=== PATIENT | male | born 1970 | race Two or more races ===

== ENCOUNTER 2020-10-22 10:35 | Outpatient (REF) | payer MEDICARE, OTHER, SELFPAY ==
--- NOTE | ~2020-10-22 | XR_ITS ---
EXAMINATION: XR SHOULDER, LEFT CLINICAL INFORMATION: Left shoulder lesion COMPARISON: None TECHNIQUE: AP external rotation, Grashey, scapular Y, and axillary views of the left shoulder. FINDINGS: There is mild reduction in the left AC joint space with periarticular spurring. The glenohumeral joint space is normal. No bony erosive changes. There is no acute fracture or dislocation seen. The soft tissues are normal. XR/XR shoulder LT min 2V IMPRESSION: Mild degenerative changes left AC joint. No visible acute fracture or dislocation seen.
--- NOTE | ~2020-10-22 | XR_ITS ---
EXAMINATION: XR CHEST CLINICAL INFORMATION: Chest pain COMPARISON: Previous chest x-ray August 2017 TECHNIQUE: 2 views of the chest were obtained. FINDINGS: The cardiac and mediastinal contours are normal. The lungs are clear. There is no pleural effusion or pneumothorax. There are degenerative changes of the spine. XR/XR chest 2V IMPRESSION: Unremarkable examination.
== END 2020-10-22 10:36 | disposition home or self-care (01) ==
LOC: HO.XRAY 10:35
PROVIDERS: PCP Internal Medicine; Visit Provider Internal Medicine
DX: R07.9 Chest pain, unspecified (principal); M75.81 Other shoulder lesions, right shoulder
CPT/HCPCS: 71046; 73030

== ENCOUNTER 2022-04-14 18:56 | Outpatient (REF) | payer MEDICARE, OTHER, SELFPAY ==
--- NOTE | ~2022-04-14 | MR_ITS ---
EXAMINATION: MR CERVICAL SPINE WITHOUT CONTRAST CLINICAL INFORMATION: Radiculopathy. COMPARISON: There are no prior studies available for comparison. TECHNIQUE: MRI of the cervical spine was obtained using routine sequences without contrast. FINDINGS: VERTEBRAL BODIES AND PARASPINAL SOFT TISSUES: There is straightening of the normal cervical lordosis which is nonspecific. There is a mild dextroscoliosis in the upper thoracic spine. There is mild multilevel narrowing of intervertebral disc height which is most severe at C5-C6 and C6-C7. Vertebral body heights maintained and no fractures are demonstrated. Overall, marrow signal appears homogenous. There are a few small cervical lymph nodes. The visualized upper lung cannon are unremarkable. CERVICOMEDULLARY JUNCTION AND VISUALIZED POSTERIOR FOSSA: The craniocervical and posterior fossa structures are normal. Accounting for artifact, spinal cord signal appears normal. SPINAL LEVELS: C2-C3: There is a small left paracentral disc protrusion without cord compression or central stenosis. The neural foramina are patent bilaterally. C3-C4: There is a left paracentral disc protrusion which distorts the ventral thecal sac and there is mild effacement of CSF around the cord. There is no cord compression or central stenosis. There are uncovertebral osteophytes and is mild bilateral foraminal narrowing. C4-C5: There is a posterior disc protrusion with a more focal soft disc protrusion in the midline which distorts the ventral thecal sac without cord compression or central stenosis. There are uncovertebral osteophytes and there is moderate left and mild right foraminal narrowing. C5-C6: There is a left-sided soft disc protrusion which distorts the ventral thecal sac and mildly deforms the spinal cord. There is effacement of CSF around the cord and there is mild central stenosis. There are uncovertebral osteophytes and there is severe left and mild right foraminal narrowing. C6-C7: There is a broad-based posterior soft disc protrusion which distorts the ventral thecal sac without cord compression or central stenosis. There is moderate bilateral foraminal narrowing. C7-T1: There is a broad-based posterior disc protrusion which flattens the ventral thecal sac without cord compression or central stenosis. The neural foramina are patent bilaterally. T2-T3: On the sagittal images there is a right-sided disc protrusion with mild right foraminal narrowing. There is no cord compression or central stenosis. MR/MR cervical spine wo con IMPRESSION: 1. At C5-C6 there is a disc protrusion with effacement of CSF around the cord and there is mild central stenosis. There is severe left and mild right foraminal narrowing. 2. At C6-C7 there is a broad-based soft disc protrusion without cord compression or central stenosis. There is moderate bilateral foraminal narrowing. 3. At C4-C5 there is a posterior disc protrusion without cord compression or central stenosis. There is moderate left and mild right foraminal narrowing. 4. Spondylosis and facet arthropathic changes are also demonstrated at other levels as described above.
--- NOTE | ~2022-04-14 | MR_ITS ---
EXAMINATION: MR SHOULDER WITHOUT CONTRAST, RIGHT CLINICAL INFORMATION: Left shoulder pain. COMPARISON: Radiographs 10/22/2020 TECHNIQUE: MRI of the shoulder without contrast was performed on a high-field scanner. FINDINGS: ROTATOR CUFF: Severe supraspinatus tendinosis with marked tendon thickening and ill-defined intermediate signal intensity. There is mild undersurface fraying proximal to the insertion and a more discrete shallow bursal surface partial tear at the tendon insertion measuring 9 x 8 mm. Moderate infraspinatus tendinopathy with a small ill-defined undersurface partial tear. Mild supraspinatus tendinosis. No muscle atrophy or fatty infiltration. BICEPS: Normal. CORACOACROMIAL ARCH: The undersurface of the acromion is flat with no subacromial spur. Mild acromioclavicular osteoarthritis. Subacromial subdeltoid bursitis. LABRUM/CAPSULE: No definite labral tear. GLENOHUMERAL JOINT/MARROW: Small joint effusion. Mild degenerative spurring and a small cyst along the greater tuberosity anteriorly. Incidental small cyst or intraosseous lipoma of the central humeral head. MR/MR shoulder RT wo con IMPRESSION: Severe supraspinatus tendinosis with ill-defined undersurface fraying and a shallow bursal surface insertional partial tear. No full-thickness tear. Moderate infraspinatus tendinosis with mild ill-defined undersurface partial tearing. Mild glenohumeral and acromioclavicular osteoarthritis with a small joint effusion. Subacromial subdeltoid bursitis.
== END 2022-04-14 18:57 | disposition home or self-care (01) ==
LOC: HO.MRI 18:56
PROVIDERS: Visit Provider Internal Medicine
DX: M25.511 Pain in right shoulder (principal); M54.12 Radiculopathy, cervical region; M77.8 Other enthesopathies, not elsewhere classified
CPT/HCPCS: 72141; 73221

== ENCOUNTER 2022-06-01 11:32 | Outpatient (REF) | payer MEDICARE, OTHER, SELFPAY ==
--- NOTE | ~2022-06-01 | XR_ITS ---
EXAMINATION: BILATERAL HAND/WRIST CLINICAL INFORMATION: Pain bilateral hand/wrist region. COMPARISON: None TECHNIQUE: 4 views each hand/wrist. FINDINGS: Right hand/wrist: The PIP, DIP and MCP joint spaces are maintained normal. The carpometacarpal, intercarpal and radioulnar carpal joint spaces are maintained normal. No bony erosive changes seen. Incidental finding of mild periarticular spurring PIP joint first digit. There is minimal soft tissue swelling. No acute fracture or dislocation. Left hand/wrist: The PIP, DIP and MCP joint spaces are maintained normal. The radioulnar carpal, intracarpal and carpometacarpal joint space is normal. There is no visible acute fracture, dislocation or subluxation seen. The soft tissues are normal. XR/XR hand wrist LT IMPRESSION: Periarticular spurring PIP joint first digit right hand. Otherwise unremarkable right hand/wrist. Unremarkable left hand/wrist exam.
--- NOTE | ~2022-06-01 | XR_ITS ---
EXAMINATION: BILATERAL HAND/WRIST CLINICAL INFORMATION: Pain bilateral hand/wrist region. COMPARISON: None TECHNIQUE: 4 views each hand/wrist. FINDINGS: Right hand/wrist: The PIP, DIP and MCP joint spaces are maintained normal. The carpometacarpal, intercarpal and radioulnar carpal joint spaces are maintained normal. No bony erosive changes seen. Incidental finding of mild periarticular spurring PIP joint first digit. There is minimal soft tissue swelling. No acute fracture or dislocation. Left hand/wrist: The PIP, DIP and MCP joint spaces are maintained normal. The radioulnar carpal, intracarpal and carpometacarpal joint space is normal. There is no visible acute fracture, dislocation or subluxation seen. The soft tissues are normal. XR/XR hand wrist RT IMPRESSION: Periarticular spurring PIP joint first digit right hand. Otherwise unremarkable right hand/wrist. Unremarkable left hand/wrist exam.
[2022-06-01 13:11] LABS: MANUAL DIFF FLAG NO
[2022-06-01 14:34] LABS: Basophils Percent Auto 0.5 % (0-2); Eosinophils Absolute Auto 0.2 X10*3/uL (0.0-0.4); Eosinophils Percent Auto 3.2 % (0-4); Hematocrit 42.1 % (42.0-52.0); Hemoglobin 14.7 g/dl (14.0-18.0); Imm Gran Abs Auto 0.03 X10*3/uL (0.00-0.03); Imm Gran Pct Auto 0.4 % (0.0-0.4); Lymphocytes Absolute Auto 2.8 X10*3/uL (1.2-4.9); Lymphocytes Percent Auto 38.6 % (20-40); Mean Corpuscular HGB Conc 34.9 g/dl (31.0-36.0); Mean Corpuscular Hemoglobin 30.8 pg (27.0-33.0); Mean Corpuscular Volume 88.3 fL (80.0-98.0); Mean Platelet Volume 10.2 fL (9.4-12.4); Monocytes Absolute Auto 0.5 X10*3/uL (0.1-1.2); Monocytes Percent Auto 7.3 % (2-11); Neutrophils Absolute Auto 3.6 x10*3/uL (2.0-8.3); Platelet Count 263 X10*3/uL (160-400); Red Blood Count 4.77 X10*6/uL (4.60-5.80); White Blood Count 7.3 X10*3/uL (4.8-10.8)
[2022-06-01 14:36] LABS: Estimated Average Glucose 255 mg/dL; Hemoglobin A1c % 10.5 %
[2022-06-01 14:51] LABS: Alanine Aminotransferase 43 U/L (0-40); Albumin Level 4.5 g/dL (3.5-5.0); Alkaline Phosphatase 107 U/L (39-117); Anion Gap 16 (12-20); Aspartate Amino Transferase 28 U/L (5-37); Bilirubin Total 0.3 mg/dL (0.0-1.0); Blood Urea Nitrogen 10 mg/dL (9-16); C Reactive Protein 0.11 mg/dL (< or = 0.50); Calcium 10.2 mg/dL (8.4-10.2); Carbon Dioxide 28 mmol/L (22-29); Chloride 95 mmol/L (96-108); Estimated Glomerular Filt Rate > 60; Glucose Random 302 mg/dL (60-115); Potassium 4.4 mmol/L (3.3-5.1); Rheumatoid Factor < 15.0 IU/mL (<15.0); Sodium 135 mmol/L (135-145); Uric Acid 4.4 mg/dL (3.4-7.0)
[2022-06-01 15:13] LABS: Thyroid Stimulating Hormone 1.79 uIU/mL (0.32-4.0)
[2022-06-01 15:24] LABS: Erythrocyte Sedimentation Rate 16 MM/HR (0-15)
[2022-06-02 04:51] LABS: HBS Num1 0.79 mIU/mL (0-7.99); HBsAGNum1 0.18 S/CO (0.00-0.99); Hepatitis A Antibody IgM 0.15 Index (0-0.79); Hepatitis B Core Antibody Nonreactive (Nonreactive); Hepatitis B Surface Antigen Negative (Negative); ~HepC Num1 0.22 S/CO (0.00-0.79); ~Hepatitis A Antibody IgM Nonreactive (Nonreactive); ~Hepatitis B Surface Antibody NONREACTIVE (Nonreactive); ~Hepatitis C Antibody Nonreactive (Nonreactive)
[2022-06-02 10:57] LABS: Complement C3 141 mg/dL (82-185)
[2022-06-03 12:37] LABS: Anti Nuclear Antibody Screen NEGATIVE (NEGATIVE)
[2022-06-04 00:07] LABS: TS Negative Control Passed; TS Panel A 0; TS Panel B 0; TS Positive Control Passed; TSpotTB Negative (Negative)
[2022-06-04 00:27] LABS: HLA B27 Negative (Negative)
[2022-06-04 14:11] LABS: Cyclic Citrullinated Peptide <16 UNITS
== END 2022-06-01 11:33 | disposition home or self-care (01) ==
LOC: HO.LAB 11:32
PROVIDERS: PCP Internal Medicine; Visit Provider Student in an Organized Health Care Education/Training Program
DX: Z11.59 Encounter for screening for other viral diseases (principal); Z11.7 Encounter for testing for latent tuberculosis infection; M25.542 Pain in joints of left hand; M25.541 Pain in joints of right hand; E88.81 Metabolic syndrome and other insulin resistance; R53.83 Other fatigue; M46.90 Unspecified inflammatory spondylopathy, site unspecified; E11.9 Type 2 diabetes mellitus without complications
CPT/HCPCS: 36415; 73110; 73130; 80053; 82784; 83036; 84165; 84443; 84550; 85025; 85652; 86038; 86039; 86140; 86160; 86200; 86225; 86235; 86334; 86431; 86481; 86704; 86706; 86709; 86803; 86812; 87340; 99202

== ENCOUNTER → 2022-06-18 08:01 | Outpatient (BNVA) | payer MEDICARE, OTHER, SELFPAY | PROVIDERS: PCP Internal Medicine; Visit Provider Student in an Organized Health Care Education/Training Program | DX: M65.341 Trigger finger, right ring finger (principal); M65.332 Trigger finger, left middle finger; M65.4 Radial styloid tenosynovitis [de Quervain] | CPT/HCPCS: 20550; 99212 ==

== ENCOUNTER → 2022-11-04 08:39 | Outpatient (BNVA) | payer MEDICARE, OTHER, SELFPAY | PROVIDERS: PCP Internal Medicine; Visit Provider Student in an Organized Health Care Education/Training Program | DX: M12.811 Other specific arthropathies, not elsewhere classified, right shoulder (principal); M65.332 Trigger finger, left middle finger | CPT/HCPCS: 99212 ==

== ENCOUNTER 2023-05-10 09:12 | Outpatient (AMB) | payer MEDICARE, MEDICAID, SELFPAY ==
[2023-05-10 09:17] VITALS: BP 116/74; PULSE 90; TEMP 36.6; O2SAT 98; BMI 32.2
--- NOTE | 2023-05-10 09:17 | MHC.OFFVIS ---
Intake Vital Signs 05/10/23 09:17 Height 5 ft 6 in Weight 199 lb 8.293 oz BMI 32.2 BP 116/74 Blood Pressure Location Rt brachial Position Sitting Pulse 90 Pulse Source Pulse Oximeter Temp 97.9 F Temp Source Skin Pulse Oximetry (%) 98 Intake Visit Reasons: OA Intake Note: Pt seen today for OA follow up. C/o bl hand pain and swelling, worse on right.; S/P cortisone injection approx a year ago. Also reports right sided shoulder and elbow pain started approx 2 weeks ago. 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 States that over the last 2-3 weeks he has been having recurrent triggering and pain of his right 3rd and 4th fingers. Also having pain and triggering of his left 3rd finger. He is also having some right elbow and right shoulder pain. Worse with activity. States that his physical therapy appointments for rotator cuff tendinopathy and right tennis elbow were rescheduled he did not want to go as he felt well. Denies any side effects related to steroid injections Initial history: This is a 51-year-old male with a past medical history of type 2 diabetes mellitus, dyslipidemia, fatty liver who presents for evaluation of bilateral hand stiffness. 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 This is generally worse in the morning. Associated with 30 minutes of morning stiffness. He has pain in his MCPs in the [place] side. He states that his brother's got steroid injections in her hands with some improvement. 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 Right shoulder MRI showed rotator cuff tendinitis. Five years ago he had bilateral de Quervain tenosynovitis which was treated with steroid injection with good relief He had a work injury in 1996 then he had back surgery, since then he has been disabled. 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, 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, ..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 Review of Systems [employer] Reports arthralgias, Reports limited range of motion and Reports stiffness Physical Exam Vital Signs: Last Vital Signs Temp 97.9 F 05/10/23 09:17 Pulse 90 05/10/23 09:17 BP 116/74 05/10/23 09:17 Pulse Ox 98 05/10/23 09:17 BMI result Body Mass Index 32.2 Const General: cooperative, healthy appearing, comfortable and no acute distress Nutritional Appearance: average body habitus Limitations: no limitations HEENT Head: Yes normocephalic and Yes atraumatic Resp Effort & Inspection: normal respiratory effort and able to speak in complete sentences Extrem Other: I am unable to appreciate any swollen joints Positive empty can test right shoulder Tender right 3rd and 4th flexor tendons with a firm nodule on palpation Tender left 3rd flexor tendon with a firm nodule on palpate Bilateral normal forms analysis manager strength Tenderness to palpation at the common extensor origin right elbow with mildly positive resisted wrist extension Positive empty can test right shoulder Office Procedures Joint Injection/Drain Joint Injection/Drain Primary Site: right trigger finger (3rd & 4th) Secondary Site: left trigger finger (3rd) Injected: 20 mg of, Kenalog and other (0.1 mL of 1% lidocaine) Procedure: The patient tolerated the procedure well Coding Details: The right palm was prepped with ChloraPrep and alcohol. Under a topical ethyl chloride spray the [3rd] & [4th] flexor tendon sheath was injected with 20 mg of triamcinolone and 0.1 cc of 1% lidocaine. The patient tolerated the procedure without any acute adverse effects. The palm of the left hand was prepped with ChloraPrep and alcohol. Under topical ethyl chloride spray the [3rd] flexor tendon sheath was injected with 20 mg of triamcinolone and 0.2 cc of 1% lidocaine. The patient tolerated the procedure without any acute complications. Additional procedure code (CPT) needed (Trigger finger X 3) Assessment & Plan Assessment & Plan (1) Rotator cuff arthropathy of right shoulder: Code(s): M12.811 - Other specific arthropathies, not elsewhere classified, right shoulder Plan: Ordered OT for bilateral de Quervain tenosynovitis, bilateral tennis elbow & PT for rotator cuff tendinopathy and degenerative spinal stenosis. (2) Trigger finger, left middle finger: Code(s): M65.332 - Trigger finger, left middle finger Plan: Right ring finger and the left middle finger were injected in office on 05/2022 with significant relief. Patient has been having some triggering and pain over the last 3 weeks. With patient's consent the right middle, right ring and left middle fingers were injected today. Advised patient to check his blood sugar as soon as he gets home Plan I spent 22 minutes reviewing patient's chart, evaluating patient, placing orders, counseling patient and documenting in the chart Orders: Orders AMB Joint Injection/Aspiration Today M65.30 - Trigger finger, unspecified finger, M65.332 - Trigger finger, left middle finger Coding Level of Care Code Est Pt Level 3 (35931) Diagnoses Rotator cuff arthropathy of right shoulder M12.811 Trigger finger, left middle finger M65.332
== END 2023-05-10 09:56 | disposition home or self-care (01) ==
PROVIDERS: PCP Internal Medicine; Visit Provider Student in an Organized Health Care Education/Training Program
DX: M12.811 Other specific arthropathies, not elsewhere classified, right shoulder (principal); M65.332 Trigger finger, left middle finger
CPT/HCPCS: 99213

== ENCOUNTER → 2023-05-10 09:12 | Outpatient (BNVA) | payer MEDICARE, MEDICAID, SELFPAY | PROVIDERS: PCP Internal Medicine; Visit Provider Student in an Organized Health Care Education/Training Program | DX: M12.811 Other specific arthropathies, not elsewhere classified, right shoulder (principal); M65.332 Trigger finger, left middle finger; M65.341 Trigger finger, right ring finger; M65.331 Trigger finger, right middle finger | CPT/HCPCS: 20550; 99212 ==

== ENCOUNTER 2023-09-09 14:57 | Outpatient (REF) | payer MEDICARE, MEDICAID, SELFPAY | END 2023-09-09 14:58 | disposition home or self-care (01) | LOC: HO.HHCLNP 14:57 | PROVIDERS: Visit Provider Internal Medicine | DX: L73.9 Follicular disorder, unspecified (principal) | CPT/HCPCS: 87070; 87205 ==

== ENCOUNTER 2023-10-21 08:05 | Outpatient (AMB) | payer MEDICARE, MEDICAID, SELFPAY ==
--- NOTE | 2023-10-21 08:07 | MHC.OFFVIS ---
Intake Vital Signs 10/21/23 08:08 Height 5 ft 6 in Weight 194 lb 14.218 oz BMI 31.5 BP 112/68 Blood Pressure Location Lt brachial Position Sitting Pulse 83 Pulse Source Pulse Oximeter Temp 97.6 F Temp Source Skin Pulse Oximetry (%) 97 Oxygen Delivery Method Room Air Intake Visit Reasons: trigger finger Intake Note: Pt last seen 05/10/23 presents today for follow up. Reports intermittent pain and swelling in hands with morning stiffness. 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 He states that trigger finger injections for his right hand last visit supple. He has not had any significant recurrence of triggering. Recently has been having some triggering and stiffness of his left index and left middle finger. He also has some stiffness and sensitivity of his right shoulder. He states that he has been having some right foot pain. He feels it when he walks on the treadmill. He walks on the treadmill 30 minutes to 45 minutes 3 times a week. He stated that while showering the shampoo bottle fell on his foot a few times. He has noticed some darkening of the skin at the site of steroid injections. He did not to physical therapy as planned Initial history: This is a 51-year-old male with a past medical history of type 2 diabetes mellitus, dyslipidemia, fatty liver who presents for evaluation of bilateral hand stiffness. 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 This is generally worse in the morning. Associated with 30 minutes of morning stiffness. He has pain in his MCPs in the [place] side. He states that his brother's got steroid injections in her hands with some improvement. Also recently he was helping a neighbor fix the residential lawn specialist, he pulled the wire and since then he has been having right shoulder pain and stiffness. Right shoulder MRI showed rotator cuff tendinitis. Five years ago he had bilateral de Quervain tenosynovitis which was treated with steroid injection with good relief He had a work injury in 1996 then he had back surgery, since then he has been disabled. 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, 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, 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, ..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 Review of Systems [facility] Reports arthralgias, Reports limited range of motion and Reports stiffness Physical Exam Vital Signs: Last Vital Signs Temp 97.6 F 10/21/23 08:08 Pulse 83 10/21/23 08:08 BP 112/68 10/21/23 08:08 Pulse Ox 97 10/21/23 08:08 Oxygen Delivery Method Room Air 10/21/23 08:08 BMI result Body Mass Index 31.5 Const General: cooperative, healthy appearing, comfortable and no acute distress Nutritional Appearance: average body habitus Limitations: no limitations HEENT Head: Yes normocephalic and Yes atraumatic Resp Effort & Inspection: normal respiratory effort and able to speak in complete sentences Extrem Other: I am unable to appreciate any swollen joints Positive empty can test right shoulder Some hyperpigmentation at the right 3rd flexor tendon and left 3rd flexor tendon Bilateral normal vocational aide strength Right foot bunion and minimally tender 1st MTP Office Procedures Tendon Injection Tendon Injection Details: With patient's consent, The palm of the left hand was prepped with ChloraPrep and alcohol. Under topical ethyl chloride spray the [3rd] flexor tendon sheath was injected with 20 mg of triamcinolone and 0.1 cc of 1% lidocaine. The patient tolerated the procedure without any acute complications. [id number] Tendon Sheath Injection All charges added?: Procedure code (CPT) selection complete Assessment & Plan Assessment & Plan (1) Rotator cuff arthropathy of right shoulder: Code(s): M12.811 - Other specific arthropathies, not elsewhere classified, right shoulder Plan: Advised patient to start PT (2) Trigger finger, left middle finger: Code(s): M65.332 - Trigger finger, left middle finger Plan: Right ring finger and the left middle finger were injected in office on 05/2022 with significant relief.? . right middle, right ring and left middle fingers were injected 04/2023 left middle finger injected today Advised patient to check his blood sugar as soon as he gets home (3) Osteoarthritis of hands, bilateral: Code(s): M19.041 - Primary osteoarthritis, right hand; M19.042 - Primary osteoarthritis, left hand Qualifiers: Osteoarthritis type: primary Qualified Code(s): M19.041 - Primary osteoarthritis, right hand; M19.042 - Primary osteoarthritis, left hand Plan: Discussed the nature of osteoarthritis with patient. I suggested occupational therapy before but patient never went. I suggested getting a paraffin wax machine (4) Right foot pain: Code(s): M79.671 - Pain in right foot Plan: Will check an x-ray to rule out stress fracture Plan I spent 22 minutes reviewing patient's chart, evaluating patient, placing orders, counseling patient and documenting in the chart Orders: Orders XR foot RT min 3V Today M79.671 - Pain in right foot AMB Injection-Tendon Today M65.30 - Trigger finger, unspecified finger Coding Level of Care Code Est Pt Level 4 (50591) Diagnoses Rotator cuff arthropathy of right shoulder M12.811 Trigger finger, left middle finger M65.332 Primary osteoarthritis of both hands M19.041; M19.042 Osteoarthritis type: primary Right foot pain M79.671 CPT Codes Tendon Injection - Tendon Injection 1: [id number] Tendon Sheath Injection ([id number])
[2023-10-21 08:08] VITALS: BP 112/68; PULSE 83; TEMP 36.4; O2SAT 97; BMI 31.5
== END 2023-10-21 08:41 | disposition home or self-care (01) ==
PROVIDERS: PCP Internal Medicine; Visit Provider Student in an Organized Health Care Education/Training Program
DX: M65.332 Trigger finger, left middle finger (principal); M19.041 Primary osteoarthritis, right hand; M19.042 Primary osteoarthritis, left hand; M79.671 Pain in right foot
CPT/HCPCS: 20550; 99214

== ENCOUNTER 2023-10-21 08:05 | Outpatient (REF) | payer MEDICARE, MEDICAID, SELFPAY ==
--- NOTE | ~2023-10-21 | XR_ITS ---
EXAMINATION: XR FOOT, RIGHT CLINICAL INFORMATION: First toe pain. She per bottle fell on foot. COMPARISON: None available. TECHNIQUE: AP, lateral, and oblique views of the right foot. FINDINGS: The bones and soft tissues appear unremarkable. No fracture appreciated. Tiny plantar calcaneal spur. Alignment is anatomic. Mild degenerative change of the first MTP joint. XR/XR foot RT min 3V IMPRESSION: No acute finding.
== END 2023-10-21 08:06 | disposition home or self-care (01) ==
LOC: HO.XRAY 08:05
PROVIDERS: PCP Internal Medicine; Visit Provider Student in an Organized Health Care Education/Training Program
DX: M79.671 Pain in right foot (principal); M65.332 Trigger finger, left middle finger; M19.041 Primary osteoarthritis, right hand; M19.042 Primary osteoarthritis, left hand
CPT/HCPCS: 20550; 73630; 99212

== ENCOUNTER 2023-12-14 11:10 | Outpatient (REF) | payer MEDICARE, MEDICAID, SELFPAY ==
[2023-12-14 13:34] LABS: MANUAL DIFF FLAG NO
[2023-12-14 13:56] LABS: Basophils Percent Auto 0.5 % (0-2); Eosinophils Absolute Auto 0.2 X10*3/uL (0.0-0.4); Eosinophils Percent Auto 2.6 % (0-4); Hematocrit 45.5 % (42.0-52.0); Hemoglobin 15.5 g/dl (14.0-18.0); Imm Gran Abs Auto 0.05 X10*3/uL (0.00-0.03); Imm Gran Pct Auto 0.7 % (0.0-0.4); Lymphocytes Absolute Auto 2.4 X10*3/uL (1.2-4.9); Lymphocytes Percent Auto 32.2 % (20-40); Mean Corpuscular HGB Conc 34.1 g/dl (31.0-36.0); Mean Corpuscular Hemoglobin 30.8 pg (27.0-33.0); Mean Corpuscular Volume 90.5 fL (80.0-98.0); Mean Platelet Volume 10.1 fL (9.4-12.4); Monocytes Absolute Auto 0.7 X10*3/uL (0.1-1.2); Monocytes Percent Auto 8.7 % (2-11); Neutrophils Absolute Auto 4.1 x10*3/uL (2.0-8.3); Neutrophils Percent Auto 55.3 % (45-73); Platelet Count 282 X10*3/uL (160-400); Red Blood Count 5.03 X10*6/uL (4.60-5.80); Red Cell Distribution Width 12.2 % (11.0-16.0); White Blood Count 7.4 X10*3/uL (4.8-10.8)
[2023-12-14 14:22] LABS: Anion Gap 11 (12-20); Blood Urea Nitrogen 9 mg/dL (9-16); Calcium 9.7 mg/dL (8.4-10.2); Carbon Dioxide 29 mmol/L (22-29); Chloride 98 mmol/L (96-108); Cholesterol 232 mg/dL (<200); Estimated Glomerular Filt Rate > 60; Glucose Random 259 mg/dL (60-115); HDL Cholesterol 40 mg/dL (>40); LDL Cholesterol Calculated 169 mg/dL (<100); Potassium 4.4 mmol/L (3.3-5.1); Sodium 134 mmol/L (135-145); Triglycerides 118 mg/dL (<150)
[2023-12-14 14:29] LABS: Reflex LDLD? No
== END 2023-12-14 11:11 | disposition home or self-care (01) ==
LOC: HO.HHCL 11:10
PROVIDERS: Visit Provider Internal Medicine
DX: E11.65 Type 2 diabetes mellitus with hyperglycemia (principal); L02.92 Furuncle, unspecified
CPT/HCPCS: 36415; 80048; 80061; 84443; 85025

== ENCOUNTER 2024-02-16 11:15 | Outpatient (REF) | payer MEDICARE, MEDICAID, SELFPAY ==
--- NOTE | ~2024-02-16 | XR_ITS ---
EXAMINATION: XR CHEST CLINICAL INFORMATION: Cough for 2 weeks COMPARISON: 10/22/2020 TECHNIQUE: 2 views of the chest were obtained. FINDINGS: No significant abnormality is noted involving the heart, lungs, mediastinum, bony thorax or soft tissues. XR/XR chest 2V IMPRESSION: Unremarkable examination.
== END 2024-02-16 11:16 | disposition home or self-care (01) ==
LOC: HO.HHCX 11:15
PROVIDERS: Visit Provider Internal Medicine
DX: R05.9 Cough, unspecified (principal)
CPT/HCPCS: 71046

== ENCOUNTER 2024-03-30 09:43 | Outpatient (AMB) | payer MEDICARE, MEDICAID, SELFPAY ==
--- NOTE | 2024-03-30 09:45 | A.OFFVIS_ITS ---
Vital Signs 03/30/24 09:49 Height 5 ft 6 in Weight 177 lb 7.554 oz BMI 28.6 BP 116/68 Blood Pressure Location Rt brachial Position Sitting Pulse 90 Pulse Oximetry (%) 98 Oxygen Delivery Method Room Air Intake Visit Reasons: Trigger finger/LM Intake Note: Patient presents for trigger finger. Allergies codeine Allergy (Unknown, Verified 03/30/24 09:48) upset stomach, nausea Medication List - Last Reconciled 03/30/24 by Dinah Simms MD cetirizine 10 mg PO QAM PRN diclofenac sodium 1% 2 grams topical TID empagliflozin (Jardiance) 25 mg PO DAILY fluticasone propionate 50 mcg/actuation 1 spray intranasal DAILY glimepiride 2 mg PO DAILY ibuprofen 400 mg PO [thumb spica splint As directed] HPI Comments Details: 53-year-old male with generalized osteoarthritis and trigger fingers returns for follow-up. He states that he has lost some weight, including muscle mass, he has modified his diet. States that having stiffness and triggering of his left 3rd and 4th fingers as well as the right 3rd and 4th fingers., the right hand is worse though. Requesting injections Initial history: This is a 51-year-old male with a past medical history of type 2 diabetes mellitus, dyslipidemia, fatty liver who presents for evaluation of bilateral hand stiffness. 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 This is generally worse in the morning. Associated with 30 minutes of morning stiffness. He has pain in his MCPs in the [place] side. He states that his brother's got steroid injections in her hands with some improvement. Also recently he was helping a neighbor fix the acid blower, he pulled the wire and since then he has been having right shoulder pain and stiffness. Right shoulder MRI showed rotator cuff tendinitis. Five years ago he had bilateral de Quervain tenosynovitis which was treated with steroid injection with good relief He had a work injury in 1996 then he had back surgery, since then he has been disabled. 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, 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, ..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 Review of Systems [facility] [place] Reports arthralgias, Reports limited range of motion and Reports stiffness Physical Exam Vital Signs: Last Vital Signs Pulse 90 03/30/24 09:49 BP 116/68 03/30/24 09:49 Pulse Ox 98 03/30/24 09:49 Oxygen Delivery Method Room Air 03/30/24 09:49 BMI result Body Mass Index 28.6 Const Other: Patient has lost some weight compared to last visit but looks healthy General: cooperative, healthy appearing, comfortable and no acute distress Nutritional Appearance: average body habitus Limitations: no limitations HEENT Head: Yes normocephalic and Yes atraumatic Resp Effort & Inspection: normal respiratory effort and able to speak in complete sentences Extrem Other: I am unable to appreciate any swollen joints Some hyperpigmentation at the right 3rd flexor tendon and left 3rd flexor tendon Bilateral normal pharmacy service associate strength Right foot bunion and minimally tender 1st MTP Office Procedures Tendon Injection Tendon Injection Details: With patient's consent. The right palm was prepped with ChloraPrep and alcohol. Under a topical ethyl chloride spray the [3rd & 4th] flexor tendon sheath was injected with 20 mg of triamcinolone and 0.2 cc of 1% lidocaine. The patient tolerated the procedure without any acute adverse effects. [id number] Tendon Sheath Injection All charges added?: Procedure code (CPT) selection complete (Tendon sheath injection x2) Assessment & Plan Assessment & Plan (1) Trigger finger, left middle finger: Code(s): M65.332 - Trigger finger, left middle finger Category: Medical Plan: Right ring finger and the left middle finger were injected in office on 05/2022 with significant relief.? . right middle, right ring and left middle fingers were injected 04/2023 left middle finger injected 10/2023 Right 3rd and 4th trigger fingers injected today Advised patient to check his blood sugar as soon as he gets home (2) Osteoarthritis of hands, bilateral: Code(s): M19.041 - Primary osteoarthritis, right hand; M19.042 - Primary osteoarthritis, left hand Category: Medical Qualifiers: Osteoarthritis type: primary Qualified Code(s): M19.041 - Primary osteoarthritis, right hand; M19.042 - Primary osteoarthritis, left hand Plan: Discussed the nature of osteoarthritis with patient. Plan I spent 20 minutes reviewing patient's chart, evaluating patient, counseling patient and documenting in the chart Orders: Orders AMB Tendon Injection Today M65.30 - Trigger finger, unspecified finger Coding Level of Care Code Est Pt Level 3 (24065) Diagnoses Trigger finger, left middle finger M65.332 Primary osteoarthritis of both hands M19.041; M19.042 Osteoarthritis type: primary CPT Codes Tendon Injection - Tendon Injection 1: 61430-Ssvklb Tendon Sheath Injection ([id number])
[2024-03-30 09:49] VITALS: BP 116/68; PULSE 90; O2SAT 98; BMI 28.6
== END 2024-03-30 10:32 | disposition home or self-care (01) ==
PROVIDERS: PCP Internal Medicine; Visit Provider Student in an Organized Health Care Education/Training Program
DX: M65.332 Trigger finger, left middle finger (principal); M19.041 Primary osteoarthritis, right hand; M19.042 Primary osteoarthritis, left hand
CPT/HCPCS: 20550; 99213

== ENCOUNTER → 2024-03-30 09:43 | Outpatient (BNVA) | payer MEDICARE, MEDICAID, SELFPAY | PROVIDERS: PCP Internal Medicine; Visit Provider Student in an Organized Health Care Education/Training Program | DX: M65.341 Trigger finger, right ring finger (principal); M65.331 Trigger finger, right middle finger; M25.642 Stiffness of left hand, not elsewhere classified; M25.641 Stiffness of right hand, not elsewhere classified; M77.8 Other enthesopathies, not elsewhere classified; M65.332 Trigger finger, left middle finger; M65.342 Trigger finger, left ring finger; M19.041 Primary osteoarthritis, right hand; M19.042 Primary osteoarthritis, left hand | CPT/HCPCS: 20550; 99212 ==

== ENCOUNTER 2024-06-30 09:36 | Outpatient (REF) | payer MEDICARE, MEDICAID, SELFPAY ==
[2024-06-30 09:50] LABS: MANUAL DIFF FLAG NO
[2024-06-30 10:40] LABS: Basophils Percent Auto 0.6 % (0-2); Eosinophils Absolute Auto 0.2 X10*3/uL (0.0-0.4); Hemoglobin 14.9 g/dl (14.0-18.0); Imm Gran Abs Auto 0.02 X10*3/uL (0.00-0.03); Imm Gran Pct Auto 0.3 % (0.0-0.4); Lymphocytes Absolute Auto 2.1 X10*3/uL (1.2-4.9); Lymphocytes Percent Auto 32.1 % (20-40); Mean Corpuscular HGB Conc 33.9 g/dl (31.0-36.0); Mean Corpuscular Hemoglobin 31.5 pg (27.0-33.0); Mean Platelet Volume 9.8 fL (9.4-12.4); Monocytes Absolute Auto 0.5 X10*3/uL (0.1-1.2); Monocytes Percent Auto 7.3 % (2-11); Neutrophils Absolute Auto 3.7 x10*3/uL (2.0-8.3); Neutrophils Percent Auto 56.7 % (45-73); Platelet Count 260 X10*3/uL (160-400); Red Blood Count 4.73 X10*6/uL (4.60-5.80); Red Cell Distribution Width 13.3 % (11.0-16.0); White Blood Count 6.6 X10*3/uL (4.8-10.8)
[2024-06-30 10:57] LABS: Appearance Urine Clear; Color Urine Yellow; Glucose Urine UA >=1000 mg/dL (Negative); Leukocyte Esterase Urine Negative (Negative); Nitrite Urine Negative (Negative); PH 6.5 (5.0-9.0); Specific Gravity - Urine >= 1.030 (1.005-1.025); UMIC TRIGGER UACC YES; Urine Blood Negative (Negative); Urine Ketones Trace mg/dL (Negative); Urine Protein Negative (Neg-Trace)
[2024-06-30 10:59] LABS: Bacteria Urine None Seen (None Seen); Hyaline Casts Urine 0-2 /LPF (0-2); RBC Urine 0-2 /HPF (0-2); Squamous Epithelial Cell Urine 0-2 /HPF (0-2); WBC Urine 0-5 /HPF (0-5)
[2024-06-30 11:23] LABS: Alanine Aminotransferase 47 U/L (0-40); Albumin Level 4.2 g/dL (3.5-5.0); Alkaline Phosphatase 97 U/L (39-117); Anion Gap 15 (12-20); Aspartate Amino Transferase 36 U/L (5-37); Bilirubin Total 0.6 mg/dL (0.0-1.0); Blood Urea Nitrogen 17 mg/dL (9-16); Calcium 9.7 mg/dL (8.4-10.2); Carbon Dioxide 25 mmol/L (22-29); Chloride 103 mmol/L (96-108); Cholesterol 213 mg/dL (<200); Estimated Glomerular Filt Rate > 60; Glucose Random 160 mg/dL (60-115); HDL Cholesterol 56 mg/dL (>40); LDL Cholesterol Calculated 142 mg/dL (<100); Potassium 4.2 mmol/L (3.3-5.1); Sodium 139 mmol/L (135-145); Total Protein 7.8 g/dL (6.5-8.0); Triglycerides 75 mg/dL (<150)
[2024-06-30 11:26] LABS: HIV AB/AG Nonreactive (Nonreactive); HIV Num 1 0.05 S/CO (0.00-0.99); ~HepC Num1 0.32 S/CO (0.00-0.79); ~Hepatitis C Antibody Nonreactive (Nonreactive)
[2024-06-30 11:29] LABS: TSH reflex Free T4 1.11 uIU/mL (0.32-4.0)
[2024-06-30 11:32] LABS: Prostate Specific Antigen 1.86 ng/mL (<0.05-4.0)
[2024-07-05 13:53] LABS: Testosterone, Total 677 ng/dL (250-1100)
== END 2024-06-30 09:37 | disposition home or self-care (01) ==
LOC: HO.LAB 09:36
PROVIDERS: PCP Internal Medicine Geriatric Medicine; Visit Provider Internal Medicine Geriatric Medicine
DX: E11.65 Type 2 diabetes mellitus with hyperglycemia (principal); R63.4 Abnormal weight loss; R35.0 Frequency of micturition; Z12.5 Encounter for screening for malignant neoplasm of prostate
CPT/HCPCS: 36415; 80053; 80061; 81001; 84153; 84403; 84443; 85025; 86803; 87389

== ENCOUNTER 2024-08-20 08:45 | Outpatient (AMB) | payer MEDICARE, MEDICAID, SELFPAY ==
--- NOTE | 2024-08-20 08:47 | MHC.OFFVIS ---
Vital Signs 08/20/24 08:51 Height 5 ft 6 in Weight 181 lb 3.52 oz BMI 29.2 BP 120/80 Blood Pressure Location Rt brachial Position Sitting Pulse 98 Pulse Source Pulse Oximeter Pulse Oximetry (%) 98 Oxygen Delivery Method Room Air Intake Visit Reasons: Trigger finger Intake Note: Patient presents for Trigger Finger. Allergies codeine Allergy (Unknown, Verified 08/20/24 08:50) upset stomach, nausea Medication List - Last Reconciled 08/20/24 by Dinah Simms MD cetirizine 10 mg PO QAM PRN diclofenac sodium 1% 2 grams topical TID empagliflozin (Jardiance) 25 mg PO DAILY fluticasone propionate 50 mcg/actuation 1 spray intranasal DAILY glimepiride 2 mg PO DAILY ibuprofen 400 mg PO [thumb spica splint As directed] HPI Comments Details: 54-year-old male with generalized osteoarthritis and trigger fingers returns for follow-up. For the last 2 months she has been having pain in the inner aspect of his left elbow. Usually worse in the morning, can barely bend his elbow. Denies any recent trauma, injury or overuse of his elbows. Initial history: This is a 51-year-old male with a past medical history of type 2 diabetes mellitus, dyslipidemia, fatty liver who presents for evaluation of bilateral hand stiffness. 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 This is generally worse in the morning. Associated with 30 minutes of morning stiffness. He has pain in his MCPs in the [place] side. He states that his brother's got steroid injections in her hands with some improvement. Also recently he was helping a neighbor fix the applications support analyst, he pulled the wire and since then he has been having right shoulder pain and stiffness. Right shoulder MRI showed rotator cuff tendinitis. Five years ago he had bilateral de Quervain tenosynovitis which was treated with steroid injection with good relief He had a work injury in 1996 then he had back surgery, since then he has been disabled. 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, ..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 [place] [facility] [place]ralgias Physical Exam Vital Signs: Last Vital Signs Pulse 98 08/20/24 08:51 BP 120/80 08/20/24 08:51 Pulse Ox 98 08/20/24 08:51 Oxygen Delivery Method Room Air 08/20/24 08:51 BMI result Body Mass Index 29.2 Const General: cooperative, healthy appearing, comfortable and no acute distress Nutritional Appearance: average body habitus Limitations: no limitations HEENT Head: Yes normocephalic and Yes atraumatic Resp Effort & Inspection: normal respiratory effort and able to speak in complete sentences Extrem Other: I am unable to appreciate any swollen joints Tenderness upon palpation of the left common flexor origin at the medial epicondyle with positive resisted wrist flexion test Some hyperpigmentation at the right 3rd flexor tendon and left 3rd flexor tendon Office Procedures AMB Tendon Injection Tendon Injection Details: With patient's consent. The area over the left medial epicondyle was prepped with ChloraPrep, ethyl chloride spray was used then 40 mg of triamcinolone mixed with 1 mL of 1% lidocaine was injected into the flexor tendon sheath. The patient tolerated the procedure well with no apparent acute adverse events [id number] Tendon Sheath Injection All charges added?: Procedure code (CPT) selection complete Office Meds Kenalog 40 mg/mL suspension for injection Performing Provider: Dinah Simms MD Performing Location: [facility] [place] Rheumatology Administered by: Dinah Simms MD on 08/20/24 09:15 Dose Route Admin Location Dispensed Lot Number Expiration Date [facility] Investigation Division Lieutenant 40 mg Tendon Sheath Inj. Left tennis elbow 1 mL [id number] 02/19/26 [address]-2 [employer] lidocaine (PF) 10 mg/mL (1 %) injection solution Performing Provider: Dinah Simms MD Performing Location: [facility] [place] Rheumatology Administered by: Dinah Simms MD on 08/20/24 09:15 Dose Route Admin Location Dispensed Lot Number Expiration Date [employer] Investigation Division Lieutenant 10 mg Infiltration Left tennis elbow 2 mL [id number] 11/20/26 77348-908-61 [facility] Assessment & Plan Assessment & Plan (1) Golfers elbow of left upper extremity: Code(s): M77.02 - Medial epicondylitis, left elbow Category: Medical Plan: Symptomatic for the last 2 months. Patient takes ibuprofen 600 mg daily. Discussed different treatment options. Patient requesting an injection. Discussed trying occupational therapy 1st. Discussed possible complications of such injections such as low risk of ulnar nerve injury and skin depigmentation, patient agreed to proceed. Injection done in clinic today. I urged patient to go to occupational therapy Follow-up as needed Plan I spent 15 minutes reviewing patient's chart, evaluating patient, counseling patient and documenting in the chart Orders: Orders AMB Tendon Injection Today M77.02 - Medial epicondylitis, left elbow OT Evaluation and Treatment Today M77.02 - Medial epicondylitis, left elbow Medications: New lidocaine (PF) 10 mg Infiltration ONCE 2 mL 0RF M77.02 - Medial epicondylitis, left elbow Kenalog (triamcinolone acetonide) 40 mg Tendon Sheath Inj. ONCE 1 mL 0RF NS M77.02 - Medial epicondylitis, left elbow Coding Level of Care Code Est Pt Level 3 (25956) Diagnoses Golfers elbow of left upper extremity M77.02 CPT Codes Tendon Injection - Tendon Injection 1: 65096-Ytjqeg Tendon Sheath Injection ([id number])
[2024-08-20 08:51] VITALS: BP 120/80; PULSE 98; O2SAT 98; BMI 29.2
== END 2024-08-20 09:13 | disposition home or self-care (01) ==
PROVIDERS: PCP Internal Medicine; Visit Provider Student in an Organized Health Care Education/Training Program
DX: M77.02 Medial epicondylitis, left elbow (principal)
CPT/HCPCS: 20550; 99213

== ENCOUNTER → 2024-08-20 08:45 | Outpatient (BNVA) | payer MEDICARE, MEDICAID, SELFPAY | PROVIDERS: PCP Internal Medicine; Visit Provider Student in an Organized Health Care Education/Training Program | DX: M77.02 Medial epicondylitis, left elbow (principal) | CPT/HCPCS: 20550; 99212; J2003; J3300 ==

== ENCOUNTER 2024-10-31 14:48 | Outpatient (REF) | payer MEDICARE, MEDICAID, SELFPAY ==
--- NOTE | ~2024-10-31 | XR_ITS ---
EXAMINATION: XR SHOULDER, RIGHT CLINICAL INFORMATION: Pain and decreased ROM after a fall last month COMPARISON: July 10, 2018. TECHNIQUE: AP external rotation, Grashey, scapular Y, and axillary views of the right shoulder. FINDINGS: Degenerative changes in the greater tuberosity right humerus. Degenerative changes, mild at the common clavicular joint. No acute cortical disruption or malalignment. XR/XR shoulder RT min 2V IMPRESSION: Mild degenerative changes without acute fracture or dislocation. Electronically signed by: Celso Hameed MD 10/31/2024 03:35 PM EDT
--- OUTSIDE RECORDS SUMMARY | 2024-10-31 17:28 | XMS_ITS | Encounter Summary ---
Author Organization [employer] Address [address] [place] [address] Care Team Providers Care Chief Enterprise Architect Name Role Phone France Dunlap MD Primary Care Provider + Vern Garcia MD Primary Care Provider [phone] Encounter Details Date Type Department Care Team (Latest Contact Info) Description 05/29/2021 Abstract [facility] CONVERSIONS Dental, Provider, DDS Social History Tobacco Use Types Packs/Day Years Used Date Smoking Tobacco: Never Assessed Sex and Gender Information Value Date Recorded Sex Assigned at Male 06/21/2022 10:21 AM EDT Legal Sex Male 10:21 AM EDT Gender Identity Male 06/21/2022 10:21 AM EDT Sexual Orientation Choose not to disclose 2021 10:21 AM EDT documented as of this encounter Plan of Treatment Upcoming Encounters Date Type Department Care Team (Late st Contact Info) Description 11/01/2024 8:00 AM EDT Office Visit [facility] ADULT DENTAL [address] [place] [address] Nathaniel Peter DDS [address] [place] [address] 11/02/2024 11:00 AM EDT Office Visit [facility] MEDICINE [address] [place] [address] Pop Hardwick MD [address] [place] [address] 05/02/2025 8:00 AM EDT Office Visit [facility] ADULT DENTAL [address] [place] [address] Kay Martinez [address] [place], [place] [id number] documented as of this encounter Visit Diagnoses Not on filedocumented in this encounter Care Teams Chief Enterprise Architect Relationship Specialty Start Date End Date France Dunlap MD [address] [place] [address] PCP - General Family Medicine 09/05/20 05/08/24 Name, MD Vern [address] [place] [address] PCP - General Internal Medicine 05/09/24 documented as of this encounter
--- OUTSIDE RECORDS SUMMARY | 2024-10-31 17:28 | XMS_ITS | Encounter Summary ---
Author Organization [employer] Address [address] [place] [address] Care Team Providers Care Floor Clerk Name Role Phone Name, Vern YUAN Primary Care Provider [phone] Reason for Visit * Reason Comments Routine Cleaning Dental Exam FMX Perio chart Encounter Details Date Type Department Care Team ([facility] st Contact Info) Description 10/29/2024 8:00 AM EDT Office Visit [facility] ADULT DENTAL [address] [place] [address] Michelle Kay [address] [place] [address] Periodontal disease (Primary Dx); Dental calculus; Dental root caries; Supraeruption of teeth Social History Tobacco Use Types Packs/Day Years Used Date Smoking Tobacco: Never Passive Smoke Exposure: Never Smokeless Tobacco: Never Alcohol Use Standard Drinks/Week Comments Never 0 (1 standard drink = 0.6 oz pur e alcohol) Housing Stability Answer Date Recorded What is your housing situation today? I have erickson burton 08/02/[address] you li ve. Do you have problems with any of the following? None of the above 08/02/2023 Food Insecurity Answer Date Recorded Within the past 12 months, y ou worried that your food would run out before you got money to buy more: Never True 08/02/2023 Within the past 12 months,th e food you bought just didn't last and you didn't have enough money to get more: Never True 07/2023 Transportation Answer Date Recorded In the past 12 months, has l ack of transportation kept you from medical appts, meetings, work or from getting things needed for daily living? No 08/02/2023 Utilities Answer Date Recorded In the past 12 months, has t he electric, gas, oil or water company threatened to shut off services in your home? No 08/02/2023 Depression Answer Date Recorded Patient Health Questionnaire-2 Score 0 08/02/2023 Sex and Gender Information Value Date Recorded Sex Assigned at Male 06/21/2022 10:21 AM EDT Legal Sex Male 10:21 AM EDT Gender Identity Male 06/21/2022 10:21 AM EDT Sexual Orientation Choose not to disclose 2021 10:21 AM EDT documented as of this encounter Last Filed Vital Signs Vital Sign Reading Time Taken Comments Blood Pressure 110/68 10/29/2024 8:07 AM EDT Pulse - - Temperature - - Respiratory Rate - - Oxygen Saturation - - Inhaled Oxygen Concentration - - Weight - - Height - - Body Mass Index - - documented in this encounter Progress Notes * Kay Martinez - 10/29/2024 8:00 AM EDT Appoint at 8 am for FMX, exam, prophy, Perio chart Patient ID: Mike Awan is a 54 y.o. male. Time Out: Timeout Date: 10/29/24, Timeout Time: 0811 (prophy P. exam by Rome Veliz, FMX, Perio chart) Location: [facility] Tooth: Maxilla and Mandible Procedure: Exam, X-rays, Prophylaxis, and Perio chart Verified the above with patient, real estate legal assistant, and provider. Confirmed via patient's chart, intraorally and by radiographs. Urgent Care Nurse Practitioner: not applicable Medical Hx: Vitals: Blood pressure 110/68. Medications, Med Hx reviewed with patient and updated in chart. Treatment Provided Dental procedures in this visit D0210 - INTRAORAL - COMPLETE SERIES OF RADIOGRAPHIC IMAGES (Completed) Service provider: Kay Argueta provider: Nathaniel Peter DDS D1110 - PROPHYLAXIS - ADULT (Completed) Service provider: Kay Argueta provider: Nathaniel Peter DDS D9450 - CASE PRESENTATION, DETAILED AND EXTENSIVE TREATMENT PLANNING (Completed) Service provider: Kay Argueta provider: Nathaniel Peter DDS D1330 - ORAL HYGIENE INSTRUCTIONS (Completed) Service provider: Kay Argueta provider: Nathaniel Peter DDS Instruments Used: Ultrasonic Scalers and Hand Scalers, prophy angle Fluoride: N/A Oral Cancer Screening: Maxillary buccal mucosa is hyperkeratinized Head/Neck Exam: No Lesions Calculus: Light Plaque: Light Stain: Light Bleeding: Light Gingiva: pink, recession OH: Good Perio Chart: Completed Oral hygiene instructions provided to patient including brushing technique and flossing. Recommendations: Boulder two times daily, modified hoffman technique, Floss daily, Electric toothbrush, Soft bristle toothbrush, Boulder Tongue, Anti-sensitivity toothpaste Recall Frequency: 6 mo NV: 6 months prophy, and EXO #[address] Peter Hygienist: Kay Martinez RDH * Nathaniel Peter DDS - 10/29/2024 8:00 AM EDT Dental procedures in this visit D0210 - INTRAORAL - COMPLETE SERIES OF RADIOGRAPHIC IMAGES (Completed) Service provider: Kay Martinez Billpam provider: Nathaniel Peter DDS D1110 - PROPHYLAXIS - ADULT (Completed) Service provider: Kay Martinez Billpam provider: Nathaniel Peter DDS D9450 - CASE PRESENTATION, DETAILED AND EXTENSIVE TREATMENT PLANNING (Completed) Service provider: Kay Martinez Billpam provider: Nathaniel Peter DDS D1330 - ORAL HYGIENE INSTRUCTIONS (Completed) Service provider: Kay Martinez Billpam provider: Nathaniel Peter DDS D0120 - PERIODIC ORAL EVALUATION - ESTABLISHED PATIENT (Completed) Service provider: Nathaniel Peter DDS Billpam provider: Nathaniel Peter DDS Patient ID: Mike Awan is a 54 y.o. male. Time Out: Timeout Date: 10/29/24, Timeout Time: 0811 (prophy P. exam by Rome Veliz, FMX, Perio chart) Location: [facility] Tooth: Maxilla and Mandible Procedure: Exam, X-rays, and Prophylaxis Verified the above with patient, real estate legal assistant, and provider. Confirmed via patient's chart, intraorally and by radiographs. Urgent Care Nurse Practitioner: not applicable Chief Complaint Patient presents with Routine Cleaning Dental Exam FMX Perio chart Medical Hx: Vitals: Blood pressure 110/68. Past Medical History: Diagnosis Date Back pain Diabetes mellitus ([facility]) History of asthma Last attack was 1985 Medications: Outpatient Encounter Medications as of 10/29/2024 Medication Sig Dispense Refill albuterol 1.25 MG/3ML nebulizer solution Take 3 mL (1.25 mg) by nebulization every 6 (six) hours ifneeded for wheezing. 75 mL 3 ammonium lactate (Amlactin) 12 % cream APPLY TOPICALLY TO THE AFFECTED AREA(S) EVERY DAY NEEDED FOR DRY SKIN DIRECTED 385 g 1 cetirizine (ZyrTEC) 10 MG tablet Take 1 tablet (10 mg) by mouth in the morning. Prn. 30 tablet 0 empagliflozin (Jardiance) 25 MG Take 1 tablet (25 mg) by mouth Once per day. 30 tablet 11 fluticasone (Flonase) 50 MCG/ACT nasal spray INSTILL 1 SPRAY IN EACH NOSTRIL ONCE DAILY 16 g 2 glimepiride (Amaryl) 2 MG tablet Take 1 tablet (2 mg) by mouth before breakfast. 30 tablet 11 glucose blood test strip Freestyle Lite Test Strip - Test once a day 100 each 4 Lancets Misc. kit 1 each Once daily. 50 kit 11 minocycline 100 MG capsule Take 1 capsule (100 mg) by mouth 2 times daily. 60 capsule 1 tadalafil (Cialis) 20 MG tablet Take 1 tablet (20 mg) by mouth if needed each day for erectile dysfunction. 10 tablet 2 No facility-administered encounter medications on file as of 10/29/2024. Objective HPI Discomfort on max right side Head and Neck Exam: Lymph Nodes, Lips, Palate, Buccal Mucosa, Floor of Mouth, Tongue, Tonsils, Alveolar Ridges, Oropharynx, Salivary Ducts, and Vestibules normal appearance Details: Skin WNL OCS: negative Dental Exam As charted Supraerupted # 1 Root caries # 31 DB Reference tooth chart for additional findings. Oral Cancer Risk: Low Risk Oral Hygiene Instructions: Boulder two times daily, modified hoffman technique, Floss daily, Electric toothbrush, Soft bristle toothbrush, Boulder Tongue Caries Risk Assessment: Low- no risk factor Assessment/Plan TERRENCE X Rays Prophy Extraction Recall Patient tolerated procedure well, all questions answered and expressed understanding. Dismissed in good condition. NV: Exo # 1 / 6 mos recall monitor # 31 Professor Of Nursing: Kay Martinez RDH Dentist: Nathaniel Peter DDS \ documented in this encounter Plan of Treatment Upcoming Encounters Date Type Department Care Team (Late st Contact Info) Description 11/01/2024 8:00 AM EDT Office Visit [facility] ADULT DENTAL [address] [place] [address] Nathaniel Peter DDS [address] [place] [address] 11/02/2024 11:00 AM EDT Office Visit [facility] MEDICINE [address] [place] [address] Pop Hardwick MD [address] [place] [address] 05/02/2025 8:00 AM EDT Office Visit [facility] ADULT DENTAL [address] [place] [address] Kay Martinez [address] [place] [address] Scheduled Orders Name Type Priority Associated Diagnoses Orde r Schedule ORAL HYGIENE INSTRUCTIONS Dental Routine 1 Occurrences starting 10/29/2024 CASE PRESENTATION, DETAILED AND EXTENSIVE TREATMENT PLANNING Dental Routine 1 Occurrences starting 10/29/2024 1 1 EXTRACTION, ERUPTED TOOTH OR EXPOSED ROOT (ELEVATION/FORCEPS REMOVAL) Dental Routine [address] arting 10/29/2024 documented as of this encounter Procedures Procedure Name Priority Date/Time Associated Diagnosis Comments PROPHYLAXIS - ADULT Routine 10/29/2024 8 :00 AM EDT Periodontal disease Dental calculus PERIODIC ORAL EVALUATION - ESTABLISHED PATIENT Routine 10/29/2024 8:00 AM EDT ORAL HYGIENE INSTRUCTIONS Routine 10/29/2024 8:00 AM EDT Periodontal disease Dental calculus INTRAORAL - COMPLETE SERIES OF RADIOGRAPHIC IMAGES Routine 10/29/2024 8:00 AM EDT Periodontal disease Dental calculus CASE PRESENTATION, DETAILED AND EXTENSIVE TREATMENT PLANNING Routine 10/29/2024 8:00 AM EDT Periodontal disease Dental calculus documented in this encounter Visit Diagnoses Diagnosis Periodontal disease- Primary Unspecified gingival and periodontal disease Dental calculus Accretions on teeth Dental root caries Supraeruption of teeth Vertical displacement of teeth documented in this encounter Care Teams Floor Clerk Relationship Specialty Start Date End Date Name, MD Vern [address] [place] [address] PCP - General Internal Medicine 05/09/24 documented as of this encounter
--- OUTSIDE RECORDS SUMMARY | 2024-10-31 17:28 | XMS_ITS | Encounter Summary ---
Author Organization [employer] Address [address] [facility] [address] [place] [address] Care Team Providers Care Echo Vascular Technologist Name Role Phone Name, Vern YUAN Primary Care Provider Reason for Visit * Reason Comments Med Refill Encounter Details Date Type Department Care Team ([facility] st Contact Info) Description 10/29/2024 Refill [facility] [address] [place], [place] [phone] Name, MD Vern [address] [place] [address] Social History Tobacco Use Types Packs/Day Years Used Date Smoking Tobacco: Never Passive Smoke Exposure: Never Smokeless Tobacco: Never Alcohol Use Standard Drinks/Week Comments Never 0 (1 standard drink = 0.6 oz pur e alcohol) Housing Stability Answer Date Recorded What is your housing situation today? I have erickson burton 10/31/[address] you li ve. Do you have problems with any of the following? None of the above 10/31/2024 Food Insecurity Answer Date Recorded Within the past 12 months, y ou worried that your food would run out before you got money to buy more: Never True 10/31/2024 Within the past 12 months,th e food you bought just didn't last and you didn't have enough money to get more: Never True 07/2025 Transportation Answer Date Recorded In the past 12 months, has l ack of transportation kept you from medical appts, meetings, work or from getting things needed for daily living? No 10/31/2024 Utilities Answer Date Recorded In the past 12 months, has t he [employer], [employer], oil or water [employer] threatened to shut off services in your home? No 08/02/2023 Depression Answer Date Recorded Patient Health Questionnaire-2 Score 0 08/02/2023 Internet Access Answer Date Recorded Internet Access Q1 Yes 10/31/2024 Internet Access Q2 Not on file 10/31/2024 Sex and Gender Information Value Date Recorded [...] Description 11/01/2024 8:00 AM EDT Office Visit [facility] [address] [place] [address] Nathaniel Peter DDS [address] [place] [address] 11/02/2024 11:00 AM EDT Office Visit [facility] [address] [place] [address] Pop Hardwick MD [address] [place] [address] 05/02/2025 8:00 AM EDT Office Visit [facility] [address] [place] [address] Michelle, Kay [address] [place] [address] documented as of this encounter Visit Diagnoses Not on filedocumented in this encounter Care Teams Echo Vascular Technologist Relationship Specialty Start Date End Date Name, MD Vern [address] [place] [id number] PCP - General Internal Medicine 05/09/24 documented as of this encounter
--- OUTSIDE RECORDS SUMMARY | 2024-10-31 17:28 | XMS_ITS | Encounter Summary ---
Author Organization [employer] Address [address] [facility] [address] [place] [address] Care Team Providers Care Ornamental Metal Erector Apprentice Name Role Phone Name, Vern YUAN Primary Care Provider [phone] Encounter Details Date Type Department Care Team ([facility] st Contact Info) Description 09/26/2024 Orders Only [facility] [address] [place] [address] Jono Jacobs MD [address] [place] [address] Social History Tobacco Use Types Packs/Day Years [...] Description 11/01/2024 8:00 AM EDT Office Visit [facility] [address] [place] [address] Nathaniel Peter DDS [address] [place] [address] 11/02/2024 11:00 AM EDT Office Visit [facility] [address] [place] [phone] Pop Hardwick MD [address] [place] [address] 05/02/2025 8:00 AM EDT Office Visit [facility] [address] [place] [address] Kay Martinez [address] [place] [address] documented as of this encounter Visit Diagnoses Not on filedocumented in this encounter Care Teams Ornamental Metal Erector Apprentice Relationship Specialty Start Date End Date Name, MD Vern [address] [place] [phone] PCP - General Internal Medicine 05/09/24 documented as of this encounter
--- OUTSIDE RECORDS SUMMARY | 2024-10-31 17:28 | XMS_ITS | Clinical Summary ---
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 Prn. 30 tablet 01/07/20 23 Active ammonium lactate (Amlactin) 12 % cream APPLY TOPICALLY TO THE AFFECTED AREA(S) EVERY DAY NEEDED FOR DRY SKIN DIRECTED 385 g 1 05/01/20 24 Active Lancets Misc. kit 1 each Once daily. 50 kit 11 07/24/20 24 025 Active glucose blood test strip Freestyle Lite Test Strip - Test once a day 100 each 4 07/24/20 24 Active fluticasone (Flonase) 50 MCG/ACT nasal spray INSTILL 1 SPRAY IN EACH NOSTRIL ONCE DAILY 16 g 2 09/21/19 25 Active albuterol 1.25 MG/3ML nebulizer solutionIndic ations:COVID- 19 Take 3 mL (1.25 mg) by nebulization every 6 (six) hours if needed for wheezing. 75 mL 3 09/26/19 25 026 Active Cialis 20 MG tablet TAKE 1 TABLET BY MOUTH EVERY DAY NEEDED FOR SEXUAL ACTIVITY 10 tablet 2 10/31/19 25 Active glimepiride (Amaryl) 2 MG tabletIndicat ions:Type 2 diabetes mellitus with hyperglycemia , without long-term current use of insulin (CMS/[facility]) Take 1 tablet (2 mg) by mouth before breakfast. 30 tablet 11 11/01/19 25 026 Active empagliflozin -metFORMIN (Synjardy) 12.5-500 MGIndications :Type 2 diabetes mellitus with hyperglycemia , without long-term current use of insulin (CMS/[facility]) Take 1 tablet by mouth with breakfast and with evening meal. 60 tablet 11 11/01/19 25 026 Active minocycline 100 MG capsuleIndica tions:Follicu litis Take 1 capsule (100 mg) by mouth 2 times daily. 60 capsule 1 11/01/19 25 Active terbinafine (LamISIL AT) 1 % cream Apply topically 2 times daily. 42 g 2 11/01/19 25 Active minocycline 100 MG capsuleIndica tions:Follicu litis Take 1 capsule (100 mg) by mouth 2 times daily. 60 capsule 1 09/09/19 24 025 Discontinued(R eorder (will not trigger notification to Pharmacy)) Blood Glucose Monitoring Suppl (FreeStyle Lite) w/Device kit 1 each in the morning. 1 kit 10/17/19 24 025 glimepiride (Amaryl) 2 MG tablet Take 1 tablet (2 mg) by mouth before breakfast. 30 tablet 11 10/17/19 24 025 Discontinued(R eorder (will not trigger notification to Pharmacy)) empagliflozin (Jardiance) 25 MGIndications :Type 2 diabetes mellitus with hyperglycemia , without long-term current use of insulin ([facility]) Take 1 tablet (25 mg) by mouth Once per day. 30 tablet 11 03/06/20 24 025 Discontinued(D ose adjustment) tadalafil (Cialis) 20 MG tablet Take 1 tablet (20 mg) by mouth if needed each day for erectile dysfunction. 10 tablet 2 05/09/20 24 025 Discontinued oseltamivir (Tamiflu) 75 MG capsule Take 1 capsule (75 mg) by mouth 2 times daily for 5 days. 10 capsule 09/26/19 25 025 Active Problems Problem Noted Date Diagnosed Date Class 1 obesity 10/31/2024 Dental caries 10/29/2024 Dental root caries 10/29/2024 Supraeruption of teeth 10/29/2024 Viral URI 02/16/2024 Assessment & Plan (02/16/2024 5:34 PM EDT): Triple viral tests are NEG today, he doesn't seem to have a specific complication form it at this time. Order CXR Rx Fluticasone nasal spray x 1w + symptomatic rx with Theraflu. Increase fluid intake, rest at home and re consult prn if he develops fever, chills, chagne in color of phlegm or SOB. Atypical chest pain 02/16/2024 Assessment & Plan (02/16/2024 5:35 PM EDT): Most likely related to persistent cough, ro rib fracture, pneumonia Order CXR, will treat prn. Take tylenol or diclofenac gel for now. 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 Isolation until 07/06 and he will be out of work until then. Can be out of isolation, wearing a mask from 08/10, if sxs are resolved without other meds for at least 24h. Counseled to let close contacts within the past week, know about dx so they can be tested if needed. Rest (sleep at least 8 hours a night). Wash hands frequently Hydrate with plenty of water. Use saline nose drops Take Acetaminophen or Ibuprofen as Prn fever or discomfort Gargle with salt water and use throat sprays/lozenges prn Use heated, humidified air or take hot showers. If you have a fever, stay home and away from others (self isolation) until fever-free for 72 hours (temperature should be less than 100??F without medication). Chronic left shoulder pain 07/29/202307/29 De Quervain's tenosynovitis, left 07/29/2023 07/29/2023 Right cervical radiculopathy 07/29/202303/2023 Assessment & Plan (12/16/2023 9:54 AM EDT): Refer to PT, recommended heat to affected area + tylenol + diclofenac PRN Shoulder pain 07/29/2023 07/29/2023 Sore throat 07/29/2023 07/29/2023 Cervical disc disorder 07/29/2023 Cervical spondylosis 07/29/2023 07/29/2023 Spinal stenosis in cervical region 07/29/2023 07/29/2023 Steatosis of liver 07/29/2023 07/29/2023 Stenosis of intervertebral foramina 07/29/2023 07/29/2023 Subacromial impingement 07/29/2023 07/29/20 23 Suspected COVID-19 virus infection 07/29/2023 07/29/2023 Triggering of digit 07/29/2023 07/29/2023 Restless legs 12/15/2016 07/29/2023 Lumbar post-laminectomy syndrome 01/01/2015 07/29/2023 Type 2 diabetes mellitus 01/01/2015 023 Assessment & Plan (03/02/2024 1:22 PM EDT): Uncontrolled, had recent acute illness. Start low dose Amaryl 2mg/d, monitor BS bid and fu with me in 6w. Advised re frequent low calorie/carb meals. Encouraged physical activity as tolerated. Assessment & Plan (12/16/2023 9:58 AM EDT): Most likely still uncontrolled Stressed importance of dietary compliance Add jardiance 25mg and continue amaryl low dose Counseled re more frequent low calorie/carb meals. Check fgstk daily Encouraged physical activity as tolerated. Fu w me in 6 wks Assessment & Plan (08/02/2023 9:34 AM EST): Uncontrolled, he is off medications Counseled re more frequent low calorie/carb meals. Encouraged physical activity as tolerated. FU in 6 wks w labs one wk prior. Tinea pedis 11/13/2014 Assessment & Plan (12/16/2023 9:58 AM EDT): Discussed w/ pt importance of daily foot check Use amlactin cream daily Mixed hyperlipidemia 07/25/2014 07/29/2023 Back pain 07/25/2014 Encounters Date Type Department Care Team Description 10/31/2024 2:00 PM EDT Office Visit [facility] [address] [place] [phone] Vern Garcia MD Type 2 diabetes mellitus with hyperglycemia, without long-term current use of insulin ([facility]) (Primary Dx); Folliculitis; Refusal of statin medication by patient; Acute pain of right shoulder; Bunion of right foot 10/29/2024 8:00 AM EDT Office Visit [facility] [address] [place] [phone] Kay Martinez Periodontal disease (Primary Dx); Dental calculus; Dental root caries; Supraeruption of teeth 10/29/2024 Refill [facility] [address] [place] [phone] Vern Garcia MD 10/29/2024 Refill [facility] [address] [place] [phone] France Dunlap MD 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 Travel 10/11/[address] [phone] Vern Garcia MD telephone call 09/26/2024 5:40 PM EST Office Visit [facility] [address] [phone] Jono Jacobs MD Flu (Primary Dx); Cough in adult; COVID-19 09/26/2024 Orders Only [facility] [address] [place] [phone] Jono Jacobs MD 09/26/2024 Telephone [facility] [address] [place] [phone] 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, 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 Question 09/21/[address] [phone] Vern Garcia MD Appointment Request 09/21/2024 Refill [facility] [address] [address] France Dunlap MD 09/19/[address] [phone] Vern Garcia MD 09/05/2024 Telephone [facility] [address] [place] [phone] Tyesha Sotelo ANP 09/04/[address] [phone] Vern Garcia MD Appointment Request from Last 3 Months Immunizations Name Administration Dates Next Due Hep B, adult 02/06/2018,07/12/2017,06/10/2017 Influenza injectable quadriv alent IIV4 with preservative 2016,06/13/2015 Influenza injectable quadriv alent preservative free 07/11/2019,06/10/2017 Influenza, IIV3, injectable 07/26/2014 Pneumococcal Polysaccharide PPSV23 2016 Tdap 09/03/2015 Zoster, Recombinant 09/28/2023,07/27/2023 Social History Tobacco Use Types Packs/Day Years Used Date Smoking Tobacco: Never Passive Smoke Exposure: Never Smokeless Tobacco: Never Tobacco Cessation:Counseling Given: Not Answered Alcohol Use Standard Drinks/Week Comments Never 0 [...] not to disclose 2021 10:21 AM EDT Last Filed Vital Signs Vital Sign Reading Time Taken Comments Blood Pressure 130/83 10/31/2024 2:10 PM EDT Pulse 109 10/31/2024 2:10 PM EDT Temperature 37 ??C (98.6 ??F) 09/26/2024 5:25 PM EST Respiratory Rate 21 10/31/2024 2:10 PM EDT Oxygen Saturation 98% 10/31/2024 2:10 PM EDT Inhaled Oxygen Concentration - - Weight 81.1 kg (178 lb 12.8 oz) 10/31/2024 2:10 PM EDT Height 167.6 cm (5' 6 ) 10/31/2024 2:10 PM EDT Body Mass Index 28.86 10/31/2024 2:10 PM EDT Plan of Treatment Upcoming Encounters Date Type Department Care Team (Late st Contact Info) Description 11/01/2024 8:00 AM EDT Office Visit [facility] [address] [place] [address] Nathaniel Peter DDS [address] [place] [address] 11/02/2024 11:00 AM EDT Office Visit [facility] [address] [place] [address] Pop Hardwick MD [address] [place] [address] 05/02/2025 8:00 AM EDT Office Visit [facility] [address] [place] [phone] MichelleKay [address] [place] [address] Health Maintenance Due Date Last Done Comments CT Colonography 1971 Colonoscopy 1971 Colorectal Cancer Screening 1971 FIT DNA/Cologuard 1971 FIT 1971 FOBT 1971 Sigmoidoscopy 1971 Eye Exam 1981 Hepatitis A Vaccines (1 of 2 - Risk 2-dose series) 1990 Pneumococcal Vaccine: 50+ Years (2 of 2 - PCV) 2017 2016 Diabetes: Urine Protein Screening 10/22/2021 10/22/2020 COVID-19 Vaccine ( season) 2024 12/30/2020, 12/02/2020 Influenza Vaccine (#1) 2024 9, 06/10/2017, 2016, Additional history exists Depression Screening 08/02/2024 08/02/2023, 08/02/20 23 SDOH Screening 08/02/2024 08/02/2023 Diabetes: Hemoglobin A1C 01/31/2025 03 025, 05/09/2024, 10/17/2023, Additional history exists Dental Oral Exam 05/02/2025 10/29/2024, , 07/01/2022, Additional history exists Dental Prophylaxis 05/02/2025 10/29/2024, 0 04/30/2024, 08/24/2023, Additional history exists Lipid Panel 06/30/2025 06/30/2024, 0411/2023, 07/13/2021, Additional history exists DTaP/Tdap/Td Vaccines (2 - Td or Tdap) 09/03/2025 09/03/2015 Dental X-Ray: Bitewings 10/30/2025 10/30/19 25, 08/24/2023, 06/04/2022, Additional history exists Alcohol/Substance Use Screening 10/31/2025 10/31/2024 Diabetes: Foot Exam 10/31/2025 10/31/2024, 10/31/2024, 10/31/2024, Additional history exists Tobacco Screening 10/31/2025 10/31/2024 Dental X-Ray: Full Mouth 10/31/2027 025, 05/29/2021, 04/13/2016 RSV Patients and Patients Aged 60 years or older (1 - 1-dose 75+ series) 2046 Hepatitis B Vaccines Completed 02/06/2018, 07/12/2017, 06/10/2017 Zoster Vaccines Completed 09/28/2023, 07/27/2023 HIV Screening Completed 06/30/2024, 10/24/2019 Hepatitis C Screening Completed 06/30/2024, 020 HIB Vaccines Aged Out No longer eligi ble based on patient's age to complete this topic HPV Vaccines Aged Out No longer eligi ble based on patient's age to complete this topic IPV Vaccines Aged Out No longer eligi ble based on patient's age to complete this topic Meningococcal Vaccine Aged Out No trish misael eligible based on patient's age to complete this topic RSV under 20 months Aged Out No longe r eligible based on patient's age to complete this topic Rotavirus Vaccines Aged Out No longer eligible based on patient's age to complete this topic Procedures Procedure Name Priority Date/Time Associated Diagnosis Comments XR SHOULDER 2+ VIEWS RIGHT Routine 10/31/2024 2:50 PM EDT Acute pain of right shoulder POCT GLYCATED HEMOGLOBIN, TOTAL Routine 10/31/2024 2:11 PM EDT Type 2 diabetes mellitus with hyperglycemia, without long-term current use of insulin ([facility]/HCC) POCT GLUCOSE Routine 10/31/2024 2:11 PM EDT Type 2 diabetes mellitus with hyperglycemia, without long-term current use of insulin (CMS/HCC) PERIODIC ORAL EVALUATION - ESTABLISHED PATIENT Routine 10/29/2024 8:00 AM EDT ORAL HYGIENE INSTRUCTIONS Routine 10/29/2024 8:00 AM EDT Periodontal disease Dental calculus CASE PRESENTATION, DETAILED AND EXTENSIVE TREATMENT PLANNING Routine 10/29/2024 8:00 AM EDT Periodontal disease Dental calculus PROPHYLAXIS - ADULT Routine 10/29/2024 8 :00 AM EDT Periodontal disease Dental calculus INTRAORAL - COMPLETE SERIES OF RADIOGRAPHIC IMAGES Routine 10/29/2024 8:00 AM EDT Periodontal disease Dental calculus POCT RAPID STREP A Routine 09/26/2024 5: 30 PM EST Cough in adult POCT RAPID COVID ANTIGEN Routine 09/26/2024 5:30 PM EST Cough in adult POCT INFLUENZA A Routine 09/26/2024 5:29 PM EST Cough in adult POCT INFLUENZA B Routine 09/26/2024 5:29 PM EST Cough in adult HEPATITIS C AB W/REFL TO HCV RNA, QN, PCR Routine 06/30/2024 9:49 AM EST Type 2 diabetes mellitus with hyperglycemia, without long-term current use of insulin ([facility]/HCC) Weight loss HIV 1/2 ANTIGEN/ANTIBODY, FOURTH GENERATION W/RFL Routine 06/30/2024 9:49 AM EST Type 2 diabetes mellitus with hyperglycemia, without long-term current use of insulin ([facility]) Weight loss LIPID PANEL, STANDARD Routine 06/30/2024 9:49 AM EST Type 2 diabetes mellitus with hyperglycemia, without long-term current use of insulin ([facility]) Weight loss ALBUMIN, RANDOM URINE W/CREATININE Routine 10/22/2020 8:50 AM EST from Last 3 Months or Most Recently Relevant to Health Maintenance Results * XR Shoulder 2+ Views Right (10/31/2024 2:50 PM EDT) Anatomical Region Laterality Modality Upper Extremities, Shoulder Right Radi ographic Imaging 10/31/2024 2:50 PM EDT Narrative 10/31/2024 3:39 PM EDT ?[facility] ?[address] ?[place] [address] ?XRay Report ? Signed ? Patient: Mike Awan ?MR#: [id number] ? : 1970 ?Acct:[id number] ? Age/Sex: 54 / M ?ADM Date: 10/31/24 ? Loc: HO.HHCX ? Attending Dr: Vern Garcia MD ? Ordering Physician: Vern Garcia MD ?? Date of Service: 10/31/24 ?? Procedure(s): XR shoulder RT min 2V ?? Accession Number(s): [id number] ? cc: Vern Garcia MD ? EXAMINATION: ?? XR SHOULDER, RIGHT ? CLINICAL INFORMATION: ?? Pain and decreased ROM after a fall last month ? COMPARISON: ?? July 10, 2018. ? TECHNIQUE: ?? AP external rotation, Grashey, scapular Y, and axillary views of the ?? right shoulder. ? FINDINGS: ?? Degenerative changes in the greater tuberosity right humerus. ?? Degenerative changes, mild at the common clavicular joint. ?? No acute cortical disruption or malalignment. ? XR/XR shoulder RT min 2V ?? IMPRESSION: ?? Mild degenerative changes without acute fracture or dislocation. ? Electronically signed by: ??Celso Hameed MD ??10/31/2024 03:35 PM ?? EDT RP ? Dictated By: ?Celso Bennett MD ? Signed By: ?<Electronically signed by Celso Jesus MD in OV> ? 10/31/24 1535 ? DD/ 1450 ? TD/TT: 10/31/24 1500 ? Grain Elevator Man: ? Procedure Note Contreras, Image - 03/12/2025 [facility] [address] [place] [address] XRay Report Signed Patient: Mike AwanMR#: [id number] : 1970Acct:[id number] Age/Sex: 54 / MADM Date: 10/31/24 Loc: HO.HHCX Attending Dr: Vern Garcia MD Ordering Physician: Vern Garcia MD Date of Service: 10/31/24 Procedure(s): XR shoulder RT min 2V Accession Number(s): [id number] cc: Vern Garcia MD EXAMINATION: XR SHOULDER, RIGHT CLINICAL INFORMATION: Pain and decreased ROM after a fall last month COMPARISON: July 10, 2018. TECHNIQUE: AP external rotation, Grashey, scapular Y, and axillary views of the right shoulder. FINDINGS: Degenerative changes in the greater tuberosity right humerus. Degenerative changes, mild at the common clavicular joint. No acute cortical disruption or malalignment. XR/XR shoulder RT min 2V IMPRESSION: Mild degenerative changes without acute fracture or dislocation. Electronically signed by: Celso Hameed MD 10/31/2024 03:35 PM EDT Dictated By: Celso Bennett MD Signed By: <Electronically signed by Celso Jesus MDin OV> 10/31/24 1535 DD/ 1450 TD/TT: 10/31/24 1500 Grain Elevator Man: us Vern Garcia MD IMG XR PROCEDURES Final Result * (ABNORMAL) POCT HGB A1C (10/31/2024 2:11 PM EDT) Hemoglobin A1C 9.8(A) 4.0 - 6.0 % QC Media Lot # [id number] Lot# Expiration Date [id number] Blood 10/31/2024 2:11 PM EDT us Vern Garcia MD POINT OF CARE TEST ENTER/EDIT OR DERABLES Final Result * (ABNORMAL) POCT Glucose (10/31/2024 2:11 PM EDT) [facility] Glucose Blood, POC 232(A) 60 - 200 mg/dL QC Media Lot # [id number] Lot# Expiration Date [id number] Blood Capillary blood specimen / Unknown 10/31/2024 2:11 PM EDT Result [facility] Vern Garcia MD POINT OF CARE TEST ENTER/EDIT OR DERABLES Final Result * POCT Rapid COVID Ag (09/26/2024 5:30 PM EST) [facility] Rapid COVID Ag Negative QC Media Lot # [id number] Lot# Expiration Date ,026 Swab 09/26/2024 5:30 PM EST Result [facility] Jono Ayon MD POINT OF CARE TEST ENTER/EDIT ORDERABLES Final Result * POCT rapid strep A manually resulted (09/26/2024 5:30 PM EST) [facility] Rapid Strep A Screen Negative Negative, None Detected QC Media Lot # [id number] Lot# Expiration Date ,026 Swab 09/26/2024 5:30 PM EST Result [facility] Jono Ayon MD POINT OF CARE TEST ENTER/EDIT ORDERABLES Final Result * POCT Influenza B manually resulted (09/26/2024 5:29 PM EST) [facility] Rapid Influenza B Ag Negative Negative, Indeterminate QC Media Lot # [id number] Lot# Expiration Date 026 Swab 09/26/2024 5:29 PM EST Result [facility] Jono Ayon MD POINT OF CARE TEST ENTER/EDIT ORDERABLES Final Result * (ABNORMAL) POCT Influenza A manually resulted (09/26/2024 5:29 PM EST) [facility] Rapid Influenza A Ag Positive( A) Negative, Indeterminate QC Media Lot # [id number] Lot# Expiration Date [id number] Swab Nasopharyngeal structure / Unknown 09/26/2024 5:29 PM EST Jono Ayon MD POINT OF CARE TEST ENTER/EDIT ORDERABLES Final Result * Hepatitis C Antibody with Reflex to HCV, RNA, Quantitative, Real-Time PCR (06/30/2024 9:49 AM EST) [facility] Hepatitis C Antibody Nonreactive Nonreactive [facility] Comment:Antibodies to HCV no t detected; does not exclude early acuteHCV infection. Blood Venous blood specimen / Unknown 06/30/2024 9:49 AM EST 06/30/2024 9:49 AM EST Vern Garcia MD LAB BLOOD ORDERABLES Final Resul t [facility] [address] [place] [phone] * HIV-1/2 Antigen and Antibodies, Fourth Generation, with Reflexes (06/30/2024 9:49 AM EST) [facility] HIV AB/AG Nonreactive Nonreactive [facility] Comment:HIV-1 p24 Ag and/or HIV-1/HIV-2 Ab not detected.A test result that is nonreactive does not exclude thepossibility of exposure to or infection with HIV-1 and/orHIV-2. Nonreactive results in this assay for individualswith prior exposure to HIV-1 and/or HIV-2 may be due toantigen and antibody levels that are below the limit ofdetection of this assay.The [employer] HIV Ag/Ab Combo assay result andsupplemental assay results should be interpreted inconjunction with the patient's clinical presentation,history and other laboratory results. If the results areinconsistent with clinical evidence, additional testing issuggested to confirm the result. Blood Venous blood specimen / Unknown 06/30/2024 9:49 AM EST 06/30/2024 9:49 AM EST us Vern Garcia MD LAB BLOOD ORDERABLES Final Resul t Performing Organization Address [facility] Co de Phone Number [facility] [address] [place] [address] [phone] * (ABNORMAL) Lipid Panel, Standard (06/30/2024 9:49 AM EST) Triglycerides 75 <150 mg/dL [facility] Comment:Desirable Triglyceri de: less than 150 mg/dLBorderline High Triglyceride 150-199 mg/dLHigh Triglyceride: 200-499 mg/dLVery High Triglyceride: greater than or equal to 5OO mg/dL Cholesterol 213(H) <200 mg/dL [facility] Comment:Desirable Cholestero l: less than 200 mg/dLBorderline High Cholesterol: 200-239 mg/dLHigh Cholesterol: greater than 239 mg/dL LDL Cholesterol Calculated 142(H) <100 mg/dL [facility] Comment:Desirable LDL: less than 100 mg/dLNear Optimal/Above Optimal LDL: 110- 129 mg/dLBorderline High LDL: 130-159 mg/dLHigh LDL: 160-189 mg/dLVery High LDL: greater than or equal to 190 mg/dL HDL Cholesterol 56 >40 mg/dL [facility] Comment:Desirable HDL: great er than 40 mg/dL Note: This HDL assay may give artificially low results in patients with liver disease. Blood Venous blood specimen / Unknown 06/30/2024 9:49 AM EST 06/30/2024 9:49 AM EST us Vern Garcia MD LAB BLOOD ORDERABLES Final Resul t Performing Organization Address [facility] Co de Phone Number [facility] [address] [place] [phone] * ALBUMIN, RANDOM URINE W/CREATININE (10/22/2020 8:50 AM EST) Microalbumin Urine 0.4 See Note: mg/dL [facility] Comment: Reference Range: ?? Reference Range Not established Microalb/Creat Ratio 4 <30 mcg/mg creat [facility] Comment: ?? The ADA defines abnormalities in albumin excretion as follows: ?? Category ? Result (mcg/mg creatinine) ?? Normal ?<30 Microalbuminuria ? 30-299 ?? Clinical albuminuria ?? > OR = 300 ?? The ADA recommends that at least two of three specimens collected within a 3-6 month period be abnormal before considering a patient to be within a diagnostic category. Creatinine, Urine 106 20 - 320 mg/dL [facility] 10/22/2020 8:50 AM EST us France Dunlap MD LAB URINE ORDERABLES Fin al Result [facility] [address] from Last 3 Months or Most Recently Relevant to Health Maintenance Insurance MEDICARE [facility] MEDICAID STAND ADULT Care Teams Marine Erector Relationship Specialty Start Date End Date Name, MD Vern [address] [place] [phone] PCP - General Internal Medicine 05/09/24
--- OUTSIDE RECORDS SUMMARY | 2024-10-31 17:28 | XMS_ITS | Encounter Summary ---
Author Organization [employer] Address [address] [address] Care Team Providers Care Interior Specialist Name Role Phone Vern Garcia MD Primary Care Provider [phone] Reason for Referral * Consultation (Routine) - Pending Review Specialty Diagnoses / Procedures Referred By Guy t Referred To Contact Podiatry Diagnoses Bunion of right foot Vern Garcia MD [address] [place] [address] Phone: tel: fax: Referral ID Status Reason Start Date Expiration Date Visits Requested Visits Authorized [id number] Pending Review Specialty Services Required 10/31/2024 10/31/2025 1 1 * Consultation (Routine) - Pending Review Specialty Diagnoses / Procedures Referred By Guy t Referred To Contact Physical Therapy Diagnoses Acute pain of right shoulder Vern Garcia MD [address] [place] [address] Phone: tel: fax: Referral ID Status Reason Start Date Expiration Date Visits Requested Visits Authorized [id number] Pending Review Specialty Services Required 10/31/2024 10/31/2025 1 1 * Consultation (Routine) - Authorized Specialty Diagnoses / Procedures Referred By Contac t Referred To Contact Pharmacy Diagnoses Type 2 diabetes mellitus with hyperglycemia, without long-term current use of insulin ([facility]) Vern Garcia MD [address] [place] [address] Phone: tel: fax: Referral ID Status Reason Start Date Expiration Date Visits Requested Visits Authorized [id number] Authorized Consult and Treat 10/31/2024 10/31/2025 6 6 Reason for Visit * Reason Comments Diabetes Encounter Details Date Type Department Care Team (Late st Contact Info) Description 10/31/2024 2:00 PM EDT Office Visit [facility] MEDICINE [address] [place] [address] Name, MD Vern [address] [place] [address] Type 2 diabetes mellitus with hyperglycemia, without long-term current use of insulin ([facility]) (Primary Dx); Folliculitis; Refusal of statin medication by patient; Acute pain of right shoulder; Bunion of right foot Social History Tobacco Use Types Packs/Day Years [...] Pulse 109 10/31/2024 2:10 PM EDT Temperature - - Respiratory Rate 21 10/31/2024 2:10 PM EDT Oxygen Saturation 98% 10/31/2024 2:10 PM EDT Inhaled Oxygen Concentration - - Weight 81.1 kg (178 lb 12.8 oz) 10/31/2024 2:10 PM EDT Height 167.6 cm (5' 6 ) 10/31/2024 2:10 PM EDT Body Mass Index 28.86 10/31/2024 2:10 PM EDT documented in this encounter Progress Notes * Vern Garcia, - 10/31/2024 2:00 PM EDT Subjective Patient ID: Mike Awan is a 54 y.o. male who presents for Diabetes. Patient comes for a follow-up visit. His blood sugar is uncontrolled based on hemoglobin A1c. He does not bring his glucose meter. The patient has a very liberal diet. He stopped using sulfonylurea. He does not use his Jardiance daily. We discussed the results of his most recent fasting blood work.He is reluctant to use a statin. The patient also wants to avoid using any injected medication for diabetes including insulin and GLP-1 for now. He complains of recurrent skin infections consistent with folliculitis. He complains of painful right bunion on the right foot. He also has tinea pedis. Patient also complains of 2 to 3 weeks of right shoulder pain and decreased range of motion after afall. The patient explains to me that he slipped on icy floor several weeks back. He is having painsince the fall. Review of Systems Constitutional: Negative for chills, fatigue and fever. HENT: Negative for sore throat. Respiratory: Negative for cough, chest tightness and shortness of breath. Cardiovascular: Negative for chest pain, palpitations and leg swelling. Gastrointestinal: Negative for abdominal pain and blood in stool. Musculoskeletal: See HPI Visit Vitals BP 130/83 (BP Location: Left arm, Patient Position: Sitting, BP Cuff Size: Adult) Pulse 109 Resp 21 Ht 5' 6 (1.676 m) Wt 178 lb 12.8 oz (81.1 kg) SpO2 98% BMI 28.86 kg/m?? Smoking Status Never BSA 1.94 m?? Objective Physical Exam Constitutional: Appearance: Normal appearance. Cardiovascular: Rate and Rhythm: Normal rate and regular rhythm. Pulses: Dorsalis pedis pulses are 2+ on the right side and 2+ on the left side. Posterior tibial pulses are 2+ on the right side and 2+ on the left side. Heart sounds: No murmur heard. Pulmonary: Effort: Pulmonary effort is normal. No respiratory distress. Breath sounds: No wheezing, rhonchi or rales. Abdominal: Palpations: Abdomen is soft. Tenderness: There is no abdominal tenderness. Musculoskeletal: Right lower leg: No edema. Left lower leg: No edema. Right foot: Normal range of motion. Bunion present. Left foot: Normal range of motion. Feet: Right foot: Protective Sensation: 5 sites tested. 5 sites sensed. Skin integrity: Skin integrity normal. Toenail Condition: Right toenails are abnormally thick. Fungal disease present. Left foot: Protective Sensation: 5 sites tested. 5 sites sensed. Skin integrity: Skin integrity normal. Toenail Condition: Left toenails are abnormally thick. Fungal disease present. Skin: Comments: Patient has numerous scars on the back and chest and buttocks area from previous folliculitis infections. Neurological: Mental Status: He is alert. Lab Results Component Value Date HGBA1C 9.8 (A) 10/31/2024 HGBA1C 8.9 (A) 05/09/2024 HGBA1C 12.2 (A) 10/17/2023 HGBA1C 8.9 (H) 07/13/2021 HGBA1C 10.8 (H) 10/22/2020 Latest Reference Range & Units 06/30/24 09:49 Glucose 60 - 115 mg/dL 160 (H) Urea Nitrogen (BUN) 9 - 16 mg/dL 17 (H) Creatinine, Serum 0.5 - 1.4 mg/dL 0.85 Sodium 135 - 145 mmol/L 139 Potassium 3.3 - 5.1 mmol/L 4.2 Chloride 96 - 108 mmol/L 103 Carbon Dioxide 22 - 29 mmol/L 25 Calcium 8.4 - 10.2 mg/dL 9.7 Albumin Level 3.5 - 5.0 g/dL 4.2 Bilirubin, Total 0.0 - 1.0 mg/dL 0.6 AST 5 - 37 U/L 36 ALT 0 - 40 U/L 47 (H) Anion Gap 12 - 20 15 Total Protein 6.5 - 8.0 g/dL 7.8 Cholesterol <200 mg/dL 213 (H) HDL Cholesterol >40 mg/dL 56 LDL Cholesterol Calculated <100 mg/dL 142 (H) Triglycerides <150 mg/dL 75 Red Blood Count 4.60 - 5.80 X10*6/uL 4.73 Hemoglobin 14.0 - 18.0 g/dl 14.9 Hematocrit 42.0 - 52.0 % 44.0 Mean Corpuscular Volume 80.0 - 98.0 fL 93.0 Mean Corpuscular Hemoglobin 27.0 - 33.0 pg 31.5 Mean Corpuscular HGB Conc 31.0 - 36.0 g/dl 33.9 Red Cell Distribution Width 11.0 - 16.0 % 13.3 Platelet Count 160 - 400 X10*3/uL 260 Eosinophils Percent Auto 0 - 4 % 3.0 Lymphocytes Absolute Auto 1.2 - 4.9 X10*3/uL 2.1 Basophils Absolute Auto 0.0 - 0.2 X10*3/uL 0.0 Monocytes Absolute Auto 0.1 - 1.2 X10*3/uL 0.5 Neutrophils Absolute Auto 2.0 - 8.3 x10*3/uL 3.7 Neutrophils Percent Auto 45 - 73 % 56.7 Basophils Percent Auto 0 - 2 % 0.6 Eosinophils Absolute Auto 0.0 - 0.4 X10*3/uL 0.2 Lymphocytes Percent Auto 20 - 40 % 32.1 Monocytes Percent Auto 2 - 11 % 7.3 Imm Gran Abs Auto 0.00 - 0.03 X10*3/uL 0.02 Imm Gran Pct Auto 0.0 - 0.4 % 0.3 TSH reflex Free T4 0.32 - 4.0 uIU/mL 1.11 Hepatitis C Antibody Nonreactive Nonreactive HIV AB/AG Nonreactive Nonreactive Alkaline Phosphatase 39 - 117 U/L 97 Estimated Glomerular Filt Rate >60 Mean Platelet Volume 9.4 - 12.4 fL 9.8 NRBC Abs Auto 0.0 - 0.012 X10*3/uL 0.000 NRBC Pct Auto 0.0 - 0.2 /100WBC 0.0 Prostate Specific Antigen <0.05 - 4.0 ng/mL 1.86 Testosterone, Total 250 - 1100 ng/dL 677 White Blood Count 4.8 - 10.8 X10*3/uL 6.6 (H): Data is abnormally high Assessment/Plan Diagnoses and all orders for this visit: Type 2 diabetes mellitus with hyperglycemia, without long-term current use of insulin ([facility]) Comments: I recommended to start Synjardy, restart glipizide, avoid sweets, soda, sweetened beverages, check blood sugar at home, check urine for microalbumin, referral to CDTM program. He refused any vaccination again. Orders: - POCT Glucose - POCT HGB A1C - Albumin, Random Urine W/Creatinine; Future - glimepiride (Amaryl) 2 MG tablet; Take 1 tablet (2 mg) by mouth before breakfast. - empagliflozin-metFORMIN (Synjardy) 12.5-500 MG; Take 1 tablet by mouth with breakfast and with evening meal. - Referral to Pharmacy CDTM Folliculitis Comments: I prescribed the patient doxycycline. I explained to him that uncontrolled diabetes is increasing the risk of skin infections. Orders: - minocycline 100 MG capsule; Take 1 capsule (100 mg) by mouth 2 times daily. Refusal of statin medication by patient Comments: Patient refuses to use a statin at this point. We discussed the causes of primary prevention of cardiovascular disease. Acute pain of right shoulder Comments: Pain and decreased ROM after a fall. Referral to physical therapy. X-ray prior to PT evaluation. Orders: - XR Shoulder 2+ Views Right; Future - Referral to Physical Therapy; Future Bunion of right foot Comments: Referral to podiatry. I prescribed the patient topical terbinafine for tinea pedis. Orders: - Referral to Podiatry; Future Other orders - terbinafine (LamISIL AT) 1 % cream; Apply topically 2 times daily. documented in this encounter Plan of Treatment Upcoming Encounters Date Type Department Care Team (Late st Contact Info) Description 11/01/2024 8:00 AM EDT Office Visit [facility] ADULT DENTAL [address] [place] [address] Nathaniel Peter DDS [address] [place] [address] 11/02/2024 11:00 AM EDT Office Visit [facility] MEDICINE [address] [place] [address] Pop Hardwick MD [address] [place] [address] 05/02/2025 8:00 AM EDT Office Visit [facility] ADULT DENTAL [address] [place] [address] Kay Martinez [address] [place] [address] Scheduled Orders Name Type Priority Associated Diagnoses Orde r Schedule Albumin, Random Urine W/Creatinine Lab Routine Type 2 diabetes mellitus with hyperglycemia, without long-term current use of insulin ([facility]) Expected: 10/31/2024 (Approximate), Expires: 10/31/2025 Scheduled Referrals Name Type Priority Associated Diagnoses Orde r Schedule Referral to Pharmacy CDTM Outpatient Referral Routine Type 2 diabetes mellitus with hyperglycemia, without long-term current use of insulin ([facility]) Ordered: 10/31/2024 Referral to Physical Therapy Outpatient Referral Routine Acute pain of right shoulder Expected: 10/31/2024 (Approximate), Expires: 10/31/2025 Referral to Podiatry Outpatient Referral Routine Bunion of right foot Expected: 10/31/2024 (Approximate), Expires: 10/31/2025 documented as of this encounter Procedures Procedure Name Priority Date/Time Associated Diagnosis Comments XR SHOULDER 2+ VIEWS RIGHT Routine 10/31/2024 2:50 PM EDT Acute pain of right shoulder POCT GLYCATED HEMOGLOBIN, TOTAL Routine 10/31/2024 2:11 PM EDT Type 2 diabetes mellitus with hyperglycemia, without long-term current use of insulin ([facility]) POCT GLUCOSE Routine 10/31/2024 2:11 PM EDT Type 2 diabetes mellitus with hyperglycemia, without long-term current use of insulin ([facility]) documented in this encounter Results * XR Shoulder 2+ Views Right (10/31/2024 2:50 PM EDT) Anatomical Region Laterality Modality Upper Extremities, Shoulder Right Radi ographic Imaging 10/31/2024 2:50 PM EDT Narrative 10/31/2024 3:39 PM EDT ?[facility] ?[address] ?[place] [address] ?XRay Report ? Signed ? Patient: Awan,Mike ?MR#: [id number] ? : 1970 ?Acct:[id number] ? Age/Sex: 54 / M ?ADM Date: 10/31/24 ? Loc: HO.HHCX ? Attending Dr: Vern Garcia MD ? Ordering Physician: Vern Garcia MD ?? Date of Service: 10/31/24 ?? Procedure(s): XR shoulder RT min 2V ?? Accession Number(s): [id number] ? cc: Name,Vern YUAN ? EXAMINATION: ?? XR SHOULDER, RIGHT ? [...] DD/ 1450 ? TD/TT: 10/31/24 1500 ? Mechanical Technologist: ? Procedure Note Donotuseinterpreter, Image - 10/31/[address] [address] XRay Report Signed Patient: Mike AwanMR#: [id number] : 1970Acct:[id number] Age/Sex: 54 / MADM Date: 10/31/24 Loc: HO.HHCX Attending Dr: Vern Garcia MD Ordering Physician: Vern Garcia MD Date of Service: 10/31/24 Procedure(s): XR shoulder RT min 2V Accession Number(s): [id number] cc: Vern Garcia MD EXAMINATION: XR SHOULDER, [...] 10/31/24 1535 DD/ 1450 TD/TT: 10/31/24 1500 Mechanical Technologist: Vern Garcia MD IMG XR PROCEDURES Final Result * (ABNORMAL) POCT HGB A1C (10/31/2024 2:11 PM EDT) Hemoglobin A1C 9.8(A) 4.0 - 6.0 % QC Media Lot # [id number] Lot# Expiration Date 110,426 Blood 10/31/2024 2:11 PM EDT Vern Garcia MD POINT OF CARE TEST ENTER/EDIT OR DERABLES Final Result * (ABNORMAL) POCT Glucose (10/31/2024 2:11 PM EDT) Glucose Blood, POC 232(A) 60 - 200 mg/dL QC Media Lot # [id number] Lot# Expiration Date 82,625 Blood Capillary blood specimen / Unknown 10/31/2024 2:11 PM EDT Vern Name POINT OF CARE TEST ENTER/EDIT OR DERABLES Final Result documented in this encounter Visit Diagnoses Diagnosis Type 2 diabetes mellitus with hyperglycemia, without long-term current use of insulin ([facility])- Primary Folliculitis Other specified disease of hair and hair follicles Refusal of statin medication by patient Acute pain of right shoulder Bunion of right foot Bunion documented in this encounter Care Teams Interior Specialist Relationship Specialty Start Date End Date Name, MD Vern [address] [place] [address] PCP - General Internal Medicine 05/09/24 documented as of this encounter
--- OUTSIDE RECORDS SUMMARY | 2024-10-31 17:28 | XMS_ITS | Encounter Summary ---
Author Organization [employer] Address [address] [facility] 7 [place] [address] Care Team Providers Care Morgue Attendant Name Role Phone Name, Vern YUAN Primary Care Provider [phone] Reason for Visit * Reason Onset Date Comments Appointment Request 09/21/2024 Encounter Details Date Type Department Care Team ([facility] st Contact Info) Description 09/21/2024 Telephone [facility] MED[facility]INE [address] [place], [place] [phone] Name, MD Vern [address] [place] [address] Appointment Request Social History Tobacco Use Types Packs/Day Years [...] AM EDT documented as of this encounter Miscellaneous Notes * Telephone Encounter - Kay Tante - 09/21/2024 10:42 AM EST Tc from pt requesting to r/s derm appointment due to not feeling well. Pt stated he will be coming in to the [facility]. Flower Stripper advise of hours. documented in this encounter Plan of Treatment Upcoming Encounters Date Type Department Care Team (Late st Contact Info) Description 11/01/2024 8:00 AM EDT Office Visit [facility] ADULT DENTAL [address] [place] [address] Nathaniel Peter DDS [address] [place] [address] 11/02/2024 11:00 AM EDT Office Visit [facility] MEDICINE [address] [place] [address] Pop Hardwick MD [address] [place] [address] 05/02/2025 8:00 AM EDT Office Visit [facility] ADULT DENTAL [address] [place] [address] Kay Martinez [address] [place] [address] documented as of this encounter Visit Diagnoses Not on filedocumented in this encounter Care Teams Morgue Attendant Relationship Specialty Start Date End Date Name, MD Vern [address] [place] [address] PCP - General Internal Medicine 05/09/24 documented as of this encounter
--- OUTSIDE RECORDS SUMMARY | 2024-10-31 17:28 | XMS_ITS | Encounter Summary ---
Author Organization [employer] Address 75 [facility] 7t [place] [address] Care Team Providers Care Lens Cutter Name Role Phone France Dunlap MD Primary Care Provider + Vern Garcia MD Primary Care Provider Encounter Details Date Type Department Care Team (Latest Contact Info) Description 10/20/2018 Abstract [facility] CONVERSIONS Dental, Provider, DDS Social History Tobacco [...] Description 11/01/2024 8:00 AM EDT Office Visit [facility] ADULT DENTAL [address] [place] [address] Nathaniel Peter DDS [address] [place] [address] 11/02/2024 11:00 AM EDT Office Visit [facility] MEDICINE [address] [place] [address] Pop Hardwick MD [address] [place] [address] 05/02/2025 8:00 AM EDT Office Visit [facility] ADULT DENTAL [address] [place], [place] [phone] Kay Martinez [address] [place], [place] [phone] documented as of this encounter Visit Diagnoses Not on filedocumented in this encounter Care Teams Lens Cutter Relationship Specialty Start Date End Date France Dunlap MD [address] [place], [place] [phone] PCP - General Family Medicine 09/05/20 05/08/24 Radha, MD Vern [address] [place], [place] [phone] PCP - General Internal Medicine 05/09/24 documented as of this encounter
--- OUTSIDE RECORDS SUMMARY | 2024-10-31 17:28 | XMS_ITS | Encounter Summary ---
Author Organization [employer] Address [address] [facility] 7t [place] [address] Care Team Providers Care Conservation Coordinator Name Role Phone Name, Vern YUAN Primary Care Provider [phone] Encounter Details Date Type Department Care Team (Latest Contact Info) Description 10/29/2024 Travel Social History Tobacco Use Types Packs/Day Years [...] Description 11/01/2024 8:00 AM EDT Office Visit [facility] ADULT DENTAL [address] [place] [address] Nathaniel Peter DDS [address] [place] [address] 11/02/2024 11:00 AM EDT Office Visit [facility] MEDICINE [address] [place] [address] Pop Hardwick MD [address] [place] [address] 05/02/2025 8:00 AM EDT Office Visit [facility] ADULT DENTAL [address] [place] [address] Kay Martinez [address] [place] [address] documented as of this encounter Visit Diagnoses Not on filedocumented in this encounter Care Teams Conservation Coordinator Relationship Specialty Start Date End Date Name, MD Vern [address] [place] [address] PCP - General Internal Medicine 05/09/24 documented as of this encounter
--- OUTSIDE RECORDS SUMMARY | 2024-10-31 17:28 | XMS_ITS | Encounter Summary ---
Author Organization [employer] Address 75 [facility] 7t [place] [address] Care Team Providers Care Veterinary Microbiologist Name Role Phone Name, Vern YUAN Primary Care Provider [phone] Reason for Visit * Reason Onset Date Comments telephone call 10/11/2024 Encounter Details Date Type Department Care Team ([facility] st Contact Info) Description 10/11/2024 Telephone [facility] MEDICINE [address] [place], [place] [phone] Name, MD Vern [address] [place] [address] telephone call Social History Tobacco Use Types Packs/Day Years [...] encounter Miscellaneous Notes * Telephone Encounter - Karyn Leung - 10/11/2024 9:45 AM EST Pt walked in requesting for a call back he said he has been waiting for a little bit for someone tocall him to rs his appt he had before. documented in this encounter Plan of Treatment Upcoming Encounters Date Type Department Care Team (Late st Contact Info) Description 11/01/2024 8:00 AM EDT Office Visit [facility] ADULT DENTAL [address] [place] [address] Nathaniel Peter DDS [address] [place] [address] 11/02/2024 11:00 AM EDT Office Visit [facility] MED[facility]INE [address] [place] [address] Pop Hardwick MD [address] [place] [address] 05/02/2025 8:00 AM EDT Office Visit [facility] ADULT DENTAL [address] [place] [address] Kay Martinez [address] [place] [address] documented as of this encounter Visit Diagnoses Not on filedocumented in this encounter Care Teams Veterinary Microbiologist Relationship Specialty Start Date End Date Name, MD Vern [address] [place] [address] PCP - General Internal Medicine 05/09/24 documented as of this encounter
--- OUTSIDE RECORDS SUMMARY | 2024-10-31 17:28 | XMS_ITS | Encounter Summary ---
Author Organization [employer] Address 75 [facility] 7t [place] [address] Care Team Providers Care Reservation Agent Name Role Phone Name, Vern YUAN Primary Care Provider [phone] Reason for Visit * Reason Comments Med Refill Encounter Details Date Type Department Care Team ([facility] st Contact Info) Description 10/29/2024 Refill [facility] MEDICINE [address] [place] [address] France Dunlap MD [address] [place] [address] Recurrent furunculosis Social History Tobacco Use Types Packs/Day Years [...] Description 11/01/2024 8:00 AM EDT Office Visit [facility] ADULT DENTAL [address] [place] [address] Nathaniel Peter DDS [address] [place] [address] 11/02/2024 11:00 AM EDT Office Visit [facility] MEDICINE [address] [place] [address] Pop Hardwick MD [address] [place] [address] 05/02/2025 8:00 AM EDT Office Visit [facility] ADULT DENTAL [address] [place] [address] Kay Martinez [address] [place] [address] documented as of this encounter Visit Diagnoses Diagnosis Recurrent furunculosis documented in this encounter Care Teams Reservation Agent Relationship Specialty Start Date End Date Name, MD Vern [address] [place] [address] PCP - General Internal Medicine 05/09/24 documented as of this encounter
--- OUTSIDE RECORDS SUMMARY | 2024-10-31 17:28 | XMS_ITS | Encounter Summary ---
Author Organization [employer] Address 75 [facility] 7t [place] [address] Care Team Providers Care Ward Service Supervisor Name Role Phone Name, Vern YUAN Primary Care Provider Reason for Visit * Reason Comments Med Refill Encounter Details Date Type Department Care Team ([facility] st Contact Info) Description 05/28/2024 Refill [facility] MEDICINE [address] [place] [address] France Dunlap MD [address] [place] [address] Recurrent furunculosis Social History Tobacco Use Types [...] Description 11/01/2024 8:00 AM EDT Office Visit [facility] ADULT DENTAL [address] [place] [address] Nathaniel Peter DDS [address] [place] [address] 11/02/2024 11:00 AM EDT Office Visit [facility] MEDICINE [address] [place] [address] Pop Hardwick MD [address] [place] [address] 05/02/2025 8:00 AM EDT Office Visit [facility] ADULT DENTAL [address] [place] [address] Kay Martinez [address] [place] [address] documented as of this encounter Visit Diagnoses Diagnosis Recurrent furunculosis documented in this encounter Care Teams Ward Service Supervisor Relationship Specialty Start Date End Date Name, MD Vern [address] [place] [address] PCP - General Internal Medicine 05/09/24 documented as of this encounter
--- OUTSIDE RECORDS SUMMARY | 2024-10-31 17:28 | XMS_ITS | Encounter Summary ---
Author Organization [employer] Address 75 [facility] 7t [place] [address] Care Team Providers Care Elastic Assembler Name Role Phone Name, Vern YUAN Primary Care Provider [phone] Reason for Visit * Reason Comments Med Refill Encounter Details Date Type Department Care Team ([facility] st Contact Info) Description 05/23/2024 Refill [facility] MEDICINE [address] [place] [address] Pop Hardwick MD [address] [place] [address] Onychomycosis Social History Tobacco Use Types Packs/Day Years [...] Description 11/01/2024 8:00 AM EDT Office Visit [facility] ADULT DENTAL [address] [place] [address] Nathaniel Peter DDS [address] [place] [address] 11/02/2024 11:00 AM EDT Office Visit [facility] MEDICINE [address] [place] [address] Pop Hardwick MD [address] [place] [address] 05/02/2025 8:00 AM EDT Office Visit [facility] ADULT DENTAL [address] [place] [address] Kay Martinez [address] [place] [address] documented as of this encounter Visit Diagnoses Diagnosis Onychomycosis Dermatophytosis of nail documented in this encounter Care Teams Elastic Assembler Relationship Specialty Start Date End Date Name, MD Vern [address] [place] [address] PCP - General Internal Medicine 05/09/24 documented as of this encounter
== END 2024-10-31 14:49 | disposition home or self-care (01) ==
LOC: HO.HHCX 14:48
PROVIDERS: Visit Provider Internal Medicine Geriatric Medicine
DX: M25.511 Pain in right shoulder (principal)
CPT/HCPCS: 73030

== ENCOUNTER → 2024-10-31 14:50 | Outpatient (BNV) | payer MEDICARE, MEDICAID, SELFPAY | PROVIDERS: Visit Provider Radiology Diagnostic Radiology | DX: M19.011 Primary osteoarthritis, right shoulder (principal) | CPT/HCPCS: 73030 ==

== ENCOUNTER 2024-11-02 11:35 | Outpatient (REF) | payer MEDICARE, MEDICAID, SELFPAY ==
--- OUTSIDE RECORDS SUMMARY | 2024-11-02 13:25 | XMS_ITS | Encounter Summary ---
Author Organization [facility] Address [address] [facility] 7 [place] [address] Care Team Providers Care English Language Learner Teacher Name Role Phone France Dunlap MD Primary Care Provider + Vern Garcia MD Primary Care Provider [phone] Encounter Details Date Type Department Care Team (Latest Contact Info) Description 10/20/2018 Abstract [facility] CONVERSIONS Dental, Provider, DDS Social History Tobacco [...] Care Team (Late st Contact Info) Description 05/02/2025 8:00 AM EDT Office Visit [facility] ADULT DENTAL [address] [place] [address] Michelle, Kay [address] [place] [address] documented as of this encounter Visit Diagnoses Not on filedocumented in this encounter Care Teams English Language Learner Teacher Relationship Specialty Start Date End Date France Dunlap MD [address] [place] [address] PCP - General Family Medicine 09/05/20 05/08/24 Vern Garcia MD [address] [place], [place] [phone] PCP - General Internal Medicine 05/09/24 documented as of this encounter
--- OUTSIDE RECORDS SUMMARY | 2024-11-02 13:25 | XMS_ITS | Clinical Summary ---
Author Organization [employer] Address [address] [facility] 7t [place] [address] Care Team Providers Care Roof Technician Name Role Phone Name, Vern YUAN Primary Care Provider [phone] Allergies Active Allergy Reactions Criticality Noted Date [...] , without long-term current use of insulin (CMS/HCC) Take 1 tablet (2 mg) by mouth before breakfast. 30 tablet 11 11/01/19 25 026 Active empagliflozin -metFORMIN (Synjardy) 12.5-500 MGIndications :Type 2 diabetes mellitus with hyperglycemia , without long-term current use of insulin ([facility]) Take 1 tablet by mouth with breakfast and with evening meal. 60 tablet 11 11/01/19 25 026 Active terbinafine (LamISIL AT) 1 % cream Apply topically 2 times daily. 42 g 2 11/01/19 25 Active minocycline 100 MG capsuleIndica tions:Follicu litis Take 1 capsule (100 mg) by mouth 2 times daily. 60 capsule 1 11/03/19 25 Active minocycline 100 MG capsuleIndica tions:Follicu [...] , without long-term current use of insulin ([facility]) Take 1 tablet (25 mg) by mouth Once per day. 30 tablet 11 03/06/20 24 025 Discontinued(D ose adjustment) tadalafil (Cialis) 20 MG tablet Take 1 tablet (20 mg) by mouth if needed each day for erectile dysfunction. 10 tablet 2 05/09/20 24 025 Discontinued minocycline 100 MG capsuleIndica tions:Follicu litis Take 1 capsule (100 mg) by mouth 2 times daily. 60 capsule 1 11/01/19 25 025 Discontinued(R eorder (will not trigger notification to Pharmacy)) Active Problems Problem Noted Date Diagnosed Date [...] any medications Rx Paxlovid x 5 days, Ogilvie interactions module checked, no significant interactions found. [...] Encounters Date Type Department Care Team Description 11/02/2024 11:00 AM EDT Office Visit [facility] MEDICINE [address] [place] [address] Pop Hardwick MD Folliculitis (Primary Dx); Folliculitis 11/02/2024 Travel 11/02/2024 Population Health Risk Score [facility] () Department [address] [place] [phone] Provider, Population Health Generic 10/31/2024 2:00 PM EDT Office Visit [facility] MEDICINE [address] [place] [address] Name, MD Vern Type 2 diabetes mellitus with hyperglycemia, without long-term current use of insulin ([facility]) (Primary Dx); Folliculitis; Refusal of statin medication by patient; Acute pain of right shoulder; Bunion of right foot 10/29/2024 8:00 AM EDT Office Visit [facility] ADULT DENTAL [address] [place] [address] Kay Martinez Periodontal disease (Primary Dx); Dental calculus; Dental root caries; Supraeruption of teeth 10/29/2024 Refill [facility] [address] [place] [phone] Vern Garcia MD 10/29/2024 Refill [facility] [address] [place] [address] France Dunlap MD 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 Travel 10/11/2024 Telephone [facility] [address] [place] [phone] Vern Garcia MD telephone call 09/26/2024 5:40 PM EST Office Visit [facility] WALK[facility]IN [facility] [address] [place] [address] Jono Jacobs MD Flu (Primary Dx); Cough in adult; COVID-19 09/26/2024 Orders Only [facility] [address] [place] [phone] Jono Jacobs MD 09/26/2024 Telephone [facility] [address] [place] [phone] 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, 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 Question 09/21/2024 Telephone [facility] [address] [place] [phone] Vern Garcia MD Appointment Request 09/21/2024 Refill [facility] [address] [place] [phone] France Dunlap MD 09/19/2024 Telephone [facility] [address] [place] [phone] Vern Garcia MD 09/05/2024 Telephone [facility] [address] [place] [phone] Tyesha Sotelo ANP 09/04/2024 Telephone [facility] [address] [place] [phone] Vern Garcia MD Appointment Request from Last [...] Sign Reading Time Taken Comments Blood Pressure 132/79 11/02/2024 10:50 AM EDT Pulse 92 11/02/2024 10:50 AM EDT Temperature 36.1 ??C (97 ??F) 11/02/2024 10:50 AM EDT Respiratory Rate 18 11/02/2024 10:50 AM EDT Oxygen Saturation 98% 10/31/2024 2:10 PM EDT Inhaled Oxygen Concentration - - Weight 81.6 kg (180 lb) 11/02/2024 10:50 AM EDT Height 167.6 cm (5' 6 ) 11/02/2024 10:50 AM EDT Body Mass Index 29.05 11/02/2024 10:50 AM EDT Plan of Treatment Upcoming Encounters Date Type Department Care Team (Late st Contact Info) Description 05/02/2025 8:00 AM EDT Office Visit [facility] ADULT DENTAL [address] [place] [address] Michelle, Kay [address] [place] [address] Health Maintenance Due Date Last Done Comments [...] Additional history exists Lipid Panel 06/30/2025 06/30/2024, 11/21, 07/13/2021, Additional history exists DTaP/Tdap/Td Vaccines (2 [...] hyperglycemia, without long-term current use of insulin ([facility]) POCT GLUCOSE Routine 10/31/2024 2:11 PM EDT Type 2 diabetes mellitus with hyperglycemia, without long-term current use of insulin ([facility]) PERIODIC ORAL EVALUATION - ESTABLISHED PATIENT Routine [...] hyperglycemia, without long-term current use of insulin ([facility]) Weight loss HIV 1/2 ANTIGEN/ANTIBODY, FOURTH GENERATION W/RFL Routine 06/30/2024 9:49 AM EST Type 2 diabetes mellitus with hyperglycemia, without long-term current use of insulin ([facility]) Weight loss LIPID PANEL, STANDARD Routine 06/30/2024 9:49 AM EST Type 2 diabetes mellitus with hyperglycemia, without long-term current use of insulin ([facility]) Weight loss ALBUMIN, RANDOM URINE W/CREATININE Routine 10/22/2020 8:50 AM EST from Last 3 Months or Most Recently Relevant to Health Maintenance Results * XR Shoulder 2+ Views Right (10/31/2024 2:50 PM EDT) Anatomical Region Laterality Modality Upper Extremities, Shoulder Right Radi ographic Imaging 10/31/2024 2:50 PM EDT Narrative 10/31/2024 3:39 PM EDT ?[facility] ?[address] ?[place] [address] ?XRay Report ? Signed ? Patient: Awan,Mike ?MR#: [id number] ? : 1970 ?Acct:[id number] ? Age/Sex: 54 / M ?ADM Date: 10/31/24 ? Loc: HO.HHCX ? Attending Dr: Vern Garcia MD ? Ordering Physician: Vern Garcia MD ?? Date of Service: 10/31/24 ?? Procedure(s): XR shoulder RT min 2V ?? Accession Number(s): [id number] ? cc: Vern Garcia MD ? EXAMINATION: [...] DD/ 1450 ? TD/TT: 10/31/24 1500 ? Mental Health Clinician: ? Procedure Note Contreras, Luz Marina - 10/31/2024 [facility] [address] [place] [address] XRay Report Signed Patient: Mike AwanMR#: [id number] : 1970Acct:[id number] Age/Sex: 54 / MADM Date: 10/31/24 Loc: HO.HHCX Attending Dr: Vern Garcia MD Ordering Physician: Vern Garcia MD Date of Service: 10/31/24 Procedure(s): XR shoulder RT min 2V Accession Number(s): [id number] cc: Vern Garcia MD EXAMINATION: XR SHOULDER, [...] 10/31/24 1535 DD/ 1450 TD/TT: 10/31/24 1500 Mental Health Clinician: us Vern Garcia MD IMG XR PROCEDURES [...] / Unknown 10/31/2024 2:11 PM EDT Result [facility] Vern Garcia MD POINT OF CARE TEST ENTER/EDIT OR DERABLES Final Result * POCT Rapid COVID Ag (09/26/2024 5:30 PM EST) [facility] Rapid COVID Ag Negative QC Media Lot # [id number] Lot# Expiration Date Swab 09/26/2024 5:30 PM EST Result [facility] Jono Ayon MD POINT OF CARE TEST ENTER/EDIT ORDERABLES Final Result * POCT rapid strep A manually resulted (09/26/2024 5:30 PM EST) [facility] Rapid Strep A Screen Negative Negative, None Detected QC Media Lot # [id number] Lot# Expiration Date Swab 09/26/2024 5:30 PM EST Result [facility] Jono Ayon MD POINT OF CARE TEST ENTER/EDIT ORDERABLES Final Result * POCT Influenza B manually resulted (09/26/2024 5:29 PM EST) [facility] Rapid Influenza B Ag Negative Negative, Indeterminate QC Media Lot # [id number] Lot# Expiration Date Swab 09/26/2024 5:29 PM EST Jono Ayon MD POINT OF CARE TEST ENTER/EDIT ORDERABLES Final Result * (ABNORMAL) POCT Influenza A manually resulted (09/26/2024 5:29 PM EST) [facility] Rapid Influenza A Ag Positive( A) Negative, Indeterminate QC Media Lot # [id number] Lot# Expiration Date Swab Nasopharyngeal structure / Unknown 09/26/2024 5:29 PM EST us oJno Ayon MD POINT OF CARE TEST ENTER/EDIT ORDERABLES Final Result * Hepatitis C Antibody with Reflex to HCV, RNA, Quantitative, Real-Time PCR (06/30/2024 9:49 AM EST) Hepatitis C Antibody Nonreactive Nonreactive [facility] Comment:Antibodies to HCV no t detected; does not exclude early acuteHCV infection. Blood Venous blood specimen / Unknown 06/30/2024 9:49 AM EST 06/30/2024 9:49 AM EST us Vern Garcia MD LAB BLOOD ORDERABLES Final Resul t [facility] [address] [place] [phone] * HIV-1/2 Antigen and Antibodies, Fourth Generation, with Reflexes (06/30/2024 9:49 AM EST) HIV AB/AG Nonreactive Nonreactive [facility] Comment:HIV-1 p24 Ag and/or HIV-1/HIV-2 Ab not detected.A test result that is nonreactive does not exclude thepossibility of exposure to or infection with HIV-1 and/orHIV-2. Nonreactive results in this assay for individualswith prior exposure to HIV-1 and/or HIV-2 may be due toantigen and antibody levels that are below the limit ofdetection of this assay.The [employer] HIV Ag/Ab Combo assay result andsupplemental assay results should be interpreted inconjunction with the patient's clinical presentation,history and other laboratory results. If the results areinconsistent with clinical evidence, additional testing issuggested to confirm the result. Blood Venous blood specimen / Unknown 06/30/2024 9:49 AM EST 06/30/2024 9:49 AM EST us Vern Garcia MD LAB BLOOD ORDERABLES Final Resul t Performing Organization Address [facility] de Phone Number [facility] [address] [place] [address] [phone] * (ABNORMAL) Lipid Panel, Standard (06/30/2024 9:49 AM EST) Triglycerides 75 <150 mg/dL [facility] Comment:Desirable Triglyceri de: less than 150 mg/dLBorderline High Triglyceride 150-199 mg/dLHigh Triglyceride: 200-499 mg/dLVery High Triglyceride: greater than or equal to 5OO mg/dL Cholesterol 213(H) <200 mg/dL [facility] Comment:Desirable Cholestero l: less than 200 mg/dLBorderline High Cholesterol: 200-239 mg/dLHigh Cholesterol: greater than 239 mg/dL LDL Cholesterol Calculated 142(H) <100 mg/dL [facility] Comment:Desirable LDL: less than 100 mg/dLNear Optimal/Above Optimal LDL: 110- 129 mg/dLBorderline High LDL: 130-159 mg/dLHigh LDL: 160-189 mg/dLVery High LDL: greater than or equal to 190 mg/dL HDL Cholesterol 56 >40 mg/dL [facility] Comment:Desirable HDL: great er than 40 mg/dL Note: This HDL assay may give artificially low results in patients with liver disease. Blood Venous blood specimen / Unknown 06/30/2024 9:49 AM EST 06/30/2024 9:49 AM EST Vern Garcia MD LAB BLOOD ORDERABLES Final Resul t Performing Organization Address [facility] Co de Phone Number [facility] [address] [place] [phone] [phone] * ALBUMIN, RANDOM URINE W/CREATININE (10/22/2020 [...] Creatinine, Urine 106 20 - 320 mg/dL [facility] 10/22/2020 8:50 AM EST us France Dunlap MD LAB URINE ORDERABLES Fin al Result [facility] [address] from Last 3 Months or Most Recently Relevant to Health Maintenance Insurance [place] [address] [place] [id number] [facility] MEDICAID STAND ADULT Care Teams Roof Technician Relationship Specialty Start Date End Date Name, MD Vern [address] [place] [address] PCP - General Internal Medicine 05/09/24
--- OUTSIDE RECORDS SUMMARY | 2024-11-02 13:25 | XMS_ITS | Encounter Summary ---
Author Organization [employer] Address [address] [facility] 7t [place] [address] Care Team Providers Care Insurance Underwriter Sales Name Role Phone Name, Vern YUAN Primary Care Provider [phone] Reason for Visit * Reason Comments Med Refill Encounter Details Date Type Department Care Team ([facility] st Contact Info) Description 10/29/2024 Refill [facility] MEDICINE [address] [place] [address] France Dunlap MD [address] [place] [address] Recurrent furunculosis Social History Tobacco Use Types [...] Description 05/02/2025 8:00 AM EDT Office Visit [facility] ADULT DENTAL [address] [place] [address] Michelle, Kay [address] [place] [address] documented as of this encounter Visit Diagnoses Diagnosis Recurrent furunculosis documented in this encounter Care Teams Insurance Underwriter Sales Relationship Specialty Start Date End Date Name, MD Vern [address] [place] [address] PCP - General Internal Medicine 05/09/24 documented as of this encounter
--- OUTSIDE RECORDS SUMMARY | 2024-11-02 13:25 | XMS_ITS | Encounter Summary ---
Author Organization [employer] Address [address] [facility] 7t [place] [address] Care Team Providers Care Devulcanizer Operator Name Role Phone Name, Vern YUAN Primary Care Provider [phone] Reason for Visit * Reason Onset Date Comments telephone call 10/11/2024 Encounter Details Date Type Department Care Team ([facility] st Contact Info) Description 10/11/2024 Telephone [facility] MEDICINE [address] [place] [address] Name, MD Vern [address] [place] [address] telephone call Social History Tobacco Use Types [...] Description 05/02/2025 8:00 AM EDT Office Visit [facility] ADULT DENTAL [address] [place] [address] Michelle, Kay [address] [place] [address] documented as of this encounter Visit Diagnoses Not on filedocumented in this encounter Care Teams Devulcanizer Operator Relationship Specialty Start Date End Date Name, MD Vern [address] [place] [address] PCP - General Internal Medicine 05/09/24 documented as of this encounter
--- OUTSIDE RECORDS SUMMARY | 2024-11-02 13:25 | XMS_ITS | Encounter Summary ---
Author Organization [employer] Address [address] [facility] 7t [place] [address] Care Team Providers Care Manager Php Name Role Phone Name, Vern YUAN Primary Care Provider [phone] Encounter Details Date Type Department Care Team ([facility] st Contact Info) Description 11/02/2024 11:00 AM EDT Office Visit [facility] MEDICINE [address] [place] [address] Pop Hardwick MD [address] [place] [address] Folliculitis (Primary Dx); Folliculitis Social History Tobacco Use Types Packs/Day Years Used Date Smoking Tobacco: Never Passive Smoke Exposure: Never Smokeless Tobacco: Never Alcohol Use Standard Drinks/Week Comments Never 0 (1 standard drink = 0.6 oz pur e alcohol) Housing Stability Answer Date Recorded What is your housing situation today? I have erickson sing 10/31/[address] you li [...] 18 11/02/2024 10:50 AM EDT Oxygen Saturation - - Inhaled Oxygen Concentration - - Weight 81.6 kg (180 lb) 11/02/2024 10:50 AM EDT Height 167.6 cm (5' 6 ) 11/02/2024 10:50 AM EDT Body Mass Index 29.05 11/02/2024 10:50 AM EDT documented in this encounter Progress Notes * Pop Hardwick MD - 11/02/2024 11:00 AM EDT Subjective Patient ID: Mike Awan is a 54 y.o. male who presents for No chief complaint on file.. HPI 54 yr old man with hx of recurrent folliculitis, uncontrolled DM here today for follow up. Review of Systems Constitutional: Negative for diaphoresis, fatigue and fever. HENT: Negative for ear discharge, ear pain, facial swelling and hearing loss. Respiratory: Negative for cough, choking, chest tightness and shortness of breath. Cardiovascular: Negative for chest pain and leg swelling. Gastrointestinal: Negative for abdominal distention, abdominal pain and anal bleeding. Endocrine: Negative for cold intolerance and heat intolerance. Genitourinary: Negative for enuresis, flank pain and frequency. Musculoskeletal: Negative for arthralgias, back pain and gait problem. Neurological: Negative for dizziness, facial asymmetry and headaches. Psychiatric/Behavioral: Negative for agitation, behavioral problems and confusion. Objective Physical Exam Constitutional: Appearance: Normal appearance. HENT: Head: Normocephalic. Nose: Nose normal. Eyes: Extraocular Movements: Extraocular movements intact. Pulmonary: Effort: Pulmonary effort is normal. Musculoskeletal: Cervical back: Normal range of motion and neck supple. Skin: General: Skin is warm and dry. Comments: Inflamed papules and nodules on torso and lower ext as well buttocks Neurological: Mental Status: He is alert. Mental status is at baseline. Assessment/Plan Diagnoses and all orders for this visit: Folliculitis Chronic, recurrent Likely due to uncontrolled DM Responded previously to mincocycline tx Refill minocycline Work with PCP on DM management, this could be a type of HS, which would respond well to higher doseof metformin He mentioned GI intolerance to metformin, may consider Metformin XR as it may have favorable GI effect. (Defer to PCP) Advised also to try bleach baths x2 weekly - minocycline 100 MG capsule; Take 1 capsule (100 mg) by mouth 2 times daily. Folliculitis Comments: . Orders: - minocycline 100 MG capsule; Take 1 capsule (100 mg) by mouth 2 times daily. documented in this encounter Plan of Treatment Upcoming Encounters Date Type Department Care Team (Late st Contact Info) Description 05/02/2025 8:00 AM EDT Office Visit [facility] ADULT DENTAL [address] [place] [address] Michelle, Kay [address] [place] [address] documented as of this encounter Visit Diagnoses Diagnosis Folliculitis- Primary Other specified disease of hair and hair follicles documented in this encounter Care Teams Manager Php Relationship Specialty Start Date End Date Name, MD Vern [address] [place] [address] PCP - General Internal Medicine 05/09/24 documented as of this encounter
--- OUTSIDE RECORDS SUMMARY | 2024-11-02 13:25 | XMS_ITS | Encounter Summary ---
Author Organization [employer] Address [address] [facility] 7t [place] [address] Care Team Providers Care Content Management Consultant Name Role Phone Name, Vern YUAN Primary Care Provider [phone] Encounter Details Date Type Department Care Team [...] Description 05/02/2025 8:00 AM EDT Office Visit [facility] ADULT DENTAL [address] [place] [address] Ritchie Martinezaris [address] [place] [address] documented as of this encounter Visit Diagnoses Not on filedocumented in this encounter Care Teams Content Management Consultant Relationship Specialty Start Date End Date Name, MD Vern [address] [place] [address] PCP - General Internal Medicine 05/09/24 documented as of this encounter
--- OUTSIDE RECORDS SUMMARY | 2024-11-02 13:25 | XMS_ITS | Encounter Summary ---
Author Organization [employer] Address [address] [facility] 7t [place] [address] Care Team Providers Care Business Unit Controller Name Role Phone Name, Vern YUAN Primary Care Provider [phone] Reason for Visit * Reason Comments Med Refill Encounter Details Date Type Department Care Team ([facility] st Contact Info) Description 05/23/2024 Refill [facility] MEDIC[facility] [address] [place] [address] Pop Hardwick MD [address] [place] [address] Onychomycosis Social History Tobacco Use Types Packs/Day [...] 05/02/2025 8:00 AM EDT Office Visit [facility] ADULT DENTAL [address] [place] [address] Kay Martinez [address] [place] [address] documented as of this encounter Visit Diagnoses Diagnosis Onychomycosis Dermatophytosis of nail documented in this encounter Care Teams Business Unit Controller Relationship Specialty Start Date End Date Name, MD Vern [address] [place] [address] PCP - General Internal Medicine 05/09/24 documented as of this encounter
--- OUTSIDE RECORDS SUMMARY | 2024-11-02 13:25 | XMS_ITS | Encounter Summary ---
Author Organization [employer] Address [address] [facility] 7t [place] [address] Care Team Providers Care General Road Foreman Name Role Phone Name, Vern YUAN Primary Care Provider [phone] Encounter Details Date Type Department Care Team (Latest Contact Info) Description 11/02/2024 Travel Social History Tobacco Use Types Packs/Day [...] Description 05/02/2025 8:00 AM EDT Office Visit [facility] ADULT DENTAL [address] [place] [address] Ritchie Martinezaris [address] [place] [address] documented as of this encounter Visit Diagnoses Not on filedocumented in this encounter Care Teams General Road Foreman Relationship Specialty Start Date End Date Name, MD Vern [address] [place] [address] PCP - General Internal Medicine 05/09/24 documented as of this encounter
--- OUTSIDE RECORDS SUMMARY | 2024-11-02 13:25 | XMS_ITS | Encounter Summary ---
Author Organization [employer] Address [address] [facility] 7t [place] [address] Care Team Providers Care Can Vacuum Tester Name Role Phone Name, Vern YUAN Primary Care Provider [phone] Encounter Details Date Type Department Care Team ([facility] st Contact Info) Description 09/26/2024 Orders Only [facility] MEDICINE [address] [place] [address] Jono Jacobs MD [address] [place] [address] Social History Tobacco Use Types Packs/Day Years [...] Description 05/02/2025 8:00 AM EDT Office Visit [facility] ADULT DENTAL [address] [place] [address] Michelle, Kay [address] [place] [address] documented as of this encounter Visit Diagnoses Not on filedocumented in this encounter Care Teams Can Vacuum Tester Relationship Specialty Start Date End Date Name, MD Vern [address] [place] [address] PCP - General Internal Medicine 05/09/24 documented as of this encounter
--- OUTSIDE RECORDS SUMMARY | 2024-11-02 13:25 | XMS_ITS | Encounter Summary ---
Author Organization [employer] Address [address] [facility] 7 [place] [address] Care Team Providers Care Drug Enforcement Administration Agent Name Role Phone Name, Vern YUAN Primary Care Provider [phone] Reason for Visit * Reason Onset Date Comments Appointment Request 09/21/2024 Encounter Details Date Type Department Care Team ([facility] st Contact Info) Description 09/21/[address] [facility] MEDICINE [address] [place] [address] Name, MD Vern [address] [place] [address] Appointment Request Social History Tobacco Use Types [...] he will be coming in to the [facility]. Latcher advise of hours. documented in this encounter Plan of Treatment Upcoming Encounters Date Type Department Care Team (Late st Contact Info) Description 05/02/2025 8:00 AM EDT Office Visit [facility] ADULT DENTAL [address] [place] [address] Kay Martinez [address] [place] [address] documented as of this encounter Visit Diagnoses Not on filedocumented in this encounter Care Teams Drug Enforcement Administration Agent Relationship Specialty Start Date End Date Name, MD Vern [address] [place] [address] PCP - General Internal Medicine 05/09/24 documented as of this encounter
--- OUTSIDE RECORDS SUMMARY | 2024-11-02 13:25 | XMS_ITS | Encounter Summary ---
Author Organization [employer] [facility] Address [address] [facility] 7 [place] [address] Care Team Providers Care Caseworker Name Role Phone France Dunlap MD Primary Care Provider + Vern Garcia MD Primary Care Provider [phone] Encounter Details Date Type Department Care Team (Latest Contact Info) Description 05/29/2021 Abstract [facility] CONVERSIONS Dental, Provider, DDS Social [...] Description 05/02/2025 8:00 AM EDT Office Visit [facility] ADULT DENTAL [address] [place] [address] Michelle, Kay [address] [place] [address] documented as of this encounter Visit Diagnoses Not on filedocumented in this encounter Care Teams Caseworker Relationship Specialty Start Date End Date France Dunlap MD [address] [place] [address] PCP - General Family Medicine 09/05/20 05/08/24 Vern Garcia MD [address] [place] [address] PCP - General Internal Medicine 05/09/24 documented as of this encounter
--- OUTSIDE RECORDS SUMMARY | 2024-11-02 13:25 | XMS_ITS | Encounter Summary ---
Author Organization [employer] Address [address] [facility] 7t [place] [address] Care Team Providers Care It Project Manager Name Role Phone Name, Vern YUAN Primary Care Provider [phone] Encounter Details Date Type Department Care Team ([facility] st Contact Info) Description 11/02/2024 Population Health Risk Score [facility] (C3) Department [address] [id number] Provider, Population Health Generic Social History Tobacco Use Types Packs/Day Years [...] Description 05/02/2025 8:00 AM EDT Office Visit [facility] ADULT DENTAL [address] [place] [address] Michelle, Kay [address] [place] [address] documented as of this encounter Visit Diagnoses Not on filedocumented in this encounter Care Teams It Project Manager Relationship Specialty Start Date End Date Name, MD Vern [address] [place] [address] PCP - General Internal Medicine 05/09/24 documented as of this encounter
--- OUTSIDE RECORDS SUMMARY | 2024-11-02 13:25 | XMS_ITS | Encounter Summary ---
Author Organization [employer] Address [address] [facility] 7t [place] [address] Care Team Providers Care Policy Adviser Name Role Phone Name, Vern YUAN Primary Care Provider [phone] Reason for Visit * Reason Comments Med Refill Encounter Details Date Type Department Care Team ([facility] st Contact Info) Description 05/28/2024 Refill [facility] MEDICINE [address] [place] [address] France Dunlap MD [address] [place] [address] Recurrent furunculosis Social History Tobacco Use Types [...] Description 05/02/2025 8:00 AM EDT Office Visit [facility] ADULT DENTAL [address] [place] [address] Kay Martinez [address] [place] [address] documented as of this encounter Visit Diagnoses Diagnosis Recurrent furunculosis documented in this encounter Care Teams Policy Adviser Relationship Specialty Start Date End Date Name, MD Vern [address] [place] [address] PCP - General Internal Medicine 05/09/24 documented as of this encounter
--- OUTSIDE RECORDS SUMMARY | 2024-11-02 13:25 | XMS_ITS | Encounter Summary ---
Author Organization [employer] [facility] Address [address] [facility] 7t [place] [address] Care Team Providers Care Mysql Database Developer Name Role Phone Vern Garcia MD Primary Care Provider [phone] Reason for Referral * Consultation (Routine) - Authorized Specialty Diagnoses / Procedures Referred By Guy fowler Referred To Contact Podiatry Diagnoses Bunion of right foot Vern Garcia MD [address] [place] [address] Phone: tel: fax: Ehsan Perkins DPM [address] [facility] [address] [place] [address] Phone: tel: fax: Referral ID Status Reason Start Date Expiration Date Visits Requested Visits Authorized [id number] Authorized Specialty Services Required 10/31/2024 10/31/2025 1 1 * Consultation (Routine) - Closed Specialty Diagnoses / Procedures Referred By Guy fowler Referred To Contact Physical Therapy Diagnoses Acute pain of right shoulder Vern Garcia MD [address] [place] [address] Phone: tel: fax: [facility] [address] [place], [place] Phone: tel: fax: Referral ID Status Reason Start Date Expiration Date V isits Requested Visits Authorized [id number] Closed Specialty Services Required 10/31/2024 10/31/2025 1 1 * Consultation (Routine) - Authorized Specialty Diagnoses / Procedures Referred By Contac t Referred To Contact Pharmacy Diagnoses Type 2 diabetes mellitus with hyperglycemia, without long-term current use of insulin (CMS/HCC) Vern Garcia MD [address] [place] [address] Phone: tel: fax: Referral ID Status Reason Start Date Expiration Date Visits Requested Visits Authorized [id number] Authorized Consult and Treat 10/31/2024 10/31/2025 6 6 Reason for Visit * Reason Comments Diabetes Encounter Details Date Type Department Care Team ([facility] st Contact Info) Description 10/31/2024 2:00 PM EDT Office Visit [facility] MEDICINE [address] [place] [address] Vern Garcia MD [address] [place] [id number] Type 2 diabetes mellitus with hyperglycemia, without long-term current use of insulin (CMS/[facility]) (Primary Dx); Folliculitis; Refusal of statin medication [...] in this encounter Progress Notes * Vern Garcia MD - 10/31/2024 2:00 PM EDT Subjective Patient [...] hyperglycemia, without long-term current use of insulin ([facility]) Comments: I recommended to start Synjardy, restart [...] Description 05/02/2025 8:00 AM EDT Office Visit [facility] ADULT DENTAL [address] [place], [place] [phone] Michelle, Kay [address] [place] [address] Scheduled Orders Name Type Priority Associated Diagnoses Orde r Schedule Albumin, Random Urine W/Creatinine Lab Routine Type 2 diabetes mellitus with hyperglycemia, without long-term current use of insulin (CMS/HCC) Expected: 10/31/2024 (Approximate), Expires: 10/31/2025 Scheduled Referrals Name Type Priority Associated Diagnoses Orde r Schedule Referral to Pharmacy CDTM Outpatient Referral Routine Type 2 diabetes mellitus with hyperglycemia, without long-term current use of insulin (CMS/HCC) Ordered: 10/31/2024 Referral to Physical Therapy Outpatient [...] without long-term current use of insulin (CMS/HCC) POCT GLUCOSE Routine 10/31/2024 2:11 PM EDT Type 2 diabetes mellitus with hyperglycemia, without long-term current use of insulin (CMS/HCC) documented in this encounter Results * XR Shoulder 2+ Views Right (10/31/2024 2:50 PM EDT) Anatomical Region Laterality Modality Upper Extremities, Shoulder Right Radi ographic Imaging 10/31/2024 2:50 PM EDT Narrative 10/31/2024 3:39 PM EDT ?[facility] ?[address] ?[place] [address] ?XRay Report ? Signed ? Patient: Awan,Mike ?MR#: [id number] ? : 1970 ?Acct:[id number] ? Age/Sex: 54 / M ?ADM Date: 10/31/24 ? Loc: HO.HHCX ? Attending Dr: Vern Garcia MD ? Ordering Physician: Vern Garcia MD ?? Date of Service: 10/31/24 ?? Procedure(s): XR shoulder RT min 2V ?? Accession Number(s): [id number] ? cc: Vern Garcia MD ? EXAMINATION: [...] DD/ 1450 ? TD/TT: 10/31/24 1500 ? Rubber Compounder Mixer: ? Procedure Note Contreras, Luz Marina - 10/31/2024 [facility] [address] [place] [address] XRay Report Signed Patient: Mike AwanMR#: [id number] : 1970Acct:[id number] Age/Sex: 54 / MADM Date: 10/31/24 Loc: HO.HHCX Attending Dr: Vern Garcia MD Ordering Physician: Vern Garcia MD Date of Service: 10/31/24 Procedure(s): XR shoulder RT min 2V Accession Number(s): [id number] cc: Vern Garcia MD EXAMINATION: XR SHOULDER, [...] 10/31/24 1535 DD/ 1450 TD/TT: 10/31/24 1500 Rubber Compounder Mixer: us Vern Garcia MD IMG XR PROCEDURES [...] Media Lot # [id number] Lot# Expiration Date [id number] Blood Capillary blood specimen / Unknown 10/31/2024 2:11 PM EDT Vern Garcia MD POINT OF CARE TEST ENTER/EDIT OR DERABLES Final Result documented in this encounter Visit Diagnoses Diagnosis Type 2 diabetes mellitus with hyperglycemia, without long-term current use of insulin ([facility])- Primary Folliculitis Other specified disease of hair and hair follicles Refusal of statin medication by patient Acute pain of right shoulder Bunion of right foot Bunion documented in this encounter Care Teams Mysql Database Developer Relationship Specialty Start Date End Date Name, MD Vern [address] [place] [address] PCP - General Internal Medicine 05/09/24 documented as of this encounter
--- OUTSIDE RECORDS SUMMARY | 2024-11-02 13:25 | XMS_ITS | Encounter Summary ---
Author Organization [employer] Address [address] [facility] 7t [place] [address] Care Team Providers Care Alarm Adjuster Name Role Phone Name, Vern YUAN Primary Care Provider [phone] Reason for Visit * Reason Comments Routine Cleaning Dental Exam FMX Perio chart Encounter Details Date Type Department Care Team ([facility] st Contact Info) Description 10/29/2024 8:00 AM EDT Office Visit [facility] ADULT DENTAL [address] [place] [address] Kay Martinez [address] [place] [address] Periodontal disease (Primary Dx); Dental calculus; Dental [...] past 12 months, has t he electric, [employer], oil or water [employer] threatened to shut off services in your [...] Time Out: Timeout Date: 10/29/24, Timeout Time: 08 (prophy P. exam by Rome Veliz, FMX, Perio chart) Location: [facility] Tooth: Maxilla and Mandible Procedure: Exam, X-rays, Prophylaxis, and Perio chart Verified the above with patient, cement tester assistant, and provider. Confirmed via patient's chart, intraorally and by radiographs. Rn Imcu: not applicable Medical Hx: Vitals: Blood pressure [...] INSTRUCTIONS (Completed) Service provider: Kay Argueta provider: Nathnaiel Peter DDS Instruments Used: Ultrasonic Scalers and Hand Scalers, prophy angle Fluoride: N/A Oral Cancer Screening: Maxillary buccal mucosa is hyperkeratinized Head/Neck Exam: No Lesions Calculus: Light Plaque: Light Stain: Light Bleeding: Light Gingiva: pink, recession OH: Good Perio Chart: Completed Oral hygiene instructions provided to patient including brushing technique and flossing. Recommendations: [place] two times daily, modified hoffman technique, Floss daily, Electric toothbrush, Soft bristle toothbrush, [place] Tongue, Anti-sensitivity toothpaste Recall Frequency: 6 mo [...] by Rome Veliz, FMX, Perio chart) Location: [facility] Tooth: Maxilla and Mandible Procedure: Exam, X-rays, and Prophylaxis Verified the above with patient, cement tester assistant, and provider. Confirmed via patient's chart, intraorally and by radiographs. Rn Imcu: not applicable Chief Complaint Patient presents with Routine Cleaning Dental Exam FMX Perio chart Medical Hx: Vitals: Blood pressure 110/68. Past Medical History: Diagnosis Date Back pain Diabetes mellitus (CMS/HCC) History of asthma Last attack was 1985 [...] Cancer Risk: Low Risk Oral Hygiene Instructions: [place] two times daily, modified hoffman technique, Floss daily, Electric toothbrush, Soft bristle toothbrush, [place] Tongue Caries Risk Assessment: Low- no risk factor Assessment/Plan TERRENCE X Rays Prophy Extraction Recall Patient tolerated procedure well, all questions answered and expressed understanding. Dismissed in good condition. NV: Exo # 1 / 6 mos recall monitor # 31 Digital Experience Manager: Kay Martinez RDH Dentist: Nathaniel Peter DDS \ documented in this encounter Plan of Treatment Upcoming Encounters Date Type Department Care Team (Late st Contact Info) Description 05/02/2025 8:00 AM EDT Office Visit [facility] ADULT DENTAL [address] [place] [address] Kay Martinez [address] [place] [address] Scheduled Orders Name Type Priority Associated Diagnoses Orde r Schedule ORAL HYGIENE INSTRUCTIONS Dental Routine 1 Occurrences starting 10/29/2024 CASE PRESENTATION, DETAILED AND EXTENSIVE TREATMENT PLANNING Dental Routine 1 Occurrences starting 10/29/2024 1 1 EXTRACTION, ERUPTED TOOTH OR EXPOSED ROOT (ELEVATION/FORCEPS REMOVAL) Dental Routine [address] arting 10/29/2024 PROPHYLAXIS - ADULT Dental Routine 1 Occ urrences starting 11/01/2024 documented as of this encounter Procedures Procedure [...] teeth documented in this encounter Care Teams Alarm Adjuster Relationship Specialty Start Date End Date Name, MD Vern [address] [place] [address] PCP - General Internal Medicine 05/09/24 documented as of this encounter
--- OUTSIDE RECORDS SUMMARY | 2024-11-02 13:25 | XMS_ITS | Encounter Summary ---
Author Organization [employer] Address [address] [facility] 7 [place] [address] Care Team Providers Care Architectural Project Manager Name Role Phone Name, Vern YUAN Primary Care Provider [phone] Reason for Visit * Reason Comments Med Refill Encounter Details Date Type Department Care Team ([facility] st Contact Info) Description 10/29/2024 Refill [facility] MEDICINE [address] [place] [address] Name, MD Vern [address] [place] [address] Social History Tobacco Use Types Packs/Day Years [...] 8:00 AM EDT Office Visit [facility] ADULT DENTAL [address] [place] [address] Michelle, Kay [address] [place] [address] documented as of this encounter Visit Diagnoses Not on filedocumented in this encounter Care Teams Architectural Project Manager Relationship Specialty Start Date End Date Name, MD Vern [address] [place] [address] PCP - General Internal Medicine 05/09/24 documented as of this encounter
[2024-11-02 14:39] LABS: Microalbumin Urine < 5.0 mg/L
== END 2024-11-02 11:36 | disposition home or self-care (01) ==
LOC: HO.HHCL 11:35
PROVIDERS: Visit Provider Internal Medicine Geriatric Medicine
DX: E11.65 Type 2 diabetes mellitus with hyperglycemia (principal)
CPT/HCPCS: 82043; 82570

== ENCOUNTER 2024-11-23 07:53 | Outpatient (AMB) | payer MEDICARE, MEDICAID, SELFPAY ==
--- NOTE | 2024-11-23 07:59 | MHC.OFFVIS ---
Vital Signs 11/23/24 08:09 Height 5 ft 6 in Weight 181 lb 10.574 oz BMI 29.3 BP 116/66 Blood Pressure Location Rt brachial Position Sitting Pulse 92 Pulse Source Pulse Oximeter Pulse Oximetry (%) 99 Oxygen Delivery Method Room Air Intake Visit Reasons: Colonoscopy screening Intake Note: ESTABLISHED PATIENT for initial colo screening. Chief Complaint; C/O occasional GI upset which pt attributes to the diabetes medication that he has been taking. Pt reports not being overly concerned about this but would just like to inquire as to learn more about the possible interactions with the medication. No FMHx or additional concerns reported. Ice Cream Chef Required: No Accompanied by: Self / Same As Patient Allergies codeine Allergy (Unknown, Verified 11/23/24 07:59) upset stomach, nausea HPI HPI Colonoscopy screening: Details: 54 year old? male with past medical history of diabetes is here today for pre colonoscopy screening.? Patient was sent to us by his PCP.? This is his first colonoscopy screening.? Patient denies any gastrointestinal symptoms in the past or at present.? However patient does report to be constipated. Sometimes no BM for 3-4 days. Denies any personal or family history of gastrointestinal disease, colon polyps, or CRC.? Denies history of difficulty with sedation or anesthesia in the past.? Negative for history of sleep apnea.? Denies any history of cardiac, renal, pulmonary, or hepatic disease.?? No history of infectious? diseases like hepatitis A, B, C, HIV or tuberculosis.? 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, 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, 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, ..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 Review of Systems Const Denies weight gain and Denies weight loss ENT Reports no additional complaints, Denies dysphagia and Denies odynophagia Card Reports no additional complaints Resp Reports no additional complaints GI Denies abdominal pain, Denies belching, Denies melena, Denies bloating, Denies change in bowel habits, Reports constipation, Denies dysphagia, Denies excessive flatus, Denies dyspepsia, Denies heartburn, Denies diarrhea, Denies loose stools, Denies nausea, Denies odynophagia and Denies vomiting Reports no additional complaints Musc Reports no additional complaints Neuro Reports no additional complaints Psych Reports no additional complaints Endo Reports no additional complaints Physical Exam Const General: healthy appearing, no acute distress and well developed Nutritional Appearance: well nourished Orientation/consciousness: patient oriented x3 Resp Effort & Inspection: normal respiratory effort, able to speak in complete sentences, no tracheal deviation and symmetric chest movement Auscultation: clear to auscultation bilaterally Cardio Rate: regular rate GI Inspection: Yes normal to inspection and No distended Palpation (GI): Soft to palpation, not firm, nontender and No hepatosplenomegaly present Auscultation: normal bowel sounds General: Yes no CVA tenderness Back/Spine/Pelvis Back: no CVA tenderness Skin General skin exam: elasticity normal, turgor normal and dry skin Neuro General: patient oriented x3 Psych Appearance: grossly normal Mental Status: mental status grossly normal Assessment & Plan Assessment & Plan (1) Screen for colon cancer: Code(s): Z12.11 - Encounter for screening for malignant neoplasm of colon (2) Constipation: Code(s): K59.00 - Constipation, unspecified Qualifiers: Constipation type: slow transit constipation Qualified Code(s): K59.01 - Slow transit constipation Plan Patient denies any cardiac or respiratory symptoms.? Patient reports constipation no BM for 3-4 days. Will send him script for Dulcolax. Increase fluid intake and activity to promote better bowel motility Denies any issues with anesthesia in the past.? Denies any history of sleep apnea.? No history infectious diseases in the past or present.? Not on any anticoagulation therapy.? No family or personal history of colon cancer or polyps.? Patient denies melena, hematochezia, unintentional weight loss or ribbon like stools.? Discussed at length the pre-procedure,? prep, diet & medications as well as what to expect prior, during and after the procedure.?? Stressed the importance of good bowel prep.? Recommended the use of Vaseline or Calmoseptine OTC & baby wipes with bowel movements to promote comfort.? ?Patient verbalizes understanding and agrees to plan of care.? He was given the opportunity to ask questions and all questions answered.? We will see him after the procedure.? Medications: New polyethylene glycol 3350 (Miralax) As directed by gastroenterology department at [facility] 238 grams PO ONCE 238 grams 0RF Z12.11 - Encounter for screening for malignant neoplasm of colon hydrocortisone 2.5% (Proctosol HC) 1 appl FL BID-QID PRN 30 grams 2RF hemorrhoids K64.9 - Unspecified hemorrhoids bisacodyl (Dulcolax (bisacodyl)) 10 mg (2 x 5 mg) PO BEDTIME 180 tabs 4RF Coding Level of Care Code New Pt Level 3 (99154) Diagnoses Screen for colon cancer Z12.11 Slow transit constipation K59.01 Constipation type: slow transit constipation Time Spent (min) 40 Comment 30 minutes spent with patient and additional 10 minutes spent reviewing her records
--- OUTSIDE RECORDS SUMMARY | 2024-11-23 07:59 | XMS_ITS | Clinical Summary ---
Author Organization [address] [place] [address] Address [address] [place] [address] Phone Care Team Providers Care Toll Line Mechanic Name Role Phone Name, Vern YUAN Primary Care Provider [phone] Surgical History Surgery Date Site/Laterality Comments BACK SURGERY 1996 PROCEDURE: HISTORICAL BACK SURGERY Family History Medical History Relation Name Comments Hyperlipidemia Father Diabetes Mother Relation Name Status Comments Father Mother Social History Tobacco Use Types Packs/Day Years Used Date Smoking Tobacco: Never Smokeless Tobacco: Never Alcohol Use Standard Drinks/Week Comments Not Asked 0 (1 standard drink = 0.6 oz pur e alcohol) Sex and Gender Information Value Date Recorded Sex Assigned at Not on file Legal Sex Male 3:32 PM EST Gender Identity Not on file Sexual Orientation Not on file Obstetrics History Plan of Treatment Upcoming Encounters Date Type Department Care Team ([facility] Contact Info) Description 01/17/2025 8:15 AM EDT Consult Orthopedic Surgery [place] [address] [phone] Ehsan Perkins, DPM [address] [address] Health Maintenance Due Date Last Done Comments Diabetes: Annual GFR (Glomer ular Filtration Rate) 1971 Diabetes: Annual Foot Exam 1981 Diabetes: Annual Retina Eye Exam 1981 DTaP,Tdap,and Td Vaccines (1 - Tdap) 1990 Hepatitis B Vaccines (1 of 3 - 19+ 3-dose series) 1990 Pneumococcal Vaccine: 50+ Ye ars (1 of 1 - PCV) 2021 Zoster Vaccines (1 of 2) 2021 COVID-19 Vaccine (1 - 2023-2 5 season) 2024 Cholesterol Screening (Lipid Panel) 11/20/2024 Colorectal Cancer Screening: Colonoscopy 11/20/2024 Depression Screening 11/20/2024 Diabetes: Annual Urine Albumin-Creatinine Ratio (uACR) 11/20/2024 Diabetes: Blood Sugar Contro l Test (HGBA1C) 11/20/2024 HIV Screening 11/20/2024 Hepatitis C Screening 11/20/2024 Medicare Annual Wellness Visit 11/20/2024 Social Influencers of Health Screening 11/20/2024 Influenza Vaccine (Season Ended) 2025 HIB Vaccines Aged Out No longer eligi ble based on patient's age to complete this topic HPV Vaccines Aged Out No longer eligi ble based on patient's age to complete this topic Hepatitis A Vaccines Aged Out No long er eligible based on patient's age to complete this topic IPV Vaccines Aged Out No longer eligi ble based on patient's age to complete this topic MMR Vaccines Aged Out No longer eligi ble based on patient's age to complete this topic Meningococcal ACWY Vaccine Aged Out N o longer eligible based on patient's age to complete this topic Meningococcal B Vacine Aged Out No lo nger eligible based on patient's age to complete this topic Pneumococcal Vaccine: Pediat rics (0 to 5 Years) and At-Risk Patients (6 to 64 Years) Aged Out No longer eligible b ased on patient's age to complete this topic RSV Immunization Patients Un gerson 20 months Aged Out No longer eligible b ased on patient's age to complete this topic Varicella Vaccines Aged Out No longer eligible based on patient's age to complete this topic Insurance [place] - [place] Care Teams Toll Line Mechanic Relationship Specialty Start Date End Date Name, MD Vern [address] [place] [address] PCP - General Internal Medicine 11/20/24
[2024-11-23 08:09] VITALS: BP 116/66; PULSE 92; O2SAT 99; BMI 29.3
== END 2024-11-23 08:23 | disposition home or self-care (01) ==
LOC: HO.HGI 07:54
PROVIDERS: PCP Internal Medicine; Referring Provider Internal Medicine; Visit Provider Nurse Practitioner Family
DX: K59.01 Slow transit constipation (principal); Z01.818 Encounter for other preprocedural examination; Z12.11 Encounter for screening for malignant neoplasm of colon
CPT/HCPCS: 99202

== ENCOUNTER → 2024-11-23 07:53 | Outpatient (BNVA) | payer MEDICARE, MEDICAID, SELFPAY | PROVIDERS: PCP Internal Medicine; Referring Provider Internal Medicine; Visit Provider Nurse Practitioner Family | DX: Z12.11 Encounter for screening for malignant neoplasm of colon (principal); K59.01 Slow transit constipation | CPT/HCPCS: 99202 ==

== ENCOUNTER 2024-12-31 11:33 | Outpatient (REF) | payer MEDICARE, MEDICAID, SELFPAY ==
--- OUTSIDE RECORDS SUMMARY | 2025-01-01 13:01 | XMS_ITS | Clinical Summary ---
Author Organization [employer] Address [address] [facility] [address] [place] [address] Care Team Providers Care Concrete Buildings Assembler Name Role Phone Name, Vern YUAN Primary Care Provider [phone] Allergies Active Allergy Reactions Criticality Noted Date Comments Codeine 07/22/2015 Shellfish-Derived Products 7 Medications cetirizine (ZyrTEC) 10 MG tablet Take 1 tablet (10 mg) by mouth in the morning. Prn. 30 tablet 3 Active Lancets Misc. kit 1 each Once daily. 50 kit 11 4 07/24/20 25 Active glucose blood test strip Freestyle Lite Test Strip - Test once a day 100 each 4 4 Active fluticasone (Flonase) 50 MCG/ACT nasal spray INSTILL 1 SPRAY IN EACH NOSTRIL ONCE DAILY 16 g 2 5 Active albuterol 1.25 MG/3ML nebulizer solutionIndicat ions:COVID-19 Take 3 mL (1.25 mg) by nebulization every 6 (six) hours if needed for wheezing. 75 mL 3 5 09/26/19 26 Active Cialis 20 MG tablet TAKE 1 TABLET BY MOUTH EVERY DAY NEEDED FOR SEXUAL ACTIVITY 10 tablet 2 5 Active glimepiride (Amaryl) 2 MG tabletIndicatio ns:Type 2 diabetes mellitus with hyperglycemia, without long-term current use of insulin ([facility]) Take 1 tablet (2 mg) by mouth before breakfast. 30 tablet 11 5 11/01/19 26 Active empagliflozin-m etFORMIN (Synjardy) 12.5-500 MGIndications:T ype 2 diabetes mellitus with hyperglycemia, without long-term current use of insulin ([facility]) Take 1 tablet by mouth with breakfast and with evening meal. 60 tablet 11 5 11/01/19 26 Active terbinafine (LamISIL AT) 1 % cream Apply topically 2 times daily. 42 g 2 5 Active minocycline 100 MG capsuleIndicati ons:Folliculiti s Take 1 capsule (100 mg) by mouth 2 times daily. 60 capsule 1 5 Active ammonium lactate (Amlactin) 12 % cream APPLY TOPICALLY TO AFFECTED AREA(S) EVERY DAY NEEDED FOR DRY SKIN DIRECTED 385 g 1 5 Active tretinoin (Retin-A) 0.025 % creamIndication s:Acne comedone Apply topically at bedtime. 45 g 2 5 12/22/19 26 Active ciprofloxacin (Cipro) 500 MG tabletIndicatio ns:Urinary tract infection with hematuria, site unspecified Take 1 tablet (500 mg) by mouth 2 times daily for 7 days. 14 tablet 5 01/08/20 25 Active Active Problems Problem Noted Date Diagnosed Date [...] any medications Rx Paxlovid x 5 days, Gallant interactions module checked, no significant interactions found. [...] Encounters Date Type Department Care Team Description 12/31/2024 6:20 PM EDT Office Visit [facility] [address] [place] [phone] Jovanni Pop MD Urinary tract infection with hematuria, site unspecified (Primary Dx); Dysuria; Encounter for screening for infections with a predominantly sexual mode of transmission 12/21/2024 11:15 AM EDT Office Visit [facility] [address] [place] [address] Pop Hardwick MD Acne comedone (Primary Dx); Onychodystrophy 12/21/2024 Travel 11/21/2024 Refill [facility] [address] [place] [address] France Dunlap MD 11/16/2024 10:00 AM EDT Office Visit [facility] [address] [place] [address] Fred, Amena, OD Presbyopia (Primary Dx) 11/16/2024 Telephone [facility] [address] [place] [phone] Festus Motta MA january recalls 11/02/2024 11:00 AM EDT Office Visit [facility] [address] [place] [address] 116[address] Pop Hardwick MD Folliculitis (Primary Dx); Folliculitis 11/02/2024 Travel 11/02/2024 Population Health Risk Score [facility] [address] [place] [address] [phone] Provider, Population Health Generic 10/31/2024 2:00 PM EDT Office Visit [facility] [address] [place] [phone] Vern Garcia MD Type 2 diabetes mellitus with hyperglycemia, without long-term current use of insulin ([facility]) (Primary Dx); Folliculitis; Refusal of statin medication by patient; Acute pain of right shoulder; Bunion of right foot 10/29/2024 8:00 AM EDT Office Visit [facility] [address] [place] [address] Kay Martinez Periodontal disease (Primary Dx); Dental calculus; Dental root caries; Supraeruption of teeth 10/29/2024 Refill [facility] [address] [place] [address] Vern Garcia MD 10/29/2024 Refill [facility] [address] [place] [address] France Dunlap MD 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 Travel 10/11/2024 Telephone [facility] [address] [place] [address] Name, MD Vern telephone call from Last 3 Months Immunizations Name Administration [...] Sign Reading Time Taken Comments Blood Pressure 135/91 12/31/2024 6:03 PM EDT Pulse 124 12/31/2024 6:03 PM EDT Temperature 37.9 ??C (100.2 ??F) 12/31/2024 6:03 PM E DT Respiratory Rate 20 12/31/2024 6:03 PM EDT Oxygen Saturation 98% 12/31/2024 6:03 PM EDT Inhaled Oxygen Concentration - - Weight 82.6 kg (182 lb) 12/31/2024 6:03 PM EDT Height 167.6 cm (5' 6 ) 12/31/2024 6:03 PM EDT Body Mass Index 29.38 12/31/2024 6:03 PM EDT Plan of Treatment Upcoming Encounters Date Type Department Care Team (Late st Contact Info) Description 01/25/2025 9:00 AM EDT Medication Management [facility] [address] [place] [phone] Sheila Tidwell, PharmD [address] [place] [address] 03/07/2025 9:00 AM EDT Office Visit [facility] [address] [place] [phone] Name, MD Vern [address] [place] [phone] 05/02/2025 8:00 AM EDT Office Visit [facility] [address] [place] [address] Kay Martinez [address] [place] [address] Health Maintenance Due Date Last Done Comments CT Colonography 1971 Colonoscopy 1971 Colorectal Cancer Screening 1971 FIT DNA/Cologuard 1971 FIT 1971 FOBT 1971 Sigmoidoscopy 1971 Eye Exam 1981 Hepatitis A Vaccines (1 of 2 - Risk 2-dose series) 1990 Pneumococcal Vaccine: 50+ Years (2 of 2 - PCV) 2017 2016 COVID-19 Vaccine ( - season) 2024 12/30/2020, 12/02/2020 Influenza Vaccine (#1) 2024 9, 06/10/2017, 2016, Additional history exists Depression Screening 08/02/2024 08/02/2023, 08/02/20 23 SDOH Screening 08/02/2024 08/02/2023 Diabetes: Hemoglobin A1C 01/31/2025 025, 05/09/2024, 10/17/2023, Additional history exists Dental Oral Exam 05/02/2025 10/29/2024, , 07/01/2022, Additional history exists Dental Prophylaxis 05/02/2025 10/29/2024, 0 04/30/2024, 08/24/2023, Additional history exists Lipid Panel 06/30/2025 06/30/2024, 04/2 11/2023, 07/13/2021, Additional history exists DTaP/Tdap/Td Vaccines (2 - Td or Tdap) 09/03/2025 09/03/2015 Dental X-Ray: Bitewings 10/30/2025 10/30/19 25, 08/24/2023, 06/04/2022, Additional history exists Alcohol/Substance Use Screening 10/31/2025 10/31/2024 Diabetes: Foot Exam 10/31/2025 10/31/2024, 10/31/2024, 10/31/2024, Additional history exists Tobacco Screening 10/31/2025 10/31/2024 Diabetes: Urine Protein Screening 11/02/2025 11/02/2024, 10/22/2020 Dental X-Ray: Full Mouth 10/31/2027 025, 05/29/2021, [...] Procedure Name Priority Date/Time Associated Diagnosis Comments POCT URINALYSIS DIPSTICK Routine 12/31/2024 6:48 PM EDT Urinary tract infection with hematuria, site unspecified ALBUMIN, RANDOM URINE W/CREATININE Routine 11/02/2024 11:38 AM EDT Type 2 diabetes mellitus with hyperglycemia, without long-term current use of insulin ([facility]) XR SHOULDER 2+ VIEWS RIGHT Routine 10/31/2024 2:50 PM EDT Acute pain of right shoulder POCT GLYCATED HEMOGLOBIN, TOTAL Routine 10/31/2024 2:11 PM EDT Type 2 diabetes mellitus with hyperglycemia, without long-term current use of insulin ([facility]) POCT GLUCOSE Routine 10/31/2024 2:11 PM EDT Type 2 diabetes mellitus with hyperglycemia, without long-term current use of insulin ([facility]) PERIODIC ORAL EVALUATION - ESTABLISHED PATIENT [...] 8:00 AM EDT Periodontal disease Dental calculus HEPATITIS C AB W/REFL TO HCV RNA, QN, PCR Routine 06/30/2024 9:49 AM EST Type 2 diabetes mellitus with hyperglycemia, without long-term current use of insulin ([facility]) Weight loss HIV 1/2 ANTIGEN/ANTIBODY, FOURTH GENERATION W/RFL Routine 06/30/2024 9:49 AM EST Type 2 diabetes mellitus with hyperglycemia, without long-term current use of insulin ([facility]) Weight loss LIPID PANEL, STANDARD Routine 06/30/2024 9:49 AM EST Type 2 diabetes mellitus with hyperglycemia, without long-term current use of insulin ([facility]) Weight loss from Last 3 Months or Most Recently Relevant to Health Maintenance Results * (ABNORMAL) POCT Urinalysis (12/31/2024 6:48 PM EDT) Color, UA Yellow Clarity, UA Hazy Glucose, UA Many Comment:1000mg/dL Bilirubin, UA Negative Ketones, UA Positive Comment:trace Spec Grav, UA 1.010 Blood, UA Positive(A) Negative, None Detected Comment:moderate pH, UA 6.5 Protein, UA Many Comment:30mg/dL Urobilinogen, UA 1.0 Leukocytes, UA Negative Negative, Rare, Trace Nitrite, UA Positive(A) Negative, None Detected Appearance, UA hazy QC Media Lot # [id number] Lot# Expiration Date Urine 12/31/2024 6:48 PM EDT us Jovanni Pop MD POINT OF CARE TEST ENTER/EDIT OR DERABLES Final Result * Albumin, Random Urine W/Creatinine (11/02/2024 11:38 AM EDT) Creatinine, Urine 36.90 mg/dL [facility] Microalbumin Urine <5.0 mg/L [facility] Microalbum Creatinine Ratio Ur TNP <30 ug/mg cr [facility] Comment:Unable to calculate albumin/creatinine ratio due to lowmicroalbumin or creatinine result. Urine (Urine, Random) 11/02/2024 11:38 AM EDT 11/02/2024 1:32 PM EDT us Vern Garcia MD LAB URINE ORDERABLES Final Resul t [facility] [address] [place] [phone] * XR Shoulder 2+ Views Right (10/31/2024 2:50 PM EDT) Anatomical Region Laterality Modality Upper Extremities, Shoulder Right Radi ographic Imaging 10/31/2024 2:50 PM EDT Narrative 10/31/2024 3:39 PM EDT ?[facility] ?[address] ?[place] [address] ?XRay Report ? Signed ? Patient: Awan,Mike ?MR#: [id number] ? : 1970 ?Acct:[id number] ? Age/Sex: 54 / M ?ADM Date: 03/12/25 ? Loc: HO.HHCX ? Attending : Vern Name MD ? Ordering Physician: NameVern MD ?? Date of Service: 10/31/24 ?? Procedure(s): XR shoulder RT min 2V ?? Accession Number(s): [id number] ? cc: Name,Vern YUAN ? EXAMINATION: ?? [...] DD/ 1450 ? TD/TT: 10/31/24 1500 ? Seasonal Warehouse Associate: ? Procedure Note Donjonater, Image - 10/31/2024 [place] [address] XRay Report Signed Patient: Mike AwanMR#: [id number] : 1970Acct:[id number] Age/Sex: 54 / MADM Date: 10/31/24 Loc: HO.HHCX Attending Dr: Vern Garcia MD Ordering Physician: Vern Garcia MD Date of Service: 10/31/24 Procedure(s): XR shoulder RT min 2V Accession Number(s): [id number] cc: Vern Garcia MD EXAMINATION: XR SHOULDER, [...] 10/31/24 1535 DD/ 1450 TD/TT: 10/31/24 1500 Seasonal Warehouse Associate: us Vern Garcia MD IMG XR PROCEDURES Final Result * (ABNORMAL) POCT HGB A1C (10/31/2024 2:11 PM EDT) Pathologist [facility] Hemoglobin A1C 9.8(A) 4.0 - 6.0 % QC Media Lot # [id number] Lot# Expiration Date [id number] Blood 10/31/2024 2:11 PM EDT Result Emmett Garcia MD POINT OF CARE TEST ENTER/EDIT OR DERABLES Final Result * (ABNORMAL) POCT Glucose (10/31/2024 2:11 PM EDT) Pathologist [facility] Glucose Blood, POC 232(A) 60 - 200 mg/dL QC Media Lot # [id number] Lot# Expiration Date [id number] Blood Capillary blood specimen / Unknown 10/31/2024 2:11 PM EDT Result Emmett Garcia MD POINT OF CARE TEST ENTER/EDIT OR DERABLES Final Result * Hepatitis C Antibody with Reflex to HCV, RNA, Quantitative, Real-Time PCR (06/30/2024 9:49 AM EST) Pathologist [facility] Hepatitis C Antibody Nonreactive Nonreactive [facility] Comment:Antibodies to HCV no t detected; does not exclude early acuteHCV infection. Blood Venous blood specimen / Unknown 06/30/2024 9:49 AM EST 06/30/2024 9:49 AM EST Result Emmett Garcia MD LAB BLOOD ORDERABLES Final Resul t [facility] [address] [place] [phone] * HIV-1/2 Antigen and Antibodies, Fourth Generation, with Reflexes (06/30/2024 9:49 AM EST) HIV AB/AG Nonreactive Nonreactive [facility] Comment:HIV-1 p24 Ag and/or HIV-1/HIV-2 Ab not detected.A test result that is nonreactive does not exclude thepossibility of exposure to or infection with HIV-1 and/orHIV-2. Nonreactive results in this assay for individualswith prior exposure to HIV-1 and/or HIV-2 may be due toantigen and antibody levels that are below the limit ofdetection of this assay.The [email or web address] HIV Ag/Ab Combo assay result andsupplemental assay results should be interpreted inconjunction with the patient's clinical presentation,history and other laboratory results. If the results areinconsistent with clinical evidence, additional testing issuggested to confirm the result. Blood Venous blood specimen / Unknown 06/30/2024 9:49 AM EST 06/30/2024 9:49 AM EST us Vern Name LAB BLOOD ORDERABLES Final Resul t [facility] [address] [place] [phone] * (ABNORMAL) Lipid Panel, Standard (06/30/2024 9:49 AM EST) Triglycerides 75 <150 mg/dL [facility] Comment:Desirable Triglyceri de: less than 150 mg/dLBorderline High Triglyceride 150-199 mg/dLHigh Triglyceride: 200-499 mg/dLVery High Triglyceride: greater than or equal to 5OO mg/dL Cholesterol 213(H) <200 mg/dL [facility] Comment:Desirable Cholestero l: less than 200 mg/dLBorderline High Cholesterol: 200-239 mg/dLHigh Cholesterol: greater than 239 mg/dL LDL Cholesterol Calculated 142(H) <100 mg/dL [facility] Comment:Desirable LDL: less than 100 mg/dLNear Optimal/Above Optimal LDL: 110- 129 mg/dLBorderline High LDL: 130-159 mg/dLHigh LDL: 160-189 mg/dLVery High LDL: greater than or equal to 190 mg/dL HDL Cholesterol 56 >40 mg/dL [facility] Comment:Desirable HDL: great er than 40 mg/dL Note: This HDL assay may give artificially low results in patients with liver disease. Blood Venous blood specimen / Unknown 06/30/2024 9:49 AM EST 06/30/2024 9:49 AM EST us Vern Name LAB BLOOD ORDERABLES Final Resul t [facility] [address], [place] [phone] from Last 3 Months or Most Recently Relevant to Health [place] [id number] [facility] MEDICAID STAND ADULT Care Teams Concrete Buildings Assembler Relationship Specialty Start Date End Date Name, MD Vern [address] [place] [address] PCP - General Internal Medicine 05/09/24
--- OUTSIDE RECORDS SUMMARY | 2025-01-01 13:01 | XMS_ITS | Encounter Summary ---
Author Organization [employer] Address [address] [facility] [address] [place] [address] Care Team Providers Care Middleware Systems Architect Name Role Phone Name, Vern YUAN Primary Care Provider [phone] Reason for Visit * Reason Comments Med Refill Encounter Details Date Type Department Care Team ([facility] st Contact Info) Description 05/28/[address] [facility] [address] [place] [address] France Dunlap MD [address] [place] [address] Recurrent furunculosis Social History Tobacco Use Types [...] Description 01/25/2025 9:00 AM EDT Medication Management [facility] [address] [place] [phone] Sheila Tidwell, RubénD [address] [place] [phone] 03/07/2025 9:00 AM EDT Office Visit [facility] [address] [place] [phone] Name, MD Vern [address] [place] [phone] 05/02/2025 8:00 AM EDT Office Visit [facility] [address] [place] [phone] Kay Martinez [address] [place] [phone] documented as of this encounter Visit Diagnoses Diagnosis Recurrent furunculosis documented in this encounter Care Teams Middleware Systems Architect Relationship Specialty Start Date End Date Name, MD Vern [address] [place] [phone] PCP - General Internal Medicine 05/09/24 documented as of this encounter
--- OUTSIDE RECORDS SUMMARY | 2025-01-01 13:01 | XMS_ITS | Encounter Summary ---
Author Organization [employer] Address [address] [facility] 7 [place] [address] Care Team Providers Care Nib Inspector Name Role Phone Name, Vern YUAN Primary Care Provider [phone] Reason for Visit * Reason Onset Date Comments Appointment Request 09/21/2024 Encounter Details Date Type Department Care Team ([facility] st Contact Info) Description 09/21/2024 Telephone [facility] [address] [place] [address] Name, MD Vern [address] [place] [address] Appointment Request Social History Tobacco Use Types Packs/Day Years Used Date Smoking Tobacco: Never Passive Smoke Exposure: Never Smokeless Tobacco: Never Alcohol Use Standard Drinks/Week Comments Never 0 (1 standard drink = 0.6 oz pur e alcohol) Housing Stability Answer Date Recorded What is your housing situation today? I have erickson bruton 08/02/[address] you li [...] Miscellaneous Notes * Telephone Encounter - Kay Colton - 09/21/2024 10:42 AM EST Tc from pt requesting to r/s derm appointment due to not feeling well. Pt stated he will be coming in [facility]. Life Sciences Instructor advise of hours. documented in this encounter Plan of Treatment Upcoming Encounters Date Type Department Care Team (Late st Contact Info) Description 01/25/2025 9:00 AM EDT Medication Management [facility] MED[facility] [address] [place] [address] Sheila Tidwell, PharmD [address] [place] [address] 03/07/2025 9:00 AM EDT Office Visit [facility] [address] [place] [address] Name, MD Vern [address] [place] [address] 05/02/2025 8:00 AM EDT Office Visit [facility] ADULT DENTAL [address] [place] [address] Kay Martinez [address] [place] [address] documented as of this encounter Visit Diagnoses Not on filedocumented in this encounter Care Teams Nib Inspector Relationship Specialty Start Date End Date Name, MD Vern [address] [place] [address] PCP - General Internal Medicine 05/09/24 documented as of this encounter
--- OUTSIDE RECORDS SUMMARY | 2025-01-01 13:01 | XMS_ITS | Encounter Summary ---
Author Organization [employer] Address [address] [facility] 7t [place] [address] Care Team Providers Care Stitcher Set Up Operator Automatic Name Role Phone Name, Vern YUAN Primary Care Provider [phone] Reason for Visit * Reason Comments Med Refill Encounter Details Date Type Department Care Team ([facility] st Contact Info) Description 10/29/2024 Refill [facility] MEDICINE [address] [place] [address] France Dunlap MD [address] [place] [address] Recurrent furunculosis Social History Tobacco Use Types [...] Description 01/25/2025 9:00 AM EDT Medication Management [facility] MEDICINE [address] [place] [address] Sheila Tidwell, PharmD [address] [place] [address] 03/07/2025 9:00 AM EDT Office Visit [facility] MEDICINE [address] [place] [address] Name, MD Vern [address] [place] [address] 05/02/2025 8:00 AM EDT Office Visit [facility] ADULT DENTAL [address] [place] [address] MichelleKay hooks [address] [place] [address] documented as of this encounter Visit Diagnoses Diagnosis Recurrent furunculosis documented in this encounter Care Teams Stitcher Set Up Operator Automatic Relationship Specialty Start Date End Date Name, MD Vern [address] [place] [address] PCP - General Internal Medicine 05/09/24 documented as of this encounter
--- OUTSIDE RECORDS SUMMARY | 2025-01-01 13:01 | XMS_ITS | Clinical Summary ---
Author Organization [address] [place] [address] Address [address] [place] [address] Phone Care Team Providers Care Cotton Program Technician Name Role Phone Name, Vern YUAN Primary Care Provider [phone] Surgical History Surgery Date Site/Laterality Comments BACK [...] Upcoming Encounters Date Type Department Care Team ([facility] Contact Info) Description 01/17/2025 8:15 AM EDT Consult Orthopedic Surgery [place] [address] [phone] Ehsan Perkins, DPM [address] [address] Health Maintenance Due Date Last Done Comments [...] age to complete this topic Meningococcal B Vaccine Aged Out No l onger eligible based on patient's age to complete [...] to complete this topic Insurance MEDICAID - [place] MEDICARE Care Teams Cotton Program Technician Relationship Specialty Start Date End Date Name, MD Vern [address] [place] [address] PCP - General Internal Medicine 11/20/24
--- OUTSIDE RECORDS SUMMARY | 2025-01-01 13:01 | XMS_ITS | Encounter Summary ---
Author Organization [employer] Address [address] [facility] 7t [place] [address] Care Team Providers Care Automobile Body Repairer Name Role Phone France Dunlap MD Primary Care Provider + Vern Garcia MD Primary Care Provider [phone] Encounter Details Date Type Department Care Team (Latest Contact Info) Description 10/20/2018 Abstract [facility] CONVERSIONS Dental, Provider, DDS Social History [...] Upcoming Encounters Date Type Department Care Team ( st Contact Info) Description 01/25/2025 9:00 AM EDT Medication Management [facility] [address] [place] [address] Sheila Tidwell, PharmD [address] [place] [address] 03/07/2025 9:00 AM EDT Office Visit [facility] [address] [place] [address] Vern Garcia MD [address] [place] [address] 05/02/2025 8:00 AM EDT Office Visit [facility] ADULT DENTAL [address] [place] [address] [phone] Kay Martinez [address] [place] [address] documented as of this encounter Visit Diagnoses Not on filedocumented in this encounter Care Teams Automobile Body Repairer Relationship Specialty Start Date End Date France Dunlap MD [address] [place] [address] PCP - General Family Medicine 09/05/20 05/08/24 Vern Garcia MD [address] [place] [address] PCP - General Internal Medicine 05/09/24 documented as of this encounter
--- OUTSIDE RECORDS SUMMARY | 2025-01-01 13:01 | XMS_ITS | Encounter Summary ---
Author Organization [employer] Address 75 [facility] 7t [place] [address] Care Team Providers Care Sack Cleaning Hand Name Role Phone Name, Vern YUAN Primary Care Provider [phone] Reason for Visit * Reason Comments Med Refill Encounter Details Date Type Department Care Team ([facility] st Contact Info) Description 05/23/[address] [facility] [address] [place] [address] Pop Hardwick MD [address] [place] [address] Onychomycosis Social History Tobacco Use Types Packs/Day [...] Description 01/25/2025 9:00 AM EDT Medication Management [facility] MED[facility] [address] [place] [address] Sheila Tidwell, PharmD [address] [place] [address] 03/07/2025 9:00 AM EDT Office [facility] [address] [place] [address] Name, MD Vern [address] [place] [address] 05/02/2025 8:00 AM EDT Office Visit [facility] ADULT DENTAL [address] [place] [address] MichelleKay hooks [address] [place] [address] documented as of this encounter Visit Diagnoses Diagnosis Onychomycosis Dermatophytosis of nail documented in this encounter Care Teams Sack Cleaning Hand Relationship Specialty Start Date End Date Name, MD Vern [address] [place] [address] PCP - General Internal Medicine 05/09/24 documented as of this encounter
--- OUTSIDE RECORDS SUMMARY | 2025-01-01 13:01 | XMS_ITS | Encounter Summary ---
Author Organization [employer] Address [address] [facility] 7t [place] [address] Care Team Providers Care Material Mover Name Role Phone Name, Vern YUAN Primary Care Provider [phone] Encounter Details Date Type Department Care Team ([facility] st Contact Info) Description 09/26/2024 Orders Only [facility] MEDICINE [address] [place] [address] Jono Jacobs MD [address] [place] [address] Social History Tobacco Use Types Packs/Day Years [...] Description 01/25/2025 9:00 AM EDT Medication Management [facility] MEDICINE [address] [place] [address] Sheila Tidwell, PharmD [address] [place] [address] 03/07/2025 9:00 AM EDT Office Visit [facility] MEDICINE [address] [place] [address] Name, MD Vern [address] [place] [address] 05/02/2025 8:00 AM EDT Office Visit [facility] ADULT DENTAL [address] [place] [address] Michelle, Kay [address] [place] [address] documented as of this encounter Visit Diagnoses Not on filedocumented in this encounter Care Teams Material Mover Relationship Specialty Start Date End Date Name, MD Vern [address] [place] [address] PCP - General Internal Medicine 05/09/24 documented as of this encounter
--- OUTSIDE RECORDS SUMMARY | 2025-01-01 13:01 | XMS_ITS | Encounter Summary ---
Author Organization [employer] Address [address] [facility] 7t [place] [address] Care Team Providers Care Oil Burner Servicer And Installer Name Role Phone France Dunlap MD Primary Care Provider + Vern Garcia MD Primary Care Provider [phone] Encounter Details Date Type Department Care Team (Latest Contact Info) Description 05/29/2021 Abstract [facility] CONVERSIONS Dental, Provider, DDS Social History Tobacco [...] Description 01/25/2025 9:00 AM EDT Medication Management [facility] MEDICINE [address] [place] [address] Sheila Tidwell, PharmD [address] [place] [address] 03/07/2025 9:00 AM EDT Office Visit [facility] MEDICINE [address] [place] [address] Vern Garcia MD [address] [place] [address] 05/02/2025 8:00 AM EDT Office Visit [facility] ADULT DENTAL [address] [place] [address] Kay Martinez [address] [place] [address] documented as of this encounter Visit Diagnoses Not on filedocumented in this encounter Care Teams Oil Burner Servicer And Installer Relationship Specialty Start Date End Date France Dunlap MD [address] [place] [address] PCP - General Family Medicine 09/05/20 05/08/24 Radha, MD Vern [address] [place] [address] PCP - General Internal Medicine 05/09/24 documented as of this encounter
--- OUTSIDE RECORDS SUMMARY | 2025-01-01 13:01 | XMS_ITS | Encounter Summary ---
Author Organization [employer] Address [address] [facility] 7t [place] [address] Care Team Providers Care Petrol Tanker Driver Name Role Phone Name, Vern YUAN Primary Care Provider Encounter Details Date Type Department Care Team (Latest Contact Info) Description 12/31/2024 6:20 PM EDT Office Visit [facility] [address] [address] Jovanni Pop MD [address] [place] [address] Urinary tract infection with hematuria, site unspecified (Primary Dx); Dysuria; Encounter for screening for infections with a predominantly sexual mode of transmission Social History Tobacco Use Types Packs/Day Years [...] the past 12 months, has t he [employer] gas, oil or water company threatened to [...] Mass Index 29.38 12/31/2024 6:03 PM EDT documented in this encounter Progress Notes * Jovanni Pop MD - 12/31/2024 6:20 PM EDT Subjective History was provided by the patient. Mike Awan is a 54 y.o. male who presents for evaluation of 3-day duration of dysuria and low-grade fever. Denies back/flank pain. Denies N/V/D. No gross hematuria. Denies any urine obstructive symptoms. Patient has been taking Minocycline 100mg BID for about 1 month for a diagnosis of folliculitis. Denies BRBPR or melena. Denies diarrhea. Denies abdominal pain other than suprapubic pressure. Objective Vitals: 12/31/24 1803 BP: (!) 135/91 BP Location: Left arm Patient Position: Sitting BP Cuff Size: Adult Pulse: (!) 124 Resp: 20 Temp: 100.2 ??F (37.9 ??C) TempSrc: Oral SpO2: 98% Weight: 182 lb (82.6 kg) Height: 5' 6 (1.676 m) Physical Exam Vitals reviewed. Constitutional: General: He is not in acute distress. Appearance: Normal appearance. He is not ill-appearing, toxic-appearing or diaphoretic. HENT: Head: Normocephalic and atraumatic. Right Ear: External ear normal. Left Ear: External ear normal. Nose: Nose normal. Mouth/Throat: Mouth: Mucous membranes are moist. Pharynx: Oropharynx is clear. Eyes: Extraocular Movements: Extraocular movements intact. Conjunctiva/sclera: Conjunctivae normal. Pulmonary: Effort: Pulmonary effort is normal. Abdominal: General: Abdomen is flat. There is no distension. Palpations: Abdomen is soft. Tenderness: There is no abdominal tenderness. There is no right CVA tenderness, left CVA tenderness, guarding or rebound. Musculoskeletal: General: Normal range of motion. Cervical back: Normal range of motion and neck supple. Skin: General: Skin is warm and dry. Neurological: General: No focal deficit present. Mental Status: He is alert and oriented to person, place, and time. Psychiatric: Mood and Affect: Mood normal. Behavior: Behavior normal. Office Visit on 12/31/2024 Component Date Value Ref Range Status Color, UA 12/31/2024 Yellow Final Clarity, UA 12/31/2024 Hazy Final Glucose, UA 12/31/2024 Many Final 1000mg/dL Bilirubin, UA 12/31/2024 Negative Final Ketones, UA 12/31/2024 Positive Final trace Spec Grav, UA 12/31/2024 1.010 Final Blood, UA 12/31/2024 Positive (A) Negative, None Detected Final moderate pH, UA 12/31/2024 6.5 Final Protein, UA 12/31/2024 Many Final 30mg/dL Urobilinogen, UA 12/31/2024 1.0 Final Leukocytes, UA 12/31/2024 Negative Negative, Rare, Trace Final Nitrite, UA 12/31/2024 Positive (A) Negative, None Detected Final Appearance, UA 12/31/2024 hazy Final QC Media Lot # 12/31/2024 [id number] Final Lot# Expiration Date 12/31/2024 22,826 Final Diagnoses and all orders for this visit: Urinary tract infection with hematuria, site unspecified (Primary) - POCT Urinalysis - ciprofloxacin (Cipro) 500 MG tablet; Take 1 tablet (500 mg) by mouth 2 times daily for 7 days. - Culture, Urine, Routine Dysuria - Chlamydia/N. Gonorrhoeae RNA, TMA, Urogenitial Encounter for screening for infections with a predominantly sexual mode of transmission - Chlamydia/N. Gonorrhoeae RNA, TMA, Urogenitial Patient with a clinical presentation of acute UTI Presents with 3-day duration of dysuria and low-grade fever Denies back or flank pain Suspect cystitis Denies urine obstructive symptoms Hgb A1c 9.8 (10/2024) and BUN/Cr 17/0.85 (06/2024) POC UA reveals microscopic hematuria and nitrite No clinical evidence of acute abdomen or pyelonephritis Will send out UCx and start antibiotic medication with Ciprofloxacin 500mg PO BID for 7 days Potential adverse effects of the medication reviewed, including increased risks for tendinitis Probiotic use discussed Allergies reviewed Will also check GC/CT (monogamous long-term female partner) Discussed strategies to prevent future infections Advised to contact the clinic if no improvement of symptoms Indications for UC/ER use reviewed documented in this encounter Plan of Treatment Upcoming Encounters Date Type Department Care Team (Late st Contact Info) Description 01/25/2025 9:00 AM EDT Medication Management [facility] [address] [address] Sheila Tidwell, PharmD [address] [place] [address] 03/07/2025 9:00 AM EDT Office Visit [facility] [address] [address] Name, MD Vern [address] [place] [address] 05/02/2025 8:00 AM EDT Office Visit [facility] ADULT DENTAL [address] [place] [address] Kay Martinez [address] [place] [address] Scheduled Orders Name Type Priority Associated Diagnoses Orde r Schedule Chlamydia/N. Gonorrhoeae RNA, TMA, Urogenitial Microbiology Routine Dysuria Encounter for screening for infections with a predominantly sexual mode of transmission Ordered: 12/31/2024 Culture, Urine, Routine Microbiology Routine Urinary tract infection with hematuria, site unspecified Ordered: 12/31/2024 documented as of this encounter Procedures Procedure Name Priority Date/Time Associated Diagnosis Comments POCT URINALYSIS DIPSTICK Routine 12/31/2024 6:48 PM EDT Urinary tract infection with hematuria, site unspecified documented in this encounter Results * (ABNORMAL) POCT Urinalysis (12/31/2024 6:48 [...] Expiration Date Urine 12/31/2024 6:48 PM EDT Jovanni Pop MD POINT OF CARE TEST ENTER/EDIT OR DERABLES Final Result documented in this encounter Visit Diagnoses Diagnosis Urinary tract infection with hematuria, site unspecified- Primary Dysuria Encounter for screening for infections with a predominantly sexual mode of transmission documented in this encounter Care Teams Petrol Tanker Driver Relationship Specialty Start Date End Date Name, MD Vern [address] [place] [address] PCP - General Internal Medicine 05/09/24 documented as of this encounter
[2025-01-01 13:14] LABS: CT PCR NOT DETECTED (Not Detect.); NG PCR NOT DETECTED (Not Detect.)
== END 2024-12-31 11:34 | disposition home or self-care (01) ==
LOC: HO.HHCLNP 11:33
PROVIDERS: Visit Provider Family Medicine
DX: R30.0 Dysuria (principal); N39.0 Urinary tract infection, site not specified; R31.9 Hematuria, unspecified
CPT/HCPCS: 87086; 87088; 87186; 87491; 87591

== ENCOUNTER 2025-01-10 13:14 | Emergency (ER) | payer MEDICARE, MEDICAID, SELFPAY ==
--- NOTE | ~2025-01-10 | CT_ITS ---
EXAMINATION: CT ABDOMEN AND PELVIS WITH CONTRAST CLINICAL INFORMATION: Rectal pain, fevers, failed outpatient antibiotics. COMPARISON: None available. TECHNIQUE: Multidetector volumetric images were obtained from the superior aspect of the liver through the pubic symphysis following administration 85 mL of Omnipaque 350 intravenous contrast. Sagittal and coronal reformatted images were obtained on the technologist's workstation. Oral contrast: No This CT examination was performed using dose optimization techniques as appropriate, variously including the following: *Automated exposure control *Adjustment of mA and/or kV according to patient size (this includes techniques or standardized protocols for targeted exams where dose is matched to indication/reason for exam; i.e. extremities or head) *Use of iterative reconstruction technique FINDINGS: LUNG BASES: The visualized lung bases are unremarkable. LIVER, GALLBLADDER, AND BILIARY TREE: The liver is normal in size, shape, and attenuation. No focal hepatic lesion or biliary ductal dilatation is present. The gallbladder is unremarkable with no evidence of radiopaque gallstones, gallbladder wall thickening, or obvious pericholecystic inflammatory changes. PANCREAS: Unremarkable. SPLEEN: Unremarkable. ADRENAL GLANDS: Unremarkable. KIDNEYS AND URETERS: The kidneys are normal in size, shape, and attenuation. No hydronephrosis, hydroureter, or obstructing calculi seen. 3 mm nonobstructing calculi present in the left kidney lower pole and midpole. No nonobstructing calculi in the right kidney. BLADDER: Unremarkable. GASTROINTESTINAL TRACT: There is abundant stool seen throughout the colon and rectum. There is gaseous distention of the rectum. No rectal wall thickening or inflammation. No colonic wall thickening or inflammation. A normal appendix is visualized. Small bowel is normal in caliber and course. Stomach is somewhat decompressed. Duodenum appears normal. ABDOMINAL WALL: No significant hernia is appreciated. LYMPH NODES: Normal. VASCULAR: Unremarkable. PELVIC VISCERA: The prostate and seminal vesicles are unremarkable. OSSEOUS STRUCTURES: No suspicious lytic or blastic bone lesion. Mild degenerative changes of the spine and hip joints. CT/CT abdomen pelvis w IV con IMPRESSION: 1. No acute findings in the abdomen or pelvis. 2. Moderate constipation. 3. There are 2 nonobstructing left renal calculi measuring 3 mm. Electronically signed by: Naif Galindo MD 01/10/2025 04:30 PM EDT
--- NOTE | 2025-01-10 13:16 | ED.GENADULT ---
HPI - General Adult General Chief complaint: Urogenital-Male Stated complaint: UTI? Time Seen by Provider: 01/10/25 15:05 Source: patient and old records reviewed Mode of arrival: ambulatory Limitations: no limitations History of Present Illness ED Provider: CESILIA PÉREZ narrative: 54 yo male with PMH of DM who has had rectal discomfort, dysuria, penile pain but no rash, lesions, discharge and hematuria. He has chills and nightly fevers he was treated for STI and just completed a week of bactrim. He has had negative STI testing. He has not felt well for 10 days. He has no diarrhea, no n/v. He feels some suprapubic pressure. He completed 1 week of cipro 500mg BID starting 12/31 and then 1 week of bactrim DS starting 01/03. No relief. complaint: complaints Onset (ago): day(s) (10) Radiation: other (suprapubic and rectal pain) Severity: moderate Quality: aching Pain Consistency: constant Relieving factors: none Exacerbating factors: movement Associated symptoms: fever/chills Treatments prior to arrival: none Related Data Home Medications ?Medication ?Instructions ?Recorded ?Confirmed diclofenac sodium 1 % topical gel 2 g topical TID 06/01/22 05/10/23 ibuprofen 400 mg tablet 400 mg PO 06/01/22 05/10/23 cetirizine 10 mg tablet 10 mg PO QAM PRN 05/06/23 05/10/23 fluticasone propionate 50 1 spray intranasal DAILY 05/06/23 05/10/23 mcg/actuation nasal spray,suspension glimepiride 2 mg tablet 2 mg PO DAILY 10/21/23 ammonium lactate 12 % topical cream 1 appl topical BID 11/23/24 empagliflozin 12.5 mg-metformin tab PO 11/23/24 500 mg tablet (Synjardy) minocycline 100 mg capsule 100 mg PO BID 11/23/24 tadalafil 20 mg tablet (Cialis) 20 mg PO DAILY PRN 11/23/24 Previous Rx's ?Medication ?Instructions ?Recorded thumb spica splint #1 ea 06/18/22 bisacodyl 5 mg tablet,delayed 10 mg (2 x 5 mg) PO BEDTIME #180 11/23/24 release (Dulcolax (bisacodyl)) tabs hydrocortisone 2.5 % topical cream 1 appl UT BID-QID PRN hemorrhoids 11/23/24 with perineal applicator #30 grams (Proctosol HC) polyethylene glycol 3350 17 238 g PO ONCE #238 grams 11/23/24 gram/dose oral powder (Miralax) docusate sodium 100 mg capsule 100 mg PO BID PRN constipation #30 01/10/25 (Colace) caps levofloxacin 750 mg tablet 750 mg PO DAILY #13 tabs 01/10/25 sennosides 8.6 mg tablet (senna) 8.6 mg PO BEDTIME PRN constipation 01/10/25 #30 tabs Allergies Allergy/AdvReac Type Severity Reaction Status Date / Time codeine Allergy Unknown upset Verified 01/10/25 13:21 stomach, nausea shrimp Allergy Anaphylaxis Verified 01/10/25 13:21 Review of Systems Review of Systems: Constitutional : pos Fever, pos Chills, pos Fatigue ENT/Mouth : No sore throat, No Rhinorrhea Eyes: No Eye Pain, No Swelling, No Redness Cardiovascular : No Chest Pain, No SOB, No Dyspnea on Exertion Respiratory : No Cough, No Sputum Gastrointestinal : No Nausea, No Vomiting, No Diarrhea, pos pelvic pain Genitourinary : pos Dysuria, pos Urinary Frequency, No Hematuria, Musculoskeletal : No joint pain, No Myalgias, No Joint Swelling Skin : No Skin Lesions, No rash Neuro : No Weakness, No Numbness, No Dizziness, positive Headache All other systems reviewed and are negative PMFSH Past Medical History Attestation statement: The following information was validated with the patient. Source: old records reviewed Medical History Fatty liver Restless leg Degenerative joint disease of cervical and lumbar spine Dyslipidemia De Quervain's disease (tenosynovitis) Type 2 diabetes mellitus Surgical History History of back surgery Family History Family History Mother Diabetes Father Hypertension Social History Social History Household Members: Spouse and Children Alcohol intake: never Patient Tobacco Use Status: Never used Tobacco Smoked in Last 30 Days: No Use of substances other than those prescribed or required for medical reasons: No Advance Directives: No Advance Directives Information Provided: Yes Current occupational status: disabled 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 Oriented X3. No acute distress. Eyes: Pupils equal, round and reactive to light. ENT: Pharynx normal. Neck: Normal inspection. Neck supple. CVS: Normal heart rate and rhythm. Pulses normal. Respiratory: No respiratory distress. Breath sounds normal. Abdomen: Soft and very mild suprapubic ttp Rectal: prostate is tender and boggy to palpation Skin: Skin warm and dry. Normal skin color. Normal skin turgor. Extremities: No lower extremity edema. No calf ttp Neuro: Oriented X 3. No motor deficit. No sensory deficit. CN2-12 intact Course Course Course Narrative: This is a rapid medical exam performed by Ashtyn Gomez NP: Additional HPI, ROS, PE not included below will be deferred to primary provider. Patient is a 54-year-old male presenting with complaint of dysuria, fever, then pain to rectal pressure/right side of ? prostate x 1 week. Went to [facility] clinic, was treated for STIs. Wed was notified that his STI testing was negative. Was told to come back and was given Bactrim for 7 days. Still having symptoms. Symptoms improve with tea. Plan: labs, UA Medications Administered Discontinued Medications Generic Name Dose Route Start Last Admin Trade Name Freq PRN Reason Stop Dose Admin Iohexol 100 ml 01/10/25 16:01 01/10/25 16:03 Iohexol 350 Mg/Ml 100 Ml Infus..Btl IV 01/10/25 16:02 85 ml ONCE ONE Administration Medical Decision Making Medical Decision Making MDM Narrative: 54 yo male with PMH of DM recent illness of complaints and some rectal discomfort - he notes he has trialed PO bactrim and PO cipro but no relief. He has subj fevers and chills. I am going to obtain labs and UA and CT scan for possible prostate vs bowel pathology such as diverticular disease. If CT scan shows no fluid collection would DC out with PO levofloxacin for 14 days. Differential Diagnosis Differential Diagnoses: The differential diagnosis associated with the presentation includes prostate vs bowel pathology Admission/Observation Consideration of admission/observation: Escalation of care including admission/observation considered can start on bowel regimen and levofloxacin x 2 weeks follow up with PCP Lab Data MDM Lab Attestation statement: I reviewed the patient's lab results. 01/10/25 13:28 01/10/25 13:28 Labs: Lab Results 01/10/25 01/10/25 Range/Units 13:28 13:33 WBC 6.2 (4.8-10.8) X10*3/uL RBC 4.41 L (4.60-5.80) X10*6/uL Hgb 14.2 (14.0-18.0) g/dl Hct 40.1 L (42.0-52.0) % MCV 90.9 (80.0-98.0) fL MCH 32.2 (27.0-33.0) pg MCHC 35.4 (31.0-36.0) g/dl RDW 12.4 (11.0-16.0) % Plt Count 400 D (160-400) X10*3/uL MPV 8.9 L (9.4-12.4) fL Immature Gran % (Auto) 1.0 H (0.0-0.4) % Neut % (Auto) 52.3 (45-73) % Lymph % (Auto) 35.9 (20-40) % [place] % (Auto) 7.6 (2-11) % Eos % (Auto) 2.7 (0-4) % Baso % (Auto) 0.5 (0-2) % Lymph # (Auto) 2.2 (1.2-4.9) X10*3/uL [place] # (Auto) 0.5 (0.1-1.2) X10*3/uL Eos # (Auto) 0.2 (0.0-0.4) X10*3/uL Baso # (Auto) 0.0 (0.0-0.2) X10*3/uL Abs Immat Gran (auto) 0.06 H (0.00-0.03) X10*3/uL Absolute Neuts (auto) 3.2 (2.0-8.3) x10*3/uL Absolute Nucleated RBC 0.000 (0.0-0.012) X10*3/uL Nucleated RBC % (auto) 0.0 (0.0-0.2) /100WBC Sodium 136 (135-145) mmol/L Potassium 4.3 (3.3-5.1) mmol/L Chloride 103 (96-108) mmol/L Carbon Dioxide 27 (22-29) mmol/L Anion Gap 10 L (12-20) BUN 12 (9-16) mg/dL Creatinine 0.79 (0.5-1.4) mg/dL Estim Creat Clear Calc 107.3 Estimated GFR > 60 Random Glucose 300 H (60-115) mg/dL Calcium 9.3 (8.4-10.2) mg/dL Total Bilirubin 0.2 (0.0-1.0) mg/dL AST 26 (5-37) U/L ALT 30 (0-40) U/L Alkaline Phosphatase 95 (39-117) U/L Total Protein 7.6 (6.5-8.0) g/dL Albumin 3.9 (3.5-5.0) g/dL Urine Color Yellow Urine Appearance Clear Urine pH 6.5 (5.0-9.0) Ur Specific [place] >= 1.030 H (1.005-1.025) Urine Protein Negative (Neg-Trace) mg/dL Urine Glucose (UA) >=1000 H (Negative) mg/dL Urine Ketones Negative (Negative) mg/dL Urine Blood Negative (Negative) Urine Nitrite Negative (Negative) Ur Leukocyte Esterase Negative (Negative) Urine RBC 0-2 (0-2) /HPF Urine WBC 0-5 (0-5) /HPF Ur Squamous Epith Cells 0-2 (0-2) /HPF Urine Bacteria None Seen (None Seen) Hyaline Casts 0-2 (0-2) /LPF Independent Interpretation I performed an independent interpretation of an: CT Scan (no abscess / mass) Radiology Impression Discussion of test interpretation with radiology: I have reviewed the radiologist's reading. External Record Review External record reviewed: Outpatient record Prescription Management I considered prescription management with: Antibiotic Discharge Plan Discharge Clinical Impression: Prostatitis Qualifiers: Prostatitis type: acute Qualified Code(s): N41.0 - Acute prostatitis Constipation Qualifiers: Constipation type: unspecified constipation type Qualified Code(s): K59.00 - Constipation, unspecified Patient Disposition: Home, Self-Care Instructions: Constipation (ED), Prostatitis (ED) Additional Instructions: labs and urine reassuring today mild bump in glucose continue to monitor return for no improvement or worsening of symptoms drink plenty of fluids remember no strenuous activity or exercise other than walking while on this antibiotic - and wait to return to activities 5 days after you are done with the antibiotic follow up with your primary care doctor next week CT/CT abdomen pelvis w IV con IMPRESSION: 1. No acute findings in the abdomen or pelvis. 2. Moderate constipation. 3. There are 2 nonobstructing left renal calculi measuring 3 mm. incidental not the cause of your pain Prescriptions: New levofloxacin 750 mg tablet 750 mg PO DAILY Qty: 13 0RF sennosides [senna] 8.6 mg tablet 8.6 mg PO BEDTIME PRN (Reason: constipation) Qty: 30 0RF docusate sodium [Colace] 100 mg capsule 100 mg PO BID PRN (Reason: constipation) Qty: 30 0RF No Action diclofenac sodium 1 % gel 2 g topical TID ibuprofen 400 mg tablet 400 mg PO cetirizine 10 mg tablet 10 mg PO QAM PRN fluticasone propionate 50 mcg/actuation spray,suspension 1 spray intranasal DAILY (DME) thumb spica splint See Rx Instructions .Route .MEDSUPPLY Qty: 1 0RF Rx Instructions: As directed glimepiride 2 mg tablet 2 mg PO DAILY Synjardy 12.5-500 mg tablet PO minocycline 100 mg capsule 100 mg PO BID tadalafil [Cialis] 20 mg tablet 20 mg PO DAILY PRN ammonium lactate 12 % cream 1 appl topical BID bisacodyl [Dulcolax (bisacodyl)] 5 mg tablet,delayed release (DR/EC) 10 mg PO BEDTIME Qty: 180 4RF polyethylene glycol 3350 [Miralax] 17 gram/dose powder 238 g PO ONCE Qty: 238 0RF Rx Instructions: As directed by gastroenterology department at [facility] hydrocortisone [Proctosol HC] 2.5 % cream with perineal applicator 1 appl UT BID-QID PRN (Reason: hemorrhoids) Qty: 30 2RF Print Language: Estonian
[2025-01-10 13:17] VITALS: BP 120/75; PULSE 105; RESP 16; TEMP 36.9; O2SAT 98; BMI 28.4
[2025-01-10 13:36] LABS: MANUAL DIFF FLAG NO
[2025-01-10 13:37] LABS: Basophils Percent Auto 0.5 % (0-2); Eosinophils Absolute Auto 0.2 X10*3/uL (0.0-0.4); Eosinophils Percent Auto 2.7 % (0-4); Hematocrit 40.1 % (42.0-52.0); Hemoglobin 14.2 g/dl (14.0-18.0); Imm Gran Abs Auto 0.06 X10*3/uL (0.00-0.03); Lymphocytes Absolute Auto 2.2 X10*3/uL (1.2-4.9); Lymphocytes Percent Auto 35.9 % (20-40); Mean Corpuscular HGB Conc 35.4 g/dl (31.0-36.0); Mean Corpuscular Hemoglobin 32.2 pg (27.0-33.0); Mean Corpuscular Volume 90.9 fL (80.0-98.0); Mean Platelet Volume 8.9 fL (9.4-12.4); Monocytes Absolute Auto 0.5 X10*3/uL (0.1-1.2); Monocytes Percent Auto 7.6 % (2-11); Neutrophils Absolute Auto 3.2 x10*3/uL (2.0-8.3); Neutrophils Percent Auto 52.3 % (45-73); Platelet Count 400 X10*3/uL (160-400); Red Blood Count 4.41 X10*6/uL (4.60-5.80); Red Cell Distribution Width 12.4 % (11.0-16.0); White Blood Count 6.2 X10*3/uL (4.8-10.8)
[2025-01-10 13:39] LABS: Appearance Urine Clear; Color Urine Yellow; Glucose Urine UA >=1000 mg/dL (Negative); Leukocyte Esterase Urine Negative (Negative); Nitrite Urine Negative (Negative); PH 6.5 (5.0-9.0); Specific Gravity - Urine >= 1.030 (1.005-1.025); UMIC TRIGGER UACC YES; Urine Blood Negative (Negative); Urine Ketones Negative (Negative); Urine Protein Negative (Neg-Trace)
[2025-01-10 13:42] LABS: Bacteria Urine None Seen (None Seen); Hyaline Casts Urine 0-2 /LPF (0-2); RBC Urine 0-2 /HPF (0-2); Squamous Epithelial Cell Urine 0-2 /HPF (0-2); WBC Urine 0-5 /HPF (0-5)
[2025-01-10 13:54] LABS: Alanine Aminotransferase 30 U/L (0-40); Albumin Level 3.9 g/dL (3.5-5.0); Alkaline Phosphatase 95 U/L (39-117); Anion Gap 10 (12-20); Aspartate Amino Transferase 26 U/L (5-37); Bilirubin Total 0.2 mg/dL (0.0-1.0); Blood Urea Nitrogen 12 mg/dL (9-16); Calcium 9.3 mg/dL (8.4-10.2); Carbon Dioxide 27 mmol/L (22-29); Chloride 103 mmol/L (96-108); Creatinine Clr Calc Pharmacy 107.3; Estimated Glomerular Filt Rate > 60; Glucose Random 300 mg/dL (60-115); Potassium 4.3 mmol/L (3.3-5.1); Sodium 136 mmol/L (135-145); Total Protein 7.6 g/dL (6.5-8.0)
[2025-01-10 15:09] VITALS: BP 124/74; PULSE 88; RESP 13; TEMP 37.2; O2SAT 98
--- OUTSIDE RECORDS SUMMARY | 2025-01-10 15:17 | XMS_ITS | Clinical Summary ---
Author Organization [address] [place] [address] Address [address] [place] [address] Phone Care Team Providers Care Bag Sewer Name Role Phone Name, Vern YUAN Primary Care Provider [phone] Surgical History Surgery Date Site/Laterality Comments BACK [...] Upcoming Encounters Date Type Department Care Team ([facility] [address] Contact Info) Description 01/17/2025 8:15 AM EDT Consult Orthopedic Surgery [place] [id number] [phone] Ehsan Perkins, DPM [address] [address] Health Maintenance Due Date Last Done Comments [...] to complete this topic Insurance MEDICAID - [place] MEDICARE Care Teams Bag Sewer Relationship Specialty Start Date End Date Name, MD Vern [address] [place] [address] PCP - General Internal Medicine 11/20/24
[2025-01-10 16:00] VITALS: BP 122/74; PULSE 78; RESP 13; TEMP 37.2; O2SAT 100
[2025-01-10] MEDS: iohexoL 350 MG/ML 100 ML INFUS..BTL IV (16:03)
[2025-01-10] MEDS: levoFLOXacin 750 MG TABLET PO (16:54)
[2025-01-10 16:55] VITALS: BP 122/74; PULSE 78; RESP 13; TEMP 37.2; O2SAT 100
== END 2025-01-10 16:56 | disposition home or self-care (01) ==
PROVIDERS: Registered Nurse Emergency; Emergency Provider Emergency Medicine; PCP Internal Medicine
DX: N41.0 Acute prostatitis (principal); K59.00 Constipation, unspecified; K62.89 Other specified diseases of anus and rectum; R50.9 Fever, unspecified; E11.9 Type 2 diabetes mellitus without complications; E78.5 Hyperlipidemia, unspecified; Z79.899 Other long term (current) drug therapy
CPT/HCPCS: 36415; 51798; 74177; 80053; 81001; 85025; 99284; Q9967

== ENCOUNTER → 2025-01-10 15:47 | Outpatient (BNV) | payer MEDICARE, MEDICAID, SELFPAY | PROVIDERS: Emergency Provider Emergency Medicine; PCP Internal Medicine; Visit Provider Radiology Diagnostic Radiology | DX: N20.0 Calculus of kidney (principal); K59.00 Constipation, unspecified | CPT/HCPCS: 74177 ==

== ENCOUNTER 2025-01-11 13:51 | Outpatient (REF) | payer MEDICARE, MEDICAID, SELFPAY ==
--- OUTSIDE RECORDS SUMMARY | 2025-01-11 13:54 | XMS_ITS | Clinical Summary ---
Author Organization [address] [place] [address] Address [address] [place] [address] Phone Care Team Providers Care Foundry Worker General Name Role Phone Name, Vern YUAN Primary Care Provider [phone] Surgical History Surgery Date Site/Laterality Comments BACK [...] Upcoming Encounters Date Type Department Care Team ([facility] Contact Info) Description 01/17/2025 8:15 AM EDT Consult Orthopedic Surgery [place] [phone] [phone] Ehsan Perkins, DPM [address] [address] Health Maintenance Due Date Last Done Comments [...] to complete this topic Insurance MEDICAID - [place] MEDICARE Care Teams Foundry Worker General Relationship Specialty Start Date End Date Name, MD Vern [address] [place] [address] PCP - General Internal Medicine 11/20/24
[2025-01-11 16:53] LABS: C Reactive Protein 0.43 mg/dL (< or = 0.50)
[2025-01-11 17:15] LABS: Erythrocyte Sedimentation Rate 44 MM/HR (0-15)
[2025-01-11 17:17] LABS: Prostate Specific Antigen 15.92 ng/mL (<0.05-4.0)
== END 2025-01-11 13:52 | disposition home or self-care (01) ==
LOC: HO.HHCL 13:51
PROVIDERS: Visit Provider Student in an Organized Health Care Education/Training Program
DX: N41.9 Inflammatory disease of prostate, unspecified (principal); Z12.5 Encounter for screening for malignant neoplasm of prostate
CPT/HCPCS: 36415; 84153; 85652; 86140

== ENCOUNTER 2025-01-22 13:10 | Outpatient (AMB) | payer MEDICARE, MEDICAID, SELFPAY ==
[2025-01-22 13:19] VITALS: BP 120/72; PULSE 113; O2SAT 97; BMI 28.9
--- NOTE | 2025-01-22 13:19 | A.OFFVIS_ITS ---
Vital Signs 01/22/25 13:19 Height 5 ft 6 in Weight 179 lb 0.246 oz BMI 28.9 BP 120/72 Blood Pressure Location Lt brachial Position Sitting Pulse 113 H Pulse Source Pulse Oximeter Pulse Oximetry (%) 97 Oxygen Delivery Method Room Air Intake Visit Reasons: hand pain/ MD approved Intake Note: Patient states for bilateral hand pain for for a couple of months. Allergies codeine Allergy (Unknown, Verified 01/22/25 13:20) upset stomach, nausea shrimp Allergy (Verified 01/22/25 13:20) Anaphylaxis Medication List - Last Reconciled 01/22/25 by Teresa Perez MD ammonium lactate 12% 1 appl topical BID bisacodyl (Dulcolax (bisacodyl)) 10 mg (2 x 5 mg) PO BEDTIME cetirizine 10 mg PO QAM PRN diclofenac sodium 1% 2 grams topical TID docusate sodium (Colace) 100 mg PO BID PRN empagliflozin-metformin 12.5-500 mg (Synjardy) tabs PO fluticasone propionate 50 mcg/actuation 1 spray intranasal DAILY glimepiride 2 mg PO DAILY hydrocortisone 2.5% (Proctosol HC) [address] BID-QID PRN ibuprofen 400 mg PO levofloxacin 750 mg PO DAILY minocycline 100 mg PO BID polyethylene glycol 3350 (Miralax) 238 grams PO ONCE sennosides (senna) 8.6 mg PO BEDTIME PRN tadalafil (Cialis) 20 mg PO DAILY PRN [thumb spica splint As directed] HPI Comments Details: Patient is a 54-year-old male with diabetes, hyperlipidemia complicated by fatty liver disease and polyarticular osteoarthritis here today for follow up Interval History: Patient last seen 08/20/[address] Simms. At that time he was following up for her generalized osteoarthritis. Reported elbow pain which was consistent with medial epicondylitis. He received a steroid injection to his left elbow Here today for an urgent appointment for bilateral hand pain Patient with painful trigger finger of the bilateral middle fingers Rheumatologic History: Polyarticular osteoarthritis Initial history: This is a 51-year-old male with a past medical history of type 2 diabetes mellitus, dyslipidemia, fatty liver who presents for evaluation of bilateral hand stiffness. 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 This is generally worse in the morning. Associated with 30 minutes of morning stiffness. He has pain in his MCPs in the [place] side. He states that his brother's got steroid injections in her hands with some improvement. Also recently he was helping a neighbor fix the blast furnace blower, he pulled the wire and since then he has been having right shoulder pain and stiffness. Right shoulder MRI showed rotator cuff tendinitis. Five years ago he had bilateral de Quervain tenosynovitis which was treated with steroid injection with good relief He had a work injury in 1996 then he had back surgery, since then he has been disabled. 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, ..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 Review of Systems Const Details: Review of Systems Constitutional: Denies fever, chills, weight loss ENT: Denies vision changes, eye pain or eye redness, dental caries, dry mouth GI: Denies nausea, vomiting, diarrhea, abdominal pain, change in BM Pulm: Denies SOB, GRIER, hemoptysis, wheezing Cards: Denies chest pain, palpitations Skin: Denies Raynaud's, rash, nail changes, photosensitivity, FIBRE OPTIC CABLE SPLICER: Denies headaches, weakness, paresthesias, recurrent falls MSK: as per HPI All other systems reviewed and are unremarkable except noted above Physical Exam Vital Signs: Last Vital Signs Pulse 113 H 01/22/25 13:19 BP 120/72 01/22/25 13:19 Pulse Ox 97 01/22/25 13:19 Oxygen Delivery Method Room Air 01/22/25 13:19 BMI result Body Mass Index 28.9 Vital signs reviewed Physical Examination MSK Hands: ? Able to make a fist bilaterally. Unable to straighten bilateral middle and ring fingers. Fibrotic tendon palpated at the A1 noel of the left middle finger. Tender to palpation. A1 noel of the right middle finger also tender to palpation Office Procedures AMB Joint Injection/Aspiration Joint Injection/Aspiration Details: Procedure was explained to the patient and consent was obtained. ? The area of interest was identified and confirmed with patient. ?This was subsequently cleaned with chlorhexidine x3. ? The area was then anesthetized using ethyl chloride spray. 20 mg Kenalog with 0.1 cc 1% lidocaine was injected without issue. ?Minimal to no bleeding. ?Patient tolerated procedure. Primary Site: right trigger finger Prep: site was prepped using aseptic technique and ethochloride spray was applied Injected: 20 mg of, Kenalog and 1% plain lidocaine (0.1) Procedure: The patient tolerated the procedure well Coding 37027 - Bicipital Groove Injection Procedure code (CPT) selection complete AMB Joint Injection/Aspiration Joint Injection/Aspiration Details: Procedure was explained to the patient and consent was obtained. ? The area of interest was identified and confirmed with patient. ?This was subsequently cleaned with chlorhexidine x3. ? The area was then anesthetized using ethyl chloride spray. 20 mg Kenalog with 0.1 cc 1% lidocaine was injected without issue. ?Minimal to no bleeding. ?Patient tolerated procedure. Primary Site: left trigger finger Prep: site was prepped using aseptic technique and ethochloride spray was applied Injected: 20 mg of, Kenalog and 1% plain lidocaine (0.1) Procedure: The patient tolerated the procedure well Coding 31020 - Bicipital Groove Injection Procedure code (CPT) selection complete Office Meds lidocaine (PF) 10 mg/mL (1 %) injection solution Performing Provider: Teresa Perez MD Performing Location: [facility] Rheumatology Administered by: Teresa Perez MD on 01/22/25 14:19 Dose Route Admin Location Dispensed Lot Number Expiration Date [facility] [employer] Manager 0.1 mL Infiltration right trigger 2 mL [id number] 10/20/26 67481-307-02 [facility] Kenalog 40 mg/mL suspension for injection Performing Provider: Teresa Perez MD Performing Location: [facility] Rheumatology Administered by: Teresa Perez MD on 01/22/25 14:19 Dose Route Admin Location Dispensed Lot Number Expiration Date [facility] [employer] Manager 20 mg Tendon Sheath Inj. right trigger finger 1 mL [id number] 11/20/26 1049-0282-83 [facility] lidocaine (PF) 10 mg/mL (1 %) injection solution Performing Provider: Teresa Perez MD Performing Location: [facility] Rheumatology Administered by: Teresa Perez MD on 01/22/25 14:19 Dose Route Admin Location Dispensed Lot Number Expiration Date [facility] [employer] Manager 0.1 mL Infiltration left trigger finger 2 mL [id number] 10/20/26 52989-243-69 [facility] Kenalog 40 mg/mL suspension for injection Performing Provider: Teresa Perez MD Performing Location: [facility] Rheumatology Administered by: Teresa Perez MD on 01/22/25 14:19 Dose Route Admin Location Dispensed Lot Number Expiration Date [facility] [employer] Manager 20 mg Tendon Sheath Inj. left trigger 1 mL [id number] 11/20/26 9290-6427-68 [facility] Results Reviewed Results Reviewed: Laboratory Tests 01/10/25 01/11/25 13:28 13:55 WBC 6.2 RBC 4.41 L Hgb 14.2 Hct 40.1 L Plt Count 400 D ESR 44 H Sodium 136 Potassium 4.3 Chloride 103 Carbon Dioxide 27 BUN 12 Creatinine 0.79 AST 26 ALT 30 Alkaline Phosphatase 95 C-Reactive Protein 0.43 Laboratory Tests 06/01/22 13:10 Rheumatoid Factor < 15.0 Cycl Citrul Peptide IgG <16 GRACE Screen NEGATIVE XR Bilateral Hand/Wrist 05/2022 FINDINGS: Right hand/wrist: The PIP, DIP and MCP joint spaces are maintained normal. The carpometacarpal, intercarpal and radioulnar carpal joint spaces are maintained normal. No bony erosive changes seen. Incidental finding of mild periarticular spurring PIP joint first digit. There is minimal soft tissue swelling. No acute fracture or dislocation. Left hand/wrist: The PIP, DIP and MCP joint spaces are maintained normal. The radioulnar carpal, intracarpal and carpometacarpal joint space is normal. There is no visible acute fracture, dislocation or subluxation seen. The soft tissues are normal. IMPRESSION: Periarticular spurring PIP joint first digit right hand. Otherwise unremarkable right hand/wrist. Unremarkable left hand/wrist exam. Assessment & Plan Assessment & Plan (1) Acquired trigger finger of both little fingers: Code(s): M65.351 - Trigger finger, right little finger; M65.352 - Trigger finger, left little finger Plan: #Bilateral middle finger trigger finger Patient is a 54-year-old male with polyarticular osteoarthritis here today for urgent visit for bilateral hand pain. Patient with bilateral middle finger trigger finger status post steroid injection. Given the significant fibrosis noted to the left middle finger A1 noel I think it is best to refer him to hand surgery. Recommended that patient splint his fingers for the next 2 weeks to aid in healing Plan - s/p bilateral trigger finger injection - refer to hand surgery Plan I spent 20 minutes reviewing the record and labs, taking a history, examining the patient, discussing the treatment plan, ordering diagnostic work up and documenting in the medical record Orders: Orders AMB Joint Injection/Aspiration Today M65.331 - Trigger finger, right middle finger, M65.332 - Trigger finger, left middle finger AMB Joint Injection/Aspiration Today M65.30 - Trigger finger, unspecified finger Referrals Hand Surgery Referral M65.351 - Trigger finger, right little finger, M65.352 - Trigger finger, left little finger Medications: New lidocaine (PF) 1 mL Infiltration ONCE 2 mL 0RF M65.331 - Trigger finger, right middle finger, M65.332 - Trigger finger, left middle finger Kenalog (triamcinolone acetonide) 20 mg (0.5 mL) Tendon Sheath Inj. ONCE 0.5 mL 0RF NS M65.331 - Trigger finger, right middle finger, M65.332 - Trigger finger, left middle finger lidocaine (PF) 0.5 mL Infiltration ONCE 2 mL 0RF M65.30 - Trigger finger, unspecified finger Kenalog (triamcinolone acetonide) 40 mg Tendon Sheath Inj. ONCE 1 mL 0RF NS M65.30 - Trigger finger, unspecified finger Coding Level of Care Code Est Pt Level 3 (84951) Diagnoses Acquired trigger finger of both little fingers M65.351; M65.352 CPT Codes Coding - Joint 1: 45908 - Bicipital Groove Injection ([id number]) Coding - Joint 1: 54670 - Bicipital Groove Injection ([id number])
--- OUTSIDE RECORDS SUMMARY | 2025-01-22 14:40 | XMS_ITS | Encounter Summary ---
Author Organization [employer] Address [address] [facility] [address] [place] [address] Care Team Providers Care Chisel Grinder Name Role Phone Name, Vern YUAN Primary Care Provider [phone] Reason for Visit * Reason Onset Date Comments Appointment Request 09/21/2024 Encounter Details Date Type Department Care Team ([facility] st Contact Info) Description 09/21/2024 Telephone [facility] MEDICINE [address] [place] [address] Name, MD Vern [address] [place] [address] Appointment Request Social History Tobacco Use Types [...] he will be coming in to the [facility]. Contact Manager advise of hours. documented in this encounter Plan of Treatment Upcoming Encounters Date Type Department Care Team (Late st Contact Info) Description 01/25/2025 9:00 AM EDT Medication Management [facility] MED[facility]INE [address] [place] [phone] Sheila Tidwell, PharmD [address] [place] [phone] 01/30/2025 11:15 AM EDT Office Visit [facility] MED[facility] [address] [place] [phone] Earline Lopez MD [address] [place] [phone] 03/07/2025 9:00 AM EDT Office Visit [facility] MED[facility]INE [address] [place] [phone] Name, MD Vern [address] [place] [phone] 05/02/2025 8:00 AM EDT Office Visit [facility] ADULT DENTAL [address] [place] [phone] Kay Martinez [address] [place] [phone] documented as of this encounter Visit Diagnoses Not on filedocumented in this encounter Care Teams Chisel Grinder Relationship Specialty Start Date End Date Name, MD Vern [address] [place] [address] PCP - General Internal Medicine 05/09/24 documented as of this encounter
== END 2025-01-22 13:52 | disposition home or self-care (01) ==
LOC: HO.RHE 13:10
PROVIDERS: PCP Internal Medicine; Visit Provider Student in an Organized Health Care Education/Training Program
DX: M65.331 Trigger finger, right middle finger (principal); M65.332 Trigger finger, left middle finger; M65.351 Trigger finger, right little finger; M65.352 Trigger finger, left little finger
CPT/HCPCS: 20550; 99213

== ENCOUNTER → 2025-01-22 13:10 | Outpatient (BNVA) | payer MEDICARE, MEDICAID, SELFPAY | PROVIDERS: PCP Internal Medicine; Visit Provider Student in an Organized Health Care Education/Training Program | DX: M65.351 Trigger finger, right little finger (principal); M65.352 Trigger finger, left little finger | CPT/HCPCS: 20550; 99212; J3300 ==

== ENCOUNTER 2025-01-25 08:22 | Outpatient (REF) | payer MEDICARE, MEDICAID, SELFPAY ==
--- OUTSIDE RECORDS SUMMARY | 2025-01-25 08:30 | XMS_ITS | Clinical Summary ---
Author Organization [address] [place] [address] Address [address] [place] [address] Phone Care Team Providers Care Air Pollution Compliance Inspector Name Role Phone Name, Vern YUAN Primary Care Provider [phone] Allergies Active Allergy Reactions Criticality Noted Date Comments Codeine 01/17/2025 Medications Hospital, Clinic, or Other Facility Administered Medication Ordered Dose Route Frequency Start Date End Date Status lidocaine (PF) (XYLOCAINE-MPF) 1 % injection 0.5 mLIndications:Hallux rigidus of right foot .5 mL inj Once PRN Procedure 01/17/2025 01/17/2025 Ended triamcinolone acetonide (KENALOG-40) 40 mg/mL injection 20 mgIndications:Hallux rigidus of right foot 20 mg IAtc Once PRN Procedure 01/17/2025 01/17/2025 Ended Encounters Date Type Department Care Team Description 01/17/2025 8:15 AM EDT Consult Orthopedic Surgery [facility] [address] [phone] Ehsan Perkins, DPM Hallux rigidus of right foot (Primary Dx); Bunion of right foot from Last 3 Months Surgical History Surgery Date Site/Laterality Comments BACK [...] Sexual Orientation Not on file Obstetrics History Last Filed Vital Signs Vital Sign Reading Time Taken Comments Blood Pressure - - Pulse - - Temperature - - Respiratory Rate - - Oxygen Saturation - - Inhaled Oxygen Concentration - - Weight 79.4 kg (175 lb) 01/17/2025 8:10 AM EDT Height 170.2 cm (5' 7 ) 01/17/2025 8:10 AM EDT Body Mass Index 27.41 01/17/2025 8:10 AM EDT Plan of Treatment Upcoming Encounters Date Type Department Care Team (Late st Contact Info) Description 03/04/2025 8:15 AM EDT Office Visit Orthopedic Surgery - [place] [address] [phone] Ehsan Perkins, DPM [address] [address] Health Maintenance Due Date Last Done Comments Diabetes: Annual Foot Exam 1981 Diabetes: Annual Retina Eye Exam 1981 Hepatitis A Vaccines (1 of 2 - Risk 2-dose series) 1990 COVID-19 Vaccine (3 - Moderna risk series) 01/27/2021 12/30/2020, 12/02/2020 Pneumococcal Vaccine: 50+ Years (2 of 2 - PCV) 2021 2016 Colorectal Cancer Screening: Colonoscopy 11/20/2024 Depression Screening 11/20/2024 Diabetes: Annual Urine Albumin-Creatinine Ratio (uACR) 11/20/2024 Medicare Annual Wellness Visit 11/20/2024 Social Influencers of Health Screening 11/20/2024 Influenza Vaccine (Season Ended) 2025 07/11/2019, 06/10/2017, 2016, Additional history exists Diabetes: Blood Sugar Control Test (HGBA1C) 07/14/2025 01/11/2025, 10/31/2024 DTaP,Tdap,and Td Vaccines (2 - Td or Tdap) 09/03/2025 09/03/2015 Diabetes: Annual GFR (Glomerular Filtration Rate) 01/10/2026 01/10/2025 Cholesterol Screening (Lipid Panel) 06/30/2029 06/30/2024 Pneumococcal Vaccine: Pediatrics (0 to 5 Years) and At-Risk Patients (6 to 64 Years) Aged Out 2016 No longer eligible based on patient's age to complete this topic Hepatitis B Vaccines Completed 02/06/2018, 07/12/2017, 06/10/2017 Zoster Vaccines Completed 09/28/2023, 07/27/2023 HIV Screening Completed 06/30/2024 Hepatitis C Screening Completed 06/30/2024 HIB Vaccines Aged Out No longer eligi [...] to complete this topic RSV Immunization Patients Under 20 months Aged Out No longer eligible based on patient's age to complete this topic Varicella Vaccines Aged Out No longer eligible based on patient's age to complete this topic Procedures Procedure Name Priority Date/Time Associated Diagnosis Comments INJECTION TENDON OR LIGAMENT Routine 01/17/2025 8:15 AM EDT Hallux rigidus of right foot XR FOOT 3+ VIEWS RIGHT Routine 01/17/2025 8:07 AM EDT Bunion of right foot from Last 3 Months Results * Injection tendon or ligament (01/17/2025 8:15 AM EDT) Narrative Ehsan Perkins DPM - 01/17/2025 8:15 AM EDT Ehsan Perkins DPM ? 01/17/2025 ??4:51 PM Injection tendon or ligament Indications: pain Details: 25 G needle Medications: 0.5 mL lidocaine (PF) 1 %; 20 mg triamcinolone acetonide 40 mg/mL Informed Consent: ??Site: ??Foot ligament tendon us Ehsan Perkins DPM IN CLINIC/BEDSIDE ORDERAB LES Final Result * XR Foot 3+ Views Right (01/17/2025 8:07 AM EDT) Anatomical Region Laterality Modality Lower Extremities, Foot Right Computed Radiography Narrative 01/17/2025 4:51 PM EDT Right foot ??3 views No fracture. No radiopaque foreign joint spaces ?? Arthritis mild moderate first MPJ with dorsal X ptosis and medial eminence with mild bunion deformity Foot position Pes planus with Talus navicular uncovering decreased calcaneal inclination anterior displaced symes line talus navicular joint to calcaneal cuboid joint ?? us Ehsan Perkins DPM IMG XR PROCEDURES Final R esult from Last 3 Months Insurance MEDICAID - [place] MEDICARE Care Teams Air Pollution Compliance Inspector Relationship Specialty Start Date End Date Name, MD Vern [address] [place] [phone] PCP - General Internal Medicine 11/20/24
[2025-01-25 11:25] LABS: Appearance Urine Clear; Color Urine Yellow; Glucose Urine UA >=1000 mg/dL (Negative); Leukocyte Esterase Urine Negative (Negative); Nitrite Urine Negative (Negative); PH 6.5 (5.0-9.0); Specific Gravity - Urine 1.025 (1.005-1.025); UMIC TRIGGER UACC YES; Urine Blood Negative (Negative); Urine Ketones Negative (Negative); Urine Protein Negative (Neg-Trace)
[2025-01-25 11:28] LABS: Bacteria Urine None Seen (None Seen); Hyaline Casts Urine 0-2 /LPF (0-2); RBC Urine 0-2 /HPF (0-2); Squamous Epithelial Cell Urine 0-2 /HPF (0-2); WBC Urine 0-5 /HPF (0-5)
[2025-01-25 12:37] LABS: Alanine Aminotransferase 25 U/L (0-40); Albumin Level 4.2 g/dL (3.5-5.0); Alkaline Phosphatase 91 U/L (39-117); Anion Gap 11 (12-20); Aspartate Amino Transferase 21 U/L (5-37); Bilirubin Total 0.3 mg/dL (0.0-1.0); Blood Urea Nitrogen 20 mg/dL (9-16); Calcium 9.9 mg/dL (8.4-10.2); Carbon Dioxide 25 mmol/L (22-29); Chloride 103 mmol/L (96-108); Estimated Glomerular Filt Rate > 60; Glucose Random 197 mg/dL (60-115); Potassium 3.9 mmol/L (3.3-5.1); Sodium 135 mmol/L (135-145); Total Protein 7.6 g/dL (6.5-8.0)
== END 2025-01-25 08:23 | disposition home or self-care (01) ==
LOC: HO.HHCL 08:22
PROVIDERS: Visit Provider Student in an Organized Health Care Education/Training Program
DX: N41.9 Inflammatory disease of prostate, unspecified (principal)
CPT/HCPCS: 36415; 80053; 81001

== ENCOUNTER 2025-03-12 12:15 | Emergency (ER) | payer MEDICARE, MEDICAID, SELFPAY ==
--- NOTE | ~2025-03-12 | XR_ITS ---
EXAMINATION: XR FINGERS LEFT HISTORY: 2nd finger, laceration distal, c/f fx COMPARISON: Comparison is made with the prior examination dated 06/01/2022. FINDINGS: Three views of the left middle finger are submitted. Osseous mineralization is normal. There is a minimally displaced transverse fracture of the distal phalanx. The joint spaces are preserved. There is a soft tissue injury of the distal 3rd finger. XR/XR finger LT min 2V IMPRESSION: Minimal a displaced transverse fracture of the distal phalanx of the left middle finger. Electronically signed by: Nir Driscoll MD 03/12/2025 01:34 PM EDT
[2025-03-12 12:18] VITALS: BP 133/91; PULSE 107; RESP 18; TEMP 36.5; O2SAT 98; BMI 28.2
[2025-03-12 12:37] LABS: Glucose, Whole Blood 233 mg/dL (60-115)
--- NOTE | 2025-03-12 13:03 | ED.GENADULT ---
HPI - General Adult General Chief complaint: Wound/Laceration Stated complaint: rt hand finger is cut off glove holding it on (thi Time Seen by Provider: 03/12/25 13:02 Source: patient, RN notes reviewed and old records reviewed Mode of arrival: ambulatory Limitations: no limitations History of Present Illness ED Provider: Jason HPI narrative: Patient is a 54-year-old right-hand dominant male with history of DM presenting to the emergency department with complaint of laceration to left 3rd finger. He states that he accidentally cut the distal tip of his finger with electric hedge clippers around noon today. Unsure last Tdap, does not believe it was within the last 5 years. Reports some numbness to distal tip of finger. Denies any other injuries. MD complaint: Finger injury Related Data Home Medications ?Medication ?Instructions ?Recorded ?Confirmed diclofenac sodium 1 % topical gel 2 g topical TID 06/01/22 01/22/25 ibuprofen 400 mg tablet 400 mg PO 06/01/22 01/22/25 cetirizine 10 mg tablet 10 mg PO QAM PRN 05/06/23 01/22/25 fluticasone propionate 50 1 spray intranasal DAILY 05/06/23 01/22/25 mcg/actuation nasal spray,suspension glimepiride 2 mg tablet 2 mg PO DAILY 10/21/23 01/22/25 ammonium lactate 12 % topical cream 1 appl topical BID 11/23/24 01/22/25 empagliflozin 12.5 mg-metformin tab PO 11/23/24 01/22/25 500 mg tablet (Synjardy) minocycline 100 mg capsule 100 mg PO BID 11/23/24 01/22/25 tadalafil 20 mg tablet (Cialis) 20 mg PO DAILY PRN 11/23/24 01/22/25 Previous Rx's ?Medication ?Instructions ?Recorded thumb spica splint #1 ea 06/18/22 bisacodyl 5 mg tablet,delayed 10 mg (2 x 5 mg) PO BEDTIME #180 11/23/24 release (Dulcolax (bisacodyl)) tabs hydrocortisone 2.5 % topical cream 1 appl IN BID-QID PRN hemorrhoids 11/23/24 with perineal applicator #30 grams (Proctosol HC) polyethylene glycol 3350 17 238 g PO ONCE #238 grams 11/23/24 gram/dose oral powder (Miralax) docusate sodium 100 mg capsule 100 mg PO BID PRN constipation #30 01/10/25 (Colace) caps levofloxacin 750 mg tablet 750 mg PO DAILY #13 tabs 01/10/25 sennosides 8.6 mg tablet (senna) 8.6 mg PO BEDTIME PRN constipation 01/10/25 #30 tabs amoxicillin 875 mg-potassium 1 tab PO BID #14 tabs 03/12/25 clavulanate 125 mg tablet Allergies Allergy/AdvReac Type Severity Reaction Status Date / Time codeine Allergy Unknown upset Verified 03/12/25 12:20 stomach, nausea shrimp Allergy Anaphylaxis Verified 03/12/25 12:20 Review of Systems Review of Systems: As per HPI. Yes all other systems are reviewed and are negative Constitutional: Constitutional: Reports as per HPI [facility] Past Medical History Medical History Fatty liver Restless leg Degenerative joint disease of cervical and lumbar spine Dyslipidemia De Quervain's disease (tenosynovitis) Type 2 diabetes mellitus Surgical History History of back surgery Family History Family History Mother Diabetes Father Hypertension Social History Social History Household Members: Spouse and Children Unable to assess alcohol history related to: Unknown Alcohol intake: never Patient Tobacco Use Status: Never used Tobacco Smoked in Last 30 Days: No Use of substances other than those prescribed or required for medical reasons: Unknown Advance Directives: No Advance Directives Information Provided: Yes Current occupational status: disabled 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 Blood pressure normal. Heart rate normal. Respiratory rate normal. Temperature normal. Oxygen saturation normal. Const General: cooperative, healthy appearing and no acute distress Orientation/consciousness: oriented to person, oriented to place, oriented to time and patient oriented x3 Limitations: no limitations HENMT Head: Yes normocephalic and Yes atraumatic Ears: external ears normal General nose exam: Normal external nose present Face and sinus: Yes face symmetric Mouth: oropharynx normal and moist mucous membranes Throat: Yes uvula midline Eyes Pupils: Equal, round and reactive pupils present Neck Neck: Yes normal visual inspection and Yes supple Resp Effort & Inspection: normal respiratory effort and able to speak in complete sentences Auscultation: clear to auscultation bilaterally Cardio Rate: regular rate Rhythm: regular rhythm Heart sounds: S1 normal heart sound present and S2 normal heart sound present GI Palpation (GI): Soft to palpation and nontender Auscultation: normoactive bowel sounds General: Yes no CVA tenderness Back/Spine/Pelvis Back: no CVA tenderness Skin General skin exam: elasticity normal and turgor normal Neuro General: oriented to person, oriented to place, oriented to time, patient oriented x3, moves all extremities, no focal motor deficits and CN's II-XI intact bilaterally Cranial nerves: Yes Equal, round and reactive pupils present Cognition (Neuro): normal cognition Extrem General: Yes full ROM, Yes no pedal edema and Yes no calf tenderness Left upper extremity: hand Details: laceration (two non-communicating lacerations to distal tip of 3rd finger) 3rd digit distal Details: linear, with motor nerve function intact and with sensation intact; not actively bleeding Hand/finger images:  1. 1cm laceration 2. 2cm laceration Psych Mental Status: mental status grossly normal Affect: normal affect Thought process: Normal thought process present Medications Administered Generic Name Dose Route Start Last Admin Trade Name Freq PRN Reason Stop Dose Admin Cefazolin Sodium/Dextrose 2 gm in 50 mls @ 100 mls/hr 03/12/25 14:46 03/12/25 14:50 Ancef IV 03/12/25 15:15 100 mls/hr ONCE ONE Administration Discontinued Medications Generic Name Dose Route Start Last Admin Trade Name Freq PRN Reason Stop Dose Admin Acetaminophen 975 mg 03/12/25 13:26 03/12/25 13:31 Acetaminophen 325 Mg Tablet PO 03/12/25 13:27 975 mg ONCE ONE Administration Diphtheria/Tetanus/Acell Pertussis 0.5 ml 03/12/25 13:12 03/12/25 13:31 Diphth,Pertus(Acell),Tet Adult 0.5 Ml Syringe IM 03/12/25 13:13 0.5 ml .ONCE ONE Administration Ibuprofen 600 mg 03/12/25 13:26 03/12/25 13:31 Ibuprofen 600 Mg Tablet PO 03/12/25 13:27 600 mg ONCE ONE Administration Lidocaine HCl 10 ml 03/12/25 13:09 03/12/25 13:32 Lidocaine Hcl 1 % Mpf 5 Ml Vial INFILTRATI 03/12/25 13:10 10 ml ONCE ONE Administration Procedures Laceration Laceration 1: Site: hand Side (If applicable): left Size (cm): 1 Description: flap Depth: simple, single layer Local Anesthetic: lidocaine 1% Amount of anesthesia used (mL): 1 Pre-repair: wound explored and irrigated extensively Skin layer closed with: other (prolene) Size (cm): 5-0 Number of sutures: 3 Technique: simple, interrupted Laceration 2: Site: hand Side (If applicable): left Size (cm): 2 Description: linear Depth: simple, single layer Local Anesthetic: lidocaine 1% Amount of anesthesia used (mL): 3 Pre-repair: wound explored, irrigated extensively and deep structures intact Skin layer closed with: other (prolene) Size (cm): 5-0 Number of sutures: 5 Technique: simple, interrupted Medical Decision Making Medical Decision Making MDM Narrative: Patient is a 54-year-old right-hand dominant male with history of DM presenting to the emergency department with complaint of laceration to left 3rd finger. On exam patient is awake, A+Ox3, VS WNL, afebrile, normal neurological exam without focal deficits, physical exam findings as above. Given reported symptoms and physical exam findings, initial differential includes but is not limited to laceration, open fracture, nail bed injury. X-ray notable for mildly displaced distal phalanx fracture. My interpretation is in agreement with the radiologist's interpretation. Lacerations repaired as per procedure note. Case discussed with sourav Mendez, who is in agreement with plan for lac repair, splint, antibiotics and outpatient follow up. Patient medicated with IV Ancef and Tdap in the ED. Splint applied after laceration repair. Wound care instructions and return precautions discussed with patient at bedside. Will discharge on Augmentin. Patient verbalized understanding of and agreement with plan. Differential Diagnosis Differential Diagnoses: The differential diagnosis associated with the presentation includes As per [facility] Admission/Observation Consideration of admission/observation: Escalation of care including admission/observation considered Patient would have been admitted to the hospital had their clinical presentation warranted hospital admission. Consult Healthcare Provider Management of the patient was discussed with: Stretcher Operator (sourav Mendez) Lab Data [facility] Lab Attestation statement: I reviewed the patient's lab results. Labs: Lab Results 03/12/25 Range/Units 12:34 POC Glucose 233 H (60-115) mg/dL Independent Interpretation I performed an independent interpretation of an: Plain X-Ray Interpretation: Distal phalanx fracture left 3rd finger Radiology Impression Discussion of test interpretation with radiology: I have reviewed the radiologist's reading. Radiologist Impression: XR/XR finger LT min 2V IMPRESSION: Minimal a displaced transverse fracture of the distal phalanx of the left middle finger. External Record Review External record reviewed: Inpatient record, Office record and Outpatient record Prescription Management I considered prescription management with: Antibiotic Critical Care Time Critical Care Time Critical Care Time: Yes Total Critical Care Time: 39 Attestation: I have personally provided critical care time exclusive of time spent on separately billable procedures. Time includes review of lab data, radiology results, discussion with consultants, and monitoring for potential decompensation. Intervention performed as documented. Discharge Plan Discharge Clinical Impression: Open fracture of distal phalanx of digit of left hand, Laceration of finger of left hand Patient Disposition: Home, Self-Care Instructions: Finger Fracture (ED), Finger Laceration (ED) Additional Instructions: You have been evaluated in the emergency department today for a laceration to your left middle finger. Your laceration was repaired in the emergency department with #8 sutures. Please keep the area surrounding the laceration clean and dry and keep dressing in place for the next 24 hours. After that please change the dressing and splint and assess the wound daily. Do not submerge the wound in water until the stitches has been removed and the wound has fully healed (no washing dishes, swimming, hot tubs, etc. and ESPECIALLY no outdoor water). Keep the area out of direct sunlight for the next 6 months to help prevent scarring. You should have the sutures removed in 7-10 days. You also have a fracture of the bone at the end of your finger and will need to follow up with orthopedics. You are being treated with a course of antibiotics due to this fracture. Complete the full course as prescribed, even if your symptoms improve. If you develop fever, redness, swelling at the site of your laceration, or thick yellow drainage please come back to the ER for a wound check. Prescriptions: New amoxicillin-pot clavulanate 875-125 mg tablet 1 tab PO BID Qty: 14 0RF No Action levofloxacin 750 mg tablet 750 mg PO DAILY Qty: 13 0RF sennosides [senna] 8.6 mg tablet 8.6 mg PO BEDTIME PRN (Reason: constipation) Qty: 30 0RF docusate sodium [Colace] 100 mg capsule 100 mg PO BID PRN (Reason: constipation) Qty: 30 0RF diclofenac sodium 1 % gel 2 g topical TID ibuprofen 400 mg tablet 400 mg PO cetirizine 10 mg tablet 10 mg PO QAM PRN fluticasone propionate 50 mcg/actuation spray,suspension 1 spray intranasal DAILY (DME) thumb spica splint See Rx Instructions .Route .MEDSUPPLY Qty: 1 0RF Rx Instructions: As directed glimepiride 2 mg tablet 2 mg PO DAILY Synjardy 12.5-500 mg tablet PO minocycline 100 mg capsule 100 mg PO BID tadalafil [Cialis] 20 mg tablet 20 mg PO DAILY PRN ammonium lactate 12 % cream 1 appl topical BID bisacodyl [Dulcolax (bisacodyl)] 5 mg tablet,delayed release (DR/EC) 10 mg PO BEDTIME Qty: 180 4RF polyethylene glycol 3350 [Miralax] 17 gram/dose powder 238 g PO ONCE Qty: 238 0RF Rx Instructions: As directed by gastroenterology department at [facility] hydrocortisone [Proctosol HC] 2.5 % cream with perineal applicator 1 appl IN BID-QID PRN (Reason: hemorrhoids) Qty: 30 2RF Referrals: [facility] Orthopedic Surgeons [Provider Group] Referral Note: XR/XR finger LT min 2V IMPRESSION: Minimal a displaced transverse fracture of the distal phalanx of the left middle finger. Clinical Impression: Open fracture of distal phalanx of digit of left hand Discharge Date/Time: 03/12/25 15:15 Print Language: [place]
[2025-03-12] MEDS: Diphth,Pertus(ACell),Tet Adult 0.5 ML SYRINGE IM (13:31)
[2025-03-12] MEDS: Lidocaine HCl 1 % MPF 5 ML VIAL 10 ML INFILTRATI (13:32)
--- OUTSIDE RECORDS SUMMARY | 2025-03-12 14:17 | XMS_ITS | Encounter Summary ---
Author Organization [employer] Address [address] [place] [address] Care Team Providers Care Meat Counter Clerk Name Role Phone Name, Vern YUAN Primary Care Provider [phone] Reason for Visit * Reason Onset Date Comments Appointment Request 09/21/2024 Encounter Details Date Type Department Care Team ([facility] st Contact Info) Description 09/21/2024 Telephone [facility] MEDICINE [address] [place] [address] Name, MD Vern [address] [place] [address] Appointment Request Social History Tobacco Use Types [...] he will be coming in to the [facility]. Sander Hand advise of hours. documented in this encounter Plan of Treatment Upcoming Encounters Date Type Department Care Team (Late st Contact Info) Description 05/02/2025 8:00 AM EDT Office Visit [facility] ADULT DENTAL [address] [place] [address] Kay Martinez [address] [place] [address] documented as of this encounter Visit Diagnoses Not on filedocumented in this encounter Care Teams Meat Counter Clerk Relationship Specialty Start Date End Date Name, MD Vern [address] [place] [address] PCP - General Internal Medicine 05/09/24 documented as of this encounter
--- OUTSIDE RECORDS SUMMARY | 2025-03-12 14:17 | XMS_ITS | Clinical Summary ---
Author Organization [address] [place] [address] Address [address] [place] [address] Phone Care Team Providers Care Crusher Screen Repairer Name Role Phone Name, Vern YUAN Primary Care Provider [phone] Allergies Active Allergy Reactions Criticality Noted Date Comments Codeine 01/17/2025 Medications diclofenac (Voltaren Arthritis Pain) 1 % topical gel Apply 4 g topically 2 (two) times a day. 240 g 1 5 05/03/20 25 Active Hospital, Clinic, or Other Facility Administered Medication Ordered Dose Route Frequency Start Date End Date Status lidocaine (PF) (XYLOCAINE-MPF) 1 % injection 0.5 mLIndications:Hallux rigidus of right foot .5 mL inj Once PRN Procedure 03/04/2025 03/04/2025 Ended triamcinolone acetonide (KENALOG-40) 40 mg/mL injection 20 mgIndications:Hallux rigidus of right foot 20 mg IAtc Once PRN Procedure 03/04/2025 03/04/2025 Ended Encounters Date Type Department Care Team Description 03/04/2025 8:15 AM EDT Office Visit Orthopedic Surgery [facility] [address] [phone] Ehsan Perkins DPM Tendonitis, Achilles, left (Primary Dx); Bunion of right foot; Hallux rigidus of right foot 01/17/2025 8:15 AM EDT Consult Orthopedic [facility] [address] [phone] Ehsan Perkins DPM Hallux rigidus of right foot (Primary [...] Care Team (Late st Contact Info) Description 04/11/2025 8:15 AM EDT Office Visit Orthopedic Surgery - [place] [address] [phone] Ehsan Perkins, DPM [address] [address] Health Maintenance Due Date Last Done Comments Diabetes: Annual Foot Exam 1981 Diabetes: Annual Retina Eye Exam 1981 Hepatitis A Vaccines (1 of 2 - Risk 2-dose series) 1990 COVID-19 Vaccine (3 - Moderna risk series) 01/27/2021 12/30/2020, 12/02/2020 Pneumococcal Vaccine: 50+ Years (2 of 2 - PCV) 2021 2016 Depression Screening 08/22/2024 Colorectal Cancer Screening: Colonoscopy 11/20/2024 Diabetes: Annual Urine Albumin-Creatinine Ratio (uACR) 11/20/2024 Medicare Annual Wellness Visit 11/20/2024 Social Influencers of Health Screening 11/20/2024 Influenza Vaccine (#1) 2025 9, 06/10/2017, 2016, Additional history exists Diabetes: Blood Sugar Control Test (HGBA1C) 07/14/2025 01/11/2025, 10/31/2024 DTaP,Tdap,and Td Vaccines (2 - Td or Tdap) 09/03/2025 09/03/2015 Diabetes: Annual GFR (Glomerular Filtration Rate) 01/25/2026 01/25/2025, 01/10/2025 Cholesterol Screening (Lipid Panel) 06/30/2029 06/30/2024 Hepatitis B Vaccines Completed 02/06/2018, 07/12/2017, 06/10/2017 [...] Diagnosis Comments INJECTION TENDON OR LIGAMENT Routine 03/04/2025 8:15 AM EDT Hallux rigidus of right foot INJECTION TENDON OR LIGAMENT Routine 01/17/2025 8:15 AM EDT Hallux rigidus of right foot XR FOOT 3+ VIEWS RIGHT Routine 01/17/2025 8:07 AM EDT Bunion of right foot from Last 3 Months Results * Injection tendon or ligament (03/04/2025 8:15 AM EDT) Narrative Ehsan Perkins DPM - 03/04/2025 8:15 AM EDT Ehsan Perkins DPM 03/04/2025 1:01 PM Injection tendon or ligament Indications: pain Details: 25 G needle Medications: 0.5 mL lidocaine (PF) 1 %; 20 mg triamcinolone acetonide 40 mg/mL Informed Consent: Site: Foot ligament tendon Ehsan Perkins DPM IN CLINIC/BEDSIDE ORDERAB LES Final Result * Injection tendon or ligament (01/17/2025 8:15 AM EDT) Narrative Ehsan Perkins DPM - 01/17/2025 8:15 AM EDT Ehsan Perkins DPM 01/17/2025 4:51 PM Injection tendon or ligament Indications: pain Details: 25 G needle Medications: 0.5 mL lidocaine (PF) 1 %; 20 mg triamcinolone acetonide 40 mg/mL Informed Consent: Site: Foot ligament tendon Ehsan Perkins DPM IN CLINIC/BEDSIDE ORDERAB LES Final Result * XR Foot 3+ Views Right (01/17/2025 8:07 AM EDT) Anatomical Region Laterality Modality Lower Extremities, Foot Right Computed Radiography Narrative 01/17/2025 4:51 PM EDT Right foot 3 views No fracture. No radiopaque foreign joint spaces Arthritis mild moderate first MPJ with dorsal X ptosis and medial eminence with mild bunion deformity Foot position Pes planus with Talus navicular uncovering decreased calcaneal inclination anterior displaced symes line talus navicular joint to calcaneal cuboid joint Ehsan Perkins DPM IMG XR PROCEDURES Final R esult from Last 3 Months Insurance MEDICAID - [place] MEDICARE Care Teams Crusher Screen Repairer Relationship Specialty Start Date End Date Name, MD Vern [address] [place] [address] PCP - General Internal Medicine 11/20/24
[2025-03-12 15:14] VITALS: BP 120/86; PULSE 86; RESP 18; TEMP 36.5; O2SAT 99
== END 2025-03-12 15:15 | disposition home or self-care (01) ==
PROVIDERS: Emergency Provider Emergency Medicine; PCP Internal Medicine Geriatric Medicine
DX: S61.213A Laceration without foreign body of left middle finger without damage to nail, initial encounter (principal); W29.3XXA Contact with powered garden and outdoor hand tools and machinery, initial encounter; Y93.H2 Activity, gardening and landscaping; Y92.017 Garden or yard in single-family (private) house as the place of occurrence of the external cause; Y99.8 Other external cause status; Z23 Encounter for immunization; E11.9 Type 2 diabetes mellitus without complications; E78.5 Hyperlipidemia, unspecified; Z79.899 Other long term (current) drug therapy
CPT/HCPCS: 12002; 73140; 82947; 90471; 90715; 96365; 99284; J0690; J2003

== ENCOUNTER → 2025-03-12 13:09 | Outpatient (BNV) | payer MEDICARE, MEDICAID, SELFPAY | PROVIDERS: Emergency Provider Emergency Medicine; PCP Internal Medicine Geriatric Medicine; Visit Provider Radiology Diagnostic Radiology | DX: S62.633A Displaced fracture of distal phalanx of left middle finger, initial encounter for closed fracture (principal) | CPT/HCPCS: 73140 ==

== ENCOUNTER → 2025-03-13 11:08 | Outpatient (BNVA) | payer MEDICARE, MEDICAID, SELFPAY | PROVIDERS: PCP Internal Medicine Geriatric Medicine; Visit Provider Orthopaedic Surgery | DX: S62.633B Displaced fracture of distal phalanx of left middle finger, initial encounter for open fracture (principal) | CPT/HCPCS: 99212 ==

== ENCOUNTER 2025-03-13 11:45 | Outpatient (AMB) | payer MEDICARE, MEDICAID, SELFPAY ==
--- NOTE | 2025-03-13 11:47 | MHC.OFFVIS ---
Vital Signs 03/13/25 11:56 Height 5 ft 6 in Weight 174 lb BMI 28.1 Intake Visit Reasons: Lt 3rd finger traumatic amputation Intake Note: Mike is a 54 year old right hand dominant male who presents today for an [facility] ED follow up and further evaluation of a traumatic amputation to the left middle finger, DOI 03/12/25. He states he accidentally cut the distal tip of his finger with electric hedge clippers while at home. Patient is currently taking Tylenol and Ibuprofen for pain with some relief. He is also taking antibiotics as prescribed. He complains of nerve pain on the ulnar aspect of the left hand. Denies numbness, tingling, or finger locking since the injury. Denies previous surgeries to the left hand. Allergies codeine Allergy (Unknown, Verified 03/13/25 12:01) upset stomach, nausea shrimp Allergy (Verified 03/13/25 12:01) Anaphylaxis HPI HPI Lt 3rd finger traumatic amputation: Details: Mike is a 54 year old right hand dominant male who presents today for an [facility] ED follow up and further evaluation of a traumatic amputation to the left middle finger, DOI 03/12/25. He states he accidentally cut the distal tip of his finger with electric hedge clippers while at home. Patient is currently taking Tylenol and Ibuprofen for pain with some relief. He is also taking antibiotics as prescribed. He complains of nerve pain on the ulnar aspect of the left hand. Denies numbness, tingling, or finger locking since the injury. Denies previous surgeries to the left hand. 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 Neuro: Normal sensation of the tips of all digits of the left hand at this time Vascular: Cap refill brisk Pain: Tenderness to palpation about the distal aspect of the left middle finger ROM: Patient is able to flex and extend at all joints of the left hand Skin: Complex laceration noted of the right middle finger distal phalanx General: No ecchymosis, erythema, or evidence of infection. Psych: Appears grossly normal Affect normal Attitude cooperative Office Procedures AMB Fracture Care Fracture Billing Code: Fracture Billing Code Results Reviewed Results Reviewed: X-rays obtained in the office today and independently reviewed by me, Shabbir Domínguez PA-C, demonstrate minimally displaced transverse fracture of the distal phalanx of the left middle finger. Assessment & Plan Assessment & Plan (1) Open fracture of distal phalanx of left middle finger: Code(s): S62.633B - Displaced fracture of distal phalanx of left middle finger, initial encounter for open fracture Category: Medical Plan 1. Open fracture of the distal phalanx of left middle finger Patient is educated about this condition Patient is educated about the typical treatment course At this time, no surgical intervention is warranted, as there is no evidence of ongoing infection and the laceration repair performed in the ED was done very well Patient is educated on the signs and symptoms of worsening infection Dressing changed in the office today, should remain on until seen in the office next week Patient is also given a fingertips splint to stabilize the fracture Patient is amenable to this plan Follow-up in 1 week with repeat x-rays for reassessment, sooner with any acute concerns Coding Level of Care Code Est Pt Level 3 (49664) Diagnoses Open fracture of distal phalanx of left middle finger S62.633B CPT Codes Fracture Care - Fracture Billing Code: Fracture Billing Code ([id number])
[2025-03-13 11:56] VITALS: BMI 28.1
== END 2025-03-13 12:50 | disposition home or self-care (01) ==
LOC: HO.HOS 11:45
PROVIDERS: PCP Internal Medicine Geriatric Medicine
DX: S62.633B Displaced fracture of distal phalanx of left middle finger, initial encounter for open fracture (principal)
CPT/HCPCS: 99213

== ENCOUNTER 2025-03-19 12:59 | Outpatient (AMB) | payer MEDICARE, MEDICAID, SELFPAY ==
--- NOTE | 2025-03-19 13:03 | MHC.OFFVIS ---
Vital Signs 03/19/25 13:04 Height 5 ft 6 in Weight 170 lb BMI 27.4 Handedness Right Intake Visit Reasons: OV-Lt 3rd finger traumatic amputation-Wound check Intake Note: Mike is a 54 year old right hand dominant male who presents today status post open fracture of the left middle distal phalanx, DOI 03/12/25. At his last visit, one week ago, his dressing was changed and he was given a fingertips splint to stabilize the fracture. Patient reports he is having mild pressure and some sensitivity at the tip of the left 3rd digit. Expresses pin with reaching and accidental palpation to the finger. Unable to make a full closed fist at this time. 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 He reports he is seeing Dr Grey for injections. Per Rheumatology OV note on 01/22/25 Able to make a fist bilaterally. Unable to straighten bilateral middle and ring fingers. Fibrotic tendon palpated at the A1 noel of the left middle finger. Tender to palpation. A1 noel of the right middle finger also tender to palpation. Office Meds lidocaine (PF) 10 mg/mL (1 %) injection solution Performing Provider: Teresa Perez MD Performing Location: [facility] Administered by: Teresa Perez MD on 01/22/25 14:19 Dose Route Admin Location Dispensed Lot Number Expiration Date [facility] Nurse Practitioner Adult 0.1 mL Infiltration right trigger 2 mL [id number] 10/20/26 96953-150-15 [facility] Kenalog 40 mg/mL suspension for injection Performing Provider: Teresa Perez MD Performing Location: [facility] Administered by: Teresa Perez MD on 01/22/25 14:19 Dose Route Admin Location Dispensed Lot Number Expiration Date [facility] Nurse Practitioner Adult 20 mg Tendon Sheath Inj. right trigger finger 1 mL [id number] 11/20/26 6317-3079-35 [facility] lidocaine (PF) 10 mg/mL (1 %) injection solution Performing Provider: Teresa Perez MD Performing Location: [facility] Administered by: Teresa Perez MD on 01/22/25 14:19 Dose Route Admin Location Dispensed Lot Number Expiration Date [facility] Nurse Practitioner Adult 0.1 mL Infiltration left trigger finger 2 mL [id number] 10/20/26 44142-658-66 [facility] Kenalog 40 mg/mL suspension for injection Performing Provider: Teresa Perez MD Performing Location: [facility] Administered by: Teresa Perze MD on 01/22/25 14:19 Dose Route Admin Location Dispensed Lot Number Expiration Date [facility] Nurse Practitioner Adult 20 mg Tendon Sheath Inj. left trigger 1 mL [id number] 11/20/26 0249-8110-11 [facility] Allergies codeine Allergy (Unknown, Verified 03/19/25 13:17) upset stomach, nausea shrimp Allergy (Verified 03/19/25 13:17) Anaphylaxis HPI HPI OV-Lt 3rd finger traumatic amputation-Wound check: Details: Mike is a 54 year old right hand dominant male who presents today status post open fracture of the left middle distal phalanx, DOI 03/12/25. At his last visit, one week ago, his dressing was changed and he was given a fingertips splint to stabilize the fracture. Patient reports he is having mild pressure and some sensitivity at the tip of the left 3rd digit. Expresses pin with reaching and accidental palpation to the finger. Unable to make a full closed fist at this time. 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 He reports he is seeing Dr Grey for injections. Per Rheumatology OV note on 01/22/25 Able to make a fist bilaterally. Unable to straighten bilateral middle and ring fingers. Fibrotic tendon palpated at the A1 noel of the left middle finger. Tender to palpation. A1 noel of the right middle finger also tender to palpation. Office Meds lidocaine (PF) 10 mg/mL (1 %) injection solution Performing Provider: Teresa Perez MD Performing Location: [facility] Administered by: Teresa Perez MD on 01/22/25 14:19 Dose Route Admin Location Dispensed Lot Number Expiration Date [place] Nurse Practitioner Adult 0.1 mL Infiltration right trigger 2 mL [id number] 10/20/26 37238-793-06 [facility] Kenalog 40 mg/mL suspension for injection Performing Provider: Teresa Perez MD Performing Location: [facility] Administered by: Teresa Perez MD on 01/22/25 14:19 Dose Route Admin Location Dispensed Lot Number Expiration Date [facility] Nurse Practitioner Adult 20 mg Tendon Sheath Inj. right trigger finger 1 mL [id number] 11/20/26 9307-2897-67 [facility] lidocaine (PF) 10 mg/mL (1 %) injection solution Performing Provider: Teresa Perez MD Performing Location: [facility] Administered by: Teresa Perez MD on 01/22/25 14:19 Dose Route Admin Location Dispensed Lot Number Expiration Date [place] Nurse Practitioner Adult 0.1 mL Infiltration left trigger finger 2 mL [id number] 10/20/26 79612-353-35 [facility] Kenalog 40 mg/mL suspension for injection Performing Provider: Teresa Perez MD Performing Location: [facility] Administered by: Teresa Perez MD on 01/22/25 14:19 Dose Route Admin Location Dispensed Lot Number Expiration Date [facility] Nurse Practitioner Adult 20 mg Tendon Sheath Inj. 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 Neuro: Normal sensation of the tips of all digits of the left hand at this time Vascular: Cap refill brisk Pain: Tenderness to palpation about the distal aspect of the left middle finger ROM: Patient is able to flex and extend at all joints of the left hand Skin: Complex laceration noted of the right middle finger distal phalanx General: No ecchymosis, erythema, or evidence of infection. Psych: Appears grossly normal Affect normal Attitude cooperative Assessment & Plan Assessment & Plan (1) Open fracture of distal phalanx of left middle finger: Code(s): S62.633B - Displaced fracture of distal phalanx of left middle finger, initial encounter for open fracture Category: Medical Plan 1. Open fracture of the distal phalanx of left middle finger Patient is educated about this condition Patient is educated about the typical treatment course At this time, no surgical intervention is warranted, as there is no evidence of ongoing infection and the laceration repair performed in the ED was done very well Patient is educated on the signs and symptoms of worsening infection Dressing changed in the office today, should remain on until seen in the office next week Patient is also given a fingertips splint to stabilize the fracture Patient is amenable to this plan Follow-up in 1 week with repeat x-rays for reassessment, sooner with any acute concerns Medications: New amoxicillin-pot clavulanate 875-125 mg 1 tab PO BID 7 days 14 tabs 0RF amoxicillin-pot clavulanate 875-125 mg 1 tab PO BID 14 tabs 0RF 7 days Coding Level of Care Code Global (36793) Diagnoses Open fracture of distal phalanx of left middle finger S62.633B
[2025-03-19 13:04] VITALS: BMI 27.4
--- OUTSIDE RECORDS SUMMARY | 2025-03-19 13:46 | XMS_ITS | Encounter Summary ---
Author Organization [employer] Address [address] [facility] 7 [place] [address] Care Team Providers Care Lease Picker Name Role Phone Name, Vern YUAN Primary Care Provider [phone] Reason for Visit * Reason Onset Date Comments Appointment Request 09/21/2024 Encounter Details Date Type Department Care Team ([facility] st Contact Info) Description 09/21/2024 Telephone [facility] MED[facility] [address] [place] [address] Name, MD Vern [address] [place] [address] Appointment Request Social History Tobacco Use Types [...] he will be coming in to the [facility]. Feed Crusher Operator advise of hours. documented in this encounter Plan of Treatment Upcoming Encounters Date Type Department Care Team (Late st Contact Info) Description 05/02/2025 8:00 AM EDT Office Visit [facility] ADULT DENTAL [address] [place] [address] Kay Martinez [address] [place] [address] documented as of this encounter Visit Diagnoses Not on filedocumented in this encounter Care Teams Lease Picker Relationship Specialty Start Date End Date Name, MD Vern [address] [place] [address] PCP - General Internal Medicine 05/09/24 documented as of this encounter
--- OUTSIDE RECORDS SUMMARY | 2025-03-19 13:46 | XMS_ITS | Clinical Summary ---
Author Organization [address] [place] [address] Address [address] [place] [address] Phone Care Team Providers Care Greaser Operator Name Role Phone Name, Vern YUAN Primary Care Provider [phone] Allergies Active Allergy Reactions Criticality Noted Date [...] 8:15 AM EDT Office Visit Orthopedic Surgery [facility] [address] [phone] Ehsan Perkins DPM Tendonitis, Achilles, left (Primary Dx); Bunion of right foot; Hallux rigidus of right foot 01/17/2025 8:15 AM EDT Consult Orthopedic [facility] [address] [phone] Ehsan Perkins DPM Hallux rigidus of right [...] AM EDT Office Visit Orthopedic Surgery [place] [address] [phone] Ehsan Perkins, DPM [address] [address] Health Maintenance Due Date Last Done Comments [...] Insurance MEDICA[place] - [place] MEDICARE Care Teams Greaser Operator Relationship Specialty Start Date End Date Name, MD Vern [address] [place] [address] PCP - General Internal Medicine 11/20/24
== END 2025-03-19 13:45 | disposition home or self-care (01) ==
LOC: HO.HOS 12:59
PROVIDERS: PCP Internal Medicine Geriatric Medicine
DX: S62.633B Displaced fracture of distal phalanx of left middle finger, initial encounter for open fracture (principal)
CPT/HCPCS: 99213

== ENCOUNTER → 2025-03-19 12:59 | Outpatient (BNVA) | payer MEDICARE, MEDICAID, SELFPAY | PROVIDERS: PCP Internal Medicine Geriatric Medicine | DX: S62.633D Displaced fracture of distal phalanx of left middle finger, subsequent encounter for fracture with routine healing (principal) | CPT/HCPCS: 99212 ==

== ENCOUNTER 2025-03-26 08:06 | Outpatient (REF) | payer MEDICARE, MEDICAID, SELFPAY ==
--- NOTE | ~2025-03-26 | XR_ITS ---
EXAMINATION: XR HAND 3 OR MORE VIEWS LEFT HISTORY: M79.642 - Pain in left hand COMPARISON: Comparison is made with the prior examination of the left middle finger dated 03/10/2025. FINDINGS: Three views of the left hand are submitted. Osseous mineralization is normal. Again seen is a minimally displaced fracture of the distal phalanx of the middle finger. The fracture line remains visible. The joint spaces are preserved. The soft tissues are unremarkable. XR/XR hand LT min 3V IMPRESSION: Minimally displaced fracture of the distal phalanx of the middle finger without change. Electronically signed by: Nir Driscoll MD 03/26/2025 10:24 AM EDT
--- OUTSIDE RECORDS SUMMARY | 2025-03-26 08:09 | XMS_ITS | Clinical Summary ---
Author Organization [address] [place] [address] Address [address] [place] [address] Phone Care Team Providers Care Class C Driver Name Role Phone Name, Vern YUAN Primary Care Provider [phone] Allergies Active Allergy Reactions Criticality Noted Date Comments Codeine 01/17/2025 Medications diclofenac (Voltaren Arthritis Pain) 1 % topical gel Apply 4 g topically 2 (two) times a day. 240 g 1 05/03/20 25 Active Hospital, Clinic, or Other [...] 8:15 AM EDT Office Visit Orthopedic Surgery [facility] [address] [phone] Ehsan Perkins DPM Tendonitis, Achilles, left (Primary Dx); Bunion of right foot; Hallux rigidus of right foot 01/17/2025 8:15 AM EDT Consult Orthopedic [facility] [address] [phone] Ehsan Perkins DPM Hallux rigidus of right [...] AM EDT Office Visit Orthopedic Surgery - [place] [address] [phone] Ehsan Perkins, DPM [address] [address] Health Maintenance Due Date Last Done Comments [...] Insurance [place] - [place]ARE Care Teams Class C Driver Relationship Specialty Start Date End Date Name, MD Vern [address] [place] [address] PCP - General Internal Medicine 11/20/24
== END 2025-03-26 08:07 | disposition home or self-care (01) ==
LOC: HO.HOSX 08:06
DX: M79.642 Pain in left hand (principal); S62.633B Displaced fracture of distal phalanx of left middle finger, initial encounter for open fracture; X58.XXXA Exposure to other specified factors, initial encounter
CPT/HCPCS: 73130; 99212

== ENCOUNTER 2025-03-26 10:00 | Outpatient (AMB) | payer MEDICARE, MEDICAID, SELFPAY ==
--- NOTE | 2025-03-26 10:13 | A.OFFVIS_ITS ---
Vital Signs 03/26/25 10:15 Height 5 ft 6 in Weight 170 lb BMI 27.4 Intake Visit Reasons: OV-Lt 3rd finger traumatic amputation-Wound check Intake Note: Mike is a 54 year old right hand dominant male who presents today status post open fracture of the left middle distal phalanx, DOI 03/12/25. At his last visit, one week ago, his dressing was changed and he was advised to keep dressing intact until today's visit. Patient reports today he finished taking his antibiotics. He is taking Tylenol and Motrin with relief. Patient states he has been changing his dressings daily, as he is under the impression he was expected do so. Patient says he has not been using the splint daily, only most days. There is some swelling from the PIP joint to the DIP joint on the volar aspect of his left middle finger. No further questions or concerns. Allergies codeine Allergy (Unknown, Verified 03/26/25 10:16) upset stomach, nausea shrimp Allergy (Verified 03/26/25 10:16) Anaphylaxis HPI HPI OV-Lt 3rd finger traumatic amputation-Wound check: Details: Mike is a 54 year old right hand dominant male who presents today status post open fracture of the left middle distal phalanx, DOI 03/12/25. At his last visit, one week ago, his dressing was changed and he was advised to keep dressing intact until today's visit. Patient reports today he finished taking his antibiotics. He is taking Tylenol and Motrin with relief. Patient states he has been changing his dressings daily, as he is under the impression he was expected do so. Patient says he has not been using the splint daily, only most days. There is some swelling from the PIP joint to the DIP joint on the volar aspect of his left middle finger. No further questions or concerns. 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 Neuro: Normal sensation of the tips of all digits of the left hand at this time Vascular: Cap refill brisk Pain: No Tenderness to palpation about the distal aspect of the left middle finger ROM: Patient is able to flex and extend at all joints of the left hand Skin: Complex laceration noted of the right middle finger distal phalanx Sutures in place No discharge General: No ecchymosis, erythema, or evidence of infection. Psych: Appears grossly normal Affect normal Attitude cooperative Results Reviewed Results Reviewed: X-rays obtained in the office today and independently reviewed by me, Shabbir Villatoro PA-C, demonstrate minimally displaced transverse fracture of the distal phalanx of the left middle finger. Assessment & Plan Assessment & Plan (1) Open fracture of distal phalanx of left middle finger: Code(s): S62.633B - Displaced fracture of distal phalanx of left middle finger, initial encounter for open fracture Category: Medical Plan 1. Open fracture of the distal phalanx of left middle finger Patient is educated about this condition Patient is educated about the typical treatment course Sutures removed in the office today Patient is educated on the signs and symptoms of worsening infection Patient may wash the laceration site with soap and water in the sink of the shower, no submerging 2 lb weight limit in left hand Dressing changed in the office today, daily dressing changes Patient is also given a fingertips splint to stabilize the fracture, should wear splint with daytime activities Patient is amenable to this plan Follow-up in 2 weeks, sooner with any acute concerns Orders: Orders XR hand LT min 3V Today M79.642 - Pain in left hand Coding Level of Care Code Global (60426) Diagnoses Open fracture of distal phalanx of left middle finger S62.633B
[2025-03-26 10:15] VITALS: BMI 27.4
--- OUTSIDE RECORDS SUMMARY | 2025-03-26 10:34 | XMS_ITS | Encounter Summary ---
Author Organization [employer] Address [address] [facility] 7 [place] [address] Care Team Providers Care Bottle Blower Name Role Phone Name, Vern YUAN Primary Care Provider [phone] Reason for Visit * Reason Onset Date Comments Appointment Request 09/21/2024 Encounter Details Date Type Department Care Team ([facility] st Contact Info) Description 09/21/2024 Telephone [facility] MED[facility] [address] [place] [address] Name, MD Vern [address] [place] [address] Appointment Request Social History Tobacco Use Types [...] he will be coming in to the [facility]. Egg Trayer advise of hours. documented in this encounter Plan of Treatment Upcoming Encounters Date Type Department Care Team (Late st Contact Info) Description 05/02/2025 8:00 AM EDT Office Visit [facility] ADULT DENTAL [address] [place] [address] Kay Martinez [address] [place] [address] documented as of this encounter Visit Diagnoses Not on filedocumented in this encounter Care Teams Bottle Blower Relationship Specialty Start Date End Date Name, MD Vern [address] [place] [address] PCP - General Internal Medicine 05/09/24 documented as of this encounter
== END 2025-03-26 11:00 | disposition home or self-care (01) ==
LOC: HO.HOS 10:01
PROVIDERS: PCP Internal Medicine Geriatric Medicine
DX: S62.633B Displaced fracture of distal phalanx of left middle finger, initial encounter for open fracture (principal)
CPT/HCPCS: 99213

== ENCOUNTER → 2025-03-26 10:04 | Outpatient (BNV) | payer MEDICARE, MEDICAID, SELFPAY | PROVIDERS: Visit Provider Radiology Diagnostic Radiology | DX: M79.642 Pain in left hand (principal) | CPT/HCPCS: 73130 ==

== ENCOUNTER 2025-04-10 08:19 | Outpatient (REF) | payer MEDICARE, MEDICAID, SELFPAY ==
--- NOTE | ~2025-04-10 | XR_ITS ---
EXAMINATION: XR HAND, LEFT CLINICAL INFORMATION: M79.642 - Pain in left hand COMPARISON: March 26, 2025 TECHNIQUE: PA, lateral, and oblique views of the left hand. FINDINGS: There is a 4.3 mm lytic abnormality/bony erosion/osteolysis/gap between the fragments of the fracture at the distal phalanx third digit. No subcutaneous emphysema. No periosteal bone reaction. No callus formation. The metacarpal bones are intact. The carpal bones are intact with normal alignment. The phalanges of the first, second, fourth and fifth digits are intact.. 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 Superimposed inflammatory versus infectious processes versus pathologic fracture cannot be entirely excluded. Electronically signed by: Celso Hameed MD 04/10/2025 08:47 AM EDT
== END 2025-04-10 08:20 | disposition home or self-care (01) ==
LOC: HO.HOSX 08:19
DX: S62.633B Displaced fracture of distal phalanx of left middle finger, initial encounter for open fracture (principal); M79.642 Pain in left hand; Z79.899 Other long term (current) drug therapy; X58.XXXA Exposure to other specified factors, initial encounter
CPT/HCPCS: 73130; 99212

== ENCOUNTER 2025-04-10 08:28 | Outpatient (AMB) | payer MEDICARE, MEDICAID, SELFPAY ==
[2025-04-10 08:38] VITALS: BMI 27.4
--- NOTE | 2025-04-10 08:38 | A.OFFVIS_ITS ---
Vital Signs 04/10/25 08:38 Height 5 ft 6 in Weight 170 lb BMI 27.4 Intake Visit Reasons: OV-Lt MF traumatic amputation, DOI: 03/12/25 w/xray Intake Note: Mike is a 54 year old right hand dominant male who presents today for a wound check status post open fracture of the left middle distal phalanx & traumatic amputation, DOI: 03/12/25. At his last visit he was notified he may wash the laceration site with soap and water in the sink or the shower but no submerging. He was placed on a 2 lb weight limit and advised to perform daily dressing changes. Patient was also provided with a finger splint to wear with daytime activities. Today, patient reports he continues wearing finger splint as he feels his DIP still moves. He complains of numbness at the DIP and a bump on the dorsal aspect of his left middle finger DIP. He continues taking Ibuprofen PRN. Allergies codeine Allergy (Unknown, Verified 04/10/25 08:40) upset stomach, nausea shrimp Allergy (Verified 04/10/25 08:40) Anaphylaxis HPI HPI OV-Lt MF traumatic amputation, DOI: 03/12/25 w/xray: Details: Mike is a 54 year old right hand dominant male who presents today for a wound check status post open fracture of the left middle distal phalanx & traumatic amputation, DOI: 03/12/25. At his last visit he was notified he may wash the laceration site with soap and water in the sink or the shower but no submerging. He was placed on a 2 lb weight limit and advised to perform daily dressing changes. Patient was also provided with a finger splint to wear with daytime activities. Today, patient reports he continues wearing finger splint as he feels his DIP still moves. He complains of numbness at the DIP and a bump on the dorsal aspect of his left middle finger DIP. He continues taking Ibuprofen PRN. 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 Neuro: Normal sensation of the tips of all digits of the left hand at this time Vascular: Cap refill brisk Pain: No Tenderness to palpation about the distal aspect of the left middle finger ROM: Patient is able to flex and extend at all joints of the left hand There is noted to be some minor motion noted at the fracture site Skin: Complex laceration noted of the right middle finger distal phalanx Healing very well No discharge General: No ecchymosis, erythema, or evidence of infection. Psych: Appears grossly normal Affect normal Attitude cooperative Results Reviewed Results Reviewed: X-rays obtained in the office today and independently reviewed by me, Shabbir Domínguez PA-C, demonstrate minimally displaced transverse fracture of the distal phalanx of the left middle finger, no evidence of bony healing at this time. Assessment & Plan Assessment & Plan (1) Open fracture of distal phalanx of left middle finger: Code(s): S62.633B - Displaced fracture of distal phalanx of left middle finger, initial encounter for open fracture Category: Medical Plan 1. Open fracture of the distal phalanx of left middle finger Patient is educated about this condition Patient is educated about the typical treatment course Patient is seen and evaluated with Dr. Willis, and a collaborative treatment plan was formed: Patient is educated that there is slight concern for delay in healing of his fracture, as there is minimal evidence of bony healing 1 month after injury No ongoing evidence of infection at this time Patient is educated on the signs and symptoms of worsening infection Patient may wash the laceration site with soap and water in the sink of the shower, no submerging 2 lb weight limit in left hand Dressing changed in the office today, daily dressing changes Patient is also given a fingertips splint to stabilize the fracture, should wear splint throughout the day Patient is amenable to this plan Follow-up in 4 weeks, sooner with any acute concerns Orders: Orders XR hand LT min 3V Today M79.642 - Pain in left hand Coding Level of Care Code Global (42851) Diagnoses Open fracture of distal phalanx of left middle finger S62.633B
--- OUTSIDE RECORDS SUMMARY | 2025-04-10 09:07 | XMS_ITS | Encounter Summary ---
Author Organization [employer] Address [address] [place] [address] Care Team Providers Care Ultimate Hoops Trainer Name Role Phone Name, Vern YUAN Primary Care Provider [phone] Reason for Visit * Reason Onset Date Comments Appointment Request 09/21/2024 Encounter Details Date Type Department Care Team ([facility] st Contact Info) Description 09/21/2024 Telephone [facility] [address] [place] [address] Name, MD Vern [address] [place] [address] Appointment Request Social History Tobacco Use Types [...] he will be coming in to the [facility]. Director Digital Communications advise of hours. documented in this encounter Plan of Treatment Upcoming Encounters Date Type Department Care Team (Late st Contact Info) Description 05/02/2025 8:00 AM EDT Office Visit [facility] AD[facility] D[facility] [address] [place] [address] Kay Martinez [address] [place] [address] documented as of this encounter Visit Diagnoses Not on filedocumented in this encounter Care Teams Ultimate Hoops Trainer Relationship Specialty Start Date End Date Name, MD Vern [address] [place] [address] PCP - General Internal Medicine 05/09/24 documented as of this encounter
--- OUTSIDE RECORDS SUMMARY | 2025-04-10 09:07 | XMS_ITS | Clinical Summary ---
Author Organization [address] [place] [address] Address [address] [place] [address] Phone Care Team Providers Care Comb Winder Name Role Phone Name, Vern YUAN Primary Care Provider [phone] Allergies Active Allergy Reactions Criticality Noted Date Comments Codeine 01/17/2025 Medications diclofenac (Voltaren Arthritis Pain) 1 % topical gel Apply 4 g topically 2 (two) times a day. 240 g 1 5 05/03/20 25 Active Encounters Date Type Department Care Team Description 03/04/2025 8:15 AM EDT Office Visit Orthopedic Surgery [facility] [address] [phone] Ehsan Perkins DPM Tendonitis, Achilles, left (Primary Dx); Bunion of right foot; Hallux rigidus of right foot 01/17/2025 8:15 AM EDT Consult [facility] [address] [phone] Ehsan Perkins DPM Hallux rigidus of right [...] 01/17/2025 8:10 AM EDT Plan of Treatment Health Maintenance Due Date Last Done Comments [...] tendon or ligament (03/04/2025 8:15 AM EDT) Ehsan Gunn DPM - 03/04/2025 8:15 AM EDT Ehsan Perkins DPM 03/04/2025 1:01 PM Injection tendon or ligament Indications: pain Details: 25 G needle Medications: 0.5 mL lidocaine (PF) 1 %; 20 mg triamcinolone acetonide 40 mg/mL Informed Consent: Site: Foot ligament tendon us Ehsan Perkins DPM IN CLINIC/BEDSIDE ORDERAB LES Final Result * Injection tendon or ligament (01/17/2025 8:15 AM EDT) Ehsan Gunn DPM - 01/17/2025 8:15 AM EDT Ehsan [...] talus navicular joint to calcaneal cuboid joint us Ehsan Perkins DPM IMG XR PROCEDURES Final R esult from Last 3 Months Insurance MEDICAID - [place] MEDICARE Care Teams Comb Winder Relationship Specialty Start Date End Date Name, MD Vern [address] [place] [id number] PCP - General Internal Medicine 11/20/24
== END 2025-04-10 09:34 | disposition home or self-care (01) ==
LOC: HO.HOS 08:28
PROVIDERS: PCP Internal Medicine Geriatric Medicine
DX: S62.633G Displaced fracture of distal phalanx of left middle finger, subsequent encounter for fracture with delayed healing (principal)
CPT/HCPCS: 99213

== ENCOUNTER → 2025-04-10 08:30 | Outpatient (BNV) | payer MEDICARE, MEDICAID, SELFPAY | PROVIDERS: Visit Provider Radiology Diagnostic Radiology | DX: S62.663 Nondisplaced fracture of distal phalanx of left middle finger (principal) | CPT/HCPCS: 73130 ==

== ENCOUNTER 2025-05-10 08:24 | Outpatient (AMB) | payer MEDICARE, MEDICAID, SELFPAY ==
--- NOTE | 2025-05-10 08:30 | A.OFFVIS_ITS ---
Vital Signs 05/10/25 08:32 Height 5 ft 6 in Weight 170 lb BMI 27.4 Intake Visit Reasons: OV-Lt MF traumatic amputation, DOI: 03/12/25 w/xray Intake Note: Mike is a 54 year old right hand dominant man who presents today for a follow up visit for his open fracture of the distal phalanx of left middle finger, DOI: 03/12/25. At his last visit in office he was advised to wash his laceration with soap and water and remain on a 2 pound weight limit in the left hand. Patient was also given a fingertips splint to stabilize the fracture and advised to wear the splint throughout the day. Today patient states he has no pain, very little swelling and sensitivity on his nail and at tip of finger. Allergies codeine Allergy (Unknown, Verified 05/10/25 08:31) upset stomach, nausea shrimp Allergy (Verified 05/10/25 08:31) Anaphylaxis HPI HPI OV-Lt MF traumatic amputation, DOI: 03/12/25 w/xray: Details: Mike is a 54 year old right hand dominant man who presents today for a follow up visit for his open fracture of the distal phalanx of left middle finger, DOI: 03/12/25. At his last visit in office he was advised to wash his laceration with soap and water and remain on a 2 pound weight limit in the left hand. Patient was also given a fingertips splint to stabilize the fracture and advised to wear the splint throughout the day. Today patient states he has no pain, very little swelling and sensitivity on his nail and at tip of finger. 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 Neuro: Normal sensation of the tips of all digits of the left hand at this time Vascular: Cap refill brisk Pain: No Tenderness to palpation about the distal aspect of the left middle finger ROM: Patient is able to flex and extend at all joints of the left hand There is noted to be some minor motion noted at the fracture site Skin: Laceration of distal aspect of right middle finger has healed very well No discharge General: No ecchymosis, erythema, or evidence of infection. Psych: Appears grossly normal Affect normal Attitude cooperative Results Reviewed Results Reviewed: X-rays obtained in the office today and independently reviewed by me, Shabbir Domínguez PA-C, demonstrate minimally displaced transverse fracture of the distal phalanx of the left middle finger, some early evidence of bony healing at this time. Assessment & Plan Assessment & Plan (1) Open fracture of distal phalanx of left middle finger: Code(s): S62.633B - Displaced fracture of distal phalanx of left middle finger, initial encounter for open fracture Category: Medical Plan 1. Open fracture of the distal phalanx of left middle finger Patient is educated about this condition Patient is educated about the typical treatment course Patient is educated that there does appear to be some slight evidence of bony healing, however there is still concern that he may be heading towards a fibrous nonunion of the distal phalanx fracture in his left middle finger No ongoing evidence of infection at this time Patient is educated on the signs and symptoms of worsening infection Patient may wash the laceration site with soap and water in the sink of the shower, no submerging Patient may increase to a 4-5 lb weight limit in the left hand over the next 4-6 weeks No further dressings necessary Patient does state that he has not worn the splint for at least 1-2 weeks Patient is amenable to this plan Follow-up in 4-6 weeks, sooner with any acute concerns Orders: Orders OT Evaluation and Treatment Today S62.633B - Displaced fracture of distal phalanx of left middle finger, initial encounter for open fracture XR hand LT min 3V Today M79.642 - Pain in left hand Coding Level of Care Code Global (64663) Diagnoses Open fracture of distal phalanx of left middle finger S62.633B
[2025-05-10 08:32] VITALS: BMI 27.4
--- OUTSIDE RECORDS SUMMARY | 2025-05-10 08:55 | XMS_ITS | Clinical Summary ---
Author Organization [employer] Address [address] [facility] [address] [place] [address] Care Team Providers Care Computer Network And Systems Engineer Name Role Phone Name, [place] YUAN Primary Care Provider [phone] Allergies Active Allergy Reactions Criticality Noted Date Comments Codeine Nausea And Vomiting 07/25/2014 Shellfish-Derived Products 7 Medications cetirizine (ZyrTEC) 10 [...] 75 mL 3 5 09/26/19 26 Active glimepiride (Amaryl) 2 MG tabletIndicatio ns:Type 2 diabetes mellitus with hyperglycemia, without long-term current use of insulin ([facility]) Take 1 tablet (2 mg) by mouth before breakfast. 30 tablet 11 5 11/01/19 26 Active empagliflozin-m etFORMIN (Synjardy) 12.5-500 MGIndications:T ype 2 diabetes mellitus with hyperglycemia, without long-term current use of insulin ([facility]) Take 1 tablet by mouth with breakfast and with evening meal. 60 tablet 11 5 11/01/19 26 Active tretinoin (Retin-A) 0.025 % creamIndication s:Acne comedone Apply topically at bedtime. 45 g 2 5 12/22/19 26 Active Cialis 20 MG tablet TAKE 1 TABLET 1 HOUR BEFORE SEXUAL RELATIONS ONCE DAILY NEEDED. 10 tablet 2 5 Active SITagliptin (Januvia) 25 MG tablet Take 1 tablet (25 mg) by mouth Once per day. 90 tablet 5 01/12/20 26 Active terbinafine (LamISIL) 1 % cream APPLY TOPICALLY TO THE AFFECTED AREA(S) TWICE DAILY DIRECTED 45 g 2 5 Active ammonium lactate (Amlactin) 12 % cream APPLY TOPICALLY TO THE AFFECTED AREA(S) EVERY DAY NEEDED FOR DRY SKIN 385 g 1 5 Active minocycline 100 MG capsuleIndicati ons:Folliculiti s TAKE 1 CAPSULE BY MOUTH TWICE DAILY 60 capsule 5 Active Active Problems Problem Noted Date Diagnosed Date Prostatitis, acute 01/12/2025 Assessment & Plan (01/12/2025 2:17 PM EDT): -CT/CT abdomen pelvis w IV con 01/10/2025 No acute findings in the abdomen or pelvis. Moderate constipation. There are 2 nonobstructing left renal calculi measuring 3 mm. -06/2024 PSA wnl -12/31/2024 Ch/Gn neg , -Ucx 12/31/2024 Klebsiella pneumoniae ESBL > 100,000 cfu/mL Klebsiella pneumoniae: Ampicillin >=32(R) Klebsiella pneumoniae: Cefazolin >=32(R) Klebsiella pneumoniae: Cefepime <=0.12(S) Klebsiella pneumoniae: Ceftriaxone 8(R) Klebsiella pneumoniae: Ciprofloxacin >=4(R) Klebsiella pneumoniae: Gentamicin <=1(S) Klebsiella pneumoniae: Meropenem <=0.25(S) Klebsiella pneumoniae: Nitrofurantoin 64(I) Klebsiella pneumoniae: Trimethoprim/Sulfamethoxazole <=20(S) -01/10/2025 renal and LFTs wnl,CBC wnl, UA neg -Urine dipstick Glu > 1000 ketone neg,blood neg, nitrates nad LE neg Pt has clinically symptoms consistent with acute prostatitis w urinary symptoms and perineal pain for 14 days and from physical exam today , UA growth ESBL klebsiella , r/o already abscess in recent CT I think most recent UA ,cx were neg because of recent bactrim use but clinically still not improving Acute prostatitis need a more prolong ATB course from 2 to 4 weeks I will stop levofloxacin given cipro R in recent cx and will resume bactrim -tylenol prn -Start Bactrim 1 DS BID x 14 days and stop levofloxacin -advised pt that if improving but still symptomatic after completed bactrim to call clinic in which case I would order 1 or 2 weeks extra of bactrim -send ESR,CRP,UA w reflex, PSA -pt will f w me in 3 weeks to eval on tx -advised to get chem done in 10 days to monitor potassium and renal function while on bactrim ordered today -alarm signs and symptoms discussed Class 1 obesity 10/31/2024 Dental caries 10/29/2024 [...] any medications Rx Paxlovid x 5 days, Brokaw interactions module checked, no significant interactions found. [...] 72 hours (temperature should be less than 100 F without medication). Chronic left shoulder pain 07/29/202307/29 [...] foramina 07/29/2023 07/29/2023 Subacromial impingement 07/29/2023 07/29/20 Suspected COVID-19 virus infection 07/29/2023 07/29/2023 Triggering of digit 07/29/2023 07/29/2023 Restless legs 12/15/2016 07/29/2023 Lumbar post-laminectomy syndrome 01/01/2015 07/29/2023 Type 2 diabetes mellitus 01/01/2015 023 Assessment & Plan (01/12/2025 2:17 PM EDT): -capillary CBG 155, Hb1AC 9.1 From PCP's note pt refuse GLP1 offered Currently on glimepiride 2 mg daily and Synjardy 12.5/500 mg BID -pt agreed today to start Januvia 25 mg daily -apt w PCP 03/07/2025 scheduled already Assessment & Plan (03/02/2024 1:22 PM EDT): [...] Encounters Date Type Department Care Team Description 05/02/2025 8:00 AM EDT Office Visit [facility] [address] [place] [address] Kay Martinez Dental calculus (Primary Dx); Localized gingival recession 03/12/2025 Orders Only GENERIC EXTERNAL DATA DEPARTMENT Provider, Generic External Data 03/01/2025 Telephone [facility] [address] [place], [place] [phone] Name, MD Vern from Last 3 Months Immunizations Immunization Administration Dates Next Due Hep B, adult [...] Sign Reading Time Taken Comments Blood Pressure 120/68 01/11/2025 11:33 AM EDT Pulse 92 01/11/2025 11:33 AM EDT Temperature 36.4 C (97.5 F) 01/11/2025 11:33 AM EDT Respiratory Rate 20 01/11/2025 11:33 AM EDT Oxygen Saturation 98% 01/11/2025 11:33 AM EDT Inhaled Oxygen Concentration - - Weight 79.8 kg (176 lb) 01/11/2025 11:33 AM EDT Height 167.6 cm (5' 6 ) 01/11/2025 11:33 AM EDT Body Mass Index 28.41 01/11/2025 11:33 AM EDT Plan of Treatment Upcoming Encounters Date Type Department Care Team (Late st Contact Info) Description 06/07/2025 8:00 AM EDT Office Visit [facility] [address] [place] [address] Nathaniel Peter DDS [address] [place] [address] 11/05/2025 8:00 AM EDT Office Visit [facility] [address] [place] [address] Kay Martinez [address] [place] [address] Health Maintenance Due Date Last Done Comments CT Colonography 1971 Colonoscopy 1971 Colorectal Cancer Screening 1971 FIT DNA/Cologuard 1971 FIT 1971 FOBT 1971 Sigmoidoscopy 1971 Disability Screening 1971 Eye Exam 1981 Hepatitis A Vaccines (1 of 2 - Risk 2-dose series) 1990 Pneumococcal Vaccine: 50+ Years (2 of 2 - PCV) 2017 2016 Depression Screening 08/02/2024 08/02/2023, 08/02/20 SDOH Screening 08/02/2024 08/02/2023 Diabetes: Hemoglobin A1C 04/13/2025 025, 10/31/2024, 05/09/2024, Additional history exists COVID-19 Vaccine ( season) 2025 12/30/2020, 12/02/2020 Influenza Vaccine (#1) 2025 9, 06/10/2017, 2016, Additional history exists Dental Oral Exam 05/02/2025 10/29/2024, , 07/01/2022, Additional history exists Lipid Panel 06/30/2025 06/30/2024, 11/21, 07/13/2021, Additional history exists Dental X-Ray: Bitewings 10/30/2025 10/30/19 25, 08/24/2023, 06/04/2022, Additional history exists Dental Prophylaxis 10/31/2025 05/02/2025, 0 10/29/2024, 04/30/2024, Additional history exists Diabetes: Foot Exam 10/31/2025 10/31/2024, 10/31/2024, 10/31/2024, Additional history exists Diabetes: Urine Protein Screening 11/02/2025 11/02/2024, 10/22/2020 Alcohol/Substance Use Screening 01/11/2026 01/11/2025 Tobacco Screening 05/02/2026 05/02/2025 Dental X-Ray: Full Mouth 10/31/2027 025, 05/29/2021, 04/13/2016 DTaP/Tdap/Td Vaccines (3 - Td or Tdap) 03/12/2035 03/12/2025, 09/03/2015 RSV Patients and Patients Aged 60 years [...] Procedure Name Priority Date/Time Associated Diagnosis Comments CASE PRESENTATION, DETAILED AND EXTENSIVE TREATMENT PLANNING Routine 05/02/2025 8:00 AM EDT Dental calculus Localized gingival recession ORAL HYGIENE INSTRUCTIONS Routine 05/02/2025 8:00 AM EDT Dental calculus Localized gingival recession PROPHYLAXIS - ADULT Routine 05/02/2025 8 :00 AM EDT Dental calculus GLUCOSE, WHOLE BLOOD Routine 03/12/2025 12:34 PM EDT XR FINGERS 2+ VIEWS LEFT Routine 03/12/2025 12:09 PM EDT POCT GLYCATED HEMOGLOBIN, TOTAL Routine 01/11/2025 12:14 PM EDT Type 2 diabetes mellitus with hyperglycemia, without long-term current use of insulin ([facility]) ALBUMIN, RANDOM URINE W/CREATININE Routine 11/02/2024 11:38 AM EDT Type 2 diabetes mellitus with hyperglycemia, without long-term current use of insulin (CMS/HCC) INTRAORAL - COMPLETE SERIES OF RADIOGRAPHIC IMAGES Routine 10/29/2024 8:00 AM EDT Periodontal disease Dental calculus PERIODIC ORAL EVALUATION - ESTABLISHED PATIENT Routine 10/29/2024 8:00 AM EDT HEPATITIS C AB W/REFL TO HCV RNA, QN, PCR Routine 06/30/2024 9:49 AM EST Type 2 diabetes mellitus with hyperglycemia, without long-term current use of insulin ([facility]) Weight loss HIV 1/2 ANTIGEN/ANTIBODY, FOURTH GENERATION W/RFL Routine 06/30/2024 9:49 AM EST Type 2 diabetes mellitus with hyperglycemia, without long-term current use of insulin ([facility]) Weight loss LIPID PANEL, STANDARD Routine 06/30/2024 9:49 AM EST Type 2 diabetes mellitus with hyperglycemia, without long-term current use of insulin ([facility]) Weight loss from Last 3 Months or Most Recently Relevant to Health Maintenance Results * (ABNORMAL) Glucose, Whole Blood (03/12/2025 12:34 PM EDT) Glucose, Whole Blood 233(H) 60 - 115 mg/dL [facility] Comment:METER #: [id number] 03/12/2025 12:3 4 PM EDT 03/12/2025 12:37 PM EDT us Generic External Data Provider LAB BLOOD ORDERAB LES Final Result [facility] [address] [place] [address] [phone] * XR Fingers 2+ Views Left (03/12/2025 12:09 PM EDT) Anatomical Region Laterality Modality Upper Extremities, Fingers Left Radio graphic Imaging 03/12/2025 12:0 9 PM EDT Narrative 03/12/2025 1:37 PM EDT [address] [address] XRay Report Signed Patient: Mike Awan MR#: [id number] : 1970 Acct:[id number] Age/Sex: 54 / M ADM Date: 03/12/25 Loc: HO.ED Attending Dr: Ordering Physician: Yris Gomez NP Date of Service: 03/12/25 Procedure(s): XR finger LT min 2V Accession Number(s): [id number] cc: Vern Garcia MD; Yris Gomez NP EXAMINATION: XR FINGERS LEFT HISTORY: 2nd finger, laceration distal, c/f fx COMPARISON: Comparison is made with the prior examination dated 06/01/2022. FINDINGS: Three views of the left middle finger are submitted. Osseous mineralization is normal. There is a minimally displaced transverse fracture of the distal phalanx. The joint spaces are preserved. There is a soft tissue injury of the distal 3rd finger. XR/XR finger LT min 2V IMPRESSION: Minimal a displaced transverse fracture of the distal phalanx of the left middle finger. Electronically signed by: Nir Driscoll MD 03/12/2025 01:34 PM EDT RP Dictated By: Nir Driscoll MD Signed By: <Electronically signed by Nir Driscoll MD in OV> 03/12/25 1334 DD/ 1209 TD/TT: 03/12/25 1323 Public School Teacher: Procedure Note Donotuseinterpreter, Image - 03/12/[address] [address] XRay Report Signed Patient: Mike AwanMR#: [id number] : 1970Acct:[id number] Age/Sex: 54 / MADM Date: 03/12/25 Loc: HO.ED Attending Dr: Ordering Physician: Yris Gomez NP Date of Service: 03/12/25 Procedure(s): XR finger LT min 2V Accession Number(s): [id number] cc: Vern Garcia MD; Yris Gomez NP EXAMINATION: XR FINGERS LEFT HISTORY: 2nd finger, laceration distal, c/f fx COMPARISON: Comparison is made with the prior examination dated 06/01/2022. FINDINGS: Three views of the left middle finger are submitted. Osseous mineralization is normal. There is a minimally displaced transverse fracture of the distal phalanx. The joint spaces are preserved. There is a soft tissue injury of the distal 3rd finger. XR/XR finger LT min 2V IMPRESSION: Minimal a displaced transverse fracture of the distal phalanx of the left middle finger. Electronically signed by: Nir Driscoll MD 03/12/2025 01:34 PM EDT RP Dictated By: Nir Driscoll MD Signed By: <Electronically signed by Nir Driscoll MD in OV> 03/12/25 1334 DD/ 1209 TD/TT: 03/12/25 1323 Public School Teacher: [facility] External Provider IMG XR PROCEDURES Final Result * (ABNORMAL) POCT HGB A1C (01/11/2025 12:14 PM EDT) Hemoglobin A1C 9.1(A) 4.0 - 6.0 % QC Media Lot # [id number] Lot# Expiration Date Blood 01/11/2025 12:1 4 PM EDT Earline Arce MD POINT OF CARE STEVEN T ENTER/EDIT ORDERABLES Final Result * Albumin, Random Urine W/Creatinine (11/02/2024 11:38 AM EDT) Creatinine, Urine 36.90 mg/dL [facility] Microalbumin Urine <5.0 mg/L [facility] Microalbum Creatinine Ratio Ur TNP <30 ug/mg cr [facility] Comment:Unable to calculate albumin/creatinine ratio due to lowmicroalbumin or creatinine result. Urine (Urine, Random) 11/02/2024 11:38 AM EDT 11/02/2024 1:32 PM EDT us Vern Garcia MD LAB URINE ORDERABLES Final Resul t Performing Organization Address City/[facility]/ZIP Co de Phone Number [facility] [address] [place] [phone] * Hepatitis C Antibody with Reflex to HCV, RNA, Quantitative, Real-Time PCR (06/30/2024 9:49 AM EST) Hepatitis C Antibody Nonreactive Nonreactive [facility] Comment:Antibodies to HCV no t detected; does not exclude early acuteHCV infection. Blood Venous blood specimen / Unknown 06/30/2024 9:49 AM EST 06/30/2024 9:49 AM EST Result Emmett Garcia MD LAB BLOOD ORDERABLES Final Resul t Performing Organization Address [facility] de Phone Number [facility] [address] [place] [phone] * HIV-1/2 Antigen and Antibodies, Fourth Generation, with Reflexes (06/30/2024 9:49 AM EST) HIV AB/AG Nonreactive Nonreactive [facility] Comment:HIV-1 p24 Ag and/or HIV-1/HIV-2 Ab not detected.A test result that is nonreactive does not exclude thepossibility of exposure to or infection with HIV-1 and/orHIV-2. Nonreactive results in this assay for individualswith prior exposure to HIV-1 and/or HIV-2 may be due toantigen and antibody levels that are below the limit ofdetection of this assay.The [id number] HIV Ag/Ab Combo assay result andsupplemental assay results should be interpreted inconjunction with the patient's clinical presentation,history and other laboratory results. If the results areinconsistent with clinical evidence, additional testing issuggested to confirm the result. Blood Venous blood specimen / Unknown 06/30/2024 9:49 AM EST 06/30/2024 9:49 AM EST us Ar[place]as Name LAB BLOOD ORDERABLES Final Resul t Performing Organization Address [facility] de Phone Number [facility] [address] [place] [phone] * (ABNORMAL) Lipid Panel, Standard (06/30/2024 9:49 AM EST) Triglycerides 75 <150 mg/dL [facility] Comment:Desirable Triglyceri de: less than 150 mg/dLBorderline High Triglyceride 150-199 mg/dLHigh Triglyceride: 200-499 mg/dLVery High Triglyceride: greater than or equal to 5OO mg/dL Cholesterol 213(H) <200 mg/dL [facility] Comment:Desirable Cholestero l: less than 200 mg/dLBorderline High Cholesterol: 200-239 mg/dLHigh Cholesterol: greater than 239 mg/dL LDL Cholesterol Calculated 142(H) <100 mg/dL [facility] Comment:Desirable LDL: less than 100 mg/dLNear Optimal/Above Optimal LDL: 110- 129 mg/dLBorderline High LDL: 130-159 mg/dLHigh LDL: 160-189 mg/dLVery High LDL: greater than or equal to 190 mg/dL HDL Cholesterol 56 >40 mg/dL [facility] Comment:Desirable HDL: great er than 40 mg/dL Note: This HDL assay may give artificially low results in patients with liver disease. Blood Venous blood specimen / Unknown 06/30/2024 9:49 AM EST 06/30/2024 9:49 AM EST Vern Garcia MD LAB BLOOD ORDERABLES Final Resul t Performing Organization Address [facility]/ZIP Co de Phone Number [facility] [address] [place] [phone] from Last 3 Months or Most Recently Relevant to Health Maintenance Insurance [facility] MEDICAID STAND ADULT Care Teams Computer Network And Systems Engineer Relationship Specialty Start Date End Date Name, MD Vern [address] [place] [address] PCP - General Internal Medicine 05/09/24
--- OUTSIDE RECORDS SUMMARY | 2025-05-10 08:55 | XMS_ITS | Encounter Summary ---
Author Organization [employer] Address [address] [facility] 7 [place] [address] Care Team Providers Care Fiberglass Fabricator Name Role Phone Name, Vern YUAN Primary Care Provider [phone] Reason for Visit * Reason Onset Date Comments Appointment Request 09/21/2024 Encounter Details Date Type Department Care Team ([facility] st Contact Info) Description 09/21/[address] [facility] [address] [place] [address] Name, MD Vern [address] [place] [address] Appointment Request Social History Tobacco Use Types [...] Miscellaneous Notes * Telephone Encounter - Kay Segura - 09/21/2024 10:42 AM EST Tc from pt requesting to r/s derm appointment due to not feeling well. Pt stated he will be coming in to the [facility]. Fire Battalion Chief advise of hours. documented in this encounter Plan of Treatment Upcoming Encounters Date Type Department Care Team (Late st Contact Info) Description 06/07/2025 8:00 AM EDT Office Visit [facility] [address] [place] [address] Nathaniel Peter DDS [address] [place] [address] 11/05/2025 8:00 AM EDT Office Visit [facility] [address] [place] [address] Kay Martinez [address] [place] [address] documented as of this encounter Visit Diagnoses Not on filedocumented in this encounter Care Teams Fiberglass Fabricator Relationship Specialty Start Date End Date Name, MD Vern [address] [place] [address] PCP - General Internal Medicine 05/09/24 documented as of this encounter
--- OUTSIDE RECORDS SUMMARY | 2025-05-10 08:55 | XMS_ITS | Encounter Summary ---
Author Organization [employer] Address [address] [facility] 7t [place] [address] Care Team Providers Care Sourcing Manager Name Role Phone Name, Vern YUAN Primary Care Provider [phone] Reason for Visit * Reason Comments Med Refill Encounter Details Date Type Department Care Team ([facility] st Contact Info) Description 05/23/2024 Refill [facility] [address] [place] [address] Pop Hardwick MD [address] [place] [address] Onychomycosis Social History Tobacco Use Types Packs/Day [...] Description 06/07/2025 8:00 AM EDT Office Visit [facility] [address] [place] [address] Nathaniel Peter DDS [address] [place] [address] 11/05/2025 8:00 AM EDT Office Visit [facility] [address] [place] [address] Kay Martinez [address] [place] [address] documented as of this encounter Visit Diagnoses Diagnosis Onychomycosis Dermatophytosis of nail documented in this encounter Care Teams Sourcing Manager Relationship Specialty Start Date End Date Name, MD Vern [address] [place] [address] PCP - General Internal Medicine 05/09/24 documented as of this encounter
--- OUTSIDE RECORDS SUMMARY | 2025-05-10 08:55 | XMS_ITS | Encounter Summary ---
Author Organization [employer] Address [address] [facility] [address] [place] [address] Care Team Providers Care Plumbing And Heating Mechanic Name Role Phone France Dunlap MD Primary Care Provider + Vern Garcia MD Primary Care Provider [phone] Encounter Details Date Type Department Care Team (Latest Contact Info) Description 05/29/2021 Abstract [facility] Dental, Provider, DDS Social History [...] Description 06/07/2025 8:00 AM EDT Office Visit [facility] [address] [place] [address] Nathaniel Peter DDS [address] [place] [address] 11/05/2025 8:00 AM EDT Office Visit [facility] [address] [place] [address] Kay Martinez [address] [place] [address] documented as of this encounter Visit Diagnoses Not on filedocumented in this encounter Care Teams Plumbing And Heating Mechanic Relationship Specialty Start Date End Date France Dunlap MD [address] [place] [address] PCP - General Family Medicine 09/05/20 05/08/24 Name, MD Vern [address] [place] [phone] PCP - General Internal Medicine 05/09/24 documented as of this encounter
--- OUTSIDE RECORDS SUMMARY | 2025-05-10 08:55 | XMS_ITS | Encounter Summary ---
Author Organization [employer] Address [address] [facility] [address] [place] [address] Care Team Providers Care Purchasing Manager/Sales Name Role Phone France Dunlap MD Primary Care Provider + Vern Garcia MD Primary Care Provider [phone] Encounter Details Date Type Department Care Team (Latest Contact Info) Description 10/20/2018 Abstract [facility] Dental, Provider, DDS Social History [...] Care Team ( st Contact Info) Description 06/07/2025 8:00 AM EDT Office Visit [facility] [address] [place] [address] Nathaniel Peter DDS [address] [place] [address] 11/05/2025 8:00 AM EDT Office Visit [facility] [address] [place] [address] Kay Martinez [address] [place] [address] documented as of this encounter Visit Diagnoses Not on filedocumented in this encounter Care Teams Purchasing Manager/Sales Relationship Specialty Start Date End Date France Dunlap MD [address] [place] [phone] PCP - General Family Medicine 09/05/20 05/08/24 Name, MD Vern [address] [place] [phone] PCP - General Internal Medicine 05/09/24 documented as of this encounter
--- OUTSIDE RECORDS SUMMARY | 2025-05-10 08:55 | XMS_ITS | Clinical Summary ---
Author Organization [address] [place] [address] Address [address] [place] [address] Phone Care Team Providers Care Dust Brush Assembler Name Role Phone Name, Vern YUAN Primary Care Provider [phone] Allergies Active Allergy Reactions Criticality Noted Date Comments Codeine 01/17/2025 Medications diclofenac (Voltaren Arthritis Pain) 1 % topical gel Apply 4 g topically 2 (two) times a day. 240 g 1 5 05/03/20 25 Encounters Date Type Department Care Team Description 03/04/2025 8:15 AM EDT Office Visit [facility]opedic [facility] [place] [address] [facility] [address] [place] [phone] Ehsan Perkins, DPM Tendonitis, Achilles, left (Primary Dx); Bunion of right foot; Hallux rigidus of right foot from Last 3 Months [...] AM EDT Hallux rigidus of right foot from Last 3 Months [...] DPM IN CLINIC/BEDSIDE ORDERAB LES Final Result from Last 3 Months Insurance MEDICAID - [place] MEDICARE Care Teams Dust Brush Assembler Relationship Specialty Start Date End Date Name, MD Vern [address] [place] [address] PCP - General Internal Medicine 11/20/24
--- OUTSIDE RECORDS SUMMARY | 2025-05-10 08:55 | XMS_ITS | Encounter Summary ---
Author Organization [employer] Address [address] [facility] 7[address] [place] [address] Care Team Providers Care Differential Specialist Name Role Phone Name, Vern YUAN Primary Care Provider [phone] Encounter Details Date Type Department Care Team ([facility] st Contact Info) Description 09/26/2024 Orders Only [facility] MEDICINE [address] [place] [address] Jono Jacobs MD [address] [place] [address] Social History Tobacco Use Types Packs/Day Years [...] Description 06/07/2025 8:00 AM EDT Office Visit [facility] ADULT DENTAL [address] [place] [address] Nathaniel Peter DDS [address] [place] [address] 11/05/2025 8:00 AM EDT Office Visit [facility] ADULT DENTAL [address] [place] [address] Kay Martinez [address] [place] [address] documented as of this encounter Procedures Procedure Name Priority Date/Time Associated Diagnosis Comments URINALYSIS, COMPLETE, WITH REFLEX TO CULTURE Routine 01/10/2025 1:33 PM EDT CBC WITH AUTO DIFFERENTIAL Routine 01/10/2025 1:28 PM EDT COMPREHENSIVE METABOLIC PANEL Routine 01/10/2025 1:28 PM EDT documented in this encounter Results * (ABNORMAL) Urinalysis, Complete, with Reflex to Culture (01/10/2025 1:33 PM EDT) Color Urine Yellow [facility] Appearance Urine Clear [facility] PH 6.5 5.0 - 9.0 [facility] Glucose Urine UA >=1000(A) Negative mg/dL [facility] Urine Blood Negative Negative [facility] Specific [place] - Urine >=1.030(H) 1.005 - 1.025 [facility] Urine Protein Negative Neg-Trace mg/dL [facility] Urine Ketones Negative Negative mg/dL [facility] Nitrite Urine Negative Negative [facility] Leukocyte Esterase Urine Negative Negative [facility] RBC Urine 0-2 0 - 2 /HPF [facility] Urine WBC 0-5 0 - 5 /HPF [facility] Urine Squamous Epithelial Cell 0-2 0 - 2 /HPF [facility] Urine Bacteria None Seen None Seen [facility] Hyaline Casts, Urine 0-2 0 - 2 /LPF [facility] 01/10/2025 1:33 PM EDT 01/10/2025 1:35 PM EDT Narrative [facility] - 01/10/2025 1:42 PM EDT [id number], Clean Catch us Generic External Data Provider LAB URINE ORDERAB LES Final Result [facility] [address] [place] [phone] [phone] * (ABNORMAL) Comprehensive Metabolic Panel (01/10/2025 1:28 PM EDT) Sodium 136 135 - 145 mmol/L [facility] Potassium 4.3 3.3 - 5.1 mmol/L [facility] Chloride 103 96 - 108 mmol/L [facility] Carbon Dioxide 27 22 - 29 mmol/L [facility] Anion Gap 10(L) 12 - 20 [facility] Urea Nitrogen (BUN) 12 9 - 16 mg/dL [facility] Creatinine, Serum 0.79 0.5 - 1.4 mg/dL [facility] Creatinine Clr Calc Pharmacy 107.3 [facility] Comment:eGFR (calculated fro m the MDRD study equation) and eCrCl(calculated from the Cockcroft-Gault equation) are based ondifferent parameters and may not yield comparable results.If eCrCl result is absurd, please check patient'sheight/weight. Estimated Glomerular Filt Rate >60 [facility] Comment:Chronic Kidney Disea se: Estimated GFR < 60 mL/min/1.09x4Eondyi Kidney Disease: Estimated GFR < 15 mL/min/1.73m2 Glucose 300(H) 60 - 115 mg/dL [facility] Calcium 9.3 8.4 - 10.2 mg/dL [facility] Bilirubin, Total 0.2 0.0 - 1.0 mg/dL [facility] Aspartate Amino Transferase 26 5 - 37 U/L [facility] Alanine Aminotransferase 30 0 - 40 U/L [facility] Total Protein 7.6 6.5 - 8.0 g/dL [facility] Albumin Level 3.9 3.5 - 5.0 g/dL [facility] Alkaline Phosphatase 95 39 - 117 U/L [facility] 01/10/2025 1:28 PM EDT 01/10/2025 1:35 PM EDT us Generic External Data Provider LAB BLOOD ORDERAB LES Final Result [facility] [address] [place] [phone] * (ABNORMAL) CBC auto differential (01/10/2025 1:28 PM EDT) White Blood Count 6.2 4.8 - 10.8 X10*3/uL [facility] Red Blood Count 4.41(L) 4.60 - 5.80 X10*6/uL [facility] Hemoglobin 14.2 14.0 - 18.0 g/dl [facility] Hematocrit 40.1(L) 42.0 - 52.0 % [facility] Mean Corpuscular Volume 90.9 80.0 - 98.0 fL [facility] Mean Corpuscular Hemoglobin 32.2 27.0 - 33.0 pg [facility] Mean Corpuscular HGB Conc 35.4 31.0 - 36.0 g/dl [facility] Red Cell Distribution Width 12.4 11.0 - 16.0 % [facility] Platelet Count 400 160 - 400 X10*3/uL [facility] Mean Platelet Volume 8.9(L) 9.4 - 12.4 fL [facility] Neutrophils Percent Auto 52.3 45 - 73 % [facility] Imm Gran Pct Auto 1.0(H) 0.0 - 0.4 % [facility] Lymphocytes Percent Auto 35.9 20 - 40 % [facility] Monocytes Percent Auto 7.6 2 - 11 % [facility] Eosinophils Percent Auto 2.7 0 - 4 % [facility] Basophils Percent Auto 0.5 0 - 2 % [facility] NRBC Pct Auto 0.0 0.0 - 0.2 /100WBC [facility] Neutrophils Absolute Auto 3.2 2.0 - 8.3 x10*3/uL [facility] Imm Gran Abs Auto 0.06(H) 0.00 - 0.03 X10*3/uL [facility] Lymphocytes Absolute Auto 2.2 1.2 - 4.9 X10*3/uL [facility] Monocytes Absolute Auto 0.5 0.1 - 1.2 X10*3/uL [facility] Eosinophils Absolute Auto 0.2 0.0 - 0.4 X10*3/uL [facility] Basophils Absolute Auto 0.0 0.0 - 0.2 X10*3/uL [facility] NRBC Abs Auto 0.000 0.0 - 0.012 X10*3/uL [facility] 01/10/2025 1:28 PM EDT 01/10/2025 1:35 PM EDT us Generic External Data Provider LAB BLOOD ORDERAB LES Final Result [facility] [address] [place] [phone] documented in this encounter Visit Diagnoses Not on filedocumented in this encounter Care Teams Differential Specialist Relationship Specialty Start Date End Date Name, MD Vern [address] [place] [id number] PCP - General Internal Medicine 05/09/24 documented as of this encounter
--- OUTSIDE RECORDS SUMMARY | 2025-05-10 08:55 | XMS_ITS | Encounter Summary ---
Author Organization [employer] Address [address] [facility] 7[address] [place] [address] Care Team Providers Care Bus Cleaner Name Role Phone Name, Vern YUAN Primary Care Provider Reason for Visit * Reason Comments Med Refill Encounter Details Date Type Department Care Team ([facility] st Contact Info) Description 05/28/2024 Refill [facility] MEDICINE [address] [place] [address] France Dunlap MD [address] [place] [address] Recurrent furunculosis Social History Tobacco Use Types [...] Description 06/07/2025 8:00 AM EDT Office Visit [facility] ADULT DENTAL [address] [place] [address] Nathaniel Peter DDS [address] [place] [address] 11/05/2025 8:00 AM EDT Office Visit [facility] ADULT DENTAL [address] [place] [address] Kay Martinez [address] [place] [address] documented as of this encounter Visit Diagnoses Diagnosis Recurrent furunculosis documented in this encounter Care Teams Bus Cleaner Relationship Specialty Start Date End Date Name, MD Vern [address] [place] [address] PCP - General Internal Medicine 05/09/24 documented as of this encounter
--- OUTSIDE RECORDS SUMMARY | 2025-05-10 08:55 | XMS_ITS | Encounter Summary ---
Author Organization [employer] Address [address] [facility] 7 [place] [address] Care Team Providers Care Promotions Executive Producer Name Role Phone Name, Vern YUAN Primary Care Provider [phone] Reason for Visit * Reason Comments Med Refill Encounter Details Date Type Department Care Team ([facility] st Contact Info) Description 10/29/2024 Refill [facility] MEDICINE [address] [place] [address] France Dunlap MD [address] [place] [address] Recurrent furunculosis Social History Tobacco Use Types [...] 8:00 AM EDT Office Visit [facility] ADULT DENTAL [address] [place] [address] Nathaniel Peter DDS [address] [place] [address] 11/05/2025 8:00 AM EDT Office Visit [facility] ADULT DENTAL [address] [place] [address] Kay Martinez [address] [place] [address] documented as of this encounter Visit Diagnoses Diagnosis Recurrent furunculosis documented in this encounter Care Teams Promotions Executive Producer Relationship Specialty Start Date End Date Name, MD Vern [address] [place] [address] PCP - General Internal Medicine 05/09/24 documented as of this encounter
== END 2025-05-10 08:58 | disposition home or self-care (01) ==
PROVIDERS: PCP Internal Medicine
DX: S62.633B Displaced fracture of distal phalanx of left middle finger, initial encounter for open fracture (principal)
CPT/HCPCS: 99213

== ENCOUNTER 2025-05-10 08:24 | Outpatient (REF) | payer MEDICARE, MEDICAID, SELFPAY ==
--- NOTE | ~2025-05-10 | XR_ITS ---
EXAMINATION: XR HAND, LEFT CLINICAL INFORMATION: M79.642 - Pain in left hand COMPARISON: 04/10/2025, 03/26/2025, 03/12/2025. TECHNIQUE: PA, lateral, and oblique views of the left hand. FINDINGS: Redemonstrated is a minimally distracted transverse fracture of the distal phalanx of the middle finger involving the proximal diaphysis. No gross bony healing is evident at this time. Fracture lines are still well demarcated. No periosteal new bone formation. Remainder the bones and soft tissues of the left hand appear normal. XR/XR hand LT min 3V IMPRESSION: No significant interval change in a minimally displaced fracture of the distal phalanx of the third digit. No significant bony healing evident at this time. Electronically signed by: Naif Galindo MD 05/10/2025 09:01 AM EDT
== END 2025-05-10 08:25 | disposition home or self-care (01) ==
LOC: HO.HOSX 08:24
PROVIDERS: PCP Internal Medicine
DX: S62.633D Displaced fracture of distal phalanx of left middle finger, subsequent encounter for fracture with routine healing (principal); X58.XXXD Exposure to other specified factors, subsequent encounter
CPT/HCPCS: 73130; 99212

== ENCOUNTER → 2025-05-10 08:46 | Outpatient (BNV) | payer MEDICARE, MEDICAID, SELFPAY | PROVIDERS: PCP Internal Medicine; Visit Provider Radiology Diagnostic Radiology | DX: M79.642 Pain in left hand (principal) | CPT/HCPCS: 73130 ==

== ENCOUNTER 2025-05-16 09:18 | Outpatient (REF) | payer MEDICARE, MEDICAID, SELFPAY ==
--- NOTE | ~2025-05-16 | XR_ITS ---
EXAMINATION: XR RIBS, LEFT CLINICAL INFORMATION: L rib pain s/p fall 2 weeks ago COMPARISON: 02/16/2024. TECHNIQUE: PA chest, and 3 views of the left ribs were obtained. FINDINGS: Lungs are clear. No consolidation, pneumothorax, or pleural effusion. The cardiomediastinal silhouette and pulmonary vasculature are normal. Osseous structures are unremarkable. Ribs are intact. No fractures are identified. XR/XR ribs LT min 3V w CXR1V IMPRESSION: No acute findings in the thorax. Specifically, no rib fractures are identified radiographically. Electronically signed by: Naif Galindo MD 05/16/2025 09:52 AM EDT
--- OUTSIDE RECORDS SUMMARY | 2025-05-16 08:40 | XMS_ITS | Encounter Summary ---
Author Organization [employer] Address [address] [facility] 7t [place] [address] Care Team Providers Care Buffing Machine Operator Semiautomatic Name Role Phone Name, Vern YUAN Primary Care Provider [phone] Reason for Visit * Reason Comments Finger Pain Encounter Details Date Type Department Care Team ([facility] st Contact Info) Description 05/16/2025 8:40 AM EDT Office Visit [facility] [address] [place] [address] Rib pain on left side (Primary Dx); Paronychia of left middle finger; Type 2 diabetes mellitus with hyperglycemia, without long-term current use of insulin ([facility]) Social History Tobacco Use Types Packs/Day Years [...] t he electric, gas, oil or water [employer] threatened to shut off services in your [...] Sign Reading Time Taken Comments Blood Pressure 120/84 05/16/2025 8:41 AM EDT Pulse 97 05/16/2025 8:41 AM EDT Temperature 37.1 C (98.7 F) 05/16/2025 8:41 AM EDT Respiratory Rate 18 05/16/2025 8:41 AM EDT Oxygen Saturation 95% 05/16/2025 8:41 AM EDT Inhaled Oxygen Concentration - - Weight 83.3 kg (183 lb 9.6 oz) 05/16/2025 8:41 A M EDT Height - - Body Mass Index 29.63 01/11/2025 11:33 AM EDT documented in this encounter Plan of Treatment Upcoming Encounters Date Type Department Care Team (Late st Contact Info) Description 06/07/2025 8:00 AM EDT Office Visit [facility] ADULT DENTAL [address] [place] [address] Nathaniel Peter DDS [address] [place] [address] 08/02/2025 10:00 AM EST Office Visit [facility] MEDICINE [address] [place] [address] Name, MD Vern [address] [place] [address] 11/05/2025 8:00 AM EDT Office Visit [facility] ADULT DENTAL [address] [place] [address] Kay Martinez [address] [place] [address] documented as of this encounter Procedures Procedure Name Priority Date/Time Associated Diagnosis Comments XR RIBS 3 VIEWS LEFT W CHEST Routine 05/16/2025 9:47 AM EDT Rib pain on left side POCT GLYCATED HEMOGLOBIN, TOTAL Routine 05/16/2025 9:36 AM EDT Type 2 diabetes mellitus with hyperglycemia, without long-term current use of insulin ([facility]) POCT GLUCOSE Routine 05/16/2025 9:36 AM EDT Type 2 diabetes mellitus with hyperglycemia, without long-term current use of insulin ([facility]) documented in this encounter Results * XR Ribs 3 Views Left w/ Chest (05/16/2025 9:47 AM EDT) Anatomical Region Laterality Modality Radiographic Lelo ging 05/16/2025 9:4 7 AM EDT Narrative 05/16/2025 9:55 AM EDT [address] [address] XRay Report Signed Patient: Mike Awan MR#: [id number] : 1970 Acct:[id number] Age/Sex: 54 / M ADM Date: 05/16/25 Loc: HO.[facility] Attending Dr: Brigitte Bettencourt DO Ordering Physician: Brigitte Bettencourt DO Date of Service: 05/16/25 Procedure(s): XR ribs LT min 3V w CXR1V Accession Number(s): [id number] cc: Brigitte Bettencourt DO Reason for Exam: L rib pain s/p fall 2 weeks ago EXAMINATION: XR RIBS, LEFT CLINICAL INFORMATION: L rib pain s/p fall 2 weeks ago COMPARISON: 02/16/2024. TECHNIQUE: PA chest, and 3 views of the left ribs were obtained. FINDINGS: Lungs are clear. No consolidation, pneumothorax, or pleural effusion. The cardiomediastinal silhouette and pulmonary vasculature are normal. Osseous structures are unremarkable. Ribs are intact. No fractures are identified. XR/XR ribs LT min 3V w CXR1V IMPRESSION: No acute findings in the thorax. Specifically, no rib fractures are identified radiographically. Electronically signed by: Naif Galindo MD 05/16/2025 09:52 AM EDT RP Dictated By: Naif Galindo MD Signed By: <Electronically signed by Naif Galindo MD in OV> 05/16/2552 DD/ 6 TD/TT: 05/16/25947 Map Maker: Procedure Note Donotuseinterpreter, Image - 05/16/[address] [address] XRay Report Signed Patient: Mike AwanMR#: [id number] : 1970Acct:[id number] Age/Sex: 54 / MADM Date: 05/16/25 Loc: [facility] Attending Dr: Brigitte Bettencourt DO Ordering Physician: Brigitte Bettencourt DO Date of Service: 05/16/25 Procedure(s): XR ribs LT min 3V w CXR1V Accession Number(s): [id number] cc: Brigitte Bettencourt DO Reason for Exam: L rib pain s/p fall 2 weeks ago EXAMINATION: XR RIBS, LEFT CLINICAL INFORMATION: L rib pain s/p fall 2 weeks ago COMPARISON: 02/16/2024. TECHNIQUE: PA chest, and 3 views of the left ribs were obtained. FINDINGS: Lungs are clear. No consolidation, pneumothorax, or pleural effusion. The cardiomediastinal silhouette and pulmonary vasculature are normal. Osseous structures are unremarkable. Ribs are intact. No fractures are identified. XR/XR ribs LT min 3V w CXR1V IMPRESSION: No acute findings in the thorax. Specifically, no rib fractures are identified radiographically. Electronically signed by: Naif Galindo MD 05/16/2025 09:52 AM EDT RP Dictated By: Naif Galindo MD Signed By: <Electronically signed by Naif Galindo MD in OV> 05/16/2552 DD/ TD/TT: 05/16/2548 Map Maker: Brigitte Shahemely DO IMG XR PROCEDURES Final Resu lt * (ABNORMAL) POCT A1c (05/16/2025 9:36 AM EDT) Hemoglobin A1C 9.0(A) 4.0 - 5.7 % Blood 05/16/2025 9:36 AM EDT Brigitte Shahemely DO POINT OF CARE TEST ENTER/WAYNE T ORDERABLES Final Result * (ABNORMAL) POCT glucose manually resulted (05/16/2025 9:36 AM EDT) Glucose Blood, POC 270(A) 60 - 200 mg/dL Blood Capillary blood specimen / Unknown 05/16/2025 9:36 AM EDT Brigitte Shahemely DO POINT OF CARE TEST ENTER/WAYNE T ORDERABLES Final Result documented in this encounter Visit Diagnoses Diagnosis Rib pain on left side- Primary Paronychia of left middle finger Type 2 diabetes mellitus with hyperglycemia, without long-term current use of insulin ([facility]) documented in this encounter Care Teams Buffing Machine Operator Semiautomatic Relationship Specialty Start Date End Date Name, MD Vern [address] [place] [address] PCP - General Internal Medicine 05/09/24 documented as of this encounter
--- OUTSIDE RECORDS SUMMARY | 2025-05-16 10:20 | XMS_ITS | Encounter Summary ---
Author Organization [employer] Address [address] [facility] 7t [place] [address] Care Team Providers Care Caustic Room Operator Name Role Phone Name, Vern YUAN Primary Care Provider [phone] Encounter Details Date Type Department Care Team (Latest Contact Info) Description 05/16/2025 Travel Social History Tobacco Use Types Packs/Day [...] Description 06/07/2025 8:00 AM EDT Office Visit [facility] ADULT DENTAL [address] [place] [address] Nathaniel Peter DDS [address] [place] [address] 08/02/2025 10:00 AM EST Office Visit [facility] MEDICINE [address] [place] [phone] Name, MD Vern [address] [place] [address] 11/05/2025 8:00 AM EDT Office Visit [facility] ADULT DENTAL [address] [place] [address] Kay Martinez [address] [place] [address] documented as of this encounter Visit Diagnoses Not on filedocumented in this encounter Care Teams Caustic Room Operator Relationship Specialty Start Date End Date Vern Garcia MD [address] [place] [address] PCP - General Internal Medicine 05/09/24 documented as of this encounter
--- OUTSIDE RECORDS SUMMARY | 2025-05-16 10:20 | XMS_ITS | Encounter Summary ---
Author Organization [employer] Address [address] [facility] 7 [place] [address] Care Team Providers Care Dietary Services Manager Name Role Phone France Dunlap MD Primary Care Provider + Vern Garcia MD Primary Care Provider [phone] Encounter Details Date Type Department Care Team (Latest Contact Info) Description 10/20/2018 Abstract [facility] CONVERSIONS Dental, Provider, DDS Social History [...] Description 06/07/2025 8:00 AM EDT Office Visit [facility] ADULT DENTAL [address] [place] [address] Nathaniel Peter DDS [address] [place] [address] 08/02/2025 10:00 AM EST Office Visit [facility] MEDICINE [address] [place] [address] Vern Garcia MD [address] [place] [address] 11/05/2025 8:00 AM EDT Office Visit [facility] ADULT DENTAL [address] [place] [address] MichelleKay hooks [address] [place] [address] documented as of this encounter Visit Diagnoses Not on filedocumented in this encounter Care Teams Dietary Services Manager Relationship Specialty Start Date End Date France Dunlap MD [address] [place] [address] PCP - General Family Medicine 09/05/20 05/08/24 Vern Garcia MD [address] [place] [address] PCP - General Internal Medicine 05/09/24 documented as of this encounter
--- OUTSIDE RECORDS SUMMARY | 2025-05-16 10:20 | XMS_ITS | Clinical Summary ---
Author Organization [address] [place] [address] Address [address] [place] [address] Phone Care Team Providers Care Block Out Machine Operator Name Role Phone Name, Vern YUAN Primary Care Provider [phone] Allergies Active Allergy Reactions Criticality Noted Date Comments Codeine 01/17/2025 Medications diclofenac (Voltaren Arthritis Pain) 1 % topical gel Apply 4 g topically 2 (two) times a day. 240 g 1 5 05/03/20 25 Encounters Date Type Department Care Team Description 03/04/2025 8:15 AM EDT Office Visit Orthopedic Surgery - [facility] [address] [facility] [address] [place] [phone] Ehsan Perkins, DPM Tendonitis, Achilles, left [...] 01/10/2025 Cholesterol Screening (Lipid Panel) 06/30/2029 06/30/2024 RSV Immunization Adult Patients (1 - 1-dose 75+ series) 2046 Hepatitis [...] 3 Months Insurance MEDICAID - [place] MEDICARE Member Subscriber Plan / Payer (Ef fective 1997-Present) Name:CORNELIUS MCKEON Member ID:[id number] Relation to Subscriber:Self Name:Cornelius Mckeon Subscriber ID:[id number] Payer ID:Not on file Group ID:Not on file Type:Medicare Address: [facility] [address] [phone] Care Teams Block Out Machine Operator Relationship Specialty Start Date End Date Name, MD Vern [address] [place] [address] PCP - General Internal Medicine 11/20/24
--- OUTSIDE RECORDS SUMMARY | 2025-05-16 10:20 | XMS_ITS | Encounter Summary ---
Author Organization [employer] Address [address] [facility] 7 [place] [address] Care Team Providers Care Electronics Assembler Name Role Phone France Dunlap MD Primary Care Provider + Vern Garcia MD Primary Care Provider [phone] Encounter Details Date Type Department Care Team (Latest Contact Info) Description 05/29/2021 Abstract [facility] CONVERSIONS Dental, Provider, DDS Social History [...] Description 06/07/2025 8:00 AM EDT Office Visit [facility] ADULT DENTAL [address] [place] [address] Nathaniel Peter, DDS [address] [place] [address] 08/02/2025 10:00 AM EST Office Visit [facility] MEDICINE [address] [place] [address] Vern Garcia MD [address] [place] [address] 11/05/2025 8:00 AM EDT Office Visit [facility] ADULT DENTAL [address] [place], [place] [phone] Kay Martinez [address] [place] [address] documented as of this encounter Visit Diagnoses Not on filedocumented in this encounter Care Teams Electronics Assembler Relationship Specialty Start Date End Date France Dunlap MD [address] [place] [address] PCP - General Family Medicine 09/05/20 05/08/24 Vern Garcia MD [address] [place] [address] PCP - General Internal Medicine 05/09/24 documented as of this encounter
--- OUTSIDE RECORDS SUMMARY | 2025-05-16 10:20 | XMS_ITS | Encounter Summary ---
Author Organization [employer] Address [address] [facility] 7 [place] [address] Care Team Providers Care Plater Supervisor Name Role Phone Name, Vern YUAN Primary Care Provider Reason for Visit * Reason Onset Date Comments Appointment Request 09/21/2024 Encounter Details Date Type Department Care Team ([facility] st Contact Info) Description 09/21/2024 Telephone [facility] MEDICINE [address] [place] [address] Name, MD Vern [address] [place] [address] Appointment Request Social History Tobacco Use Types [...] he will be coming in to the [facility]. Director Of Housing And Energy Services advise of hours. documented in this encounter Plan of Treatment Upcoming Encounters Date Type Department Care Team (Late st Contact Info) Description 06/07/2025 8:00 AM EDT Office Visit [facility] ADULT DENTAL [address] [place] [address] Nathaniel Peter DDS [address] [place] [address] 08/02/2025 10:00 AM EST Office Visit [facility] MEDICINE [address] [place] [address] Name, MD Vern [address] [place] [address] 11/05/2025 8:00 AM EDT Office Visit [facility] ADULT DENTAL [address] [place] [address] Kay Martinez [address] [place] [address] documented as of this encounter Visit Diagnoses Not on filedocumented in this encounter Care Teams Plater Supervisor Relationship Specialty Start Date End Date Name, MD Vern [address] [place] [address] PCP - General Internal Medicine 05/09/24 documented as of this encounter
--- OUTSIDE RECORDS SUMMARY | 2025-05-16 10:20 | XMS_ITS | Encounter Summary ---
Author Organization [employer] Address 75 [facility] 7t [place] [address] Care Team Providers Care Craft Coordinator Name Role Phone Name, Vern YUAN Primary Care Provider [phone] Encounter Details Date Type Department Care Team ([facility] st Contact Info) Description 09/26/2024 Orders Only [facility] [address] [place] [address] Jono Jacobs MD [address] [place] [address] Social History Tobacco Use Types Packs/Day Years [...] Description 06/07/2025 8:00 AM EDT Office Visit [facility] [address] [place] [address] Nathaniel Peter DDS [address] [place] [address] 08/02/2025 10:00 AM EST Office Visit [facility] [address] [place] [address] Name, MD Vern [address] [place] [address] 11/05/2025 8:00 AM EDT Office Visit [facility] [address] [place] [address] Kay Martinez [address] [place] [address] documented as of this encounter Procedures Procedure Name Priority Date/Time Associated Diagnosis Comments URINALYSIS, COMPLETE, WITH REFLEX TO CULTURE Routine 01/10/2025 1:33 PM EDT CBC WITH AUTO DIFFERENTIAL Routine 01/10/2025 1:28 PM EDT COMPREHENSIVE METABOLIC PANEL Routine 01/10/2025 1:28 PM EDT documented in this encounter Results * (ABNORMAL) Urinalysis, Complete, with Reflex to Culture (01/10/2025 1:33 PM EDT) Color Urine Yellow [facility] Appearance Urine Clear [facility] PH 6.5 5.0 - 9.0 [facility] Glucose Urine UA >=1000(A) Negative mg/dL [facility] Urine Blood Negative Negative [facility] Specific [place] - Urine >=1.030(H) 1.005 - 1.025 [facility] Urine Protein Negative Neg-Trace mg/dL [facility] Urine Ketones Negative Negative mg/dL [facility] Nitrite Urine Negative Negative [facility] Leukocyte Esterase Urine Negative Negative [facility] RBC Urine 0-2 0 - 2 /HPF [facility] Urine WBC 0-5 0 - 5 /HPF [facility] Urine Squamous Epithelial Cell 0-2 0 - 2 /HPF [facility] Urine Bacteria None Seen None Seen [facility] Hyaline Casts, Urine 0-2 0 - 2 /LPF [facility] 01/10/2025 1:33 PM EDT 01/10/2025 1:35 PM EDT Narrative [facility] - 01/10/2025 1:42 PM EDT [id number], Clean Catch us Generic External Data Provider LAB URINE ORDERAB LES Final Result Performing Organization Address City/State/[facility] Co de Phone Number [facility] [address] [place] [phone] * (ABNORMAL) Comprehensive Metabolic Panel (01/10/2025 1:28 PM EDT) Sodium 136 135 - 145 mmol/L [facility] Potassium 4.3 3.3 - 5.1 mmol/L [facility] Chloride 103 96 - 108 mmol/L [facility] Carbon Dioxide 27 22 - 29 mmol/L [facility] Anion Gap 10(L) 12 - 20 [facility] Urea Nitrogen (BUN) 12 9 - 16 mg/dL [facility] Creatinine, Serum 0.79 0.5 - 1.4 mg/dL [facility] Creatinine Clr Calc Pharmacy 107.3 [facility] Comment:eGFR (calculated fro m the MDRD study equation) and eCrCl(calculated from the Cockcroft-Gault equation) are based ondifferent parameters and may not yield comparable results.If eCrCl result is absurd, please check patient'sheight/weight. Estimated Glomerular Filt Rate >60 [facility] Comment:Chronic Kidney Disea se: Estimated GFR < 60 mL/min/[id number] Kidney Disease: Estimated GFR < 15 mL/min/1.73m2 Glucose 300(H) 60 - 115 mg/dL [facility] Calcium 9.3 8.4 - 10.2 mg/dL [facility] Bilirubin, Total 0.2 0.0 - 1.0 mg/dL [facility] Aspartate Amino Transferase 26 5 - 37 U/L [facility] Alanine Aminotransferase 30 0 - 40 U/L [facility] Total Protein 7.6 6.5 - 8.0 g/dL [facility] Albumin Level 3.9 3.5 - 5.0 g/dL [facility] Alkaline Phosphatase 95 39 - 117 U/L [facility] 01/10/2025 1:28 PM EDT 01/10/2025 1:35 PM EDT us Generic External Data Provider LAB BLOOD ORDERAB LES Final Result [facility] [address] [place] [phone] * (ABNORMAL) CBC auto differential (01/10/2025 1:28 PM EDT) White Blood Count 6.2 4.8 - 10.8 X10*3/uL [facility] Red Blood Count 4.41(L) 4.60 - 5.80 X10*6/uL [facility] Hemoglobin 14.2 14.0 - 18.0 g/dl [facility] Hematocrit 40.1(L) 42.0 - 52.0 % [facility] Mean Corpuscular Volume 90.9 80.0 - 98.0 fL [facility] Mean Corpuscular Hemoglobin 32.2 27.0 - 33.0 pg [facility] Mean Corpuscular HGB Conc 35.4 31.0 - 36.0 g/dl [facility] Red Cell Distribution Width 12.4 11.0 - 16.0 % [facility] Platelet Count 400 160 - 400 X10*3/uL [facility] Mean Platelet Volume 8.9(L) 9.4 - 12.4 fL [facility] Neutrophils Percent Auto 52.3 45 - 73 % [facility] Imm Gran Pct Auto 1.0(H) 0.0 - 0.4 % [facility] Lymphocytes Percent Auto 35.9 20 - 40 % [facility] Monocytes Percent Auto 7.6 2 - 11 % [facility] Eosinophils Percent Auto 2.7 0 - 4 % [facility] Basophils Percent Auto 0.5 0 - 2 % [facility] NRBC Pct Auto 0.0 0.0 - 0.2 /100WBC [facility] Neutrophils Absolute Auto 3.2 2.0 - 8.3 x10*3/uL [facility] Imm Gran Abs Auto 0.06(H) 0.00 - 0.03 X10*3/uL [facility] Lymphocytes Absolute Auto 2.2 1.2 - 4.9 X10*3/uL [facility] Monocytes Absolute Auto 0.5 0.1 - 1.2 X10*3/uL [facility] Eosinophils Absolute Auto 0.2 0.0 - 0.4 X10*3/uL [facility] Basophils Absolute Auto 0.0 0.0 - 0.2 X10*3/uL [facility] NRBC Abs Auto 0.000 0.0 - 0.012 X10*3/uL [facility] 01/10/2025 1:28 PM EDT 01/10/2025 1:35 PM EDT us Generic External Data Provider LAB BLOOD ORDERAB LES Final Result [facility] [address] [place] [phone] documented in this encounter Visit Diagnoses Not on filedocumented in this encounter Care Teams Craft Coordinator Relationship Specialty Start Date End Date Name, MD Vern [address] [place] [address] PCP - General Internal Medicine 05/09/24 documented as of this encounter
--- OUTSIDE RECORDS SUMMARY | 2025-05-16 10:21 | XMS_ITS | Encounter Summary ---
Author Organization [employer] Address 75 [facility] 7 [place] [address] Care Team Providers Care Highway Engineer Name Role Phone Name, Vern YUAN Primary Care Provider [phone] Reason for Visit * Reason Comments Med Refill Encounter Details Date Type Department Care Team ([facility] st Contact Info) Description 10/29/2024 Refill [facility] [address] [place] [address] France Dunlap MD [address] [place] [address] Recurrent furunculosis Social History Tobacco Use Types [...] Description 06/07/2025 8:00 AM EDT Office Visit [facility] [address] [place] [address] Nathaniel Peter DDS [address] [place] [address] 08/02/2025 10:00 AM EST Office Visit [facility] [address] [place] [phone] Name, MD Vern [address] [place] [address] 11/05/2025 8:00 AM EDT Office Visit [facility] [address] [place] [address] Kay Martinze [address] [place] [address] documented as of this encounter Visit Diagnoses Diagnosis Recurrent furunculosis documented in this encounter Care Teams Highway Engineer Relationship Specialty Start Date End Date Name, MD Vern [address] [place] [phone] PCP - General Internal Medicine 05/09/24 documented as of this encounter
--- OUTSIDE RECORDS SUMMARY | 2025-05-16 10:21 | XMS_ITS | Encounter Summary ---
Author Organization [employer] Address [address] [facility] 7t [place] [address] Care Team Providers Care Director Of Marketing Analytics Name Role Phone Name, Vern YUAN Primary Care Provider [phone] Reason for Visit * Reason Comments Med Refill Encounter Details Date Type Department Care Team ([facility] st Contact Info) Description 05/23/2024 Refill [facility] [address] [place] [address] Pop Hardwick MD [address] [place] [address] Onychomycosis Social History Tobacco Use Types Packs/Day [...] Description 06/07/2025 8:00 AM EDT Office Visit [facility] [address] [place] [phone] Nathaniel Peter DDS [address] [place] [phone] 08/02/2025 10:00 AM EST Office Visit [facility] [address] [place] [phone] Name, MD Vern [address] [place] [phone] 11/05/2025 8:00 AM EDT Office Visit [facility] [address] [place] [phone] Kay Martinez [address] [place] [address] documented as of this encounter Visit Diagnoses Diagnosis Onychomycosis Dermatophytosis of nail documented in this encounter Care Teams Director Of Marketing Analytics Relationship Specialty Start Date End Date Name, MD Vern [address] [place] [phone] PCP - General Internal Medicine 05/09/24 documented as of this encounter
--- OUTSIDE RECORDS SUMMARY | 2025-05-16 10:21 | XMS_ITS | Clinical Summary ---
Author Organization [employer] Address [address] [facility] 7 [place] [address] Care Team Providers Care Airplane Charter Clerk Name Role Phone Name, Vern YUAN Primary Care Provider [phone] Allergies Active Allergy Reactions Criticality Noted Date [...] long-term current use of insulin ([facility]) Take 1 tablet (2 mg) by mouth before breakfast. 30 tablet 11 5 11/01/19 26 Active empagliflozin-m etFORMIN (Synjardy) 12.5-500 MGIndications:T ype 2 diabetes mellitus with hyperglycemia, without long-term current use of insulin (CMS/[facility]) Take 1 tablet by mouth with [...] MOUTH TWICE DAILY 60 capsule 5 Active cephalexin (Keflex) 500 MG capsule Take 1 capsule (500 mg) by mouth 3 times daily for 7 days. 21 capsule 5 05/23/20 25 Active sulfamethoxazol e-trimethoprim (Bactrim DS) 800-160 MG tablet Take 1 tablet by mouth 2 times daily for 7 days. 14 tablet 5 05/23/20 25 Active acetaminophen (Tylenol 8 Hour) 650 MG ER tablet Take 1 tablet (650 mg) by mouth every 8 (eight) hours if needed for mild pain. Do not crush, chew, or split. 40 tablet 1 5 06/15/20 25 Active ibuprofen 600 MG tablet Take 1 tablet (600 mg) by mouth every 6 (six) hours if needed for mild pain. 40 tablet 1 5 05/16/20 26 Active Diclofenac Sodium 1 % gel Apply 2 g topically if needed in the morning, at noon, in the evening, and at bedtime (pain). 150 g 3 5 Active Active Problems Problem Noted Date [...] root caries 10/29/2024 Supraeruption of teeth 10/29/2024 Atypical chest pain 02/16/2024 Assessment & Plan [...] any medications Rx Paxlovid x 5 days, [place] interactions module checked, no significant interactions found. [...] Mixed hyperlipidemia 07/25/2014 07/29/2023 Back pain 07/25/2014 Resolved Problems Problem Noted Date Diagnosed Date Resolved Date Viral URI 02/16/2024 05/16/2025 Assessment & Plan (02/16/2024 5:34 PM EDT): Triple viral tests are NEG today, he doesn't seem to have a specific complication form it at this time. Order CXR Rx Fluticasone nasal spray x 1w + symptomatic rx with Theraflu. Increase fluid intake, rest at home and re consult prn if he develops fever, chills, chagne in color of phlegm or SOB. Encounters Date Type Department Care Team Description 05/16/2025 8:40 AM EDT Office Visit [facility] [address] [place] [address] Rib pain on left side (Primary Dx); Paronychia of left middle finger; Type 2 diabetes mellitus with hyperglycemia, without long-term current use of insulin ([facility]) 05/16/2025 Travel 05/10/2025 Orders Only [facility] External Provider, [facility] 05/02/2025 8:00 AM EDT Office Visit [facility] ADULT DENTAL [address] [place] [address] Michelle, Kay Dental calculus (Primary Dx); Localized gingival recession 03/12/2025 Orders Only GENERIC EXTERNAL DATA DEPARTMENT Provider, Generic External Data 03/01/2025 Telephone [facility] MEDICINE [address] [place] [address] Name, MD Vern from Last 3 Months [...] oz) 05/16/2025 8:41 A M EDT Height 167.6 cm (5' 6 ) 01/11/2025 11:33 AM EDT Body Mass Index 29.63 01/11/2025 11:33 AM EDT Plan of Treatment Upcoming Encounters Date Type Department Care Team (Late st Contact Info) Description 06/07/2025 8:00 AM EDT Office Visit [facility] ADULT DENTAL [address] [place] [address] Nathaniel Peter DDS [address] [place] [address] 08/02/2025 10:00 AM EST Office Visit [facility] MEDICINE [address] [place] [phone] Name, MD Vern [address] [place] [address] 11/05/2025 8:00 AM EDT Office Visit [facility] ADULT DENTAL [address] [place] [address] Kay Martinez [address] [place] [address] Health Maintenance Due Date Last Done Comments CT Colonography 1971 Colonoscopy 1971 Colorectal Cancer Screening 1971 FIT DNA/Cologuard 1971 FIT 1971 FOBT 1971 Sigmoidoscopy 1971 Disability Screening 1971 Eye Exam 1981 Hepatitis A Vaccines (1 of 2 - Risk 2-dose series) 1990 Pneumococcal Vaccine: 50+ Years (2 of 2 - PCV) 2017 2016 Depression Screening 08/02/2024 08/02/2023, 08/02/20 SDOH Screening 08/02/2024 08/02/2023 COVID-19 Vaccine (3 - season) 2025 12/30/2020, 12/02/2020 Influenza Vaccine (#1) 2025 9, 06/10/2017, 2016, Additional history exists Dental Oral Exam 05/02/2025 10/29/2024, , 07/01/2022, Additional history exists Lipid Panel 06/30/2025 06/30/2024, 11/21, 07/13/2021, Additional history exists Diabetes: Hemoglobin A1C 08/15/2025 025, 01/11/2025, 10/31/2024, Additional history exists Dental X-Ray: [facility] 10/30/2025 [...] long-term current use of insulin ([facility]) POCT GLUCOSE Routine 05/16/2025 9:36 AM EDT Type 2 diabetes mellitus with hyperglycemia, without long-term current use of insulin ([facility]) XR HAND 3+ VIEWS LEFT Routine 05/10/2025 8:46 AM EDT CASE PRESENTATION, DETAILED AND EXTENSIVE TREATMENT PLANNING Routine 05/02/2025 8:00 AM EDT Dental calculus Localized gingival recession ORAL HYGIENE INSTRUCTIONS Routine 05/02/2025 8:00 AM EDT Dental calculus Localized gingival recession PROPHYLAXIS - ADULT Routine 05/02/2025 8 :00 AM EDT Dental calculus GLUCOSE, WHOLE BLOOD Routine 03/12/2025 12:34 PM EDT XR FINGERS 2+ VIEWS LEFT Routine 03/12/2025 12:09 PM EDT ALBUMIN, RANDOM URINE W/CREATININE Routine 11/02/2024 11:38 [...] without long-term current use of insulin (CMS/HCC) Weight loss HIV 1/2 ANTIGEN/ANTIBODY, FOURTH GENERATION W/RFL Routine 06/30/2024 9:49 AM EST Type 2 diabetes mellitus with hyperglycemia, without long-term current use of insulin (CMS/HCC) Weight loss LIPID PANEL, STANDARD Routine 06/30/2024 9:49 AM EST Type 2 diabetes mellitus with hyperglycemia, without long-term current use of insulin (CMS/HCC) Weight loss from Last 3 Months or Most Recently Relevant to Health Maintenance Results * XR Ribs 3 Views Left w/ Chest (05/16/2025 9:47 AM EDT) Anatomical Region Laterality Modality Radiographic Lelo ging 05/16/2025 9:47 AM EDT Narrative 05/16/2025 9:55 AM EDT [address] [address] XRay Report Signed Patient: Mike Awan MR#: [id number] : 1970 Acct:[id number] Age/Sex: 54 / M ADM Date: 05/16/25 Loc: HO.HHCX Attending Dr: Brigitte Bettencourt DO Ordering Physician: Brigitte Bettencourt DO Date of Service: 05/16/25 Procedure(s): XR ribs LT min 3V w CXR1V Accession Number(s): [id number] cc: Brigitte Bettencourt DO Reason for Exam: [...] Galindo MD in OV> 05/16/2552 DD/ TD/TT: 05/16/25947 Jacquard Loom Fixer: Procedure Note Donotuseinterpreter, Image - 05/16/[address] [address] XRay Report Signed Patient: Mike AwanMR#: [id number] : 1970Acct:[id number] Age/Sex: 54 / MADM Date: 05/16/25 Loc: HO.HHCX Attending Dr: Brigitte Bettencourt DO Ordering Physician: Brigitte Bettencourt DO Date of Service: 05/16/25 Procedure(s): XR ribs LT min 3V w CXR1V Accession Number(s): [id number] cc: Brigitte Bettencourt DO Reason for Exam: [...] Galindo MD 05/16/2025 09:52 AM EDT RP Workstation: [id number] Dictated By: Naif Galindo MD Signed By: <Electronically signed by Naif Galindo MD in OV> 05/16/2552 DD/ 6 TD/TT: 05/16/25947 Jacquard Loom Fixer: Brigitte Bettencourt DO IMG XR PROCEDURES Final Resu lt * (ABNORMAL) POCT A1c (05/16/2025 9:36 AM EDT) Hemoglobin A1C 9.0(A) 4.0 - 5.7 % Blood 05/16/2025 9:36 AM EDT Brigitte Bettencourt DO POINT OF CARE TEST ENTER/WAYNE T ORDERABLES Final Result * (ABNORMAL) POCT glucose manually resulted (05/16/2025 9:36 AM EDT) Glucose Blood, POC 270(A) 60 - 200 mg/dL Blood Capillary blood specimen / Unknown 05/16/2025 9:36 AM EDT Brigitte Bettencourt DO POINT OF CARE TEST ENTER/WAYNE T ORDERABLES Final Result * XR Hand 3+ Views Left (05/10/2025 8:46 AM EDT) Anatomical Region Laterality Modality Upper Extremities, Hand Left Radiogra phic Imaging 05/10/2025 8:46 AM EDT Narrative 05/10/2025 9:03 AM EDT [facility] [address] [place] [address] XRay Report Signed Patient: Mike Awan MR#: [id number] : 1970 Acct:[id number] Age/Sex: 54 / M ADM Date: 05/10/25 Loc: [facility] Attending Dr: Shabbir QUEEN Ordering Physician: Shabbir Domínguez Date of Service: 05/10/25 Procedure(s): XR hand LT min 3V Accession Number(s): [id number] cc: Shabbir Domínguez; France Dunlap MD Reason for Exam: M79.642 - Pain in left hand EXAMINATION: XR HAND, LEFT CLINICAL INFORMATION: M79.642 - Pain in left hand COMPARISON: 04/10/2025, 03/26/2025, 03/12/2025. TECHNIQUE: PA, lateral, and oblique views of the left hand. FINDINGS: Redemonstrated is a minimally distracted transverse fracture of the distal phalanx of the middle finger involving the proximal diaphysis. No gross bony healing is evident at this time. Fracture lines are still well demarcated. No periosteal new bone formation. Remainder the bones and soft tissues of the left hand appear normal. XR/XR hand LT min 3V IMPRESSION: No significant interval change in a minimally displaced fracture of the distal phalanx of the third digit. No significant bony healing evident at this time. Electronically signed by: Naif Galindo MD 05/10/2025 09:01 AM EDT Dictated By: Naif Galindo MD Signed By: <Electronically signed by Naif Galindo MD in OV> 05/10/25 0901 DD/ 0846 TD/TT: 05/10/25 0851 Jacquard Loom Fixer: Procedure Note Donotuseinterpreter, Image - 05/10/2025 [facility] [address] [place] [address] XRay Report Signed Patient: Lakshmi Awan#: [id number] : 1970Acct:[id number] Age/Sex: 54 / MADM Date: 05/10/25 Loc: [facility] Attending Dr: Shabbir QUEEN Ordering Physician: Shabbir Domínguez Date of Service: 05/10/25 Procedure(s): XR hand LT min 3V Accession Number(s): [id number] cc: Shabbir Domínguez; France Dunlap MD Reason for Exam: M79.642 - Pain in left hand EXAMINATION: XR HAND, LEFT CLINICAL INFORMATION: M79.642 - Pain in left hand COMPARISON: 04/10/2025, 03/26/2025, 03/12/2025. TECHNIQUE: PA, lateral, and oblique views of the left hand. FINDINGS: Redemonstrated is a minimally distracted transverse fracture of the distal phalanx of the middle finger involving the proximal diaphysis. No gross bony healing is evident at this time. Fracture lines are still well demarcated. No periosteal new bone formation. Remainder the bones and soft tissues of the left hand appear normal. XR/XR hand LT min 3V IMPRESSION: No significant interval change in a minimally displaced fracture of the distal phalanx of the third digit. No significant bony healing evident at this time. Electronically signed by: Naif Galindo MD 05/10/2025 09:01 AM EDT Dictated By: Naif Galindo MD Signed By: <Electronically signed by Naif Galindo MD in OV> 05/10/25 0901 DD/ 0846 TD/TT: 05/10/25 0851 Jacquard Loom Fixer: [facility] External Provider IMG XR PROCEDURES Edited Result - Final * (ABNORMAL) Glucose, Whole Blood (03/12/2025 12:34 PM EDT) Glucose, Whole Blood 233(H) 60 - 115 mg/dL [facility] Comment:METER #: [id number] 03/12/2025 12:3 4 PM EDT 03/12/2025 12:37 PM EDT Generic External Data Provider LAB BLOOD ORDERAB LES Final Result [facility] [address] [place] [phone] * XR Fingers 2+ Views Left (03/12/2025 12:09 PM EDT) Anatomical Region Laterality Modality Upper Extremities, Fingers Left Radio graphic Imaging 03/12/2025 12:0 9 PM EDT Narrative 03/12/2025 1:37 PM EDT [address] [address] XRay Report Signed Patient: Mike Awan MR#: [id number] : 1970 Acct:[id number] Age/Sex: 54 / M ADM Date: 03/12/25 Loc: HO.ED Attending Dr: Ordering Physician: Yris Gomez NP Date of Service: 03/12/25 Procedure(s): XR finger LT min 2V Accession Number(s): [id number] cc: Name,Vern YUAN; Yris Gomez NP EXAMINATION: XR FINGERS LEFT [...] Nir Driscoll MD 03/12/2025 01:34 PM EDT Dictated By: Nir Driscoll MD Signed By: <Electronically signed by Nir Driscoll MD in OV> 03/12/25 1334 DD/ 1209 TD/TT: 03/12/25 1323 Jacquard Loom Fixer: Procedure Note Contreras, Luz Marina - 03/12/[address] [address] XRay Report Signed Patient: Mike AwanMR#: [id number] : 1970Acct:[id number] Age/Sex: 54 / MADM Date: 03/12/25 Loc: .ED Attending Dr: Ordering Physician: Yris Gomez NP Date of Service: 03/12/25 Procedure(s): XR finger LT min 2V Accession Number(s): [id number] cc: Vern Garcia MD; Yris Gomez NP [...] 03/12/25 1334 DD/ 1209 TD/TT: 03/12/25 1323 Jacquard Loom Fixer: [facility] External Provider IMG XR PROCEDURES Final Result * Albumin, Random Urine W/Creatinine (11/02/2024 11:38 AM EDT) Creatinine, Urine 36.90 mg/dL [facility] Microalbumin Urine <5.0 mg/L [facility] Microalbum Creatinine Ratio Ur TNP <30 ug/mg cr [facility] Comment:Unable to calculate albumin/creatinine ratio due to lowmicroalbumin or creatinine result. Urine (Urine, Random) 11/02/2024 11:38 AM EDT 11/02/2024 1:32 PM EDT Vern Garcia MD LAB URINE ORDERABLES Final Resul t [facility] [address] [place] [phone] * Hepatitis C Antibody with Reflex to HCV, RNA, Quantitative, Real-Time PCR (06/30/2024 9:49 AM EST) Pathologist [facility] Hepatitis C Antibody Nonreactive Nonreactive [facility] Comment:Antibodies to HCV no t detected; does not exclude early acuteHCV infection. Blood Venous blood specimen / Unknown 06/30/2024 9:49 AM EST 06/30/2024 9:49 AM EST us Vern Garcia MD LAB BLOOD ORDERABLES Final Resul t Performing Organization Address [facility] Co de Phone Number [facility] [address] [place] [phone] * HIV-1/2 Antigen and Antibodies, Fourth Generation, with Reflexes (06/30/2024 9:49 AM EST) Pathologist [facility] HIV AB/AG Nonreactive Nonreactive [facility] Comment:HIV-1 p24 Ag and/or HIV-1/HIV-2 Ab not detected.A test result that is nonreactive does not exclude thepossibility of exposure to or infection with HIV-1 and/orHIV-2. Nonreactive results in this assay for individualswith prior exposure to HIV-1 and/or HIV-2 may be due toantigen and antibody levels that are below the limit ofdetection of this assay.The Alereon HIV Ag/Ab Combo assay result andsupplemental assay results should be interpreted inconjunction with the patient's clinical presentation,history and other laboratory results. If the results areinconsistent with clinical evidence, additional testing issuggested to confirm the result. Blood Venous blood specimen / Unknown 06/30/2024 9:49 AM EST 06/30/2024 9:49 AM EST us Vern Garcia MD LAB BLOOD ORDERABLES Final Resul t Performing Organization Address City/[facility]/ZIP Co de Phone Number [facility] [address] [place] [phone] * (ABNORMAL) Lipid Panel, Standard (06/30/2024 9:49 AM EST) Triglycerides 75 <150 mg/dL [facility] Comment:Desirable Triglyceri de: less than 150 mg/dLBorderline High Triglyceride 150-199 mg/dLHigh Triglyceride: 200-499 mg/dLVery High Triglyceride: greater than or equal to 5OO mg/dL Cholesterol 213(H) <200 mg/dL [facility] Comment:Desirable Cholestero l: less than 200 mg/dLBorderline High Cholesterol: 200-239 mg/dLHigh Cholesterol: greater than 239 mg/dL LDL Cholesterol Calculated 142(H) <100 mg/dL [facility] Comment:Desirable LDL: less than 100 mg/dLNear Optimal/Above Optimal LDL: 110- 129 mg/dLBorderline High LDL: 130-159 mg/dLHigh LDL: 160-189 mg/dLVery High LDL: greater than or equal to 190 mg/dL HDL Cholesterol 56 >40 mg/dL [facility] Comment:Desirable HDL: great er than 40 mg/dL Note: This HDL assay may give artificially low results in patients with liver disease. Blood Venous blood specimen / Unknown 06/30/2024 9:49 AM EST 06/30/2024 9:49 AM EST us Vern Name LAB BLOOD ORDERABLES Final Resul t [facility] [address] [place] [phone] from Last 3 Months or Most Recently Relevant to Health Maintenance Insurance MEDICARE [facility] STAND ADULT Care Teams Airplane Charter Clerk Relationship Specialty Start Date End Date Name, MD Vern [address] [place] [phone] PCP - General Internal Medicine 05/09/24
--- OUTSIDE RECORDS SUMMARY | 2025-05-16 10:21 | XMS_ITS | Encounter Summary ---
Author Organization [employer] Address [address] [facility] 7 [place] [address] Care Team Providers Care Refrigeration Systems Installer Name Role Phone Name, Vern YUAN Primary Care Provider Reason for Visit * Reason Comments Med Refill Encounter Details Date Type Department Care Team ([facility] st Contact Info) Description 05/28/2024 Refill [facility] MEDICINE [address] [place] [address] France Dunlap MD [address] [place] [address] Recurrent furunculosis Social History Tobacco Use Types [...] Description 06/07/2025 8:00 AM EDT Office Visit [facility] ADULT DENTAL [address] [place] [phone] Nathaniel Peter DDS [address] [place] [phone] 08/02/2025 10:00 AM EST Office Visit [facility] MEDICINE [address] [place] [phone] Name, MD Vern [address] [place] [phone] 11/05/2025 8:00 AM EDT Office Visit [facility] ADULT DENTAL [address] [place] [phone] Kay Martinez [address] [place] [address] documented as of this encounter Visit Diagnoses Diagnosis Recurrent furunculosis documented in this encounter Care Teams Refrigeration Systems Installer Relationship Specialty Start Date End Date Name, MD Vern [address] [place] [phone] PCP - General Internal Medicine 05/09/24 documented as of this encounter
== END 2025-05-16 09:19 | disposition home or self-care (01) ==
LOC: HO.HHCX 09:18
PROVIDERS: Visit Provider Family Medicine
DX: R07.81 Pleurodynia (principal)
CPT/HCPCS: 71101

== ENCOUNTER → 2025-05-16 09:19 | Outpatient (BNV) | payer MEDICARE, MEDICAID, SELFPAY | PROVIDERS: Visit Provider Radiology Diagnostic Radiology | DX: R07.89 Other chest pain (principal) | CPT/HCPCS: 71101 ==

== ENCOUNTER 2025-05-17 08:29 | Outpatient (AMB) | payer MEDICARE, MEDICAID, SELFPAY ==
--- OUTSIDE RECORDS SUMMARY | 2025-05-16 08:40 | XMS_ITS | Encounter Summary ---
Author Organization [employer] Address [address] [facility] 7[address] [place] [address] Care Team Providers Care Geriatric Aide Name Role Phone Name, Vern YUAN Primary Care Provider [phone] Reason for Visit * Reason Comments Finger Pain Encounter Details Date Type Department Care Team ([facility] st Contact Info) Description 05/16/2025 8:40 AM EDT Office Visit [facility] WALK-[facility] [place] [address] [place] [address] Brigitte Bettencourt DO [address] [place] [address] Rib pain on left side (Primary Dx); Paronychia of left middle finger; Type 2 diabetes mellitus with hyperglycemia, without long-term current use of insulin ([facility]) Social History Tobacco Use Types Packs/Day Years [...] 11:33 AM EDT documented in this encounter Progress Notes * Brigitte Bettencourt, - 05/16/2025 8:40 AM EDT MILES Awan is a 54 y.o. male who presents for Sick Visit. He presents to [place] today c/o finger injury. He says he had a nightmare about 2 weeks ago and fell out of bed. He says that he landed on his L side and has been having pain in his lower ribs since then. He says that it still hurts to take a deep breath. He denies any bruising. He uses tylenol and motrin for pain which help. He also c/o swelling and redness in his finger. He sustained a laceration of the tip of his middle finger a couple mos ago which was repaired in the ED. He has been following with orthopedics since then for distal phalanx fracture. He saw ortho a couple of weeks ago and had repeat xrays and needs to go back in a mos. He says that he has been having redness and swelling at the base of the nail for the last 3 days. He's concerned because of his diabetes. He says the redness was worse yesterday. He denies any purulent drainage. He has not had any fevers. He says that his last appointment with his PCP was cancelled and he does not have f/u. History provided by: Patient translator and interpreter used: No Review of Systems Constitutional: Negative for activity change, appetite change, fever and unexpected weight change. Respiratory: Negative for cough and chest tightness. Cardiovascular: Negative for chest pain and palpitations. Gastrointestinal: Negative for abdominal pain, diarrhea, nausea and vomiting. Musculoskeletal: Positive for arthralgias and joint swelling. Skin: Positive for wound. Neurological: Negative for dizziness, weakness and headaches. Patient Active Problem List Diagnosis Chronic left shoulder pain De Quervain's tenosynovitis, left Mixed hyperlipidemia Lumbar post-laminectomy syndrome Restless legs Right cervical radiculopathy Shoulder pain Sore throat Cervical disc disorder Cervical spondylosis Spinal stenosis in cervical region Steatosis of liver Stenosis of intervertebral foramina Subacromial impingement Suspected COVID-19 virus infection Triggering of digit Type 2 diabetes mellitus (CMS/HCC) Recurrent furunculosis COVID-19 Periodontal disease Dental calculus Localized gingival recession Erosion of teeth, limited to enamel Right foot pain Tinea pedis Screening for colorectal cancer Atypical chest pain Dental caries Dental root caries Supraeruption of teeth Back pain Class 1 obesity Prostatitis, acute Allergies Allergen Reactions Codeine Nausea And Vomiting Shellfish-Derived Products OBJECTIVE Visit Vitals BP 120/84 (BP Location: Left arm, Patient Position: Sitting, BP Cuff Size: Adult) Pulse 97 Temp 98.7 ??F (37.1 ??C) (Oral) Resp 18 Wt 183 lb 9.6 oz (83.3 kg) SpO2 95% BMI 29.63 kg/m?? Smoking Status Never BSA 1.97 m?? Physical Exam Constitutional: General: He is not in acute distress. Appearance: Normal appearance. Cardiovascular: Rate and Rhythm: Normal rate and regular rhythm. Heart sounds: Normal heart sounds. No murmur heard. Pulmonary: Effort: Pulmonary effort is normal. No tachypnea or retractions. Breath sounds: Normal breath sounds. No decreased air movement. No decreased breath sounds, wheezing, rhonchi or rales. Comments: No paradoxical lung movements. BS equal b/l Musculoskeletal: Right hand: Swelling and tenderness present. Comments: ~ 5mm linear area of erythema and swelling with mild TTP base of L 3rd digit Neurological: General: No focal deficit present. Mental Status: He is alert and oriented to person, place, and time. Cranial Nerves: No cranial nerve deficit. Motor: No weakness. Gait: Gait normal. Psychiatric: Mood and Affect: Mood normal. Hemoglobin A1c Date/Time Value Ref Range Status 07/13/2021 08:41 AM 8.9 (H) <5.7 % of total Hgb Final Comment: For someone without known diabetes, a hemoglobin A1c value of 6.5% or greater indicates that they may have diabetes and this should be confirmed with a follow-up test. For someone with known diabetes, a value <7% indicates that their diabetes is well controlled and a value greater than or equal to 7% indicates suboptimal control. A1c targets should be individualized based on duration of diabetes, age, comorbid conditions, and other considerations. Currently, no consensus exists regarding use of hemoglobin A1c for diagnosis of diabetes for children. Hemoglobin A1C Date/Time Value Ref Range Status 05/16/2025 09:36 AM 9.0 (A) 4.0 - 5.7 % Final Assessment/Plan Diagnoses and all orders for this visit: Rib pain on left side Persistent L-sided rib pain S/P fall 2 weeks ago -referred for rib XR to r/o fracture -cont tylenol/motrin prn -trial diclofenac gel prn -trial heat therapy -advised contact [facility]HC if no improvement Paronychia of left middle finger -treat with keflex and bactrim x 1 week -encouraged warm soaks -pain meds as above -advised rtc or go to ED if any increased redness, swelling, or fevers, he agrees with plans Type 2 diabetes mellitus with hyperglycemia, without long-term current use of insulin ([facility]) A1c uncontrolled -cont synjardy, amaryl, and januvia daily -encouraged regular BG monitoring -will have f/u with PCP scheduled JONI --Follow-up with PCP as scheduled or sooner prn-- Current Outpatient Medications: acetaminophen (Tylenol 8 Hour) 650 MG ER tablet, Take 1 tablet (650 mg) by mouth every 8 (eight) hours if needed for mild pain. Do not crush, chew, or split., Disp: 40 tablet, Rfl: 1 albuterol 1.25 MG/3ML nebulizer solution, Take 3 mL (1.25 mg) by nebulization every 6 (six) hours if needed for wheezing., Disp: 75 mL, Rfl: 3 ammonium lactate (Amlactin) 12 % cream, APPLY TOPICALLY TO THE AFFECTED AREA(S) EVERY DAY NEEDEDFOR DRY SKIN, Disp: 385 g, Rfl: 1 cephalexin (Keflex) 500 MG capsule, Take 1 capsule (500 mg) by mouth 3 times daily for 7 days., Disp: 21 capsule, Rfl: 0 cetirizine (ZyrTEC) 10 MG tablet, Take 1 tablet (10 mg) by mouth in the morning. Prn., Disp: 30 tablet, Rfl: 0 Cialis 20 MG tablet, TAKE 1 TABLET 1 HOUR BEFORE SEXUAL RELATIONS ONCE DAILY NEEDED., Disp: 10 tablet, Rfl: 2 Diclofenac Sodium 1 % gel, Apply 2 g topically if needed in the morning, at noon, in the evening, and at bedtime (pain)., Disp: 150 g, Rfl: 3 empagliflozin-metFORMIN (Synjardy) 12.5-500 MG, Take 1 tablet by mouth with breakfast and with evening meal., Disp: 60 tablet, Rfl: 11 fluticasone (Flonase) 50 MCG/ACT nasal spray, INSTILL 1 SPRAY IN EACH NOSTRIL ONCE DAILY, Disp: 16 g, Rfl: 2 glimepiride (Amaryl) 2 MG tablet, Take 1 tablet (2 mg) by mouth before breakfast., Disp: 30 tablet,Rfl: 11 glucose blood test strip, Freestyle Lite Test Strip - Test once a day, Disp: 100 each, Rfl: 4 ibuprofen 600 MG tablet, Take 1 tablet (600 mg) by mouth every 6 (six) hours if needed for mild pain., Disp: 40 tablet, Rfl: 1 Lancets Misc. kit, 1 each Once daily., Disp: 50 kit, Rfl: 11 minocycline 100 MG capsule, TAKE 1 CAPSULE BY MOUTH TWICE DAILY, Disp: 60 capsule, Rfl: 0 SITagliptin (Januvia) 25 MG tablet, Take 1 tablet (25 mg) by mouth Once per day., Disp: 90 tablet, Rfl: 0 sulfamethoxazole-trimethoprim (Bactrim DS) 800-160 MG tablet, Take 1 tablet by mouth 2 times daily for 7 days., Disp: 14 tablet, Rfl: 0 terbinafine (LamISIL) 1 % cream, APPLY TOPICALLY TO THE AFFECTED AREA(S) TWICE DAILY DIRECTED, Disp: 45 g, Rfl: 2 tretinoin (Retin-A) 0.025 % cream, Apply topically at bedtime., Disp: 45 g, Rfl: 2 Scribe Attestation: Agus Zeng, am serving as a scribe to document services personally performed by Brigitte Pelletier, based on the patient's response to questions by provider and provider's statements to me. 05/16/25 10:29 AM Physicians Attestation: Brigitte Zeng DO, have reviewed the information by the scribe, Agus Jones, for accuracy and agree with its content. documented in this encounter Plan of Treatment Upcoming Encounters Date Type Department Care Team (Late st Contact Info) Description 06/07/2025 8:00 AM EDT Office Visit [facility] ADULT DENTAL [address] [place] [phone] Nathaniel Peter, RASS [address] [place] [address] 06/14/2025 9:00 AM EDT Medication Management [facility] MEDICINE [address] [place] [address] Sheila Tidwell, PharmD [address] [place] [address] 08/02/2025 10:00 AM EST Office Visit [facility] MEDICINE [address] [place] [address] Name, MD Vern [address] [place] [address] 11/05/2025 8:00 AM EDT Office Visit [facility] ADULT DENTAL [address] [place] [address] Kay Martinez [address] [place] [address] documented as of this encounter Procedures Procedure Name Priority Date/Time Associated Diagnosis Comments XR RIBS 3 VIEWS LEFT W CHEST Routine 05/16/2025 9:47 AM EDT Rib pain on left side POCT GLYCATED HEMOGLOBIN, TOTAL Routine 05/16/2025 9:36 AM EDT Type 2 diabetes mellitus with hyperglycemia, without long-term current use of insulin ([facility]) POCT GLUCOSE Routine 05/16/2025 9:36 AM EDT Type 2 diabetes mellitus with hyperglycemia, without long-term current use of insulin ([facility]) documented in this encounter Results * XR Ribs 3 Views Left w/ Chest (05/16/2025 9:47 AM EDT) Anatomical Region Laterality Modality Radiographic Lelo ging 05/16/2025 9:4 7 AM EDT Narrative 05/16/2025 9:55 AM EDT [address] [address] XRay Report Signed Patient: Mike Awan MR#: [id number] : 1970 Acct:[id number] Age/Sex: 54 / M ADM Date: 05/16/25 Loc: .HHCX Attending Dr: Brigitte Bettencourt DO Ordering Physician: Brigitte Bettencourt DO Date of Service: 05/16/25 Procedure(s): XR ribs LT min 3V w CXR1V Accession Number(s): [id number] cc: Brigitte Bettencourt DO Reason for Exam: [...] Naif Galindo MD 05/16/2025 09:52 AM EDT Dictated By: Naif Galindo MD Signed By: <Electronically signed by Naif Galindo MD in OV> 05/16/25 0952 DD/ 6 TD/TT: 05/16/25947 Paving Inspector: Procedure Note Donotuseinterpreter, Image - 05/16/2025 [place] [address] XRay Report Signed Patient: Mike Awan#: [id number] : 1970Acct:[id number] Age/Sex: 54 / MADM Date: 05/16/25 Loc: HO.HHCX Attending Dr: Brigitte Bettencourt DO Ordering Physician: Brigitte Bettencourt DO Date of Service: 05/16/25 Procedure(s): XR ribs LT min 3V w CXR1V Accession Number(s): [id number] cc: Brigitte Bettencourt DO Reason for Exam: [...] in OV> 05/16/2552 DD/ 6 TD/TT: 05/16/25947 Paving Inspector: Brigitte Rut DO IMG XR PROCEDURES Final Resu lt * (ABNORMAL) POCT A1c (05/16/2025 9:36 AM EDT) Hemoglobin A1C 9.0(A) 4.0 - 5.7 % Blood 05/16/2025 9:36 AM EDT Brigitte Rut DO POINT OF CARE TEST ENTER/WAYNE T ORDERABLES Final Result * (ABNORMAL) POCT glucose manually resulted (05/16/2025 9:36 AM EDT) Glucose Blood, POC 270(A) 60 - 200 mg/dL Blood Capillary blood specimen / Unknown 05/16/2025 9:36 AM EDT Brigitte Rut DO POINT OF CARE TEST ENTER/WAYNE T ORDERABLES Final Result documented in this encounter Visit Diagnoses Diagnosis Rib pain on left side- Primary Paronychia of left middle finger Type 2 diabetes mellitus with hyperglycemia, without long-term current use of insulin ([facility]) documented in this encounter Care Teams Geriatric Aide Relationship Specialty Start Date End Date Name, MD Vern [address] [place] [address] PCP - General Internal Medicine 05/09/24 documented as of this encounter
[2025-05-17 08:31] VITALS: BMI 27.4
--- NOTE | 2025-05-17 08:31 | MHC.OFFVIS ---
Vital Signs 05/17/25 08:31 Height 5 ft 6 in Weight 170 lb BMI 27.4 Intake Visit Reasons: OV: Left middle distal phalanx fx, DOI 03/12/25 Intake Note: Mike is a 54 year old right hand dominant male who presents today status post open fracture of the left middle distal phalanx, DOI 03/12/25. Patient reports he was evaluated yesterday at [facility] Walk In for concerns of infection. Patient has inflammation and redness of the nail bed. He was prescribed Bactrim and Keflex. Patient was originally scheduled today for bilateral hand trigger finger but wishes to address this instead. Allergies codeine Allergy (Unknown, Verified 05/17/25 08:31) upset stomach, nausea shrimp Allergy (Verified 05/17/25 08:31) Anaphylaxis HPI HPI OV: Left middle distal phalanx fx, DOI 03/12/25: Details: Mike is a 54 year old right hand dominant male who presents today status post open fracture of the left middle distal phalanx, DOI 03/12/25. Patient reports he was evaluated yesterday at [facility] Walk In for concerns of infection. Patient has inflammation and redness of the nail bed. He was prescribed Bactrim and Keflex. Patient was originally scheduled today for bilateral hand trigger finger but wishes to address this instead. 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 Neuro: Normal sensation of the tips of all digits of the left hand at this time Vascular: Cap refill brisk Pain: No Tenderness to palpation about the distal aspect of the left middle finger ROM: Patient is able to flex and extend at all joints of the left hand There is noted to be some minor motion noted at the fracture site Skin: Laceration of distal aspect of right middle finger has healed very well There does appear to be a small area of superficial purulence just under the skin at the eponychial fold of the left middle finger No active discharge at this time Minimal surrounding erythema General: No ecchymosis Psych: Appears grossly normal Affect normal Attitude cooperative Assessment & Plan Assessment & Plan (1) Open fracture of distal phalanx of left middle finger: Code(s): S62.633B - Displaced fracture of distal phalanx of left middle finger, initial encounter for open fracture Category: Medical Plan 1. Open fracture of the distal phalanx of left middle finger Patient is educated about this condition Patient is educated about the typical treatment course Patient is educated that there does appear to is superficial area infection consistent with paronychia Area of purulence is lanced, and approximately 1-2 cc of purulent material is expressed from the area Patient should be soaking the area and warm to hot salt water to encourage further drainage Daily dressing changes, may leave open to air while at home Antibiotics prescribed at urgent care should be continued Patient is amenable to this plan Follow-up in one-week , sooner with any acute concerns Coding Level of Care Code Global (39658) Diagnoses Open fracture of distal phalanx of left middle finger S62.633B
--- OUTSIDE RECORDS SUMMARY | 2025-05-17 08:48 | XMS_ITS | Encounter Summary ---
Author Organization [employer] Address [address] [facility] 7 [place] [address] Care Team Providers Care Fire Control Officer Name Role Phone France Dunlap MD Primary Care Provider + Vern Garcia MD Primary Care Provider [phone] Encounter Details Date Type Department Care Team (Latest Contact Info) Description 10/20/2018 Abstract [facility] CONVERSIONS Dental, Provider, DDS Social [...] [facility] [address] [place] [address] Nathaniel Peter, DDS 230 [place] [address] 06/14/2025 9:00 AM EDT Medication Management [facility] MEDICINE [address] [place] [address] Sheila Tidwell, PharmD 230 [place] [address] 08/02/2025 10:00 AM EST Office Visit [facility] MEDICINE [address] [place] [address] Name, MD Vern 230 [place] [address] 11/05/2025 8:00 AM EDT Office Visit [facility] ADULT DENTAL [address] [place] [address] Kay Martinez 230 [place] [address] documented as of this encounter Visit Diagnoses Not on filedocumented in this encounter Care Teams Fire Control Officer Relationship Specialty Start Date End Date France Dunlap MD [address] [place] [address] PCP - General Family Medicine 09/05/20 05/08/24 Name, MD Vern [address] [place] [address] PCP - General Internal Medicine 05/09/24 documented as of this encounter
--- OUTSIDE RECORDS SUMMARY | 2025-05-17 08:48 | XMS_ITS | Encounter Summary ---
Author Organization [employer] Address 75 [facility] 7 [place] [address] Care Team Providers Care Link Trainer Mechanic Name Role Phone Name, Vern YUAN Primary Care Provider Reason for Visit * Reason Comments Med Refill Encounter Details Date Type Department Care Team ([facility] st Contact Info) Description 10/29/2024 Refill [facility] MEDICINE [address] [place] [address] France Dunlap MD 230 [place] [address] Recurrent furunculosis Social History Tobacco Use Types [...] Description 06/07/2025 8:00 AM EDT Office Visit [facility] ADULT DENTAL [address] [place] [address] Nathaniel Peter DDS [address] [place] [address] 06/14/2025 9:00 AM EDT Medication Management [facility] MEDICINE [address] [place] [address] Sheila Tidwell, PharmD [address] [place] [address] 08/02/2025 10:00 AM EST Office Visit [facility] MEDICINE [address] [place] [address] NameVern MD [address] [place] [address] 11/05/2025 8:00 AM EDT Office Visit [facility] ADULT DENTAL [address] [place] [address] Kay Martinez [address] [place] [address] documented as of this encounter Visit Diagnoses Diagnosis Recurrent furunculosis documented in this encounter Care Teams Link Trainer Mechanic Relationship Specialty Start Date End Date NameVern MD [address] [place] [address] PCP - General Internal Medicine 05/09/24 documented as of this encounter
--- OUTSIDE RECORDS SUMMARY | 2025-05-17 08:48 | XMS_ITS | Encounter Summary ---
Author Organization [employer] Address 75 [facility] 7t [place] [address] Care Team Providers Care Director Process Name Role Phone Name, Vern YUAN Primary Care Provider [phone] Encounter Details Date Type Department Care Team [...] Description 06/07/2025 8:00 AM EDT Office Visit [facility] ADULT DENTAL [address] [place] [address] Nathaniel Peter DDS [address] [place] [address] 06/14/2025 9:00 AM EDT Medication Management [facility] MEDICINE [address] [place] [address] Sheila Tidwell PharmD 230 [place] [address] 08/02/2025 10:00 AM EST Office Visit [address] [address] Name, MD Vern [address] [place] [address] 11/05/2025 8:00 AM EDT Office Visit [facility] ADULT DENTAL [address] [place] [address] Kay Martinez [address] [place] [address] documented as of this encounter Visit Diagnoses Not on filedocumented in this encounter Care Teams Director Process Relationship Specialty Start Date End Date Name, MD Vern [address] [place] [address] PCP - General Internal Medicine 05/09/24 documented as of this encounter
--- OUTSIDE RECORDS SUMMARY | 2025-05-17 08:48 | XMS_ITS | Encounter Summary ---
Author Organization [employer] Address 75 [facility] 7t [place] [address] Care Team Providers Care Type Soldering Machine Tender Name Role Phone Name, Vern YUAN Primary Care Provider [phone] Reason for Visit * Reason Comments Med Refill Encounter Details Date Type Department Care Team ([facility] st Contact Info) Description 05/23/2024 Refill [facility] MEDICINE [address] [place] [address] Pop Hardwick MD 230 [place] [address] Onychomycosis Social History Tobacco Use Types Packs/Day [...] Description 06/07/2025 8:00 AM EDT Office Visit [facility] ADULT DENTAL [address] [place] [address] Nathaniel Peter DDS [address] [place] [address] 06/14/2025 9:00 AM EDT Medication Management [facility] MEDICINE [address] [place] [address] Sheila Tidwell, PharmD [address] [place] [address] 08/02/2025 10:00 AM EST Office Visit [address] [address] Name, MD Vern [address] [place] [address] 11/05/2025 8:00 AM EDT Office Visit [facility] ADULT DENTAL [address] [place] [address] Kay Maritnez 230 [place] [address] documented as of this encounter Visit Diagnoses Diagnosis Onychomycosis Dermatophytosis of nail documented in this encounter Care Teams Type Soldering Machine Tender Relationship Specialty Start Date End Date NameVern MD [address] [place] [address] PCP - General Internal Medicine 05/09/24 documented as of this encounter
--- OUTSIDE RECORDS SUMMARY | 2025-05-17 08:48 | XMS_ITS | Encounter Summary ---
Author Organization [employer] Address 75 [facility] 7 [place] [address] Care Team Providers Care Network And Threat Support Specialist Name Role Phone France Dunlap MD Primary Care Provider + Vern Garcia MD Primary Care Provider [phone] Encounter Details Date Type Department Care Team (Latest Contact Info) Description 05/29/2021 Abstract [facility] CONVERSIONS Dental, Provider, DDS Social History Tobacco [...] Office Visit [facility] ADULT DENTAL 230 [place] [address] Nathaniel Peter, DDS [address] [place] [address] 06/14/2025 9:00 AM EDT Medication Management [facility] MEDICINE [address] [place] [address] Sheila Tidwell, PharmD 230 [place] [address] 08/02/2025 10:00 AM EST Office Visit [facility] MEDICINE [address] [place] [address] Name, MD Vern [address] [place] [address] 11/05/2025 8:00 AM EDT Office Visit [facility] ADULT DENTAL 230 [place] [address] Kay Martinez [address] [place] [address] documented as of this encounter Visit Diagnoses Not on filedocumented in this encounter Care Teams Network And Threat Support Specialist Relationship Specialty Start Date End Date France Dunlap MD [address] [place] [address] PCP - General Family Medicine 09/05/20 05/08/24 Name, MD Vern [address] [place] [address] PCP - General Internal Medicine 05/09/24 documented as of this encounter
--- OUTSIDE RECORDS SUMMARY | 2025-05-17 08:48 | XMS_ITS | Clinical Summary ---
Author Organization [employer] Address 75 [facility] 7 [place] [address] Care Team Providers Care Treating Plant Operator Name Role Phone Name, Vern YUAN Primary Care Provider [phone] Allergies Active Allergy Reactions Criticality Noted Date [...] hyperglycemia, without long-term current use of insulin ([facility]) Take 1 tablet (2 mg) by mouth before breakfast. 30 tablet 11 5 11/01/19 26 Active empagliflozin-m etFORMIN (Synjardy) 12.5-500 MGIndications:T ype 2 diabetes mellitus with hyperglycemia, without long-term current use of insulin ([facility]) Take 1 tablet by mouth with breakfast [...] any medications Rx Paxlovid x 5 days, [place] interactions module checked, no significant interactions found. [...] Description 05/16/2025 8:40 AM EDT Office Visit [facility] [address] [place] [address] Brigitte Bettencourt DO Rib pain on left side (Primary Dx); Paronychia of left middle finger; Type 2 diabetes mellitus with hyperglycemia, without long-term current use of insulin ([facility]) 05/16/2025 Telephone [facility] [address] [place] [address] Brigitte Bettencourt DO Results 05/16/2025 Travel 05/10/2025 Orders Only [facility] External Provider, [facility] 05/02/2025 8:00 AM EDT Office Visit [facility] ADULT DENTAL [address] [place] [address] Kay Martinez Dental calculus (Primary Dx); Localized gingival recession 03/12/2025 Orders Only GENERIC EXTERNAL DATA DEPARTMENT Provider, Generic External Data 03/01/2025 Telephone [facility] MEDICINE [address] [facility] [place] [address] Name, MD Vern from Last 3 Months [...] Description 06/07/2025 8:00 AM EDT Office Visit [facility] ADULT DENTAL [address] [place] [address] Nathaniel Peter, LALI 230 [place] [address] 06/14/2025 9:00 AM EDT Medication Management [facility] MEDICINE [address] [place] [address] Sheila Tidwell, PharmD [address] [place] [address] 08/02/2025 10:00 AM EST Office Visit [facility] MEDICINE [address] [place] [address] Name, MD Vern 230 [place] [address] 11/05/2025 8:00 AM EDT Office Visit [facility] ADULT [facility] 230 [place] [address] Kay Martinez 230 [place] [address] Health Maintenance Due Date Last Done Comments [...] 08/02/20 SDOH Screening 08/02/2024 08/02/2023 COVID-19 Vaccine ( season) 2025 12/30/2020, 12/02/2020 Influenza Vaccine (#1) 2025 9, 06/10/2017, 2016, Additional history exists Dental Oral Exam 05/02/2025 10/29/2024, , 07/01/2022, Additional history exists Lipid Panel 06/30/2025 06/30/2024, 0411/2023, 07/13/2021, Additional history exists Diabetes: Hemoglobin A1C 08/15/2025 025, 01/11/2025, 10/31/2024, Additional history exists Dental X-Ray: Bitewings 10/30/2025 10/30/19 25, 08/24/2023, 06/04/2022, Additional history exists Dental Prophylaxis 10/31/2025 05/02/2025, 0 10/29/2024, 04/30/2024, Additional history exists Diabetes: Foot Exam 10/31/2025 10/31/2024, 10/31/2024, 10/31/2024, Additional history exists Diabetes: Urine Protein Screening 11/02/2025 11/02/2024, 10/22/2020 Alcohol/Substance Use Screening 01/11/2026 01/11/2025 Tobacco Screening 05/16/2026 05/16/2025 Dental X-Ray: Full Mouth 10/31/2027 025, 05/29/2021, [...] hyperglycemia, without long-term current use of insulin ([facility]) POCT GLUCOSE Routine 05/16/2025 9:36 AM EDT Type 2 diabetes mellitus with hyperglycemia, without long-term current use of insulin ([facility]) XR HAND 3+ VIEWS LEFT Routine 05/10/2025 [...] hyperglycemia, without long-term current use of insulin ([facility]/H[facility]) Weight loss LIPID PANEL, STANDARD Routine 06/30/2024 9:49 AM EST Type 2 diabetes mellitus with hyperglycemia, without long-term current use of insulin ([facility]) Weight loss from Last 3 Months or Most Recently Relevant to Health Maintenance Results * XR Ribs 3 Views Left w/ Chest (05/16/2025 9:47 AM EDT) Anatomical Region Laterality Modality Radiographic Lelo ging 05/16/2025 9:47 AM EDT Narrative 05/16/2025 9:55 AM EDT [address] [address] XRay Report Signed Patient: Mike Awan MR#: [id number] : 1970 Acct:[id number] Age/Sex: 54 / M ADM Date: 05/16/25 Loc: LEDA.MITZICX Attending Dr: Brigitte Bettencourt DO Ordering Physician: Brigitte Bettencourt DO Date of Service: 05/16/25 Procedure(s): XR ribs LT min 3V w CXR1V Accession Number(s): [id number] cc: Brigitte Bettencourt DO Reason for Exam: [...] MD in OV> 05/16/2552 DD/ TD/TT: 05/16/25947 Display Decorator: Procedure Note Donotuseinterpreter, Image - 05/16/[address] [address] XRay Report Signed Patient: Mike AwanMR#: [id number] : 1970Acct:[id number] Age/Sex: 54 / MADM Date: 05/16/25 Loc: ANGELCX Attending Dr: Brigitte Bettencourt DO Ordering Physician: Brigitte Bettencourt DO Date of Service: 05/16/25 Procedure(s): XR ribs LT min 3V w CXR1V Accession Number(s): [id number] cc: Brigitte Bettencourt DO Reason for Exam: [...] MD in OV> 05/16/2552 DD/ TD/TT: 05/16/25947 Display Decorator: Brigitte Bettencourt DO IMG XR PROCEDURES Final [...] specimen / Unknown 05/16/2025 9:36 AM EDT us Brigitte Bettencourt DO POINT OF CARE TEST ENTER/WAYNE T ORDERABLES Final Result * XR Hand 3+ Views Left (05/10/2025 8:46 AM EDT) Anatomical Region Laterality Modality Upper Extremities, Hand Left Radiogra phic Imaging 05/10/2025 8:46 AM EDT Narrative 05/10/2025 9:03 AM EDT [facility] [address] [place] [address] [address] [place] [address] XRay Report Signed Patient: Mike Awan MR#: [id number] : 1970 Acct:[id number] Age/Sex: 54 / M ADM Date: 05/10/25 Loc: HO.HOSX Attending Dr: Shabbir QUEEN Ordering Physician: Shabbir Domínguez Date of Service: 05/10/25 Procedure(s): XR hand LT min 3V Accession Number(s): [id number] cc: Shabbir Domínguez; France Dunlap MD Reason [...] signed by Naif Galindo MD in OV> 05/10/25900 DD/ 0846 TD/TT: 05/10/25 0851 Display Decorator: Procedure Note Donotuseinterpreter, Image - 05/10/2025 [facility] [address] [place] [address] XRay Report Signed Patient: Mike AwanMR#: [id number] : 1970Acct:[id number] Age/Sex: 54 / MADM Date: 05/10/25 Loc: HO.HOSX Attending Dr: Shabbir QUEEN Ordering Physician: Shabbir Domínguez Date of Service: 05/10/25 Procedure(s): XR hand LT min 3V Accession Number(s): [id number] cc: Shabbir Domínguez; France Dunlap MD Reason [...] 05/10/25 0901 DD/ 0846 TD/TT: 05/10/25 0851 Display Decorator: [facility] External Provider IMG XR PROCEDURES Edited Result - Final * (ABNORMAL) Glucose, Whole Blood (03/12/2025 12:34 PM EDT) Glucose, Whole Blood 233(H) 60 - 115 mg/dL [facility] Comment:METER #: [id number] 03/12/2025 12:3 4 PM EDT 03/12/2025 12:37 PM EDT us Generic External Data Provider LAB BLOOD ORDERAB LES Final Result Performing Organization Address City/State/[facility] Co de Phone Number [facility] [address] [place] [phone] * XR Fingers 2+ Views Left (03/12/2025 12:09 PM EDT) Anatomical Region Laterality Modality Upper Extremities, Fingers Left Radio graphic Imaging 03/12/2025 12:0 9 PM EDT Narrative 03/12/2025 1:37 PM EDT [address] [address] XRay Report Signed Patient: Mike Awan MR#: [id number] : 1970 Acct:[id number] Age/Sex: 54 / M ADM Date: 03/12/25 Loc: HO.ED Attending Dr: Ordering Physician: Yris Gomez NP Date of Service: 03/12/25 Procedure(s): XR finger LT min 2V Accession Number(s): [id number] cc: Vern Garcia MD; Yris Gomez NP [...] 03/12/25 1334 DD/ 1209 TD/TT: 03/12/25 1323 Display Decorator: Procedure Note Contreras, Image - 03/12/[address] [address] XRay Report Signed Patient: Mike AwanMR#: [id number] : 1970Acct:[id number] Age/Sex: 54 / MADM Date: 03/12/25 Loc: .ED Attending Dr: Ordering Physician: Yris Gomez NP Date of Service: 03/12/25 Procedure(s): XR finger LT min 2V Accession Number(s): [id number] cc: Name,Vern YUAN; Yris Gomez NP EXAMINATION: [...] 03/12/25 1334 DD/ 1209 TD/TT: 03/12/25 1323 Display Decorator: [facility] External Provider IMG XR PROCEDURES Final Result * Albumin, Random Urine W/Creatinine (11/02/2024 11:38 AM EDT) Creatinine, Urine 36.90 mg/dL [facility] Microalbumin Urine <5.0 mg/L [facility] Microalbum Creatinine Ratio Ur TNP <30 ug/mg cr [facility] Comment:Unable to calculate albumin/creatinine ratio due to lowmicroalbumin or creatinine result. Urine (Urine, Random) 11/02/2024 11:38 AM EDT 11/02/2024 1:32 PM EDT us Vern Garcia MD LAB URINE ORDERABLES Final Resul t Performing Organization Address City/[facility] Co de Phone Number [facility] [address] [place] [phone] * Hepatitis C Antibody with Reflex to HCV, RNA, Quantitative, Real-Time PCR (06/30/2024 9:49 AM EST) Pathologist [facility] Hepatitis C Antibody Nonreactive Nonreactive [facility] Comment:Antibodies to HCV no t detected; does not exclude early acuteHCV infection. Blood Venous blood specimen / Unknown 06/30/2024 9:49 AM EST 06/30/2024 9:49 AM EST us Vern Garcia MD LAB BLOOD ORDERABLES Final Resul t Performing Organization Address [facility] Co de Phone Number [facility] [address] [place] [phone] * HIV-1/2 Antigen and Antibodies, Fourth Generation, with Reflexes (06/30/2024 9:49 AM EST) HIV AB/AG Nonreactive Nonreactive [facility] Comment:HIV-1 p24 Ag and/or HIV-1/HIV-2 Ab not detected.A test result that is nonreactive does not exclude thepossibility of exposure to or infection with HIV-1 and/orHIV-2. Nonreactive results in this assay for individualswith prior exposure to HIV-1 and/or HIV-2 may be due toantigen and antibody levels that are below the limit ofdetection of this assay.The Piqora HIV Ag/Ab Combo assay result andsupplemental assay results should be interpreted inconjunction with the patient's clinical presentation,history and other laboratory results. If the results areinconsistent with clinical evidence, additional testing issuggested to confirm the result. Blood Venous blood specimen / Unknown 06/30/2024 9:49 AM EST 06/30/2024 9:49 AM EST us Vern Garcia MD LAB BLOOD ORDERABLES Final Resul t Performing Organization Address [facility] de Phone Number [facility] [address] [place] [phone] * (ABNORMAL) Lipid Panel, Standard (06/30/2024 9:49 AM EST) Triglycerides 75 <150 mg/dL [facility] Comment:Desirable Triglyceri de: less than 150 mg/dLBorderline High Triglyceride 150-199 mg/dLHigh Triglyceride: 200-499 mg/dLVery High Triglyceride: greater than or equal to 5OO mg/dL Cholesterol 213(H) <200 mg/dL [facility] Comment:Desirable Cholestero l: less than 200 mg/dLBorderline High Cholesterol: 200-239 mg/dLHigh Cholesterol: greater than 239 mg/dL LDL Cholesterol Calculated 142(H) <100 mg/dL [facility] Comment:Desirable LDL: less than 100 mg/dLNear Optimal/Above Optimal LDL: 110- 129 mg/dLBorderline High LDL: 130-159 mg/dLHigh LDL: 160-189 mg/dLVery High LDL: greater than or equal to 190 mg/dL HDL Cholesterol 56 >40 mg/dL [facility] Comment:Desirable HDL: great er than 40 mg/dL Note: This HDL assay may give artificially low results in patients with liver disease. Blood Venous blood specimen / Unknown 06/30/2024 9:49 AM EST 06/30/2024 9:49 AM EST us Vern Garcia MD LAB BLOOD ORDERABLES Final Resul t Performing Organization Address [facility] Co de Phone Number [facility] [address] [place] [phone] from Last 3 Months or Most Recently Relevant to Health Maintenance Insurance [place] [address] [place] [phone] [facility] D[facility]AL-[facility] MEDICAID STAND ADULT Care Teams Treating Plant Operator Relationship Specialty Start Date End Date Name, MD Vern [address] [place] [phone] PCP - General Internal Medicine 05/09/24
--- OUTSIDE RECORDS SUMMARY | 2025-05-17 08:48 | XMS_ITS | Clinical Summary ---
Author Organization [address] [place] [address] Address [address] [place] [address] Phone Care Team Providers Care Professor Of Radiology Name Role Phone Name, Vern YUAN Primary Care Provider [phone] Allergies Active Allergy Reactions Criticality Noted Date Comments Codeine 01/17/2025 Medications diclofenac (Voltaren Arthritis Pain) 1 % topical gel Apply 4 g topically 2 (two) times a day. 240 g 1 5 05/03/20 25 Encounters Date Type Department Care Team Description 03/04/2025 8:15 AM EDT Office Visit Orthopedic Surgery - [place] [address] [facility] [address] [place] [phone] Ehsan Perkins, DPM Tendonitis, Achilles, left [...] Payer (Ef fective 1997-Present) Name:CORNELIUS MCKEON Member ID:[id number] Relation to Subscriber:Self Name:Cornelius Mckeon Subscriber ID:[id number] Payer ID:Not on file Group ID:Not on file Type:Medicare Address: [facility] [address] [phone] Care Teams Professor Of Radiology Relationship Specialty Start Date End Date Name, MD Vern [address] [place] [address] PCP - General Internal Medicine 11/20/24
--- OUTSIDE RECORDS SUMMARY | 2025-05-17 08:48 | XMS_ITS | Encounter Summary ---
Author Organization [employer] Address 75 [facility] 7t [place] [address] Care Team Providers Care Lead Infrastructure Architect Name Role Phone Name, Vern YUAN Primary Care Provider [phone] Reason for Visit * Reason Comments Med Refill Encounter Details Date Type Department Care Team ([facility] st Contact Info) Description 05/28/2024 Refill [facility] MEDICINE [address] [place] [address] France Dunlap MD 230 [place] [address] Recurrent furunculosis Social History Tobacco Use Types [...] Visit [facility] ADULT DENTAL [address] [place] [address] Nathaniel Peter DDS [address] [place] [address] 06/14/2025 9:00 AM EDT Medication Management [facility] MEDICINE [address] [place] [address] Sheila Tidwell, PharmD [address] [place] [address] 08/02/2025 10:00 AM EST Office Visit [address] [address] Vern Garcia MD [address] [place] [address] 11/05/2025 8:00 AM EDT Office Visit [facility] ADULT DENTAL [address] [place] [address] Kay Martinez [address] [place] [address] documented as of this encounter Visit Diagnoses Diagnosis Recurrent furunculosis documented in this encounter Care Teams Lead Infrastructure Architect Relationship Specialty Start Date End Date Vern Garcia MD [address] [place] [address] PCP - General Internal Medicine 05/09/24 documented as of this encounter
--- OUTSIDE RECORDS SUMMARY | 2025-05-17 08:48 | XMS_ITS | Encounter Summary ---
Author Organization [employer] Address 75 [facility] 7t [place] [address] Care Team Providers Care Amalgamator Name Role Phone Name, Vern YUAN Primary Care Provider [phone] Encounter Details Date Type Department Care Team ([facility] st Contact Info) Description 09/26/2024 Orders Only [facility] [address] [place] [address] Jono Jacobs MD [address] [place] [address] Social History Tobacco Use Types Packs/Day Years [...] Description 06/07/2025 8:00 AM EDT Office Visit [facility] ADULT DENTAL [address] [place] [address] Nathaniel Peter DDS [address] [place] [address] 06/14/2025 9:00 AM EDT Medication Management [facility] [address] [place] [address] Sheila Tidwell, PharmD [address] [place] [address] 08/02/2025 10:00 AM EST Office Visit [address] [address] Vern Garcia MD [address] [place] [address] 11/05/2025 8:00 AM EDT Office Visit [facility] ADULT D[facility]AL [address] [place] [address] Kay Martinez [address] [place] [address] documented as of this encounter Procedures Procedure Name Priority Date/Time Associated Diagnosis Comments URINALYSIS, COMPLETE, WITH REFLEX TO CULTURE Routine 01/10/2025 1:33 PM EDT CBC WITH AUTO DIFFERENTIAL Routine 01/10/2025 1:28 PM EDT COMPREHENSIVE METABOLIC PANEL Routine 01/10/2025 1:28 PM EDT documented in this encounter Results * (ABNORMAL) Urinalysis, Complete, with Reflex to Culture (01/10/2025 1:33 PM EDT) Color Urine Yellow [facility] Appearance Urine Clear [facility] PH 6.5 5.0 - 9.0 [facility] Glucose Urine UA >=1000(A) Negative mg/dL [facility] Urine Blood Negative Negative [facility] Specific Hope - Urine >=1.030(H) 1.005 - 1.025 [facility] Urine Protein Negative Neg-Trace mg/dL [facility] Urine Ketones Negative Negative mg/dL [facility] Nitrite Urine Negative Negative [facility] Leukocyte Esterase Urine Negative Negative [facility] RBC Urine 0-2 0 - 2 /HPF [facility] Urine WBC 0-5 0 - 5 /HPF [facility] Urine Squamous Epithelial Cell 0-2 0 - 2 /HPF [facility] Urine Bacteria None Seen None Seen [facility] Hyaline Casts, Urine 0-2 0 - 2 /LPF [facility] 01/10/2025 1:33 PM EDT 01/10/2025 1:35 PM EDT Narrative [facility] - 01/10/2025 1:42 PM EDT [id number], Clean Catch us Generic External Data Provider LAB URINE ORDERAB LES Final Result [facility] [address] [place] [phone] * (ABNORMAL) Comprehensive Metabolic Panel (01/10/2025 1:28 PM EDT) Sodium 136 135 - 145 mmol/L [facility] Potassium 4.3 3.3 - 5.1 mmol/L [facility] Chloride 103 96 - 108 mmol/L [facility] Carbon Dioxide 27 22 - 29 mmol/L [facility] Anion Gap 10(L) 12 - 20 [facility] Urea Nitrogen (BUN) 12 9 - 16 mg/dL [facility] Creatinine, Serum 0.79 0.5 - 1.4 mg/dL [facility] Creatinine Clr Calc Pharmacy 107.3 [facility] Comment:eGFR (calculated fro m the MDRD study equation) and eCrCl(calculated from the Cockcroft-Gault equation) are based ondifferent parameters and may not yield comparable results.If eCrCl result is absurd, please check patient'sheight/weight. Estimated Glomerular Filt Rate >60 [facility] Comment:Chronic Kidney Disea se: Estimated GFR < 60 mL/min/[id number] Kidney Disease: Estimated GFR < 15 mL/min/1.73m2 Glucose 300(H) 60 - 115 mg/dL [facility] Calcium 9.3 8.4 - 10.2 mg/dL [facility] Bilirubin, Total 0.2 0.0 - 1.0 mg/dL [facility] Aspartate Amino Transferase 26 5 - 37 U/L [facility] Alanine Aminotransferase 30 0 - 40 U/L [facility] Total Protein 7.6 6.5 - 8.0 g/dL [facility] Albumin Level 3.9 3.5 - 5.0 g/dL [facility] Alkaline Phosphatase 95 39 - 117 U/L [facility] 01/10/2025 1:28 PM EDT 01/10/2025 1:35 PM EDT us Generic External Data Provider LAB BLOOD ORDERAB LES Final Result [facility] [address] [place] [address] [phone] * (ABNORMAL) CBC auto differential (01/10/2025 1:28 PM EDT) White Blood Count 6.2 4.8 - 10.8 X10*3/uL [facility] Red Blood Count 4.41(L) 4.60 - 5.80 X10*6/uL [facility] Hemoglobin 14.2 14.0 - 18.0 g/dl [facility] Hematocrit 40.1(L) 42.0 - 52.0 % [facility] Mean Corpuscular Volume 90.9 80.0 - 98.0 fL [facility] Mean Corpuscular Hemoglobin 32.2 27.0 - 33.0 pg [facility] Mean Corpuscular HGB Conc 35.4 31.0 - 36.0 g/dl [facility] Red Cell Distribution Width 12.4 11.0 - 16.0 % [facility] Platelet Count 400 160 - 400 X10*3/uL [facility] Mean Platelet Volume 8.9(L) 9.4 - 12.4 fL [facility] Neutrophils Percent Auto 52.3 45 - 73 % [facility] Imm Gran Pct Auto 1.0(H) 0.0 - 0.4 % [facility] Lymphocytes Percent Auto 35.9 20 - 40 % [facility] Monocytes Percent Auto 7.6 2 - 11 % [facility] Eosinophils Percent Auto 2.7 0 - 4 % [facility] Basophils Percent Auto 0.5 0 - 2 % [facility] NRBC Pct Auto 0.0 0.0 - 0.2 /100WBC [facility] Neutrophils Absolute Auto 3.2 2.0 - 8.3 x10*3/uL [facility] Imm Gran Abs Auto 0.06(H) 0.00 - 0.03 X10*3/uL [facility] Lymphocytes Absolute Auto 2.2 1.2 - 4.9 X10*3/uL [facility] Monocytes Absolute Auto 0.5 0.1 - 1.2 X10*3/uL [facility] Eosinophils Absolute Auto 0.2 0.0 - 0.4 X10*3/uL [facility] Basophils Absolute Auto 0.0 0.0 - 0.2 X10*3/uL [facility] NRBC Abs Auto 0.000 0.0 - 0.012 X10*3/uL [facility] 01/10/2025 1:28 PM EDT 01/10/2025 1:35 PM EDT us Generic External Data Provider LAB BLOOD ORDERAB LES Final Result Performing Organization Address City/State/[facility] Co de Phone Number [facility] [address] [place] [address] [phone] documented in this encounter Visit Diagnoses Not on filedocumented in this encounter Care Teams Amalgamator Relationship Specialty Start Date End Date Name, MD Vern [address] [place] [phone] PCP - General Internal Medicine 05/09/24 documented as of this encounter
--- OUTSIDE RECORDS SUMMARY | 2025-05-17 08:48 | XMS_ITS | Encounter Summary ---
Author Organization [employer] Address 75 [facility] 7t [place] [address] Care Team Providers Care Attorney At Law Name Role Phone Name, Vern YUAN Primary Care Provider [phone] Reason for Visit * Reason Onset Date Comments Results 05/16/2025 Encounter Details Date Type Department Care Team ([facility] st Contact Info) Description 05/16/2025 Telephone [facility] WALK-IN CENTER [address] [place] [address] Brigitte Bettencourt DO [address] [place] [address] Results Social History Tobacco Use Types Packs/Day Years [...] the past 12 months, has t he [employer] oil or water company threatened to shut [...] encounter Miscellaneous Notes * Telephone Encounter - Kandi Love RN - 05/16/2025 10:37 AM EDT TC placed to pt to discuss normal x-ray results pt is in agreement with plan of care Please advise pt that xrays showed no rib fractures. He should continue with pain meds as needed. Thank you. * Telephone Encounter - Brigitte Bettencourt DO - 05/16/2025 10:30 AM EDT Please advise pt that xrays showed no rib fractures. He should continue with pain meds as needed. Thank you. documented in this encounter Plan of Treatment Upcoming Encounters Date Type Department Care Team (Late st Contact Info) Description 06/07/2025 8:00 AM EDT Office Visit [facility] ADULT DENTAL [address] [place] [address] Nathaniel Peter DDS [address] [place] [address] 06/14/2025 9:00 AM EDT Medication Management [facility] MEDICINE [address] [place] [address] Sheila Tidwell, PharmD [address] [place] [address] 08/02/2025 10:00 AM EST Office Visit [facility] MEDICINE [address] [place] [address] Name, MD Vern [address] [place] [address] 11/05/2025 8:00 AM EDT Office Visit [facility] ADULT DENTAL [address] [place] [address] Kay Martinez [address] [place] [address] documented as of this encounter Visit Diagnoses Not on filedocumented in this encounter Care Teams Attorney At Law Relationship Specialty Start Date End Date Name, [place] [address] PCP - General Internal Medicine 05/09/24 documented as of this encounter
--- OUTSIDE RECORDS SUMMARY | 2025-05-17 08:48 | XMS_ITS | Encounter Summary ---
Author Organization [employer] Address 75 [facility] 7 [place] [address] Care Team Providers Care Library Attendant Name Role Phone Name, Vern YUAN Primary Care Provider [phone] Reason for Visit * Reason Onset Date Comments Appointment Request 09/21/2024 Encounter Details Date Type Department Care Team ([facility] st Contact Info) Description 09/21/[address] [facility] MEDICINE [address] [place] [address] Name, MD Vern [address] [place] [address] Appointment Request Social History Tobacco Use Types [...] he will be coming in to the [facility]. Insulation Engineman advise of hours. documented in this encounter Plan of Treatment Upcoming Encounters Date Type Department Care Team (Late st Contact Info) Description 06/07/2025 8:00 AM EDT Office Visit [facility] ADULT DENTAL [address] [place] [address] Nathaniel Peter DDS [address] [place] [address] 06/14/2025 9:00 AM EDT Medication Management [facility] MED[facility] [address] [place] [address] Sheila Tidwell, PharmD [address] [place] [address] 08/02/2025 10:00 AM EST Office Visit [facility] MEDICINE [address] [place] [address] Name, MD Vern [address] [place] [address] 11/05/2025 8:00 AM EDT Office Visit [facility] ADULT DENTAL [address] [place] [address] Kay Martinez [address] [place] [address] documented as of this encounter Visit Diagnoses Not on filedocumented in this encounter Care Teams Library Attendant Relationship Specialty Start Date End Date Name, MD Vern [address] [place] [address] PCP - General Internal Medicine 05/09/24 documented as of this encounter
== END 2025-05-17 09:11 | disposition home or self-care (01) ==
DX: S62.633B Displaced fracture of distal phalanx of left middle finger, initial encounter for open fracture (principal)
CPT/HCPCS: 99213

== ENCOUNTER → 2025-05-17 08:29 | Outpatient (BNVA) | payer MEDICARE, MEDICAID, SELFPAY | DX: S62.633D Displaced fracture of distal phalanx of left middle finger, subsequent encounter for fracture with routine healing (principal) | CPT/HCPCS: 99212 ==

== ENCOUNTER 2025-05-22 15:06 | Outpatient (REF) | payer MEDICARE, MEDICAID, SELFPAY ==
--- NOTE | ~2025-05-22 | XR_ITS ---
EXAMINATION: XR HAND, LEFT CLINICAL INFORMATION: M79.642 - Pain in left hand COMPARISON: May 10, 2025 demonstrated displaced fracture distal phalanx, third digit. TECHNIQUE: PA, lateral, and oblique views of the left hand. FINDINGS: There is a 1.2 mm separation between the fragments of the fracture in the distal phalanx, third digit. No periosteal bone reaction and callus soft tissue edema pattern. Metacarpal bones are intact. The phalanges of the first second fourth and fifth digits are intact with normal alignment. Carpal bones are intact with normal alignment. Distal radius and ulna are intact. XR/XR hand LT min 3V IMPRESSION: Nonunion fracture, distal phalanx third digit. Electronically signed by: Celso Hameed MD 05/22/2025 03:58 PM EDT
== END 2025-05-22 15:07 | disposition home or self-care (01) ==
LOC: HO.HOSX 15:06
DX: S62.633B Displaced fracture of distal phalanx of left middle finger, initial encounter for open fracture (principal); X58.XXXA Exposure to other specified factors, initial encounter
CPT/HCPCS: 73130; 99212

== ENCOUNTER 2025-05-22 15:06 | Outpatient (AMB) | payer MEDICARE, MEDICAID, SELFPAY ==
--- NOTE | 2025-05-22 15:29 | A.OFFVIS_ITS ---
Vital Signs 05/22/25 15:32 Height 5 ft 6 in Weight 170 lb BMI 27.4 Handedness Right Intake Visit Reasons: OV:LT MF distal phalanx fx,DOI 03/12/25-wound check Intake Note: Mike is a 54 year old right hand dominant male who presents today for a follow up of his left middle finger distal phalanx open fracture DOI 03/12/25. At his last appointment there was concern for a superficial infection, consistent with paronychia. The area of infection was lanced and drained. He was instructed to complete warm-hot salt water soaks. Antibiotics were prescribed. Patient reports he has 1 or 2 days left of antibiotics. Reports continued pain on the distal end of the left middle finger on the dorsal and palmar aspect. Allergies codeine Allergy (Unknown, Verified 05/22/25 15:32) upset stomach, nausea shrimp Allergy (Verified 05/22/25 15:32) Anaphylaxis HPI HPI OV:LT MF distal phalanx fx,DOI 03/12/25-wound check: Details: Mike is a 54 year old right hand dominant male who presents today for a follow up of his left middle finger distal phalanx open fracture DOI 03/12/25. At his last appointment there was concern for a superficial infection, consistent with paronychia. The area of infection was lanced and drained. He was instructed to complete warm-hot salt water soaks. Antibiotics were prescribed. Patient reports he has 1 or 2 days left of antibiotics. Reports continued pain on the distal end of the left middle finger on the dorsal and palmar aspect. 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 Neuro: Normal sensation of the tips of all digits of the left hand at this time Vascular: Cap refill brisk Pain: No Tenderness to palpation about the distal aspect of the left middle finger ROM: Patient is able to flex and extend at all joints of the left hand There is noted to be some minor motion noted at the fracture site Skin: Laceration of distal aspect of right middle finger has healed very well Purulence and erythema have both resolved completely General: No ecchymosis Psych: Appears grossly normal Affect normal Attitude cooperative Assessment & Plan Assessment & Plan (1) Open fracture of distal phalanx of left middle finger: Code(s): S62.633B - Displaced fracture of distal phalanx of left middle finger, initial encounter for open fracture Category: Medical Plan 1. Open fracture of the distal phalanx of left middle finger Patient is educated about this condition Patient is educated about the typical treatment course Patient is seen and evaluated with Dr. Willis, and a collaborative treatment plan was formed: Patient is educated that there is slight concern for delay in healing of his fracture, as there is minimal evidence of bony healing 1 month after injury No ongoing evidence of infection at this time Patient is educated on the signs and symptoms of worsening infection Patient may wash the laceration site with soap and water in the sink of the shower, no submerging 2 lb weight limit in left hand Dressing changed in the office today, daily dressing changes Patient is also given a fingertips splint to stabilize the fracture, should wear splint with daytime activities Due to concerns with the nail bed, patient will follow-up with Dr. Willis in 3-4 weeks for discussion of nail bed excision, sooner with any acute concerns Patient is amenable to this plan Orders: Orders XR hand LT min 3V 05/22/25 M79.642 - Pain in left hand Coding Level of Care Code Global (19336) Diagnoses Open fracture of distal phalanx of left middle finger S62.633B
[2025-05-22 15:32] VITALS: BMI 27.4
--- OUTSIDE RECORDS SUMMARY | 2025-05-22 16:09 | XMS_ITS | Encounter Summary ---
Author Organization [employer] Address 75 [facility] 7t [place] [address] Care Team Providers Care Jewelry Manager Name Role Phone Name, Vern YUAN Primary Care Provider [phone] Reason for Visit * Reason Comments Med Refill Encounter Details Date Type Department Care Team ([facility] st Contact Info) Description 05/28/2024 Refill [facility] MEDICINE [address] [place] [address] France Dunlap MD [address] [place] [address] Recurrent furunculosis Social History Tobacco Use Types [...] Description 06/07/2025 8:00 AM EDT Office Visit [facility] ADULT DENTAL [address] [place] [address] Nathaniel Peter DDS [address] [place] [address] 06/14/2025 9:00 AM EDT Medication Management [facility] MEDICINE [address] [place] [address] Sheila Tidwell, PharmD [address] [place] [address] 08/02/2025 10:00 AM EST Office Visit [address] [address] Vern Garcia MD [address] [place] [address] 11/05/2025 8:00 AM EDT Office Visit [facility] ADULT DENTAL [address] [place] [address] Kay Martinez [address] [place] [address] documented as of this encounter Visit Diagnoses Diagnosis Recurrent furunculosis documented in this encounter Care Teams Jewelry Manager Relationship Specialty Start Date End Date Vern Garcia MD [address] [place] [address] PCP - General Internal Medicine 05/09/24 documented as of this encounter
--- OUTSIDE RECORDS SUMMARY | 2025-05-22 16:09 | XMS_ITS | Encounter Summary ---
Author Organization [employer] Address 75 [facility] 7 [place] [address] Care Team Providers Care Associate Account Executive Name Role Phone Name, Vern YUAN Primary Care Provider [phone] Reason for Visit * Reason Onset Date Comments Appointment Request 09/21/2024 Encounter Details Date Type Department Care Team ([facility] st Contact Info) Description 09/21/2024 Telephone [facility] MEDICINE [address] [place] [address] Name, MD Vern [address] [place] [address] Appointment Request Social History Tobacco Use Types [...] will be coming in to the [facility]. Wholesale Buyer advise of hours. documented in this encounter Plan of Treatment Upcoming Encounters Date Type Department Care Team (Late st Contact Info) Description 06/07/2025 8:00 AM EDT Office Visit [facility] ADULT DENTAL [address] [place] [address] Nathaniel Peter DDS [address] [place] [address] 06/14/2025 9:00 AM EDT Medication Management [facility] [address] [place] [address] Sheila Tidwell, PharmD [address] [place] [address] 08/02/2025 10:00 AM EST Office Visit [facility] [address] [place] [phone] Name, MD Vern [address] [place] [address] 11/05/2025 8:00 AM EDT Office Visit [facility] ADULT DENTAL [address] [place] [address] Kay Martinez [address] [place] [address] documented as of this encounter Visit Diagnoses Not on filedocumented in this encounter Care Teams Associate Account Executive Relationship Specialty Start Date End Date Name, MD Vern [address] [place] [address] PCP - General Internal Medicine 05/09/24 documented as of this encounter
--- OUTSIDE RECORDS SUMMARY | 2025-05-22 16:09 | XMS_ITS | Encounter Summary ---
Author Organization [employer] Address 75 [facility] 7 [place] [address] Care Team Providers Care Street Light Repairer Name Role Phone France Dunlap MD Primary Care Provider + Vern Garcia MD Primary Care Provider [phone] Encounter Details Date Type Department Care Team (Latest Contact Info) Description 10/20/2018 Abstract [facility] Dental, Provider, DDS Social History [...] Description 06/07/2025 8:00 AM EDT Office Visit [facility] ADULT DENTAL [address] [place] [address] Nathaniel Peter, DDS [address] [place] [address] 06/14/2025 9:00 AM EDT Medication Management [facility] MED[facility] [address] [place] [address] Sheila Tidwell, PharmD [address] [place] [address] 08/02/2025 10:00 AM EST Office Visit [facility] MED[facility] [address] [place] [address] Name, MD Vern [address] [place] [address] 11/05/2025 8:00 AM EDT Office Visit [facility] ADULT DENTAL [address] [place] [address] Kay Martinez [address] [place] [address] documented as of this encounter Visit Diagnoses Not on filedocumented in this encounter Care Teams Street Light Repairer Relationship Specialty Start Date End Date France Dunlap MD [address] [place] [address] PCP - General Family Medicine 09/05/20 05/08/24 Name, MD Vern [address] [place] [address] PCP - General Internal Medicine 05/09/24 documented as of this encounter
--- OUTSIDE RECORDS SUMMARY | 2025-05-22 16:09 | XMS_ITS | Clinical Summary ---
Author Organization [address] [place] [address] Address [address] [place] [address] Phone Care Team Providers Care Electrical Engineering Draftsperson Name Role Phone Name, Vern YUAN Primary Care Provider [phone] Allergies Active Allergy Reactions Criticality Noted Date Comments Codeine 01/17/2025 Medications diclofenac (Voltaren Arthritis Pain) 1 % topical gel Apply 4 g topically 2 (two) times a day. 240 g 1 5 05/03/20 25 Encounters Date Type Department Care Team Description 03/04/2025 8:15 AM EDT Office Visit [facility] - [facility] [address] [facility] [address] [place] [phone] Ehsan Perkins, DPM Tendonitis, Achilles, left [...] Health Maintenance Due Date Last Done Comments Colorectal Cancer Screening: Colonoscopy 1971 Diabetes: Annual Foot Exam 1981 Diabetes: Annual Retina Eye Exam 1981 Hepatitis A Vaccines (1 of 2 - Risk 2-dose series) 1990 Pneumococcal Vaccine: 50+ Years (2 of 2 - PCV) 2021 2016 Depression Screening 08/22/2024 Diabetes: Annual Urine Albumin-Creatinine Ratio (uACR) 11/20/2024 Medicare Annual Wellness Visit 11/20/2024 Social Influencers of Health Screening 11/20/2024 COVID-19 Vaccine ( season) 2025 12/30/2020, 12/02/2020 [...] Payer (Ef fective 1997-Present) Name:CORNELIUS MCKEON Member ID:[id number] Relation to Subscriber:Self Name:Cornelius Mckeon Subscriber ID:[id number] Payer ID:Not on file Group ID:Not on file Type:Medicare Address: [facility] [address] [phone] Care Teams Electrical Engineering Draftsperson Relationship Specialty Start Date End Date Name, MD Vern [address] [place] [address] PCP - General Internal Medicine 11/20/24
--- OUTSIDE RECORDS SUMMARY | 2025-05-22 16:09 | XMS_ITS | Encounter Summary ---
Author Organization [employer] Address 75 [facility] 7 [place] [address] Care Team Providers Care Extension Division Director Name Role Phone France Dunlap MD Primary Care Provider + Vern Garcia MD Primary Care Provider [phone] Encounter Details Date Type Department Care Team (Latest Contact Info) Description 05/29/2021 Abstract [facility] CONVERSION[facility] Dental, Provider, DDS Social History [...] Description 06/07/2025 8:00 AM EDT Office Visit [facility] [address] [place] [address] Nathaniel Peter, DDS [address] [place] [address] 06/14/2025 9:00 AM EDT Medication Management [facility] [address] [place] [address] Sheila Tidwell, PharmD 230 [place] [address] 08/02/2025 10:00 AM EST Office Visit [facility] [address] [place] [address] Name, MD Vern [address] [place] [address] 11/05/2025 8:00 AM EDT Office Visit [facility] [address] [place] [address] Kay Martinez [address] [place] [address] documented as of this encounter Visit Diagnoses Not on filedocumented in this encounter Care Teams Extension Division Director Relationship Specialty Start Date End Date France Dunlap MD [address] [place] [address] PCP - General Family Medicine 09/05/20 05/08/24 Name, MD Vern [address] [place] [address] PCP - General Internal Medicine 05/09/24 documented as of this encounter
--- OUTSIDE RECORDS SUMMARY | 2025-05-22 16:09 | XMS_ITS | Clinical Summary ---
Author Organization [employer] Address 75 [facility] 7t [place] [address] Care Team Providers Care Industrial Electrical Technician Name Role Phone Name, Vern YUAN Primary Care Provider [phone] Allergies Active Allergy Reactions Criticality Noted Date [...] hyperglycemia, without long-term current use of insulin (HCC) Take 1 tablet (2 mg) by mouth before breakfast. 30 tablet 11 5 11/01/19 26 Active empagliflozin-m etFORMIN (Synjardy) 12.5-500 MGIndications:T ype 2 diabetes mellitus with hyperglycemia, without long-term current use of insulin (HCC) Take 1 tablet by mouth with breakfast [...] any medications Rx Paxlovid x 5 days, [place] interactions module checked, no significant interactions found. [...] Description 05/16/2025 8:40 AM EDT Office Visit [facility] [address] [place] [address] Brigitte Bettencourt DO Rib pain on left side (Primary Dx); Paronychia of left middle finger; Type 2 diabetes mellitus with hyperglycemia, without long-term current use of insulin ([facility]) 05/16/2025 Telephone [facility] [address] [place] [address] Brigitte Bettencourt DO Results 05/16/2025 Travel 05/10/2025 Orders Only [facility] External Provider, [facility] 05/02/2025 8:00 AM EDT Office Visit [facility] [address] [place] [address] Kay Martinez Dental calculus (Primary Dx); Localized gingival recession 03/12/2025 Orders Only GENERIC EXTERNAL DATA DEPARTMENT Provider, Generic External Data 03/01/2025 Telephone [facility] [address] [facility] [place] [address] Name, MD Vern from Last 3 Months [...] your housing situation today? I have erickson micheal 10/31/[address] you li [...] Description 06/07/2025 8:00 AM EDT Office Visit [facility] [address] [place] [address] Nathaniel Peter DDS [address] [place] [address] 06/14/2025 9:00 AM EDT Medication Management [facility] [address] [place] [address] Sheila Tidwell, PharmD [address] [place] [address] 08/02/2025 10:00 AM EST Office Visit [facility] [address] [place] [address] Name, MD Vern [address] [place] [address] 11/05/2025 8:00 AM EDT Office Visit [facility] [address] [place] [address] [place] [address] Health Maintenance Due Date Last Done Comments [...] Additional history exists Lipid Panel 06/30/2025 06/30/2024, 042 11/2023, 07/13/2021, Additional history exists Diabetes: Hemoglobin A1C [...] hyperglycemia, without long-term current use of insulin ([facility]) POCT GLUCOSE Routine 05/16/2025 9:36 AM EDT Type 2 diabetes mellitus with hyperglycemia, without long-term current use of insulin ([facility]) XR HAND 3+ VIEWS LEFT Routine [...] AM EDT Narrative 05/16/2025 9:55 AM EDT [address] [address] XRay Report Signed Patient: Mike Awan MR#: [id number] : 1970 Acct:[id number] Age/Sex: 54 / M ADM Date: 05/16/25 Loc: HO.CX Attending Dr: Brigitte Bettencourt DO Ordering Physician: Brigitte Bettencourt DO Date of Service: 05/16/25 Procedure(s): XR ribs LT min 3V w CXR1V Accession Number(s): [id number] cc: Brigitte Bettencourt DO Reason for Exam: [...] in OV> 05/16/2552 DD/ 6 TD/TT: 05/16/25947 Director Environmental: Procedure Note Donotuseinterpreter, Image - 05/16/[address] [address] XRay Report Signed Patient: Mike AwanMR#: [id number] : 1970Acct:[id number] Age/Sex: 54 / MADM Date: 05/16/25 Loc: CX Attending Dr: Brigitte Bettencourt DO Ordering Physician: Brigitte Bettencourt DO Date of Service: 05/16/25 Procedure(s): XR ribs LT min 3V w CXR1V Accession Number(s): [id number] cc: Brigitte Bettencourt DO Reason for Exam: [...] in OV> 05/16/2552 DD/ 6 TD/TT: 05/16/25947 Director Environmental: Brigitte Bettencourt DO IMG XR PROCEDURES Final [...] AM EDT Narrative 05/10/2025 9:03 AM EDT [facility] [address] [place] [address] XRay Report Signed Patient: Mike Awan MR#: [id number] : 1970 Acct:[id number] Age/Sex: 54 / M ADM Date: 05/10/25 Loc: HO.HOSX Attending Dr: Shabbir QUEEN Ordering Physician: Shabbir Domínguez Date of Service: 05/10/25 Procedure(s): XR hand LT min 3V Accession Number(s): [id number] cc: Shabbir Domínguez; France Dunlap MD Reason [...] by Naif Galindo MD in OV> 05/10/25 09 DD/ 0846 TD/TT: 05/10/25 0851 Director Environmental: Procedure Note Donotuseinterpreter, Image - 05/10/2025 [facility] [address] [place] [address] XRay Report Signed Patient: Mike AwanMR#: [id number] : 1970Acct:[id number] Age/Sex: 54 / MADM Date: 05/10/25 Loc: HO.HOSX Attending Dr: Shabbir QUEEN Ordering Physician: Shabbir Domínguez Date of Service: 05/10/25 Procedure(s): XR hand LT min 3V Accession Number(s): [id number] cc: Shabbir Domínguez; France Dunlap MD Reason [...] 05/10/25 0901 DD/ 0846 TD/TT: 05/10/25 0851 Director Environmental: [facility] External Provider IMG XR PROCEDURES Edited Result - Final * (ABNORMAL) Glucose, Whole Blood (03/12/2025 12:34 PM EDT) Glucose, Whole Blood 233(H) 60 - 115 mg/dL [facility] Comment:METER #: [id number] 03/12/2025 12:3 4 PM EDT 03/12/2025 12:37 PM EDT us Generic External Data Provider LAB BLOOD ORDERAB LES Final Result Performing Organization Address City/State/[facility] Co de Phone Number [facility] [address] [place] [phone] * XR Fingers 2+ Views Left (03/12/2025 12:09 PM EDT) Anatomical Region Laterality Modality Upper Extremities, Fingers Left [facility] 03/12/2025 12:0 9 PM EDT Narrative 03/12/2025 1:37 PM EDT [address] [address] XRay Report Signed Patient: Mike Awan MR#: [id number] : 1970 Acct:[id number] Age/Sex: 54 / M ADM Date: 03/12/25 Loc: .ED Attending Dr: Ordering Physician: Yris Gomez NP Date of Service: 03/12/25 Procedure(s): XR finger LT min 2V Accession Number(s): [id number] cc: Vern Garcia MD; Yris Gomez NP [...] 03/12/25 1334 DD/ 1209 TD/TT: 03/12/25 1323 Director Environmental: Procedure Note Contreras, Image - 03/12/[address] [address] XRay Report Signed Patient: Mike AwanMR#: [id number] : 1970Acct:[id number] Age/Sex: 54 / MADM Date: 03/12/25 Loc: .ED Attending Dr: Ordering Physician: Yris Gomez NP Date of Service: 03/12/25 Procedure(s): XR finger LT min 2V Accession Number(s): [id number] cc: Name,Vern YUAN; Yris Gomez NP EXAMINATION: [...] 03/12/25 1334 DD/ 1209 TD/TT: 03/12/25 1323 Director Environmental: [facility] External Provider IMG XR PROCEDURES Final Result * Albumin, Random Urine W/Creatinine (11/02/2024 11:38 AM EDT) Creatinine, Urine 36.90 mg/dL [facility] Microalbumin Urine <5.0 mg/L [facility] Microalbum Creatinine Ratio Ur TNP <30 ug/mg cr [facility] Comment:Unable to calculate albumin/creatinine ratio due to lowmicroalbumin or creatinine result. Urine (Urine, Random) 11/02/2024 11:38 AM EDT 11/02/2024 1:32 PM EDT us Vern Garcia MD LAB URINE ORDERABLES Final Resul t Performing Organization Address City/[facility] Co de Phone Number [facility] [address] [place] [phone] * Hepatitis C Antibody with Reflex to HCV, RNA, Quantitative, Real-Time PCR (06/30/2024 9:49 AM EST) Hepatitis C Antibody Nonreactive Nonreactive [facility] Comment:Antibodies to HCV no t detected; does not exclude early acuteHCV infection. Blood Venous blood specimen / Unknown 06/30/2024 9:49 AM EST 06/30/2024 9:49 AM EST us Vern Garcia MD LAB BLOOD ORDERABLES Final Resul t Performing Organization Address [facility] Co de Phone Number [facility] [address] [place] [phone] * HIV-1/2 Antigen and Antibodies, Fourth Generation, with Reflexes (06/30/2024 9:49 AM EST) HIV AB/AG Nonreactive Nonreactive [facility] Comment:HIV-1 p24 Ag and/or HIV-1/HIV-2 Ab not detected.A test result that is nonreactive does not exclude thepossibility of exposure to or infection with HIV-1 and/orHIV-2. Nonreactive results in this assay for individualswith prior exposure to HIV-1 and/or HIV-2 may be due toantigen and antibody levels that are below the limit ofdetection of this assay.The SumZero HIV Ag/Ab Combo assay result andsupplemental assay results should be interpreted inconjunction with the patient's clinical presentation,history and other laboratory results. If the results areinconsistent with clinical evidence, additional testing issuggested to confirm the result. Blood Venous blood specimen / Unknown 06/30/2024 9:49 AM EST 06/30/2024 9:49 AM EST us Vern Garcia MD LAB BLOOD ORDERABLES Final Resul t Performing Organization Address [facility] de Phone Number [facility] [address] [place] [phone] * (ABNORMAL) Lipid Panel, Standard (06/30/2024 9:49 AM EST) Triglycerides 75 <150 mg/dL [facility] Comment:Desirable Triglyceri de: less than 150 mg/dLBorderline High Triglyceride 150-199 mg/dLHigh Triglyceride: 200-499 mg/dLVery High Triglyceride: greater than or equal to 5OO mg/dL Cholesterol 213(H) <200 mg/dL [facility] Comment:Desirable Cholestero l: less than 200 mg/dLBorderline High Cholesterol: 200-239 mg/dLHigh Cholesterol: greater than 239 mg/dL LDL Cholesterol Calculated 142(H) <100 mg/dL [facility] Comment:Desirable LDL: less than 100 mg/dLNear Optimal/Above Optimal LDL: 110- 129 mg/dLBorderline High LDL: 130-159 mg/dLHigh LDL: 160-189 mg/dLVery High LDL: greater than or equal to 190 mg/dL HDL Cholesterol 56 >40 mg/dL [facility] Comment:Desirable HDL: great er than 40 mg/dL Note: This HDL assay may give artificially low results in patients with liver disease. Blood Venous blood specimen / Unknown 06/30/2024 9:49 AM EST 06/30/2024 9:49 AM EST us Vern Garcia MD LAB BLOOD ORDERABLES Final Resul t Performing Organization Address [facility] Co de Phone Number [facility] [address] [place] [phone] from Last 3 Months or Most Recently Relevant to Health Maintenance Insurance MEDICARE [address] [place] [phone] [facility] D[facility]AL-[facility] MEDICAID STAND ADULT Care Teams Industrial Electrical Technician Relationship Specialty Start Date End Date Name, MD Vern [address] [place] [address] PCP - General Internal Medicine 05/09/24
--- OUTSIDE RECORDS SUMMARY | 2025-05-22 16:09 | XMS_ITS | Encounter Summary ---
Author Organization [employer] Address 75 [facility] 7t [place] [address] Care Team Providers Care Elevator Mechanic Apprentice Name Role Phone Name, Vern YUAN Primary Care Provider [phone] Reason for Visit * Reason Comments Med Refill Encounter Details Date Type Department Care Team ([facility] st Contact Info) Description 05/23/2024 Refill [facility] [address] [place] [address] Pop Hardwick MD [address] [place] [address] Onychomycosis Social History Tobacco Use Types Packs/Day [...] Description 06/07/2025 8:00 AM EDT Office Visit [facility] ADULT [facility]ENT[facility] [address] [place] [address] Nathaniel Peter DDS [address] [place] [address] 06/14/2025 9:00 AM EDT Medication Management [facility] [address] [place] [address] Sheila Tidwell, PharmD [address] [place] [address] 08/02/2025 10:00 AM EST Office Visit [address] [address] Name, MD Vern [address] [place] [address] 11/05/2025 8:00 AM EDT Office Visit [facility] [address] [place] [address] Kay Martinez [address] [place] [address] documented as of this encounter Visit Diagnoses Diagnosis Onychomycosis Dermatophytosis of nail documented in this encounter Care Teams Elevator Mechanic Apprentice Relationship Specialty Start Date End Date NameVern MD [address] [place] [address] PCP - General Internal Medicine 05/09/24 documented as of this encounter
--- OUTSIDE RECORDS SUMMARY | 2025-05-22 16:09 | XMS_ITS | Encounter Summary ---
Author Organization [employer] Address 75 [facility] 7t [place] [address] Care Team Providers Care Entry Level Programmer Name Role Phone Name, Vern YUAN Primary Care Provider [phone] Encounter Details Date Type Department Care Team ([facility] st Contact Info) Description 09/26/2024 Orders Only [facility] [address] [place] [address] Jono Jacobs MD [address] [place] [address] Social History Tobacco Use Types Packs/Day Years [...] 8:00 AM EDT Office Visit [facility] ADULT [facility] [address] [place] [address] Nathaniel Peter DDS [address] [place] [address] 06/14/2025 9:00 AM EDT Medication Management [facility] [address] [place] [address] Sheila Tidwell, PharmD [address] [place] [address] 08/02/2025 10:00 AM EST Office Visit [address] [address] Vern Garcia MD [address] [place] [address] 11/05/2025 8:00 AM EDT Office Visit [facility] [address] [place] [address] Kay Martinez [address] [place] [address] documented as of this encounter Procedures Procedure Name Priority Date/Time Associated Diagnosis Comments URINALYSIS, COMPLETE, WITH REFLEX TO CULTURE Routine 01/10/2025 1:33 PM EDT CBC WITH AUTO DIFFERENTIAL Routine 01/10/2025 1:28 PM EDT COMPREHENSIVE METABOLIC PANEL Routine 01/10/2025 1:28 PM EDT documented in this encounter Results * (ABNORMAL) Urinalysis, Complete, with Reflex to Culture (01/10/2025 1:33 PM EDT) Color Urine Yellow [facility] Appearance Urine Clear [facility] PH 6.5 5.0 - 9.0 [facility] Glucose Urine UA >=1000(A) Negative mg/dL [facility] Urine Blood Negative Negative [facility] Specific [place] - Urine >=1.030(H) 1.005 - 1.025 [facility] Urine Protein Negative Neg-Trace mg/dL [facility] Urine Ketones Negative Negative mg/dL [facility] Nitrite Urine Negative Negative [facility] Leukocyte Esterase Urine Negative Negative [facility] RBC Urine 0-2 0 - 2 /HPF [facility] Urine WBC 0-5 0 - 5 /HPF [facility] Urine Squamous Epithelial Cell 0-2 0 - 2 /HPF [facility] Urine Bacteria None Seen None Seen [facility] Hyaline Casts, Urine 0-2 0 - 2 /LPF [facility] 01/10/2025 1:33 PM EDT 01/10/2025 1:35 PM EDT Narrative [facility] - 01/10/2025 1:42 PM EDT [id number], [employer] us Generic External Data Provider LAB URINE ORDERAB LES Final Result [facility] [address] [place] [phone] * (ABNORMAL) Comprehensive Metabolic Panel (01/10/2025 1:28 PM EDT) Sodium 136 135 - 145 mmol/L [facility] Potassium 4.3 3.3 - 5.1 mmol/L [facility] Chloride 103 96 - 108 mmol/L [facility] Carbon Dioxide 27 22 - 29 mmol/L [facility] Anion Gap 10(L) 12 - 20 [facility] Urea Nitrogen (BUN) 12 9 - 16 mg/dL [facility] Creatinine, Serum 0.79 0.5 - 1.4 mg/dL [facility] Creatinine Clr Calc Pharmacy 107.3 [facility] Comment:eGFR (calculated fro m the MDRD study equation) and eCrCl(calculated from the Cockcroft-Gault equation) are based ondifferent parameters and may not yield comparable results.If eCrCl result is absurd, please check patient'sheight/weight. Estimated Glomerular Filt Rate >60 [facility] Comment:Chronic Kidney Disea se: Estimated GFR < 60 mL/min/1.25r4Pwlhmu Kidney Disease: Estimated GFR < 15 mL/min/1.73m2 Glucose 300(H) 60 - 115 mg/dL [facility] Calcium 9.3 8.4 - 10.2 mg/dL [facility] Bilirubin, Total 0.2 0.0 - 1.0 mg/dL [facility] Aspartate Amino Transferase 26 5 - 37 U/L [facility] Alanine Aminotransferase 30 0 - 40 U/L [facility] Total Protein 7.6 6.5 - 8.0 g/dL [facility] Albumin Level 3.9 3.5 - 5.0 g/dL [facility] Alkaline Phosphatase 95 39 - 117 U/L [facility] 01/10/2025 1:28 PM EDT 01/10/2025 1:35 PM EDT us Generic External Data Provider LAB BLOOD ORDERAB LES Final Result [facility] [address] [place] [address] [phone] * (ABNORMAL) CBC auto differential (01/10/2025 1:28 PM EDT) White Blood Count 6.2 4.8 - 10.8 X10*3/uL [facility] Red Blood Count 4.41(L) 4.60 - 5.80 X10*6/uL [facility] Hemoglobin 14.2 14.0 - 18.0 g/dl [facility] Hematocrit 40.1(L) 42.0 - 52.0 % [facility] Mean Corpuscular Volume 90.9 80.0 - 98.0 fL [facility] Mean Corpuscular Hemoglobin 32.2 27.0 - 33.0 pg [facility] Mean Corpuscular HGB Conc 35.4 31.0 - 36.0 g/dl [facility] Red Cell Distribution Width 12.4 11.0 - 16.0 % [facility] Platelet Count 400 160 - 400 X10*3/uL [facility] Mean Platelet Volume 8.9(L) 9.4 - 12.4 fL [facility] Neutrophils Percent Auto 52.3 45 - 73 % [facility] Imm Gran Pct Auto 1.0(H) 0.0 - 0.4 % [facility] Lymphocytes Percent Auto 35.9 20 - 40 % [facility] Monocytes Percent Auto 7.6 2 - 11 % [facility] Eosinophils Percent Auto 2.7 0 - 4 % [facility] Basophils Percent Auto 0.5 0 - 2 % [facility] NRBC Pct Auto 0.0 0.0 - 0.2 /100WBC [facility] Neutrophils Absolute Auto 3.2 2.0 - 8.3 x10*3/uL [facility] Imm Gran Abs Auto 0.06(H) 0.00 - 0.03 X10*3/uL [facility] Lymphocytes Absolute Auto 2.2 1.2 - 4.9 X10*3/uL [facility] Monocytes Absolute Auto 0.5 0.1 - 1.2 X10*3/uL [facility] Eosinophils Absolute Auto 0.2 0.0 - 0.4 X10*3/uL [facility] Basophils Absolute Auto 0.0 0.0 - 0.2 X10*3/uL [facility] NRBC Abs Auto 0.000 0.0 - 0.012 X10*3/uL [facility] 01/10/2025 1:28 PM EDT 01/10/2025 1:35 PM EDT us Generic External Data Provider LAB BLOOD ORDERAB LES Final Result Performing Organization Address City/State/[facility] Co de Phone Number [facility] [address] [place] [address] [phone] documented in this encounter Visit Diagnoses Not on filedocumented in this encounter Care Teams Entry Level Programmer Relationship Specialty Start Date End Date Name, MD Vern [address] [place] [phone] PCP - General Internal Medicine 05/09/24 documented as of this encounter
--- OUTSIDE RECORDS SUMMARY | 2025-05-22 16:09 | XMS_ITS | Encounter Summary ---
Author Organization [employer] Address 75 [facility] 7 [place] [address] Care Team Providers Care Varnish Dipper Name Role Phone Name, Vern YUAN Primary Care Provider [phone] Reason for Visit * Reason Comments Med Refill Encounter Details Date Type Department Care Team ([facility] st Contact Info) Description 10/29/2024 Refill [facility] MEDICINE [address] [place] [address] France Dunlap MD [address] [place] [address] Recurrent furunculosis Social History Tobacco Use Types [...] Description 06/07/2025 8:00 AM EDT Office Visit [facility] ADULT DENTAL [address] [place] [address] Nathaniel Peter DDS [address] [place] [address] 06/14/2025 9:00 AM EDT Medication Management [facility] MEDICINE [address] [place] [address] Sheila Tidwell, PharmD [address] [place] [address] 08/02/2025 10:00 AM EST Office Visit [facility] MED[facility]INE [address] [place] [address] NameVern MD [address] [place] [address] 11/05/2025 8:00 AM EDT Office Visit [facility] ADULT DENTAL [address] [place] [address] Kay Martinez [address] [place] [address] documented as of this encounter Visit Diagnoses Diagnosis Recurrent furunculosis documented in this encounter Care Teams Varnish Dipper Relationship Specialty Start Date End Date NameVern MD [address] [place] [address] PCP - General Internal Medicine 05/09/24 documented as of this encounter
== END 2025-05-22 16:01 | disposition home or self-care (01) ==
LOC: HO.HOS 15:07
DX: S62.633B Displaced fracture of distal phalanx of left middle finger, initial encounter for open fracture (principal)
CPT/HCPCS: 99213

== ENCOUNTER → 2025-05-22 15:41 | Outpatient (BNV) | payer MEDICARE, MEDICAID, SELFPAY | PROVIDERS: Visit Provider Radiology Diagnostic Radiology | DX: S62.663 Nondisplaced fracture of distal phalanx of left middle finger (principal) | CPT/HCPCS: 73130 ==

== ENCOUNTER 2025-06-12 14:43 | Outpatient (AMB) | payer MEDICARE, MEDICAID, SELFPAY ==
--- NOTE | 2025-06-12 15:07 | MHC.OFFVIS ---
Vital Signs 06/12/25 15:09 Height 5 ft 6 in Weight 170 lb BMI 27.4 Intake Visit Reasons: OV-LT MF Discuss nail bed excision with AR Intake Note: Mike is a 54 year old right hand dominant male who presents today for a follow up of his left middle finger distal phalanx open fracture DOI 03/12/25. At his last appointment with Dr Willis and Mario Alberto Shea, he was advise to do daily dressing changes and 2 lb weight limit in left hand Patient is also given a fingertips splint to stabilize the fracture. Due to concerns with the nail bed, patient was also advise to follow-up with Dr. Willis for discussion of nail bed excision. Allergies codeine Allergy (Unknown, Verified 05/22/25 15:32) upset stomach, nausea shrimp Allergy (Verified 05/22/25 15:32) Anaphylaxis HPI HPI OV-LT MF Discuss nail bed excision with AR: Details: Mike is a 54 year old right hand dominant man who presents to discuss his left middle finger nailbed. He is S/P open fracture of the left middle distal phalanx, DOI 03/12/25. This was managed conservatively by BERNICE Shea. He says he is doing well. he is concerned about his nail growing in and reports hypersensitivity and pain when his nail is touched. 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, rt [employer] Review of Systems Const All systems reviewed & are unremarkable except as noted in HPI and below Physical Exam Vital Signs: BMI result Body Mass Index 27.4 Const General: cooperative, healthy appearing and no acute distress Orientation/consciousness: patient oriented x3 HEENT Head: Yes normocephalic and Yes atraumatic Eyes EOM: EOMs intact bilaterally Resp Effort & Inspection: normal respiratory effort and able to speak in complete sentences Cardio Jugular venous distension: no JVD Skin General skin exam: turgor normal Rashes: no rashes Neuro General: patient oriented x3 Extrem Other: Evaluation of Left Upper Extremity: The patient is alert, oriented, and in no acute distress Neuro: Diminished sensation to half of the middle finger, unspecified Vascular: Cap refill brisk ROM: He can make a fist and extend all his digits Skin: The skin is still somewhat hyperemic at the eponycheal fold No Erythema or evidence of infection. Fracture site minimally tender when squeezing the sides Distal half of the nail plate is still partially attached Psych Appearance: grossly normal Affect: normal affect Attitude: cooperative Assessment & Plan Assessment & Plan (1) Open fracture of distal phalanx of left middle finger: Code(s): S62.633B - Displaced fracture of distal phalanx of left middle finger, initial encounter for open fracture Category: Medical Plan Assessment & Plan: 1. Left middle finger distal phalanx fracture, open DOI: 03/12/25 Paronychia lanced & drained in clinic by BERNICE Shea on 05/17/25 I educated him about this condition I discussed treatment options for his nailbed At this time I recommend he continue to trim his nail and wait & see whether a new nail may be growing in. Depending on how the next few weeks go we may consider a possible nailbed excision He will perform daily wound care & warm saltwater soaks for his middle finger I explained the signs and symptoms of infection, if the patient develops any new or worsening erythema, drainage, pain, or warmth they should contact the clinic or attend the ED. He has completed his course of Abx as instructed. He will follow up in 2-3 weeks with BERNICE Shea, with X-rays. This should be done on a day when I am in office Scribed for Danelle Willis MD by Ferdinand Dalton, medical staffing coordinator, on 06/12/25 at 3:10 PM, EST. Coding Level of Care Code Global (75312) Diagnoses Open fracture of distal phalanx of left middle finger S62.633B
[2025-06-12 15:09] VITALS: BMI 27.4
--- OUTSIDE RECORDS SUMMARY | 2025-06-12 20:53 | XMS_ITS | Encounter Summary ---
Author Organization [employer] Address [address] [facility] 7 [place] [address] Care Team Providers Care Barber Tool Sharpener Name Role Phone France Dunlap MD Primary Care Provider + Vern Garcia MD Primary Care Provider [phone] Encounter Details Date Type Department Care Team (Latest Contact Info) Description 10/20/2018 Abstract [facility] CONVERSIONS Dental, Provider, DDS Social History [...] Care Team (Late st Contact Info) Description 07/24/2025 8:00 AM EST Office Visit [facility] ADULT DENTAL [address] [place] [phone] Nathaniel Peter DDS [address] [place] [address] 08/02/2025 10:00 AM EST Office Visit [facility] MEDICINE [address] [place] [phone] Vern Garcia MD [address] [place] [address] 11/05/2025 8:00 AM EDT Office Visit [facility] ADULT DENTAL [address] [place] [phone] Ritchie Martinezaris [address] [place] [address] documented as of this encounter Visit Diagnoses Not on filedocumented in this encounter Care Teams Barber Tool Sharpener Relationship Specialty Start Date End Date France Dunlap MD [address] [place] [address] PCP - General Family Medicine 09/05/20 05/08/24 Vern Garcia MD [address] [place] [address] PCP - General Internal Medicine 05/09/24 documented as of this encounter
--- OUTSIDE RECORDS SUMMARY | 2025-06-12 20:53 | XMS_ITS | Encounter Summary ---
Author Organization [employer] Address [address] [facility] 7t [place] [address] Care Team Providers Care Supervisor Stage Carpentry Name Role Phone Name, Vern YUAN Primary Care Provider [phone] Encounter Details Date Type Department Care Team ([facility] st Contact Info) Description 09/26/2024 Orders Only [facility] MEDICINE [address] [place] [address] Jono Jacobs MD [address] [place] [address] Social History Tobacco Use Types Packs/Day Years [...] Description 07/24/2025 8:00 AM EST Office Visit [facility] ADULT DENTAL [address] [place] [address] Nathaniel Peter DDS [address] [place] [address] 08/02/2025 10:00 AM EST Office Visit [facility] MEDICINE [address] [place] [address] Name, MD Vern [address] [place] [address] 11/05/2025 8:00 AM EDT Office Visit [facility] ADULT DENTAL [address] [place] [address] Kay Martinez [address] [place] [address] documented as of this encounter Procedures Procedure Name Priority Date/Time Associated Diagnosis Comments URINALYSIS, COMPLETE, WITH REFLEX TO CULTURE Routine 01/10/2025 1:33 PM EDT CBC WITH AUTO DIFFERENTIAL Routine 01/10/2025 1:28 PM EDT COMPREHENSIVE METABOLIC PANEL Routine 01/10/2025 1:28 PM EDT documented in this encounter Results * (ABNORMAL) Urinalysis, Complete, with Reflex to Culture (01/10/2025 1:33 PM EDT) Color Urine Yellow [facility] Appearance Urine Clear [facility] PH 6.5 5.0 - 9.0 [facility] Glucose Urine UA >=1000(A) Negative mg/dL [facility] Urine Blood Negative Negative [facility] Specific [place] - Urine >=1.030(H) 1.005 - 1.025 [facility] Urine Protein Negative Neg-Trace mg/dL [facility] Urine Ketones Negative Negative mg/dL [facility] Nitrite Urine Negative Negative [facility] Leukocyte Esterase Urine Negative Negative [facility] RBC Urine 0-2 0 - 2 /HPF [facility] Urine WBC 0-5 0 - 5 /HPF [facility] Urine Squamous Epithelial Cell 0-2 0 - 2 /HPF [facility] Urine Bacteria None Seen None Seen [facility] Hyaline Casts, Urine 0-2 0 - 2 /LPF [facility] 01/10/2025 1:33 PM EDT 01/10/2025 1:35 PM EDT Narrative [facility] - 01/10/2025 1:42 PM EDT [id number], Clean Catch us Generic External Data Provider LAB URINE ORDERAB LES Final Result [facility] [address] [place] [phone] * (ABNORMAL) Comprehensive Metabolic Panel (01/10/2025 1:28 PM EDT) Sodium 136 135 - 145 mmol/L [facility] Potassium 4.3 3.3 - 5.1 mmol/L [facility] Chloride 103 96 - 108 mmol/L [facility] Carbon Dioxide 27 22 - 29 mmol/L [facility] Anion Gap 10(L) 12 - 20 [facility] Urea Nitrogen (BUN) 12 9 - 16 mg/dL [facility] Creatinine, Serum 0.79 0.5 - 1.4 mg/dL [facility] Creatinine Clr Calc Pharmacy 107.3 [facility] Comment:eGFR (calculated fro m the MDRD study equation) and eCrCl(calculated from the Cockcroft-Gault equation) are based ondifferent parameters and may not yield comparable results.If eCrCl result is absurd, please check patient'sheight/weight. Estimated Glomerular Filt Rate >60 [facility] Comment:Chronic Kidney Disea se: Estimated GFR < 60 mL/min/[id number] Kidney Disease: Estimated GFR < 15 mL/min/1.73m2 Glucose 300(H) 60 - 115 mg/dL [facility] Calcium 9.3 8.4 - 10.2 mg/dL [facility] Bilirubin, Total 0.2 0.0 - 1.0 mg/dL [facility] Aspartate Amino Transferase 26 5 - 37 U/L [facility] Alanine Aminotransferase 30 0 - 40 U/L [facility] Total Protein 7.6 6.5 - 8.0 g/dL [facility] Albumin Level 3.9 3.5 - 5.0 g/dL [facility] Alkaline Phosphatase 95 39 - 117 U/L [facility] 01/10/2025 1:28 PM EDT 01/10/2025 1:35 PM EDT us Generic External Data Provider LAB BLOOD ORDERAB LES Final Result [facility] [address] [place] [phone] * (ABNORMAL) CBC auto differential (01/10/2025 1:28 PM EDT) White Blood Count 6.2 4.8 - 10.8 X10*3/uL [facility] Red Blood Count 4.41(L) 4.60 - 5.80 X10*6/uL [facility] Hemoglobin 14.2 14.0 - 18.0 g/dl [facility] Hematocrit 40.1(L) 42.0 - 52.0 % [facility] Mean Corpuscular Volume 90.9 80.0 - 98.0 fL [facility] Mean Corpuscular Hemoglobin 32.2 27.0 - 33.0 pg [facility] Mean Corpuscular HGB Conc 35.4 31.0 - 36.0 g/dl [facility] Red Cell Distribution Width 12.4 11.0 - 16.0 % [facility] Platelet Count 400 160 - 400 X10*3/uL [facility] Mean Platelet Volume 8.9(L) 9.4 - 12.4 fL [facility] Neutrophils Percent Auto 52.3 45 - 73 % [facility] Imm Gran Pct Auto 1.0(H) 0.0 - 0.4 % [facility] Lymphocytes Percent Auto 35.9 20 - 40 % [facility] Monocytes Percent Auto 7.6 2 - 11 % [facility] Eosinophils Percent Auto 2.7 0 - 4 % [facility] Basophils Percent Auto 0.5 0 - 2 % [facility] NRBC Pct Auto 0.0 0.0 - 0.2 /100WBC [facility] Neutrophils Absolute Auto 3.2 2.0 - 8.3 x10*3/uL [facility] Imm Gran Abs Auto 0.06(H) 0.00 - 0.03 X10*3/uL [facility] Lymphocytes Absolute Auto 2.2 1.2 - 4.9 X10*3/uL [facility] Monocytes Absolute Auto 0.5 0.1 - 1.2 X10*3/uL [facility] Eosinophils Absolute Auto 0.2 0.0 - 0.4 X10*3/uL [facility] Basophils Absolute Auto 0.0 0.0 - 0.2 X10*3/uL [facility] NRBC Abs Auto 0.000 0.0 - 0.012 X10*3/uL [facility] 01/10/2025 1:28 PM EDT 01/10/2025 1:35 PM EDT us Generic External Data Provider LAB BLOOD ORDERAB LES Final Result [facility] [address], [place] [phone] documented in this encounter Visit Diagnoses Not on filedocumented in this encounter Care Teams Supervisor Stage Carpentry Relationship Specialty Start Date End Date Name, MD Vern [address] [place] [address] PCP - General Internal Medicine 05/09/24 documented as of this encounter
--- OUTSIDE RECORDS SUMMARY | 2025-06-12 20:53 | XMS_ITS | Encounter Summary ---
Author Organization [employer] Address [address] [facility] 7t [place] [address] Care Team Providers Care Tank Pumper Name Role Phone Name, Vern YUAN Primary Care Provider [phone] Encounter Details Date Type Department Care Team ([facility] st Contact Info) Description 06/11/2025 Telephone [facility] MEDICINE [address] [place] [address] Sheila Tidwell, PharmD [address] [place] [address] Social History Tobacco Use Types Packs/Day Years [...] encounter Miscellaneous Notes * Telephone Encounter - Sheila Tidwell PharmD - 06/11/2025 9:06 AM EDT FYI to PCP - patient discharged from [facility] - Diabetes effective today. Patient has canceled the last 4 consecutive new patient appointments to enroll in [facility] DM. He will be removed from the outreach list per existing workflow. If, upon further discussion, you feel patient would benefit from & is agreeable to pharmacy services please issue a new referral to re-enroll. Thank you. documented in this encounter Plan of Treatment Upcoming Encounters Date Type Department Care Team (Late st Contact Info) Description 07/24/2025 8:00 AM EST Office Visit [facility] ADULT DENTAL [address] [place] [phone] Nathaniel Peter DDS [address] [place] [address] 08/02/2025 10:00 AM EST Office Visit [facility] MEDICINE [address] [place] [phone] Name, MD Vern [address] [place] [address] 11/05/2025 8:00 AM EDT Office Visit [facility] ADULT DENTAL [address] [place] [phone] Kay Martinez [address] [place] [address] documented as of this encounter Visit Diagnoses Not on filedocumented in this encounter Care Teams Tank Pumper Relationship Specialty Start Date End Date Name, MD Vern [address] [place] [address] PCP - General Internal Medicine 05/09/24 documented as of this encounter
--- OUTSIDE RECORDS SUMMARY | 2025-06-12 20:53 | XMS_ITS | Encounter Summary ---
Author Organization [employer] Address [address] [facility] 7 [place] [address] Care Team Providers Care Machine Farmworker Name Role Phone Name, Vern YUAN Primary Care Provider [phone] Reason for Visit * Reason Onset Date Comments Appointment Request 09/21/2024 Encounter Details Date Type Department Care Team ([facility] st Contact Info) Description 09/21/2024 Telephone [facility] MEDICINE [address] [place] [address] Name, MD Vern [address] [place] [address] Appointment Request Social History Tobacco Use Types [...] he will be coming in to the [facility]. Supervisor Stripping advise of hours. documented in this encounter Plan of Treatment Upcoming Encounters Date Type Department Care Team (Late st Contact Info) Description 07/24/2025 8:00 AM EST Office Visit [facility] ADULT DENTAL [address] [place] [phone] Nathaniel Peter DDS [address] [place] [address] 08/02/2025 10:00 AM EST Office Visit [facility] MEDICINE [address] [place] [address] Name, MD Vern [address] [place] [address] 11/05/2025 8:00 AM EDT Office Visit [facility] ADULT DENTAL [address] [place] [address] Kay Martinez [address] [place] [address] documented as of this encounter Visit Diagnoses Not on filedocumented in this encounter Care Teams Machine Farmworker Relationship Specialty Start Date End Date Name, MD Vern [address] [place] [address] PCP - General Internal Medicine 05/09/24 documented as of this encounter
--- OUTSIDE RECORDS SUMMARY | 2025-06-12 20:53 | XMS_ITS | Encounter Summary ---
Author Organization [employer] Address [address] [facility] 7t [place] [address] Care Team Providers Care Mortar Worker Name Role Phone Name, Vern YUAN Primary Care Provider [phone] Reason for Visit * Reason Comments Med Refill Encounter Details Date Type Department Care Team (Late st Contact Info) Description 06/08/2025 Refill [facility] WALK-[facility] [address] [phone] Name, MD Vern [address] [place] [phone] Social History Tobacco Use Types Packs/Day Years [...] Description 07/24/2025 8:00 AM EST Office Visit [facility] ADULT DENTAL [address] [place] [address] Nathaniel Peter DDS [address] [place] [address] 08/02/2025 10:00 AM EST Office Visit [facility] MEDICINE [address] [place] [address] Name, MD Vern [address] [place] [address] 11/05/2025 8:00 AM EDT Office Visit [facility] ADULT DENTAL [address] [place] [address] Kay Martinez [address] [place] [address] documented as of this encounter Visit Diagnoses Not on filedocumented in this encounter Care Teams Mortar Worker Relationship Specialty Start Date End Date NameVern MD [address] [place] [address] PCP - General Internal Medicine 05/09/24 documented as of this encounter
--- OUTSIDE RECORDS SUMMARY | 2025-06-12 20:53 | XMS_ITS | Clinical Summary ---
Author Organization [employer] Address [address] [place] [address] 7 [place] [address] Care Team Providers Care Asw/Asuw Tactical Air Controller Name Role Phone Name, Vern YUAN Primary Care Provider [phone] Allergies Active Allergy Reactions Criticality Noted Date Comments Codeine Nausea And Vomiting 07/25/2014 Shellfish Protein-Containing Drug Products 12/27/2016 Medications cetirizine (ZyrTEC) 10 MG tablet Take 1 tablet (10 mg) by mouth in the morning. Prn. 30 tablet 01/07/20 23 Active Lancets Misc. kit 1 each Once daily. 50 kit 11 07/24/20 24 025 Active glucose blood test strip Freestyle Lite Test Strip - Test once a day 100 each 4 07/24/20 24 Active albuterol 1.25 MG/3ML nebulizer solutionIndica tions:COVID-19 Take 3 mL (1.25 mg) by nebulization every 6 (six) hours if needed for wheezing. 75 mL 3 09/26/19 25 026 Active glimepiride (Amaryl) 2 MG tabletIndicati ons:Type 2 diabetes mellitus with hyperglycemia, without long-term current use of insulin (HCC) Take 1 tablet (2 mg) by mouth before breakfast. 30 tablet 11/01/19 25 026 Active empagliflozin- metFORMIN (Synjardy) 12.5-500 MGIndications: Type 2 diabetes mellitus with hyperglycemia, without long-term current use of insulin (HCC) Take 1 tablet by mouth with breakfast and with evening meal. 60 tablet 11/01/19 25 026 Active tretinoin (Retin-A) 0.025 % creamIndicatio ns:Acne comedone Apply topically at bedtime. 45 g 2 12/22/19 25 Active Cialis 20 MG tablet TAKE 1 TABLET 1 HOUR BEFORE SEXUAL RELATIONS ONCE DAILY NEEDED. 10 tablet 2 01/08/20 Active SITagliptin (Januvia) 25 MG tablet Take 1 tablet (25 mg) by mouth Once per day. 90 tablet 01/12/20 25 026 Active terbinafine (LamISIL) 1 % cream APPLY TOPICALLY TO THE AFFECTED AREA(S) TWICE DAILY DIRECTED 45 g 2 01/22/20 Active ammonium lactate (Amlactin) 12 % cream APPLY TOPICALLY TO THE AFFECTED AREA(S) EVERY DAY NEEDED FOR DRY SKIN 385 g 1 01/29/20 Active minocycline 100 MG capsuleIndicat ions:Folliculi tis TAKE 1 CAPSULE BY MOUTH TWICE DAILY 60 capsule 01/29/20 Active acetaminophen (Tylenol 8 Hour) 650 MG ER tablet Take 1 tablet (650 mg) by mouth every 8 (eight) hours if needed for mild pain. Do not crush, chew, or split. 40 tablet 1 05/16/20 25 Active ibuprofen 600 MG tablet Take 1 tablet (600 mg) by mouth every 6 (six) hours if needed for mild pain. 40 tablet 1 05/16/20 25 Active Diclofenac Sodium 1 % gel Apply 2 g topically if needed in the morning, at noon, in the evening, and at bedtime (pain). 150 g 3 05/16/20 25 Active fluticasone (Flonase) 50 MCG/ACT nasal spray INSTILL 1 SPRAY IN EACH NOSTRIL ONCE DAILY 16 g 2 06/10/20 25 Active fluticasone (Flonase) 50 MCG/ACT nasal spray INSTILL 1 SPRAY IN EACH NOSTRIL ONCE DAILY 16 g 2 09/21/19 25 Discontinued cephalexin (Keflex) 500 MG capsule Take 1 capsule (500 mg) by mouth 3 times daily for 7 days. 21 capsule 05/16/20 25 025 sulfamethoxazo le-trimethopri m (Bactrim DS) 800-160 MG tablet Take 1 tablet by mouth 2 times daily for 7 days. 14 tablet 05/16/20 25 025 Active Problems Problem Noted Date [...] any medications Rx Paxlovid x 5 days, [place] interactions module checked, no significant interactions found. [...] Encounters Date Type Department Care Team Description 06/11/2025 Telephone [facility] MEDICINE [address] [place] [phone] Sheila Tidwell, PharmD 06/08/2025 Refill [facility] WALK-IN CENTER [address] [place] [address] [phone] Name, MD Vern 05/16/2025 8:40 AM EDT Office Visit [facility] WALK[facility]IN CENTER [address] [place] [phone] Brigitte Bettencourt DO Rib pain on left side (Primary Dx); Paronychia of left middle finger; Type 2 diabetes mellitus with hyperglycemia, without long-term current use of insulin ([facility]) 05/16/2025 Telephone [facility] WALK-IN CENTER [address] [place] [address] Brigitte Bettencourt, DO Results 05/16/2025 Travel 05/10/2025 Orders Only [facility] External Provider, [facility] 05/02/2025 8:00 AM EDT Office Visit [facility] ADULT DENTAL [address] [place] [address] Kay Martinez Dental calculus (Primary Dx); Localized gingival recession 03/12/2025 Orders Only GENERIC EXTERNAL DATA DEPARTMENT Provider, Generic External Data from Last 3 Months Immunizations Immunization Administration [...] Description 07/24/2025 8:00 AM EST Office Visit [facility] ADULT DENTAL [address] [place] [address] Nathaniel Peter DDS [address] [place] [address] 08/02/2025 10:00 AM EST Office Visit [facility] MEDICINE [address] [place] [phone] Name, MD Vern [address] [place] [address] 11/05/2025 8:00 AM EDT Office Visit [facility] ADULT DENTAL [address] [place] [address] Kay Martinez [address] [place] [address] Health Maintenance Due Date Last Done Comments [...] hyperglycemia, without long-term current use of insulin ([facility]) POCT GLUCOSE Routine 05/16/2025 9:36 AM EDT Type 2 diabetes mellitus with hyperglycemia, without long-term current use of insulin ([facility]) XR HAND 3+ VIEWS LEFT Routine [...] AM EDT Narrative 05/16/2025 9:55 AM EDT [address] [address] XRay Report Signed Patient: Mike Awan MR#: [id number] : 1970 Acct:[id number] Age/Sex: 54 / M ADM Date: 05/16/25 [facility] Attending Dr: Brigitte Bettencourt DO Ordering Physician: Brigitte Bettencourt DO Date of Service: 05/16/25 Procedure(s): XR ribs LT min 3V w CXR1V Accession Number(s): [id number] cc: Brigitte Bettencourt DO Reason for Exam: [...] in OV> 05/16/2552 DD/ 6 TD/TT: 05/16/25947 Lumber Cutter: Procedure Note Donotuseinterpreter, Image - 05/16/[address] [address] XRay Report Signed Patient: Mike AwanMR#: [id number] : 1970Acct:[id number] Age/Sex: 54 / MADM Date: 05/16/25 Loc: MELISSAX Attending Dr: Brigitte Bettencourt DO Ordering Physician: Brigitte Bettencourt DO Date of Service: 05/16/25 Procedure(s): XR ribs LT min 3V w CXR1V Accession Number(s): [id number] cc: Brigitte Bettencourt DO Reason for Exam: [...] in OV> 05/16/2552 DD/ 6 TD/TT: 05/16/25947 Lumber Cutter: Brigitte Bettencourt DO IMG XR PROCEDURES Final [...] AM EDT Narrative 05/10/2025 9:03 AM EDT [facility] [address] [place] [address] Drive [address] [place] [address] XRay Report Signed Patient: Mike Awan MR#: [id number] : 1970 Acct:[id number] Age/Sex: 54 / M ADM Date: 05/10/25 Loc: HO.HOSX Attending Dr: Shabbir QUEEN Ordering Physician: Shabbir Domínguez Date of Service: 05/10/25 Procedure(s): XR hand LT min 3V Accession Number(s): [id number] cc: Shabbir Domínguez; France Dunlap MD Reason [...] 05/10/25 09 DD/ 0846 TD/TT: 05/10/25 0851 Lumber Cutter: Procedure Note Donotuseinterpreter, Image - 05/10/2025 [facility] [address] [place] [address] XRay Report Signed Patient: Mike AwanMR#: [id number] : 1970Acct:[id number] Age/Sex: 54 / MADM Date: 05/10/25 Loc: HO.HOSX Attending Dr: Shabbir QUEEN Ordering Physician: Shabbir Domínguez Date of Service: 05/10/25 Procedure(s): XR hand LT min 3V Accession Number(s): [id number] cc: Shabbir Domínguez; France Dunlap MD Reason [...] Galindo MD in OV> 05/10/25 09 DD/ 5 TD/TT: 05/10/25 0851 Lumber Cutter: [facility] External Provider IMG XR PROCEDURES Edited Result - Final * (ABNORMAL) Glucose, Whole Blood (03/12/2025 12:34 PM EDT) Glucose, Whole Blood 233(H) 60 - 115 mg/dL [facility] Comment:METER #: [id number] 03/12/2025 12:3 4 PM EDT 03/12/2025 12:37 PM EDT us Generic External Data Provider LAB BLOOD ORDERAB LES Final Result Performing Organization Address City/State/[facility] Co de Phone Number [facility] [address] [place] [phone] * XR Fingers 2+ Views Left (03/12/2025 12:09 PM EDT) Anatomical Region Laterality Modality Upper Extremities, Fingers Left [facility] 03/12/2025 12:0 9 PM EDT Narrative 03/12/2025 1:37 PM EDT [address] [address] XRay Report Signed Patient: Mike Awan MR#: [id number] : 1970 Acct:[id number] Age/Sex: 54 / M ADM Date: 03/12/25 Loc: HO.ED Attending Dr: Ordering Physician: Yris Gomez NP Date of Service: 03/12/25 Procedure(s): XR finger LT min 2V Accession Number(s): [id number] cc: Vern Garcia MD; Yris Gomez NP [...] 03/12/25 1334 DD/ 1209 TD/TT: 03/12/25 1323 Lumber Cutter: Procedure Note Contreras, Image - 03/12/2025 [place] [address] XRay Report Signed Patient: Mike AwanMR#: [id number] : 1970Acct:[id number] Age/Sex: 54 / MADM Date: 03/12/25 Loc: .ED Attending Dr: Ordering Physician: Yris Gomez NP Date of Service: 03/12/25 Procedure(s): XR finger LT min 2V Accession Number(s): [id number] cc: Name,Vern YUAN; Yris Gomez NP EXAMINATION: [...] 03/12/25 1334 DD/ 1209 TD/TT: 03/12/25 1323 Lumber Cutter: [facility] External Provider IMG XR PROCEDURES Final Result * Albumin, Random Urine W/Creatinine (11/02/2024 11:38 AM EDT) Creatinine, Urine 36.90 mg/dL [facility] Microalbumin Urine <5.0 mg/L [facility] Microalbum Creatinine Ratio Ur TNP <30 ug/mg cr [facility] Comment:Unable to calculate albumin/creatinine ratio due to lowmicroalbumin or creatinine result. Urine (Urine, Random) 11/02/2024 11:38 AM EDT 11/02/2024 1:32 PM EDT us Vern Garcia MD LAB URINE ORDERABLES Final Resul t Performing Organization Address [facility] Co de Phone Number [facility] [address] [place] [phone] * Hepatitis C Antibody with Reflex to HCV, RNA, Quantitative, Real-Time PCR (06/30/2024 9:49 AM EST) Hepatitis C Antibody Nonreactive Nonreactive [facility] Comment:Antibodies to HCV no t detected; does not exclude early acuteHCV infection. Blood Venous blood specimen / Unknown 06/30/2024 9:49 AM EST 06/30/2024 9:49 AM EST us Vern Garcia MD LAB BLOOD ORDERABLES Final Resul t Performing Organization Address [facility] Co de Phone Number [facility] [address] [place] [phone] * HIV-1/2 Antigen and Antibodies, Fourth Generation, with Reflexes (06/30/2024 9:49 AM EST) HIV AB/AG Nonreactive Nonreactive [facility] Comment:HIV-1 p24 Ag and/or HIV-1/HIV-2 Ab not detected.A test result that is nonreactive does not exclude thepossibility of exposure to or infection with HIV-1 and/orHIV-2. Nonreactive results in this assay for individualswith prior exposure to HIV-1 and/or HIV-2 may be due toantigen and antibody levels that are below the limit ofdetection of this assay.The [employer] HIV Ag/Ab Combo assay result andsupplemental assay results should be interpreted inconjunction with the patient's clinical presentation,history and other laboratory results. If the results areinconsistent with clinical evidence, additional testing issuggested to confirm the result. Blood Venous blood specimen / Unknown 06/30/2024 9:49 AM EST 06/30/2024 9:49 AM EST us Vern Garcia MD LAB BLOOD ORDERABLES Final Resul t Performing Organization Address [facility] Co de Phone Number [facility] [address] [place] [phone] * (ABNORMAL) Lipid Panel, Standard (06/30/2024 9:49 AM EST) Triglycerides 75 <150 mg/dL [facility] Comment:Desirable Triglyceri de: less than 150 mg/dLBorderline High Triglyceride 150-199 mg/dLHigh Triglyceride: 200-499 mg/dLVery High Triglyceride: greater than or equal to 5OO mg/dL Cholesterol 213(H) <200 mg/dL [facility] Comment:Desirable Cholestero l: less than 200 mg/dLBorderline High Cholesterol: 200-239 mg/dLHigh Cholesterol: greater than 239 mg/dL LDL Cholesterol Calculated 142(H) <100 mg/dL [facility] Comment:Desirable LDL: less than 100 mg/dLNear Optimal/Above Optimal LDL: 110- 129 mg/dLBorderline High LDL: 130-159 mg/dLHigh LDL: 160-189 mg/dLVery High LDL: greater than or equal to 190 mg/dL HDL Cholesterol 56 >40 mg/dL [facility] Comment:Desirable HDL: great er than 40 mg/dL Note: This HDL assay may give artificially low results in patients with liver disease. Blood Venous blood specimen / Unknown 06/30/2024 9:49 AM EST 06/30/2024 9:49 AM EST us Vern Garcia MD LAB BLOOD ORDERABLES Final Resul t Performing Organization Address [facility] Co de Phone Number [facility] [address] [place] [phone] from Last 3 Months or Most Recently Relevant to Health Maintenance Insurance MEDIC[place] [address] [place] [id number] [facility] MEDICAID STAND ADULT Care Teams Asw/Asuw Tactical Air Controller Relationship Specialty Start Date End Date Name, MD Vern [address] [place] [address] PCP - General Internal Medicine 05/09/24
--- OUTSIDE RECORDS SUMMARY | 2025-06-12 20:53 | XMS_ITS | Encounter Summary ---
Author Organization [employer] Address [address] [facility] 7 [place] [address] Care Team Providers Care Education Associate Name Role Phone Name, Vern YUAN Primary Care Provider [phone] Reason for Visit * Reason Comments Med Refill Encounter Details Date Type Department Care Team ([facility] st Contact Info) Description 10/29/2024 Refill [facility] MEDICINE [address] [place] [address] France Dunlap MD [address] [place] [address] Recurrent furunculosis Social History Tobacco Use Types [...] Description 07/24/2025 8:00 AM EST Office Visit [facility] ADULT DENTAL [address] [place] [address] Nathaniel Peter DDS [address] [place] [address] 08/02/2025 10:00 AM EST Office Visit [facility] MEDICINE [address] [place] [address] Name, MD Vern [address] [place] [address] 11/05/2025 8:00 AM EDT Office Visit [facility] ADULT DENTAL [address] [place] [address] Kay Martinez [address] [place] [address] documented as of this encounter Visit Diagnoses Diagnosis Recurrent furunculosis documented in this encounter Care Teams Education Associate Relationship Specialty Start Date End Date Name, MD Vern [address] [place] [phone] PCP - General Internal Medicine 05/09/24 documented as of this encounter
--- OUTSIDE RECORDS SUMMARY | 2025-06-12 20:53 | XMS_ITS | Encounter Summary ---
Author Organization [employer] Address [address] [facility] 7 [place] [address] Care Team Providers Care Admin Asst Name Role Phone France Dunlap MD Primary Care Provider + Vern Garcia MD Primary Care Provider [phone] Encounter Details Date Type Department Care Team (Latest Contact Info) Description 05/29/2021 Abstract [facility] CONVERSIONS Dental, Provider, DDS Social [...] Description 07/24/2025 8:00 AM EST Office Visit [facility] ADULT DENTAL [address] [place] [address] Nathaniel Peter DDS [address] [place] [address] 08/02/2025 10:00 AM EST Office Visit [facility] MEDICINE [address] [place] [phone] Vern Garcia MD [address] [place] [address] 11/05/2025 8:00 AM EDT Office Visit [facility] ADULT DENTAL [address] [place] [address] MichelleKay hooks [address] [place] [address] documented as of this encounter Visit Diagnoses Not on filedocumented in this encounter Care Teams Admin Asst Relationship Specialty Start Date End Date France Dunlap MD [address] [place] [address] PCP - General Family Medicine 09/05/20 05/08/24 Vern Garcia MD [address] [place] [address] PCP - General Internal Medicine 05/09/24 documented as of this encounter
--- OUTSIDE RECORDS SUMMARY | 2025-06-12 20:53 | XMS_ITS | Clinical Summary ---
Author Organization [address] [place] [address] [place] [phone] Phone Care Team Providers Care Certified Maintenance Welder Name Role Phone Name, Vern YUAN Primary Care Provider [phone] Allergies Active Allergy Reactions Criticality Noted Date Comments Codeine 01/17/2025 Medications No known medications Surgical History Surgery Date Site/Laterality Comments BACK [...] (2 of 2 - PCV) 2021 2016 RSV Immunization Adult Patients (1 - Risk 50-74 years 1-dose series) 2021 Depression Screening 08/22/2024 Diabetes: Annual Urine Albumin-Creatinine [...] to complete this topic Insurance [place]ICA[place] - [place]ICARE Care Teams Certified Maintenance Welder Relationship Specialty Start Date End Date Name, MD Vern [address] [place] [address] PCP - General Internal Medicine 11/20/24
--- OUTSIDE RECORDS SUMMARY | 2025-06-12 20:53 | XMS_ITS | Encounter Summary ---
Author Organization [employer] Address [address] [facility] 7t [place] [address] Care Team Providers Care Airport Shuttle Driver Name Role Phone Name, Vern YUAN Primary Care Provider [phone] Reason for Visit * Reason Comments Med Refill Encounter Details Date Type Department Care Team ([facility] st Contact Info) Description 05/28/2024 Refill [facility] MEDICINE [address] [place] [address] France Dunlap MD [address] [place] [address] Recurrent furunculosis Social History Tobacco Use Types [...] 8:00 AM EST Office Visit [facility] ADULT DENTAL [address] [place] [address] Nathaniel Peter DDS [address] [place] [address] 08/02/2025 10:00 AM EST Office Visit [facility] MEDICINE [address] [place] [phone] Name, MD Vern [address] [place] [address] 11/05/2025 8:00 AM EDT Office Visit [facility] ADULT DENTAL [address] [place] [address] Kay Martinez [address] [place] [address] documented as of this encounter Visit Diagnoses Diagnosis Recurrent furunculosis documented in this encounter Care Teams Airport Shuttle Driver Relationship Specialty Start Date End Date Name, MD Vern [address] [place] [address] PCP - General Internal Medicine 05/09/24 documented as of this encounter
--- OUTSIDE RECORDS SUMMARY | 2025-06-12 20:53 | XMS_ITS | Encounter Summary ---
Author Organization [employer] Address [address] [facility] 7t [place] [address] Care Team Providers Care Jogger Operator Name Role Phone Name, Vern YUAN Primary Care Provider [phone] Reason for Visit * Reason Comments Med Refill Encounter Details Date Type Department Care Team ([facility] st Contact Info) Description 05/23/2024 Refill [facility] MEDICINE [address] [place] [address] Pop Hardwick MD [address] [place] [address] Onychomycosis Social History Tobacco Use Types Packs/Day [...] Description 07/24/2025 8:00 AM EST Office Visit [facility] ADULT DENTAL [address] [place] [address] Nathaniel Peter DDS [address] [place] [address] 08/02/2025 10:00 AM EST Office Visit [facility] MEDICINE [address] [place] [address] Name, MD Vern [address] [place] [address] 11/05/2025 8:00 AM EDT Office Visit [facility] ADULT DENTAL [address] [place] [address] Kay Martinez [address] [place] [address] documented as of this encounter Visit Diagnoses Diagnosis Onychomycosis Dermatophytosis of nail documented in this encounter Care Teams Jogger Operator Relationship Specialty Start Date End Date Radha, MD Vern [address] [place] [address] PCP - General Internal Medicine 05/09/24 documented as of this encounter
== END 2025-06-12 15:36 | disposition home or self-care (01) ==
LOC: HO.HOS 14:44
PROVIDERS: Visit Provider Orthopaedic Surgery
DX: S62.633B Displaced fracture of distal phalanx of left middle finger, initial encounter for open fracture (principal)
CPT/HCPCS: 99213

== ENCOUNTER → 2025-06-12 14:43 | Outpatient (BNVA) | payer MEDICARE, MEDICAID, SELFPAY | PROVIDERS: Visit Provider Orthopaedic Surgery | DX: S62.633D Displaced fracture of distal phalanx of left middle finger, subsequent encounter for fracture with routine healing (principal) | CPT/HCPCS: 99212 ==

== ENCOUNTER 2025-06-25 08:40 | Outpatient (REF) | payer MEDICARE, MEDICAID, SELFPAY ==
--- NOTE | ~2025-06-25 | XR_ITS ---
EXAMINATION: XR HAND 3 OR MORE VIEWS LEFT HISTORY: M79.642 - Pain in left hand COMPARISON: Comparison is made with the prior examination dated 05/22/2025. FINDINGS: Three views of the left hand are submitted. Osseous mineralization is normal. Again seen is a fracture of the distal phalanx of the middle finger. The fracture line remains visible. The joint spaces are preserved. The soft tissues are unremarkable. XR/XR hand LT min 3V IMPRESSION: Fracture of the distal phalanx of the middle finger without change. Electronically signed by: Nir Driscoll MD 06/25/2025 09:06 AM KOBE
== END 2025-06-25 08:41 | disposition home or self-care (01) ==
LOC: HO.HOSX 08:40
DX: S62.633D Displaced fracture of distal phalanx of left middle finger, subsequent encounter for fracture with routine healing (principal); X58.XXXD Exposure to other specified factors, subsequent encounter
CPT/HCPCS: 73130; 99212

== ENCOUNTER 2025-06-25 08:40 | Outpatient (AMB) | payer MEDICARE, MEDICAID, SELFPAY ==
--- NOTE | 2025-06-25 08:45 | MHC.OFFVIS ---
Vital Signs 06/25/25 08:49 Height 5 ft 6 in Weight 168 lb BMI 27.1 Intake Visit Reasons: OV-LT MF Wound Check, ? nail bed excision-w/xray Intake Note: Mike is a 54 year old right hand dominant male who presents today for a Wound Check status post Left Middle Distal Phalanx Fracture, DOI 03/12/25. He was last evaluated by Dr. Willsi on 06/12/25. Patient was advised to continue to trim his nail and wait & see whether a new nail may be growing in. He was further advised to do daily wound care & warm saltwater soaks for his middle finger. Possible nail bed excision discussed. At today's visit he states that he feels that his finger tip is still swollen. Allergies codeine Allergy (Unknown, Verified 05/22/25 15:32) upset stomach, nausea shrimp Allergy (Verified 05/22/25 15:32) Anaphylaxis HPI HPI OV-LT MF Wound Check, ? nail bed excision-w/xray: Details: Mike is a 54 year old right hand dominant male who presents today for a Wound Check status post Left Middle Distal Phalanx Fracture, DOI 03/12/25. He was last evaluated by Dr. Willis on 06/12/25. Patient was advised to continue to trim his nail and wait & see whether a new nail may be growing in. He was further advised to do daily wound care & warm saltwater soaks for his middle finger. Possible nail bed excision discussed. At today's visit he states that he feels that his finger tip is still swollen. 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, rt [employer] Review of Systems Const All systems reviewed & are unremarkable except as noted in HPI and below Physical Exam Vital Signs: BMI result Body Mass Index 27.1 Const General: cooperative, healthy appearing and no acute distress Orientation/consciousness: patient oriented x3 HEENT Head: Yes normocephalic and Yes atraumatic Eyes EOM: EOMs intact bilaterally Resp Effort & Inspection: normal respiratory effort and able to speak in complete sentences Cardio Jugular venous distension: no JVD Skin General skin exam: turgor normal Rashes: no rashes Neuro General: patient oriented x3 Extrem Other: Evaluation of Left Upper Extremity: The patient is alert, oriented, and in no acute distress Neuro: Diminished sensation to half of the middle finger, unspecified Vascular: Cap refill brisk ROM: He can make a fist and extend all his digits Skin: The skin is still somewhat hyperemic at the eponycheal fold No Erythema or evidence of infection. Fracture site minimally tender when squeezing the sides Distal half of the nail plate is still partially attached Psych Appearance: grossly normal Affect: normal affect Attitude: cooperative Results Reviewed Results Reviewed: X-rays obtained in the office today and independently reviewed by me, Shabbir Domínguez PA-C, demonstrate previously noted fracture of the distal phalanx of the left middle finger with minimal evidence of interval bony healing. Assessment & Plan Assessment & Plan (1) Open fracture of distal phalanx of left middle finger: Code(s): S62.633B - Displaced fracture of distal phalanx of left middle finger, initial encounter for open fracture Category: Medical Plan Assessment & Plan: 1. Left middle finger distal phalanx fracture, open DOI: 03/12/25 Paronychia lanced & drained in clinic by BERNICE Shea on 05/17/25 I educated him about this condition I discussed treatment options for his nailbed At this time, patient will begin 24 hour a day 7 day a week splinting for 6 weeks to try to encourage healing of the fracture that has been previously noted in his concerning for potential delayed union Patient is provided with 2 finger splints, only to be removed when showering Patient is also educated on potential surgical intervention for this issue, but would like to hold off on that at this time At this time I recommend he continue to trim his nail and wait & see whether a new nail may be growing in. Depending on how the next few weeks go we may consider a possible nailbed excision He will perform daily wound care & warm saltwater soaks for his middle finger I explained the signs and symptoms of infection, if the patient develops any new or worsening erythema, drainage, pain, or warmth they should contact the clinic or attend the ED. He has completed his course of Abx as instructed. Orders: Orders XR hand LT min 3V Today M79.642 - Pain in left hand Coding Level of Care Code Est Pt Level 3 (96412) Diagnoses Open fracture of distal phalanx of left middle finger S62.633B
[2025-06-25 08:49] VITALS: BMI 27.1
--- OUTSIDE RECORDS SUMMARY | 2025-06-25 09:07 | XMS_ITS | Encounter Summary ---
Author Organization [employer] Address [address] [facility] 7 [place] [address] Care Team Providers Care Tissue Packer Name Role Phone France Dunlap MD Primary Care Provider + Vern Garcia MD Primary Care Provider [phone] Encounter Details Date Type Department Care Team (Latest Contact Info) Description 05/29/2021 Abstract [facility] Dental, Provider, DDS Social History Tobacco [...] 8:00 AM EST Office Visit [facility]ULT [facility] [address] [place] [address] Nathaniel Peter DDS [address] [place] [address] 08/02/2025 10:00 AM EST Office Visit [facility] [address] [place] [phone] Vern Garcia MD [address] [place] [address] 11/05/2025 8:00 AM EDT Office Visit [facility] [address] [place] [address] MichelleKay hooks [address] [place] [address] documented as of this encounter Visit Diagnoses Not on filedocumented in this encounter Care Teams Tissue Packer Relationship Specialty Start Date End Date France Dunlap MD [address] [place] [address] PCP - General Family Medicine 09/05/20 05/08/24 Vern Garcia MD [address] [place] [address] PCP - General Internal Medicine 05/09/24 documented as of this encounter
--- OUTSIDE RECORDS SUMMARY | 2025-06-25 09:07 | XMS_ITS | Encounter Summary ---
Author Organization [employer] Address [address] [facility] 7 [place] [address] Care Team Providers Care Manager Recruitment Name Role Phone France Dunlap MD Primary Care Provider + Vern Garcia MD Primary Care Provider [phone] Encounter Details Date Type Department Care Team (Latest Contact Info) Description 10/20/2018 Abstract [facility] CON[facility] Dental, Provider, DDS Social [...] Description 07/24/2025 8:00 AM EST Office Visit [facility] ADULT DENTAL [address] [place] [address] Nathaniel Peter DDS [address] [place] [address] 08/02/2025 10:00 AM EST Office Visit [facility] MEDICINE [address] [place] [phone] Vern Garcia MD [address] [place] [address] 11/05/2025 8:00 AM EDT Office Visit [facility] ADULT DENTAL [address] [place] [address] Ritchie Martinezaris [address] [place] [address] documented as of this encounter Visit Diagnoses Not on filedocumented in this encounter Care Teams Manager Recruitment Relationship Specialty Start Date End Date France Dunlap MD [address] [place] [address] PCP - General Family Medicine 09/05/20 05/08/24 Vern Garcia MD [address] [place] [address] PCP - General Internal Medicine 05/09/24 documented as of this encounter
--- OUTSIDE RECORDS SUMMARY | 2025-06-25 09:07 | XMS_ITS | Encounter Summary ---
Author Organization [employer] Address [address] [facility] 7 [place] [address] Care Team Providers Care Candy Forming Machine Operator Name Role Phone Name, Vern YUAN Primary Care Provider [phone] Reason for Visit * Reason Onset Date Comments Appointment Request 09/21/2024 Encounter Details Date Type Department Care Team ([facility] st Contact Info) Description 09/21/2024 Telephone [facility]INE [address] [place] [address] Name, MD Vern [address] [place] [address] Appointment Request Social History Tobacco Use Types [...] he will be coming in to the [facility]. Louver Door Assembler advise of hours. documented in this encounter Plan of Treatment Upcoming Encounters Date Type Department Care Team (Late st Contact Info) Description 07/24/2025 8:00 AM EST Office Visit [facility] ADULT DENTAL [address] [place] [phone] Nathaniel Peter DDS [address] [place] [address] 08/02/2025 10:00 AM EST Office Visit [facility] [address] [place] [phone] Name, MD Vern [address] [place] [address] 11/05/2025 8:00 AM EDT Office Visit [facility] [address] [place] [address] Kay Martinez [address] [place] [address] documented as of this encounter Visit Diagnoses Not on filedocumented in this encounter Care Teams Candy Forming Machine Operator Relationship Specialty Start Date End Date Name, MD Vern [address] [place] [address] PCP - General Internal Medicine 05/09/24 documented as of this encounter
--- OUTSIDE RECORDS SUMMARY | 2025-06-25 09:07 | XMS_ITS | Encounter Summary ---
Author Organization [employer] Address [address] [facility] 7 [place] [address] Care Team Providers Care Nutritional Assistant Name Role Phone Name, Vern YUAN Primary Care Provider [phone] Reason for Visit * Reason Comments Med Refill Encounter Details Date Type Department Care Team ([facility] st Contact Info) Description 10/29/2024 Refill [facility] MED[facility]INE [address] [place] [address] France Dunlap MD [address] [place] [address] Recurrent furunculosis Social History Tobacco Use Types [...] 8:00 AM EST Office Visit [facility] ADULT DENTAL [address] [place] [address] Nathaniel Peter DDS [address] [place] [address] 08/02/2025 10:00 AM EST Office Visit [facility] MEDICINE [address] [place] [address] Name, MD Vern [address] [place] [address] 11/05/2025 8:00 AM EDT Office Visit [facility] ADULT DENTAL [address] [place] [address] Kay Martinez [address] [place] [address] documented as of this encounter Visit Diagnoses Diagnosis Recurrent furunculosis documented in this encounter Care Teams Nutritional Assistant Relationship Specialty Start Date End Date Name, MD Vern [address] [place] [id number] PCP - General Internal Medicine 05/09/24 documented as of this encounter
--- OUTSIDE RECORDS SUMMARY | 2025-06-25 09:07 | XMS_ITS | Clinical Summary ---
Author Organization [address] [place] [address] [place] [phone] Phone Care Team Providers Care Process Specialist Name Role Phone Name, Vern YUAN Primary Care Provider [phone] Allergies Active Allergy Reactions Criticality Noted Date [...] to complete this topic Insurance MEDICAID - [place] MEDICARE Care Teams Process Specialist Relationship Specialty Start Date End Date Name, MD Vern [address] [place] [address] PCP - General Internal Medicine 11/20/24
--- OUTSIDE RECORDS SUMMARY | 2025-06-25 09:07 | XMS_ITS | Encounter Summary ---
Author Organization [employer] Address [address] [facility] 7t [place] [address] Care Team Providers Care Strategic Client Executive Name Role Phone Name, Vern YUAN Primary Care Provider [phone] Reason for Visit * Reason Comments Med Refill Encounter Details Date Type Department Care Team ([facility] st Contact Info) Description 05/23/2024 Refill [facility] MEDICINE [address] [place] [address] Pop Hardwick MD [address] [place] [address] Onychomycosis Social History Tobacco Use Types Packs/Day [...] Description 07/24/2025 8:00 AM EST Office Visit [facility] ADULT DENTAL [address] [place] [address] Nathaniel Peter DDS [address] [place] [address] 08/02/2025 10:00 AM EST Office Visit [facility] MED[facility]INE [address] [place] [address] Name, MD Vern [address] [place] [phone] 11/05/2025 8:00 AM EDT Office Visit [facility] ADULT DENTAL [address] [place] [address] Kay Martinez [address] [place] [address] documented as of this encounter Visit Diagnoses Diagnosis Onychomycosis Dermatophytosis of nail documented in this encounter Care Teams Strategic Client Executive Relationship Specialty Start Date End Date Radha, MD Vern [address] [place] [address] PCP - General Internal Medicine 05/09/24 documented as of this encounter
--- OUTSIDE RECORDS SUMMARY | 2025-06-25 09:07 | XMS_ITS | Encounter Summary ---
Author Organization [employer] Address [address] [facility] 7t [place] [address] Care Team Providers Care Manager Hris Name Role Phone Name, Vern YUAN Primary Care Provider [phone] Encounter Details Date Type Department Care Team ([facility] st Contact Info) Description 06/20/2025 Telephone [facility] MEDICINE [address] [place] [address] Yoly Roberto, RN Social History Tobacco Use Types Packs/Day Years Used Date Smoking Tobacco: Never Passive Smoke Exposure: Never Smokeless Tobacco: Never Alcohol Use Standard Drinks/Week Comments Never 0 (1 standard drink = 0.6 oz pur e alcohol) Housing Stability Answer Date Recorded What is your housing situation today? I have ericksondanisha burton 10/31/[address] you [...] encounter Miscellaneous Notes * Telephone Encounter - Yoly Roberto RN - 06/20/2025 5:00 PM EDT Medication reconciliation form received and received by PCP, Documents signed and faxed to the number. Confirmation received and placed in HIM scanning bin. documented in this encounter Plan of Treatment Upcoming Encounters Date Type Department Care Team (Late st Contact Info) Description 07/24/2025 8:00 AM EST Office Visit [facility] ADULT DENTAL [address] [place] [address] Nathaniel Peter DDS [address] [place] [address] 08/02/2025 10:00 AM EST Office Visit [facility] MEDICINE [address] [place] [phone] Vern Garcia MD [address] [place] [address] 11/05/2025 8:00 AM EDT Office Visit [facility] ADULT D[facility] [address] [place] [address] Michelle, Kay [address] [place] [address] documented as of this encounter Visit Diagnoses Not on filedocumented in this encounter Care Teams Manager Hris Relationship Specialty Start Date End Date Vern Garcia MD [address] [place] [address] PCP - General Internal Medicine 05/09/24 documented as of this encounter
--- OUTSIDE RECORDS SUMMARY | 2025-06-25 09:07 | XMS_ITS | Clinical Summary ---
Author Organization [employer] Address [address] [place] [address] 7 [place] [address] Care Team Providers Care Brake Mechanic Name Role Phone Name, Vern YUAN Primary Care Provider [phone] Allergies Active Allergy Reactions Criticality Noted Date [...] at bedtime. 45 g 2 12/22/19 25 026 Active Cialis 20 MG tablet TAKE 1 TABLET 1 HOUR BEFORE SEXUAL RELATIONS ONCE DAILY NEEDED. 10 tablet 2 01/08/20 25 Active SITagliptin (Januvia) 25 MG tablet Take 1 tablet (25 mg) by mouth Once per day. 90 tablet 01/12/20 25 026 Active terbinafine (LamISIL) 1 % cream APPLY TOPICALLY TO THE AFFECTED AREA(S) TWICE DAILY DIRECTED 45 g 2 01/22/20 25 Active ammonium lactate (Amlactin) 12 % cream APPLY TOPICALLY TO THE AFFECTED AREA(S) EVERY DAY NEEDED FOR DRY SKIN 385 g 1 01/29/20 25 Active minocycline 100 MG capsuleIndicat ions:Folliculi tis TAKE 1 CAPSULE BY MOUTH TWICE DAILY 60 capsule 01/29/20 25 Active ibuprofen 600 MG tablet Take 1 tablet (600 mg) by mouth every 6 (six) hours if needed for mild pain. 40 tablet 1 05/16/20 25 026 Active Diclofenac Sodium 1 % gel Apply [...] ONCE DAILY 16 g 2 09/21/19 25 025 Discontinued acetaminophen (Tylenol 8 Hour) 650 MG ER tablet Take 1 tablet (650 mg) by mouth every 8 (eight) hours if needed for mild pain. Do not crush, chew, or split. 40 tablet 1 05/16/20 25 025 Active Problems Problem Noted [...] any medications Rx Paxlovid x 5 days, [place] interactions module checked, no significant interactions found. [...] Encounters Date Type Department Care Team Description 06/20/2025 Telephone [facility] [address] [place] [address] Yoly Roberto, RN 06/14/2025 Telephone [facility] [address] [place] [phone] Name, MD Vern Medication Question 06/11/2025 Telephone [facility] [address] [place] [phone] Sheila Tidwell, PharmD 06/08/2025 Refill [facility] [address] [place] [phone] Name, MD Vern 05/16/2025 8:40 AM EDT Office Visit [facility] [address] [place] [address] Brigitte Bettencourt DO Rib pain on left side (Primary Dx); Paronychia of left middle finger; Type 2 diabetes mellitus with hyperglycemia, without long-term current use of insulin ([facility]) 05/16/2025 Telephone [facility] [address] [place] [address] Brigitte Bettencourt, DO Results 05/16/2025 Travel 05/10/2025 Orders Only [facility] External Provider, [facility] 05/02/2025 8:00 AM EDT Office Visit [facility] [address] [place] [address] MichelleKay Dental calculus (Primary Dx); Localized gingival recession from Last 3 Months Immunizations Immunization Administration [...] Description 07/24/2025 8:00 AM EST Office Visit [facility] [address] [place] [address] Nathaniel Peter DDS [address] [place] [address] 08/02/2025 10:00 AM EST Office Visit [facility] [address] [place] [address] Name, MD Vern [address] [place] [address] 11/05/2025 8:00 AM EDT Office Visit [facility] [address] [place] [address] Kay Martinez [address] [place] [address] Health Maintenance Due Date Last Done Comments [...] hyperglycemia, without long-term current use of insulin ([facility]) POCT GLUCOSE Routine 05/16/2025 9:36 AM EDT Type 2 diabetes mellitus with hyperglycemia, without long-term current use of insulin ([facility]) XR HAND 3+ VIEWS LEFT Routine 05/10/2025 8:46 AM EDT CASE PRESENTATION, DETAILED AND EXTENSIVE TREATMENT PLANNING Routine 05/02/2025 8:00 AM EDT Dental calculus Localized gingival recession ORAL HYGIENE INSTRUCTIONS Routine 05/02/2025 8:00 AM EDT Dental calculus Localized gingival recession PROPHYLAXIS - ADULT Routine 05/02/2025 8 :00 AM EDT Dental calculus ALBUMIN, RANDOM URINE W/CREATININE Routine 11/02/2024 11:38 AM EDT Type 2 diabetes mellitus with hyperglycemia, without long-term current use of insulin ([facility]) INTRAORAL - COMPLETE SERIES OF RADIOGRAPHIC IMAGES Routine 10/29/2024 8:00 AM EDT Periodontal disease Dental calculus PERIODIC ORAL EVALUATION - ESTABLISHED PATIENT Routine 10/29/2024 8:00 AM EDT HEPATITIS C AB W/REFL TO HCV RNA, QN, PCR Routine 06/30/2024 9:49 AM EST Type 2 diabetes mellitus with hyperglycemia, without long-term current use of insulin ([facility]) Weight loss HIV 1/2 ANTIGEN/ANTIBODY, FOURTH GENERATION W/RFL Routine 06/30/2024 9:49 AM EST Type 2 diabetes mellitus with hyperglycemia, without long-term current use of insulin ([facility]) Weight loss LIPID PANEL, STANDARD Routine 06/30/2024 9:49 AM EST Type 2 diabetes mellitus with hyperglycemia, without long-term current use of insulin ([facility]) Weight loss from Last 3 Months or Most Recently Relevant to Health Maintenance Results * XR Ribs 3 Views Left w/ Chest (05/16/2025 9:47 AM EDT) Anatomical Region Laterality Modality Radiographic Lelo ging 05/16/2025 9:47 AM EDT Narrative 05/16/2025 9:55 AM EDT [address] [address] XRay Report Signed Patient: Mike Awan MR#: [id number] : 1970 Acct:[id number] Age/Sex: 54 / M ADM Date: 05/16/25 Loc: HO.HHCX Attending Dr: Brigitte Bettencourt DO Ordering Physician: Brigitte Bettencourt DO Date of Service: 05/16/25 Procedure(s): XR ribs LT min 3V w CXR1V Accession Number(s): [id number] cc: Brigitte Bettencourt DO Reason for Exam: [...] MD in OV> 05/16/2552 DD/ TD/TT: 05/16/2548 Addiction Social Worker: Procedure Note Donotuseinterpreter, Image - 05/16/[address] [address] XRay Report Signed Patient: Mike AwanMR#: [id number] : 1970Acct:[id number] Age/Sex: 54 / MADM Date: 05/16/25 Loc: HO.HHCX Attending Dr: Brigitte Bettencourt DO Ordering Physician: Brigitte Bettencourt DO Date of Service: 05/16/25 Procedure(s): XR ribs LT min 3V w CXR1V Accession Number(s): [id number] cc: Brigitte Bettencourt DO Reason for Exam: [...] in OV> 05/16/2552 DD/ 6 TD/TT: 05/16/25947 Addiction Social Worker: Brigitte Bettencourt DO IMG XR PROCEDURES Final [...] AM EDT Narrative 05/10/2025 9:03 AM EDT [facility] [address] [place] [address] Drive [address] [place] [address] XRay Report Signed Patient: Mike Awan MR#: [id number] : 1970 Acct:[id number] Age/Sex: 54 / M ADM Date: 05/10/25 Loc: [facility] Attending Dr: Shabbir QUEEN Ordering Physician: Shabbir Domínguez Date of Service: 05/10/25 Procedure(s): XR hand LT min 3V Accession Number(s): [id number] cc: Shabbir Domínguez; France Dunlap MD Reason [...] 05/10/25 0901 DD/ 0846 TD/TT: 05/10/25 0851 Addiction Social Worker: Procedure Note Donotuseinterpreter, Image - 05/10/2025 [facility] [address] [place] [address] Drive [address] [place] [address] XRay Report Signed Patient: Mike AwanMR#: [id number] : 1970Acct:[id number] Age/Sex: 54 / MADM Date: 05/10/25 Loc: HO.HOSX Attending Dr: Shabbir QUEEN Ordering Physician: Shabbir Domínguez Date of Service: 05/10/25 Procedure(s): XR hand LT min 3V Accession Number(s): [id number] cc: Shabbir Domínguez; France Dunlap MD Reason [...] 05/10/25 09 DD/ 0846 TD/TT: 05/10/25 0851 Addiction Social Worker: [facility] External Provider IMG XR PROCEDURES Edited Result - Final * Albumin, Random Urine W/Creatinine (11/02/2024 11:38 AM EDT) Creatinine, Urine 36.90 mg/dL [facility] Microalbumin Urine <5.0 mg/L [facility] Microalbum Creatinine Ratio Ur TNP <30 ug/mg cr [facility] Comment:Unable to calculate albumin/creatinine ratio due to lowmicroalbumin or creatinine result. Urine (Urine, Random) 11/02/2024 11:38 AM EDT 11/02/2024 1:32 PM EDT us Vern Garcia MD LAB URINE ORDERABLES Final Resul t Performing Organization Address [facility] Co de Phone Number [facility] [address] [place] [phone] * Hepatitis C Antibody with Reflex to HCV, RNA, Quantitative, Real-Time PCR (06/30/2024 9:49 AM EST) Hepatitis C Antibody Nonreactive Nonreactive [facility] Comment:Antibodies to HCV no t detected; does not exclude early acuteHCV infection. Blood Venous blood specimen / Unknown 06/30/2024 9:49 AM EST 06/30/2024 9:49 AM EST us Vern Garcia MD LAB BLOOD ORDERABLES Final Resul t Performing Organization Address [facility] Phone Number [facility] [address] [place] [phone] * HIV-1/2 Antigen and Antibodies, Fourth Generation, with Reflexes (06/30/2024 9:49 AM EST) Pathologist [facility] HIV AB/AG Nonreactive Nonreactive [facility] Comment:HIV-1 p24 Ag and/or HIV-1/HIV-2 Ab not detected.A test result that is nonreactive does not exclude thepossibility of exposure to or infection with HIV-1 and/orHIV-2. Nonreactive results in this assay for individualswith prior exposure to HIV-1 and/or HIV-2 may be due toantigen and antibody levels that are below the limit ofdetection of this assay.The [employer] HIV Ag/Ab Combo assay result andsupplemental assay results should be interpreted inconjunction with the patient's clinical presentation,history and other laboratory results. If the results areinconsistent with clinical evidence, additional testing issuggested to confirm the result. Blood Venous blood specimen / Unknown 06/30/2024 9:49 AM EST 06/30/2024 9:49 AM EST us Vern Name LAB BLOOD ORDERABLES Final Resul t Performing Organization Address [facility] de Phone Number [facility] [address] [place] [address] [phone] * (ABNORMAL) Lipid Panel, Standard (06/30/2024 9:49 AM EST) Triglycerides 75 <150 mg/dL [facility] Comment:Desirable Triglyceri de: less than 150 mg/dLBorderline High Triglyceride 150-199 mg/dLHigh Triglyceride: 200-499 mg/dLVery High Triglyceride: greater than or equal to 5OO mg/dL Cholesterol 213(H) <200 mg/dL [facility] Comment:Desirable Cholestero l: less than 200 mg/dLBorderline High Cholesterol: 200-239 mg/dLHigh Cholesterol: greater than 239 mg/dL LDL Cholesterol Calculated 142(H) <100 mg/dL [facility] Comment:Desirable LDL: less than 100 mg/dLNear Optimal/Above Optimal LDL: 110- 129 mg/dLBorderline High LDL: 130-159 mg/dLHigh LDL: 160-189 mg/dLVery High LDL: greater than or equal to 190 mg/dL HDL Cholesterol 56 >40 mg/dL [facility] Comment:Desirable HDL: great er than 40 mg/dL Note: This HDL assay may give artificially low results in patients with liver disease. Blood Venous blood specimen / Unknown 06/30/2024 9:49 AM EST 06/30/2024 9:49 AM EST us Vern Garcia MD LAB BLOOD ORDERABLES Final Resul t Performing Organization Address [facility] Co de Phone Number [facility] [address] [place] [address] [phone] from Last 3 Months or Most Recently Relevant to Health Maintenance [facility] STAND ADULT Care Teams Brake Mechanic Relationship Specialty Start Date End Date Name, MD Vern [address] [place] [address] PCP - General Internal Medicine 05/09/24
--- OUTSIDE RECORDS SUMMARY | 2025-06-25 09:07 | XMS_ITS | Encounter Summary ---
Author Organization [employer] Address [address] [facility] [address] [place] [address] Care Team Providers Care Manufacturing Production Technician Name Role Phone Name, Vern YUAN Primary Care Provider [phone] Encounter Details Date Type Department Care Team ([facility] st Contact Info) Description 09/26/2024 Orders Only [facility] [address] [place] [address] Jono Jacobs MD [address] [place] [address] Social History Tobacco Use Types Packs/Day Years [...] Description 07/24/2025 8:00 AM EST Office Visit [facility] [address] [place] [address] Nathaniel Peter DDS [address] [place] [address] 08/02/2025 10:00 AM EST Office Visit [facility] [address] [place] [address] Name, MD Vern [address] [place] [address] 11/05/2025 8:00 AM EDT Office Visit [facility] [address] [place] [address] Kay Martinez [address] [place] [address] documented as of this encounter Procedures Procedure Name Priority Date/Time Associated Diagnosis Comments URINALYSIS, COMPLETE, WITH REFLEX TO CULTURE Routine 01/10/2025 1:33 PM EDT CBC WITH AUTO DIFFERENTIAL Routine 01/10/2025 1:28 PM EDT COMPREHENSIVE METABOLIC PANEL Routine 01/10/2025 1:28 PM EDT documented in this encounter Results * (ABNORMAL) Urinalysis, Complete, with Reflex to Culture (01/10/2025 1:33 PM EDT) Color Urine Yellow [facility] Appearance Urine Clear [facility] PH 6.5 5.0 - 9.0 [facility] Glucose Urine UA >=1000(A) Negative mg/dL [facility] Urine Blood Negative Negative [facility] Specific [place] - Urine >=1.030(H) 1.005 - 1.025 [facility] Urine Protein Negative Neg-Trace mg/dL [facility] Urine Ketones Negative Negative mg/dL [facility] Nitrite Urine Negative Negative [facility] Leukocyte Esterase Urine Negative Negative [facility] RBC Urine 0-2 0 - 2 /HPF [facility] Urine WBC 0-5 0 - 5 /HPF [facility] Urine Squamous Epithelial Cell 0-2 0 - 2 /HPF [facility] Urine Bacteria None Seen None Seen [facility] Hyaline Casts, Urine 0-2 0 - 2 /LPF [facility] 01/10/2025 1:33 PM EDT 01/10/2025 1:35 PM EDT Narrative [facility] - 01/10/2025 1:42 PM EDT [id number], [employer] External Data Provider LAB URINE ORDERAB LES Final Result [facility] [address] [place] [phone] * (ABNORMAL) Comprehensive Metabolic Panel (01/10/2025 1:28 PM EDT) Sodium 136 135 - 145 mmol/L [facility] Potassium 4.3 3.3 - 5.1 mmol/L [facility] Chloride 103 96 - 108 mmol/L [facility] Carbon Dioxide 27 22 - 29 mmol/L [facility] Anion Gap 10(L) 12 - 20 [facility] Urea Nitrogen (BUN) 12 9 - 16 mg/dL [facility] Creatinine, Serum 0.79 0.5 - 1.4 mg/dL [facility] Creatinine Clr Calc Pharmacy 107.3 [facility] Comment:eGFR (calculated fro m the MDRD study equation) and eCrCl(calculated from the Cockcroft-Gault equation) are based ondifferent parameters and may not yield comparable results.If eCrCl result is absurd, please check patient'sheight/weight. Estimated Glomerular Filt Rate >60 [facility] Comment:Chronic Kidney Disea se: Estimated GFR < 60 mL/min/1.16l2Xlnhen Kidney Disease: Estimated GFR < 15 mL/min/1.73m2 Glucose 300(H) 60 - 115 mg/dL [facility] Calcium 9.3 8.4 - 10.2 mg/dL [facility] Bilirubin, Total 0.2 0.0 - 1.0 mg/dL [facility] Aspartate Amino Transferase 26 5 - 37 U/L [facility] Alanine Aminotransferase 30 0 - 40 U/L [facility] Total Protein 7.6 6.5 - 8.0 g/dL [facility] Albumin Level 3.9 3.5 - 5.0 g/dL [facility] Alkaline Phosphatase 95 39 - 117 U/L [facility] 01/10/2025 1:28 PM EDT 01/10/2025 1:35 PM EDT us Generic External Data Provider LAB BLOOD ORDERAB LES Final Result [facility] [address] [place] [phone] * (ABNORMAL) CBC auto differential (01/10/2025 1:28 PM EDT) White Blood Count 6.2 4.8 - 10.8 X10*3/uL [facility] Red Blood Count 4.41(L) 4.60 - 5.80 X10*6/uL [facility] Hemoglobin 14.2 14.0 - 18.0 g/dl [facility] Hematocrit 40.1(L) 42.0 - 52.0 % [facility] Mean Corpuscular Volume 90.9 80.0 - 98.0 fL [facility] Mean Corpuscular Hemoglobin 32.2 27.0 - 33.0 pg [facility] Mean Corpuscular HGB Conc 35.4 31.0 - 36.0 g/dl [facility] Red Cell Distribution Width 12.4 11.0 - 16.0 % [facility] Platelet Count 400 160 - 400 X10*3/uL [facility] Mean Platelet Volume 8.9(L) 9.4 - 12.4 fL [facility] Neutrophils Percent Auto 52.3 45 - 73 % [facility] Imm Gran Pct Auto 1.0(H) 0.0 - 0.4 % [facility] Lymphocytes Percent Auto 35.9 20 - 40 % [facility] Monocytes Percent Auto 7.6 2 - 11 % [facility] Eosinophils Percent Auto 2.7 0 - 4 % [facility] Basophils Percent Auto 0.5 0 - 2 % [facility] NRBC Pct Auto 0.0 0.0 - 0.2 /100WBC [facility] Neutrophils Absolute Auto 3.2 2.0 - 8.3 x10*3/uL [facility] Imm Gran Abs Auto 0.06(H) 0.00 - 0.03 X10*3/uL [facility] Lymphocytes Absolute Auto 2.2 1.2 - 4.9 X10*3/uL [facility] Monocytes Absolute Auto 0.5 0.1 - 1.2 X10*3/uL [facility] Eosinophils Absolute Auto 0.2 0.0 - 0.4 X10*3/uL [facility] Basophils Absolute Auto 0.0 0.0 - 0.2 X10*3/uL [facility] NRBC Abs Auto 0.000 0.0 - 0.012 X10*3/uL [facility] 01/10/2025 1:28 PM EDT 01/10/2025 1:35 PM EDT us Generic External Data Provider LAB BLOOD ORDERAB LES Final Result [facility] [address] [place], [place] [phone] documented in this encounter Visit Diagnoses Not on filedocumented in this encounter Care Teams Manufacturing Production Technician Relationship Specialty Start Date End Date Name, MD Vern [address] [place] [address] PCP - General Internal Medicine 05/09/24 documented as of this encounter
--- OUTSIDE RECORDS SUMMARY | 2025-06-25 09:07 | XMS_ITS | Encounter Summary ---
Author Organization [employer] Address [address] [facility] 7t [place] [address] Care Team Providers Care Clinical Support Tech Name Role Phone Name, Vern YUAN Primary Care Provider [phone] Reason for Visit * Reason Comments Med Refill Encounter Details Date Type Department Care Team ([facility] st Contact Info) Description 05/28/2024 Refill [facility] [address] [place] [address] France Dunlap MD [address] [place] [address] Recurrent furunculosis Social History Tobacco Use Types [...] Description 07/24/2025 8:00 AM EST Office Visit [facility] [address] [place] [phone] Nathaniel Peter DDS [address] [place] [phone] 08/02/2025 10:00 AM EST Office Visit [facility] [address] [place] [phone] Name, MD Vern [address] [place] [address] 11/05/2025 8:00 AM EDT Office Visit [facility] [address] [place] [phone] Kay Martinez [address] [place] [address] documented as of this encounter Visit Diagnoses Diagnosis Recurrent furunculosis documented in this encounter Care Teams Clinical Support Tech Relationship Specialty Start Date End Date Name, MD Vern [address] [place] [phone] PCP - General Internal Medicine 05/09/24 documented as of this encounter
== END 2025-06-25 09:34 | disposition home or self-care (01) ==
LOC: HO.HOS 08:40
DX: S62.633B Displaced fracture of distal phalanx of left middle finger, initial encounter for open fracture (principal)
CPT/HCPCS: 99213

== ENCOUNTER → 2025-06-25 08:57 | Outpatient (BNV) | payer MEDICARE, MEDICAID, SELFPAY | PROVIDERS: Visit Provider Radiology Diagnostic Radiology | DX: S62.633A Displaced fracture of distal phalanx of left middle finger, initial encounter for closed fracture (principal); M79.642 Pain in left hand | CPT/HCPCS: 73130 ==

== ENCOUNTER 2025-08-02 09:40 | Day surgery (SDC) | payer MEDICARE, MEDICAID, SELFPAY ==
--- OUTSIDE RECORDS SUMMARY | 2025-07-10 07:57 | XMS_ITS | Clinical Summary ---
Author Organization [address] [place] [address] [place] [phone] Phone Care Team Providers Care Director Of Respiratory Therapy Name Role Phone Name, Vern YUAN Primary Care Provider [phone] Allergies Active Allergy Reactions Criticality Noted Date [...] to complete this topic Insurance MEDICAID - [place] MEDICARE Care Teams Director Of Respiratory Therapy Relationship Specialty Start Date End Date Name, MD Vern [address] [place] [address] PCP - General Internal Medicine 11/20/24
--- NOTE | 2025-07-30 14:58 | HO.ANESPROP2 ---
Documented by User: Sally Bentley NP 07/30/25 14:58 HPI - Anesthesia Eval Consult details Narrative: 55yo M for Colonoscopy Anesthesia Pre-Procedure Meds Is the patient on any of the following meds?: SGLT2 Inhib PMFSH Active Problems Active Problems: All Active Problems (Updated 03/15/25 @ 09:08 by BERNICE Merchant) Open fracture of distal phalanx of left middle finger (Acute) Golfers elbow of left upper extremity (Acute) Osteoarthritis of hands, bilateral (Acute) Right foot pain (Acute) Trigger finger (Acute) Rotator cuff arthropathy of right shoulder (Acute) Spinal stenosis (Acute) De Quervain's tenosynovitis, bilateral (Acute) De Quervain's tenosynovitis, right (Acute) Trigger finger, left middle finger (Acute) Fatigue (Acute) Past Medical History Medical History (Updated 08/02/25 @ 10:06 by Judi Robin, RN) Prostatitis Fatty liver Restless leg Degenerative joint disease of cervical and lumbar spine Dyslipidemia De Quervain's disease (tenosynovitis) Type 2 diabetes mellitus Family History Family History Mother Diabetes Father Hypertension Surgical History Surgical History History of back surgery Social History Social History Household Members: Spouse and Children Alcohol intake: never Patient Tobacco Use Status: Never used Tobacco Use of substances other than those prescribed or required for medical reasons: No Are you DNR?: No Advance Directives: No Advance Directives Information Provided: Yes Current occupational status: disabled 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, 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, 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, [employer] Meds Allergies Allergy/AdvReac Type Severity Reaction Status Date / Time codeine Allergy Unknown upset Verified 08/02/25 10:06 stomach, nausea shrimp Allergy Anaphylaxis Verified 08/02/25 10:06 Home Medications ?Medication ?Instructions ?Recorded ?Confirmed ?Last Taken ?Type diclofenac sodium 1 % topical gel 2 g topical TID 06/01/22 08/02/25 Unknown History ibuprofen 400 mg tablet 400 mg PO Q4-6H PRN Back Pain 06/01/22 08/02/25 07/26/25 History cetirizine 10 mg tablet 10 mg PO QAM PRN Allergic Symptoms 05/06/23 08/02/25 Unknown History fluticasone propionate 50 1 spray intranasal DAILY 05/06/23 08/02/25 Unknown History mcg/actuation nasal spray,suspension glimepiride 2 mg tablet 2 mg PO DAILY 10/21/23 08/02/25 Unknown History ammonium lactate 12 % topical cream 1 appl topical BID 11/23/24 08/02/25 Unknown History empagliflozin 12.5 mg-metformin 1 tab PO DAILY 11/23/24 08/02/25 07/26/25 History 500 mg tablet (Synjardy) tadalafil 20 mg tablet (Cialis) 20 mg PO DAILY PRN Sexual Activity 11/23/24 08/02/25 Unknown History acetaminophen 650 mg 650 mg PO Q8H PRN mild pain 05/17/25 08/02/25 Unknown History tablet,extended release Assessment and Plan Assessment Anesthesia Assessment: Chart Reviewed Documented by User: Merry Tarango MD 08/02/25 10:38 [facility] Past Medical History Medical History (Updated 08/02/25 @ 10:06 by Judi Robin RN) Prostatitis Fatty liver Restless leg Degenerative joint disease of cervical and lumbar spine Dyslipidemia De Quervain's disease (tenosynovitis) Type 2 diabetes mellitus Family History Family History Mother Diabetes Father Hypertension Family history of problems with anesthesia: No Surgical History Surgical History History of back surgery History of Problems with Anesthesia: No Social History Social History Household Members: Spouse and Children Alcohol intake: never Patient Tobacco Use Status: Never used Tobacco Use of substances other than those prescribed or required for medical reasons: No Are you DNR?: No Advance Directives: No Advance Directives Information Provided: Yes Current occupational status: disabled 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, 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, 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, [employer] Meds Allergies Allergy/AdvReac Type Severity Reaction Status Date / Time codeine Allergy Unknown upset Verified 08/02/25 10:06 stomach, nausea shrimp Allergy Anaphylaxis Verified 08/02/25 10:06 Home Medications ?Medication ?Instructions ?Recorded ?Confirmed ?Last Taken ?Type diclofenac sodium 1 % topical gel 2 g topical TID 06/01/22 08/02/25 Unknown History ibuprofen 400 mg tablet 400 mg PO Q4-6H PRN Back Pain 06/01/22 08/02/25 07/26/25 History cetirizine 10 mg tablet 10 mg PO QAM PRN Allergic Symptoms 05/06/23 08/02/25 Unknown History fluticasone propionate 50 1 spray intranasal DAILY 05/06/23 08/02/25 Unknown History mcg/actuation nasal spray,suspension glimepiride 2 mg tablet 2 mg PO DAILY 10/21/23 08/02/25 Unknown History ammonium lactate 12 % topical cream 1 appl topical BID 11/23/24 08/02/25 Unknown History empagliflozin 12.5 mg-metformin 1 tab PO DAILY 11/23/24 08/02/25 07/26/25 History 500 mg tablet (Synjardy) tadalafil 20 mg tablet (Cialis) 20 mg PO DAILY PRN Sexual Activity 11/23/24 08/02/25 Unknown History acetaminophen 650 mg 650 mg PO Q8H PRN mild pain 05/17/25 08/02/25 Unknown History tablet,extended release Exam Airway Mallampati Class: II TM Dist: >3cm Neck ROM: Full Heart: rrr Lungs: cta Assessment and Plan Assessment Anesthesia Assessment: Anesthesia Plan Discussed Final Anesthetic Review Family History of Problems with Anesthesia: No History of Problems with Anesthesia: No NPO: Yes ASA Class: II Final Preanesthetic Review: No Changes in Pt Med Stat and Meds/Allgs Chart Reviewed Patient Risk: Low Procedure Risk: Low Anesthetic Plan Anesthetic Plan: MAC: Disposition: Standard PACU
[2025-07-31 12:09] VITALS: BMI 29.2
[2025-08-02 10:06] VITALS: BMI 27.0
[2025-08-02 10:22] VITALS: BP 99/64; PULSE 89; RESP 15; TEMP 37.2; O2SAT 97
[2025-08-02] MEDS: Lactated Ringers 1,000 ML 100 ML IVCONT (10:33)
--- NOTE | 2025-08-02 10:39 | P.HPSUR_ITS ---
Pre-Procedural Eval Section A - 24 Hr Update-Section A only Date of Service: 08/02/25 The patient is an INPATIENT: No The patient has been examined within 24 hours of the surgical procedure. 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 Dyslipidemia De Quervain's disease (tenosynovitis) Type 2 diabetes mellitus) History of Previous Operations: Relevant previous surgery/procedure and date(s) (History of back surgery) Allergies: Allergies Allergy/AdvReac Type Severity Reaction Status Date / Time codeine Allergy Unknown upset Verified 08/02/25 10:06 stomach, nausea shrimp Allergy Anaphylaxis Verified 08/02/25 10:06 Review of Systems Sugical H&P ROS: Negative: Constitution, Cardiovascular, Respiratory and Gastrointestinal Exam Surgical H&P Exam: Normal: Heart, Normal: Lungs, Normal: Extremities and Normal: Abdomen Plan Diagnosis/Plan: Unchanged I have reviewed the history and physical and performed a pertinent physical examination on my patient. No changes have occurred unless specified. Time Spent With Patient Time: Total time managing care of this patient today ____ minutes.
[2025-08-02 10:40] LABS: Glucose, Whole Blood 162 mg/dL (60-115)
--- NOTE | 2025-08-02 12:17 | P.OPN-COLO_ITS ---
Colonoscopy Operative Note Operative Note Date of Service: 08/02/25 Narrative: COLONOSCOPY TILL CECUM WITH BIOPSIES Pre-op diagnosis: Colon cancer screening (First colonoscopy). Post-op diagnosis:? Colon polyp, hemorrhoids Endoscopist:? Kavin Lemus MD Anesthesia:?MAC Consent: Indications for the procedure and potential complications of bleeding, perforation, reaction to medications and missed diagnosis were discussed with the patient and informed consent was obtained. Instrument: Olympus PCF H 190 L variable stiffness pediatric colonoscope Monitoring: Vital signs and clinical assessment, intermittent blood pressure monitoring, continuous EKG monitoring, Pulse oximetry and Carbon Dioxide monitoring were done throughout the procedure. Please see anesthesia flowsheet. Colon withdrawl time was 21 minutes. Procedure: The patient was placed in the left lateral decubitis position and pre-procedure medications were administered. After a digital rectal examination of the ano-rectum, the video colonoscope was inserted into the rectum and advanced through the colon to the cecum. The colonoscope was slowly withdrawn in a retrograde panoramic fashion and the colon mucosa was carefully examined including a retroflexed view of the rectum. Findings and interventions are described below. Procedure Difficulty: Colon was long and tortuous and there was spasm and some loop formation. Patient was placed in the supine position to intubate the ascending colon Findings: Terminal Ileum: Not evaluated Cecum: Normal Ascending Colon: A 5-6 mm sessile polyp in the proximal ascending colon - removed with a cold biopsy Transverse Colon: Normal Descending Colon: Normal Sigmoid Colon: Normal Rectum: Normal Ano-rectum: Moderate internal hemorrhoids Colon preparation: Good to fair despite after copious irrigation. Berkley Bowel Preparation Scale Right colon; 2 Transverse colon: 1-2 Left colon; 2 (0 = Unprepared colon segment with mucosa not seen due to solid stool that cannot be cleared. 1 = Portion of mucosa of the colon segment seen, but other areas of the colon segment not well seen due to staining, residual stool and/or opaque liquid. 2 = Minor amount of residual staining, small fragments of stool and/or opaque liquid, but mucosa of colon segment seen well. 3 = Entire mucosa of colon segment seen well with no residual staining, small fragments of stool or opaque liquid) Impression and Post Procedure Diagnosis: Colonoscopy Findings: One small polyp was removed Moderate hemorrhoids on retroflexed exam. Plan: Pt has a FU appointment on 08/28/24 with Dennise Luther NP Repeat Colonoscopy in 2-3 years if polyps is adenomatous and due to fair prep in the transverse colon (Dulcolax 10 mg daily x 5 days and adult colonoscope for future colonoscopies) Above findings were reviewed with the patient and relevant handouts were given and the discharge area. BIOPSIES SHOWED: Colon, ascending, polyp: Colonic mucosa with lymphoid aggregates and no specific change; no adenomatous dysplasia seen Letter sent to the patient with biopsy results. Patient was placed on the colonoscopy recall list for repeat colonoscopy in 3 years
[2025-08-02 12:18] VITALS: BP 107/64; PULSE 79; RESP 16; TEMP 36.3; O2SAT 98
[2025-08-02 12:30] VITALS: BP 107/64; PULSE 79; RESP 16; TEMP 36.3; O2SAT 98
== END 2025-08-02 13:07 | disposition home or self-care (01) ==
PROVIDERS: PCP Internal Medicine Geriatric Medicine; Visit Provider Internal Medicine Gastroenterology
PROC: 0DJD8ZZ Inspection of Lower Intestinal Tract, Via Natural or Artificial Opening Endoscopic (ICD-10-PCS; CPT 45378; principal; 2025-08-02 11:50)
DX: Z12.11 Encounter for screening for malignant neoplasm of colon (principal); E11.9 Type 2 diabetes mellitus without complications; K59.01 Slow transit constipation; K63.5 Polyp of colon
CPT/HCPCS: 45380; 82947; 88305; J2003; J2704

== ENCOUNTER → 2025-08-02 09:40 | Outpatient (BNV) | payer MEDICARE, MEDICAID, SELFPAY | PROVIDERS: PCP Internal Medicine Geriatric Medicine; Visit Provider Internal Medicine Gastroenterology | DX: Z12.11 Encounter for screening for malignant neoplasm of colon (principal); K63.5 Polyp of colon; K64.8 Other hemorrhoids; Z91.199 Patient's noncompliance with other medical treatment and regimen due to unspecified reason | CPT/HCPCS: 45380 ==

== ENCOUNTER 2025-08-07 08:32 | Outpatient (AMB) | payer MEDICARE, MEDICAID, SELFPAY ==
--- OUTSIDE RECORDS SUMMARY | 2025-08-02 14:45 | XMS_ITS | Encounter Summary ---
Author Organization [employer] Address [address] [place] [address] [address] [place] [address] Care Team Providers Care Agricultural Science Professor Name Role Phone Name, Vern YUAN Primary Care Provider [phone] Reason for Referral * Consultation (Routine) - Pending Review Specialty Diagnoses / Procedures Referred By Guy fowler Referred To Contact Dermatology Diagnoses Hidradenitis Pop Hardwick MD [address] [place] [phone] Phone: tel: fax: Referral ID Status Reason Start Date Expiration Date Visits Requested Visits Authorized [id number] Pending Review Specialty Services Required 08/02/2026 1 1 Scheduling Instructions [facility] Encounter Details Date Type Department Care Team (Late st Contact Info) Description 08/02/2025 2:45 PM EST Office Visit [facility] [address] [place] [address] [phone] Pop Hardwick MD [address] [place] [address] [phone] Hidradenitis (Primary Dx) Social History Tobacco Use Types Packs/Day Years Used Date Smoking Tobacco: Never Passive Smoke Exposure: Never Smokeless Tobacco: Never Alcohol Use Standard Drinks/Week Comments Never 0 (1 standard drink = 0.6 oz pur e alcohol) Alcohol Answer Date Recorded How often do you have a drink containing alcohol ? 0 07/24/2025 Average Number of Drinks Not on file 025 How often do you have six or more drinks on one occasion? 0 07/24/2025 Housing Stability Answer Date Recorded What is [...] Sign Reading Time Taken Comments Blood Pressure 130/70 08/02/2025 2:59 PM EST Pulse 96 08/02/2025 2:59 PM EST Temperature 36.2 C (97.1 F) 08/02/2025 2:59 PM EST Respiratory Rate 17 08/02/2025 2:59 PM EST Oxygen Saturation - - Inhaled Oxygen Concentration - - Weight 79.8 kg (176 lb) 08/02/2025 2:59 PM EST Height - - Body Mass Index 28.41 01/11/2025 11:33 AM EDT documented in this encounter Progress Notes * Pop Hardwick MD - 08/02/2025 2:45 PM EST Subjective Patient ID: Mike Awan is a 55 y.o. male who presents for No chief complaint on file.. HPI 55 yr old man with history of acne, here today for follow up. He has it on his back. Not respondingto topical treatment or minocycline. Review of Systems Constitutional: Negative for diaphoresis, [...] for arthralgias, back pain and gait problem. Skin: Positive for rash. Neurological: Negative for dizziness, facial asymmetry and headaches. Psychiatric/Behavioral: Negative for agitation, behavioral problems and confusion. Objective Physical Exam Constitutional: Appearance: Normal appearance. HENT: Head: Normocephalic. Nose: Nose normal. Eyes: Extraocular Movements: Extraocular movements intact. Pulmonary: Effort: Pulmonary effort is normal. Musculoskeletal: Cervical back: Normal range of motion and neck supple. Skin: General: Skin is warm and dry. Comments: Inflamed nodules on Torso and buttocks Neurological: Mental Status: He is alert. Mental status is at baseline. Assessment/Plan Diagnoses and all orders for this visit: Hidradenitis Previous history of acne, history of DM Persistent inflamed papules and nodules on back and buttocks Likely may have HS May benefit from Acitretin treatment. [facility] dermatology ([facility] - Referral to Dermatology; Future - doxycycline (Vibra-Tabs) 100 MG tablet; Take 1 tablet (100 mg) by mouth 2 times daily for 21 days. Take with a full glass of water and do not lie down for at least 30 minutes after. documented in this encounter Plan of Treatment Upcoming Encounters Date Type Department Care Team (Late st Contact Info) Description 09/18/2025 8:00 AM EST Office Visit [facility] [address] [place] [address] Nathaniel Peter DDS [address] [place] [address] 10/15/2025 9:15 AM EST Office Visit [facility] [address] [place] [address] Name, MD Vern [address] [place] [address] 11/05/2025 8:00 AM EDT Office Visit [facility] [address], [place] [phone] Kay Martinez [address] [place] [address] Scheduled Referrals Name Type Priority Associated Diagnoses Order Schedule Referral to Dermatology Outpatient Referral Routine Hidradenitis Expected: 08/02/2025 (Approximate), Expires: 08/02/2026 documented as of this encounter Goals Goal Patient Goal Type Associated Problems Recent Progress Patient-Stated? Author Help patients manage their type 2 diabetes Care Plan Help patients manage their type 2 diabetes No Yumiko Bernardo Patient has chronic kidney disease Care Plan Patient has chronic kidney disease No Yumiko Bernardo Patient has chronic kidney disease Care Plan Patient has chronic kidney disease No Karyn Leung Patient has chronic kidney disease Care Plan Patient has chronic kidney disease No Pop Hardwick MD documented as of this encounter Visit Diagnoses Diagnosis Hidradenitis- Primary documented in this encounter Additional Health Concerns Active Problems Noted Date Diagnosed Date Help patients manage their type 2 diabetes 07/24 Patient has chronic kidney disease 07/24/2025 Patient has chronic kidney disease 07/29/2025 Patient has chronic kidney disease 08/02/2025 documented as of this encounter Care Teams Agricultural Science Professor Relationship Specialty Start Date End Date [place], [place] [address] PCP - General Internal Medicine 05/09/24 documented as of this encounter
--- NOTE | 2025-08-07 08:35 | A.OFFVIS_ITS ---
Vital Signs 08/07/25 08:39 Height 5 ft 6 in Weight 165 lb BMI 26.6 Intake Visit Reasons: OV-LT MF Wound Check, ? nail bed excision-w/xray Intake Note: Mike is a 55 year old right hand dominant male who presents today for a Wound Check status post Left Middle Distal Phalanx Fracture, DOI 03/12/25. At his last visit he was advised to begin 24 hour a day, 7 day a week, splinting for 6 weeks and to perform daily wound care & warm saltwater soaks. At today's visit he states that the left middle finger is feeling better and he is seeing nail growth. Allergies codeine Allergy (Unknown, Verified 08/02/25 10:06) upset stomach, nausea shrimp Allergy (Verified 08/02/25 10:06) Anaphylaxis HPI HPI OV-LT MF Wound Check, ? nail bed excision-w/xray: Details: Mike is a 55 year old right hand dominant male who presents today for a Wound Check status post Left Middle Distal Phalanx Fracture, DOI 03/12/25. At his last visit he was advised to begin 24 hour a day, 7 day a week, splinting for 6 weeks and to perform daily wound care & warm saltwater soaks. At today's visit he states that the left middle finger is feeling better and he is seeing nail growth. Denies any ongoing infection symptoms. Denies any pain in the left middle finger. 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, 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, rt [employer] Review of Systems Const All systems reviewed & are unremarkable except as noted in HPI and below Physical Exam Vital Signs: BMI result Body Mass Index 26.6 Const General: cooperative, healthy appearing and no acute distress Orientation/consciousness: patient oriented x3 HEENT Head: Yes normocephalic and Yes atraumatic Eyes EOM: EOMs intact bilaterally Resp Effort & Inspection: normal respiratory effort and able to speak in complete sentences Cardio Jugular venous distension: no JVD Skin General skin exam: turgor normal Rashes: no rashes Neuro General: patient oriented x3 Extrem Other: Evaluation of Left Upper Extremity: The patient is alert, oriented, and in no acute distress Neuro: Diminished sensation to half of the middle finger, unspecified Vascular: Cap refill brisk ROM: He can make a fist and extend all his digits Skin: No further hyperemia no erythema or evidence of infection Fracture site completely non tender when squeezing the sides No motion at fracture site Psych Appearance: grossly normal Affect: normal affect Attitude: cooperative Results Reviewed Results Reviewed: X-rays obtained in the office today and independently reviewed by me, Shabbir Domínguez PA-C, demonstrate previously noted fracture of the distal phalanx of the left middle finger with minimal evidence of interval bony healing. Assessment & Plan Assessment & Plan (1) Open fracture of distal phalanx of left middle finger: Code(s): S62.633B - Displaced fracture of distal phalanx of left middle finger, initial encounter for open fracture Category: Medical Plan Assessment & Plan: 1. Left middle finger distal phalanx fracture, open DOI: 03/12/25 Paronychia lanced & drained in clinic by BERNICE Shea on 05/17/25 I educated him about this condition I discussed treatment options for his nailbed No further splinting indicated at this time No surgery indicated, as there is no motion at the fracture site, and the patient is nontender Nail does appear to be growing in normally compared to last visit, should continue trimming until the nail appears normal No further soaks indicated at this time I explained the signs and symptoms of infection, if the patient develops any new or worsening erythema, drainage, pain, or warmth they should contact the clinic or attend the ED. He has completed his course of Abx as instructed. Follow-up in 6 weeks Orders: Orders XR hand LT min 3V Today M79.642 - Pain in left hand Coding Level of Care Code Est Pt Level 3 (28249) Diagnoses Open fracture of distal phalanx of left middle finger S62.633B
[2025-08-07 08:39] VITALS: BMI 26.6
--- OUTSIDE RECORDS SUMMARY | 2025-08-07 08:48 | XMS_ITS | Clinical Summary ---
Author Organization [address] [place] [address] [place] [phone] Phone Care Team Providers Care Medical Billing Specialist Name Role Phone Name, Vern YUAN Primary Care Provider [phone] Allergies Active Allergy Reactions Criticality Noted Date [...] on file Sexual Orientation Not on file Last Filed Vital Signs Vital Sign Reading [...] to complete this topic Insurance MEDICAID - [place] MEDICARE Care Teams Medical Billing Specialist Relationship Specialty Start Date End Date Name, MD Vern [address] [place] [address] PCP - General Internal Medicine 11/20/24
--- OUTSIDE RECORDS SUMMARY | 2025-08-07 08:48 | XMS_ITS | Encounter Summary ---
Author Organization [employer] Address [address] [place] [address] Care Team Providers Care Refrigeration Person Name Role Phone France Dunlap MD Primary Care Provider + Vern Garcia MD Primary Care Provider [phone] Encounter Details Date Type Department Care Team (Latest Contact Info) Description 10/20/2018 Abstract [facility] CONVERSIONS Dental, Provider, DDS Social [...] Description 09/18/2025 8:00 AM EST Office Visit [facility] ADULT DENTAL [address] [place] [phone] Nathaniel Peter DDS [address] [place] [address] 10/15/2025 9:15 AM EST Office Visit [facility] MED[facility] [address] [place] [phone] Vern Garcia MD [address] [place] [phone] 11/05/2025 8:00 AM EDT Office Visit [facility] ADULT D[facility] [address] [place] [phone] Ritchie Martinezaris [address] [place] [address] documented as of this encounter Visit Diagnoses Not on filedocumented in this encounter Care Teams Refrigeration Person Relationship Specialty Start Date End Date France Dunlap MD [address] [place] [address] PCP - General Family Medicine 09/05/20 05/08/24 Vern Garcia MD [address] [place] [address] PCP - General Internal Medicine 05/09/24 documented as of this encounter
--- OUTSIDE RECORDS SUMMARY | 2025-08-07 08:48 | XMS_ITS | Encounter Summary ---
Author Organization [employer] Address [address] [facility] 7 [place] [address] Care Team Providers Care Tool Maker Apprentice Name Role Phone Name, Vern YUAN Primary Care Provider [phone] Reason for Visit * Reason Onset Date Comments Appointment Request 09/21/2024 Encounter Details Date Type Department Care Team ([facility] st Contact Info) Description 09/21/2024 Telephone [facility] [address] [place] [address] Name, MD Vern [address] [place] [address] Appointment Request Social History Tobacco Use Types [...] he will be coming in to the [facility]. Psychiatric Security Nurse advise of hours. documented in this encounter Plan of Treatment Upcoming Encounters Date Type Department Care Team (Late st Contact Info) Description 09/18/2025 8:00 AM EST Office Visit [facility] ADULT DENTAL [address] [place] [phone] Nathaniel Peter DDS [address] [place] [address] 10/15/2025 9:15 AM EST Office Visit [facility] [address] [place] [phone] Name, MD Vern [address] [place] [phone] 11/05/2025 8:00 AM EDT Office Visit [facility] [address] [place] [address] Kay Martinez [address] [place] [address] documented as of this encounter Visit Diagnoses Not on filedocumented in this encounter Care Teams Tool Maker Apprentice Relationship Specialty Start Date End Date Name, MD Vern [address] [place] [phone] PCP - General Internal Medicine 05/09/24 documented as of this encounter
--- OUTSIDE RECORDS SUMMARY | 2025-08-07 08:48 | XMS_ITS | Encounter Summary ---
Author Organization [employer] Address 75 [facility] 7t [place] [address] Care Team Providers Care Wood Crafter Name Role Phone Name, Vern YUAN Primary Care Provider [phone] Encounter Details Date Type Department Care Team (Latest Contact Info) Description 08/02/2025 Travel Social History Tobacco Use Types Packs/Day [...] Description 09/18/2025 8:00 AM EST Office Visit [facility] ADULT DENTAL [address] [place] [address] Nathaniel Peter DDS [address] [place] [address] 10/15/2025 9:15 AM EST Office Visit [facility] MEDICINE [address] [place] [phone] Vern Garcia MD [address] [place] [address] 11/05/2025 8:00 AM EDT Office Visit [facility] ADULT DENTAL [address] [place] [address] Kay Martinez [address] [place] [address] documented as of this encounter Goals Goal [...] Diagnoses Not on filedocumented in this encounter Additional Health Concerns Active Problems Noted Date Diagnosed Date Help patients manage their type 2 diabetes 07/24 Patient has chronic kidney disease 07/24/2025 Patient has chronic kidney disease 07/29/2025 Patient has chronic kidney disease 08/02/2025 documented as of this encounter Care Teams Wood Crafter Relationship Specialty Start Date End Date Name, MD Vern [address] [place] [address] PCP - General Internal Medicine 05/09/24 documented as of this encounter
--- OUTSIDE RECORDS SUMMARY | 2025-08-07 08:48 | XMS_ITS | Encounter Summary ---
Author Organization [employer] Address [address] [facility] 7 [place] [address] Care Team Providers Care Put In Beat Adjuster Name Role Phone France Dunlap MD Primary Care Provider + Vern Garcia MD Primary Care Provider [phone] Encounter Details Date Type Department Care Team (Latest Contact Info) Description 05/29/2021 Abstract [facility] CONVERSIONS Dental, Provider, DDS Social [...] Description 09/18/2025 8:00 AM EST Office Visit [facility] ADULT DENTAL [address] [place] [address] Nathaniel Peter DDS [address] [place] [address] 10/15/2025 9:15 AM EST Office Visit [facility] MEDICINE [address] [place] [address] Vern Garcia MD [address] [place] [address] 11/05/2025 8:00 AM EDT Office Visit [facility] ADULT DENTAL [address] [place] [address] MichelleKay hooks [address] [place] [address] documented as of this encounter Visit Diagnoses Not on filedocumented in this encounter Care Teams Put In Beat Adjuster Relationship Specialty Start Date End Date France Dunlap MD [address] [place] [address] PCP - General Family Medicine 09/05/20 05/08/24 Vern Garcia MD [address] [place] [address] PCP - General Internal Medicine 05/09/24 documented as of this encounter
--- OUTSIDE RECORDS SUMMARY | 2025-08-07 08:48 | XMS_ITS | Encounter Summary ---
Author Organization [employer] Address 75 [facility] 7t [place] [address] Care Team Providers Care Gear Shaver Set Up Operator Name Role Phone Name, Vern YUAN Primary Care Provider [phone] Encounter Details Date Type Department Care Team ([facility] st Contact Info) Description 09/26/2024 Orders Only [facility] MEDICINE [address] [place] [address] Jono Jacobs MD [address] [place] [address] Social History Tobacco Use Types Packs/Day Years [...] 8:00 AM EST Office Visit [facility] ADULT DENTAL [address] [place] [address] Nathaniel Peter DDS [address] [place] [address] 10/15/2025 9:15 AM EST Office Visit [facility] MEDICINE [address] [place] [address] Name, MD Vern [address] [place] [address] 11/05/2025 8:00 AM EDT Office Visit [facility] ADULT DENTAL [address] [place] [address] Kay Martienz [address] [place] [address] documented as of this encounter Procedures Procedure Name Priority Date/Time Associated Diagnosis Comments URINALYSIS, COMPLETE, WITH REFLEX TO CULTURE Routine 01/10/2025 1:33 PM EDT CBC WITH AUTO DIFFERENTIAL Routine 01/10/2025 1:28 PM EDT COMPREHENSIVE METABOLIC PANEL Routine 01/10/2025 1:28 PM EDT documented in this encounter Results * (ABNORMAL) Urinalysis, Complete, with Reflex to Culture (01/10/2025 1:33 PM EDT) Color Urine Yellow [facility] Appearance Urine Clear [facility] PH 6.5 5.0 - 9.0 [facility] Glucose Urine UA >=1000(A) Negative mg/dL [facility] Urine Blood Negative Negative [facility] Specific [place] - Urine >=1.030(H) 1.005 - 1.025 [facility] Urine Protein Negative Neg-Trace mg/dL [facility] Urine Ketones Negative Negative mg/dL [facility] Nitrite Urine Negative Negative [facility] Leukocyte Esterase Urine Negative Negative [facility] RBC Urine 0-2 0 - 2 /HPF [facility] Urine WBC 0-5 0 - 5 /HPF [facility] Urine Squamous Epithelial Cell 0-2 0 - 2 /HPF [facility] Urine Bacteria None Seen None Seen [facility] Hyaline Casts, Urine 0-2 0 - 2 /LPF [facility] 01/10/2025 1:33 PM EDT 01/10/2025 1:35 PM EDT Narrative [facility] - 01/10/2025 1:42 PM EDT [id number], Clean Catch us Generic External Data Provider LAB URINE ORDERAB LES Final Result [facility] [address] [place] [phone] * (ABNORMAL) Comprehensive Metabolic Panel (01/10/2025 1:28 PM EDT) Sodium 136 135 - 145 mmol/L [facility] Potassium 4.3 3.3 - 5.1 mmol/L [facility] Chloride 103 96 - 108 mmol/L [facility] Carbon Dioxide 27 22 - 29 mmol/L [facility] Anion Gap 10(L) 12 - 20 [facility] Urea Nitrogen (BUN) 12 9 - 16 mg/dL [facility] Creatinine, Serum 0.79 0.5 - 1.4 mg/dL [facility] Creatinine Clr Calc Pharmacy 107.3 [facility] Comment:eGFR (calculated fro m the MDRD study equation) and eCrCl(calculated from the Cockcroft-Gault equation) are based ondifferent parameters and may not yield comparable results.If eCrCl result is absurd, please check patient'sheight/weight. Estimated Glomerular Filt Rate >60 [facility] Comment:Chronic Kidney Disea se: Estimated GFR < 60 mL/min/1.38e5Puxyic Kidney Disease: Estimated GFR < 15 mL/min/1.73m2 Glucose 300(H) 60 - 115 mg/dL [facility] Calcium 9.3 8.4 - 10.2 mg/dL [facility] Bilirubin, Total 0.2 0.0 - 1.0 mg/dL [facility] Aspartate Amino Transferase 26 5 - 37 U/L [facility] Alanine Aminotransferase 30 0 - 40 U/L [facility] Total Protein 7.6 6.5 - 8.0 g/dL [facility] Albumin Level 3.9 3.5 - 5.0 g/dL [facility] Alkaline Phosphatase 95 39 - 117 U/L [facility] 01/10/2025 1:28 PM EDT 01/10/2025 1:35 PM EDT us Generic External Data Provider LAB BLOOD ORDERAB LES Final Result [facility] [address] [place] [phone] * (ABNORMAL) CBC auto differential (01/10/2025 1:28 PM EDT) White Blood Count 6.2 4.8 - 10.8 X10*3/uL [facility] Red Blood Count 4.41(L) 4.60 - 5.80 X10*6/uL [facility] Hemoglobin 14.2 14.0 - 18.0 g/dl [facility] Hematocrit 40.1(L) 42.0 - 52.0 % [facility] Mean Corpuscular Volume 90.9 80.0 - 98.0 fL [facility] Mean Corpuscular Hemoglobin 32.2 27.0 - 33.0 pg [facility] Mean Corpuscular HGB Conc 35.4 31.0 - 36.0 g/dl [facility] Red Cell Distribution Width 12.4 11.0 - 16.0 % [facility] Platelet Count 400 160 - 400 X10*3/uL [facility] Mean Platelet Volume 8.9(L) 9.4 - 12.4 fL [facility] Neutrophils Percent Auto 52.3 45 - 73 % [facility] Imm Gran Pct Auto 1.0(H) 0.0 - 0.4 % [facility] Lymphocytes Percent Auto 35.9 20 - 40 % [facility] Monocytes Percent Auto 7.6 2 - 11 % [facility] Eosinophils Percent Auto 2.7 0 - 4 % [facility] Basophils Percent Auto 0.5 0 - 2 % [facility] NRBC Pct Auto 0.0 0.0 - 0.2 /100WBC [facility] Neutrophils Absolute Auto 3.2 2.0 - 8.3 x10*3/uL [facility] Imm Gran Abs Auto 0.06(H) 0.00 - 0.03 X10*3/uL [facility] Lymphocytes Absolute Auto 2.2 1.2 - 4.9 X10*3/uL [facility] Monocytes Absolute Auto 0.5 0.1 - 1.2 X10*3/uL [facility] Eosinophils Absolute Auto 0.2 0.0 - 0.4 X10*3/uL [facility] Basophils Absolute Auto 0.0 0.0 - 0.2 X10*3/uL [facility] NRBC Abs Auto 0.000 0.0 - 0.012 X10*3/uL [facility] 01/10/2025 1:28 PM EDT 01/10/2025 1:35 PM EDT us Generic External Data Provider LAB BLOOD ORDERAB LES Final Result [facility] [address] [place], [place] [phone] documented in this encounter Visit Diagnoses Not on filedocumented in this encounter Care Teams Gear Shaver Set Up Operator Relationship Specialty Start Date End Date Name, MD Vern [address] [place] [address] PCP - General Internal Medicine 05/09/24 documented as of this encounter
--- OUTSIDE RECORDS SUMMARY | 2025-08-07 08:48 | XMS_ITS | Encounter Summary ---
Author Organization [employer] Address [address] [facility] 7t [place] [address] Care Team Providers Care Generation Engineer Name Role Phone Name, Vern YUAN Primary Care Provider [phone] Encounter Details Date Type Department Care Team (Late st Contact Info) Description 08/02/2025 Orders Only GENERIC EXTERNAL DATA DEPARTMENT Provider, Generic External Data Social History Tobacco Use Types Packs/Day Years [...] Description 09/18/2025 8:00 AM EST Office Visit [facility] ADULT DENTAL [address] [place] [phone] Nathaniel Peter DDS [address] [place] [address] 10/15/2025 9:15 AM EST Office Visit [facility] MEDICINE [address] [place] [address] Vern Garcia MD [address] [place] [address] 11/05/2025 8:00 AM EDT Office Visit [facility] ADULT DENTAL [address] [place] [address] Kay Martinez [address] [place] [address] documented as of this encounter Goals Goal [...] Hardwick MD documented as of this encounter Procedures Procedure Name Priority Date/Time Associated Diagnosis Comments HEMATOXYLIN AND EOSIN STAIN Routine 08/02/2025 12:01 PM EST GLUCOSE, WHOLE BLOOD Routine 08/02/2025 10:35 AM EST documented in this encounter Results * Hematoxylin and Eosin Stain (08/02/2025 12:01 PM EST) 08/02/2025 12:0 1 PM EST 08/02/2025 2:00 PM EST [facility] - 08/05/2025 4:00 PM EST ----- ------- Name: Mike Awan Age/Sex: 55/M : 1970 Unit#: [id number] Attend Dr: Kavin Lemus MD Re08/02/25 Status: [facility] Location: [facility] Disch: ----- ------- SPEC : [id number] RECD: 08/02/25-1399 STATUS: [place] NUM: [id number] CAS: 08/02/25-1201 [facility] DR: Kavin Lemus MD ENTERED: 08/02/25-140 SP TYPE: Surgical OTHR DR: Vern Garcia MD ORDERED: HE Stain/3, Gross Micro L4 Diagnosis Colon, ascending, polyp: Colonic mucosa with lymphoid aggregates and no specific change; no adenomatous dysplasia seen. Clinical History Pre-Op Dx: Screening Post-Op Dx: Colon polyp, hemorrhoid Microscopic Description Multiple microscopic sections reviewed. Material Received Ascending colon polyp Gross Description Received in formalin labeled ascending colon polyp are 4 fragments of kwan-white soft tissue, each measuring 0.2 cm in greatest dimension, which are wrapped in lens paper and entirely submitted for microscopic examination, 4 pieces in cassette [facility] IHC S/NG Disclaimer NOTE: Unless otherwise stated, all tissue is formalin-fixed and paraffin-embedded. Some or all of the immunohistochemical tests reported herein may have been developed and their performance characteristics determined by [facility]. They have not been cleared or approved by the U.S. Food and Drug Administration (FDA). However, the FDA has determined that such clearance or approval is not necessary. This laboratory is certified under the Clinical Laboratory Improvement Amendments of 1988 (CLIA) as qualified to perform high complexity clinical laboratory testing. Copies To: Kavin Lemus MD [facility] [address] [place] [phone] CONTINUED ON NEXT PAGE ----- ------- Name: Mike Awan Age/Sex: 55/M : 1970 Unit#: [id number] Attend Dr: Kavin Lemus MD Re08/02/25 Status: [facility] Location: [facility] Disch: ----- ------- SPEC : [id number] RECD: 08/02/25-1399 STATUS: [place] NUM: [id number] CAS: 08/02/25-1201 [facility] DR: Kavin Lemus MD ENTERED: 08/02/25-5925 SP TYPE: Surgical OTHR DR: Vern Garcia MD ORDERED: HE Stain/3, Gross Micro L4 Copies To: (Continued) Vern Garcia MD [facility] [address] [place] [address] ----- ------- Signed (signature on file) Pratibha Castañeda MD 08/05/25 1600 ----- ------- END OF REPORT Generic External Data Provider LAB BLOOD ORDERAB LES Final Result Performing Organization Address [facility] Co de Phone Number [facility] [address] [place] [phone] * (ABNORMAL) Glucose, Whole Blood (08/02/2025 10:35 AM EST) Glucose, Whole Blood 162(H) 60 - 115 mg/dL [facility] Comment:METER #: [id number] 08/02/2025 10:3 5 AM EST 08/02/2025 10:39 AM EST Generic External Data Provider LAB BLOOD ORDERAB LES Final Result Performing Organization Address [facility] Co de Phone Number [facility] [address] [place] [address] [phone] documented in this encounter Visit Diagnoses Not on filedocumented in this encounter Additional Health Concerns Active Problems Noted Date Diagnosed Date Help patients manage their type 2 diabetes 07/24 Patient has chronic kidney disease 07/24/2025 Patient has chronic kidney disease 07/29/2025 Patient has chronic kidney disease 08/02/2025 documented as of this encounter Care Teams Generation Engineer Relationship Specialty Start Date End Date Name, MD Vern [address] [place] [address] PCP - General Internal Medicine 05/09/24 documented as of this encounter
--- OUTSIDE RECORDS SUMMARY | 2025-08-07 08:49 | XMS_ITS | Encounter Summary ---
Author Organization [employer] Address 75 [facility] 7t [place] [address] Care Team Providers Care Wire Welder Name Role Phone Name, Vern YUAN Primary Care Provider [phone] Reason for Visit * Reason Comments Med Refill Encounter Details Date Type Department Care Team ([facility] st Contact Info) Description 05/28/2024 Refill [facility] MEDICINE [address] [place] [address] France Dunlap MD [address] [place] [address] Recurrent furunculosis Social History Tobacco Use Types [...] Description 09/18/2025 8:00 AM EST Office Visit [facility] ADULT DENTAL [address] [place] [address] Nathaniel Peter DDS [address] [place] [address] 10/15/2025 9:15 AM EST Office Visit [facility] MEDICINE [address] [place] [address] Name, MD Vern [address] [place] [address] 11/05/2025 8:00 AM EDT Office Visit [facility] ADULT DENTAL [address] [place] [phone] Kay Martinez [address] [place] [address] documented as of this encounter Visit Diagnoses Diagnosis Recurrent furunculosis documented in this encounter Care Teams Wire Welder Relationship Specialty Start Date End Date Name, MD Vern [address] [place] [address] PCP - General Internal Medicine 05/09/24 documented as of this encounter
--- OUTSIDE RECORDS SUMMARY | 2025-08-07 08:49 | XMS_ITS | Encounter Summary ---
Author Organization [email or web address] Address 75 [facility] 7t [place] [address] Care Team Providers Care Butt Maker Name Role Phone Name, Vern YUAN Primary Care Provider [phone] Reason for Visit * Reason Comments Med Refill Encounter Details Date Type Department Care Team ([facility] st Contact Info) Description 05/23/2024 Refill [facility] MEDICINE [address] [place] [address] Pop Hardwick MD [address] [place] [address] Onychomycosis Social History Tobacco Use Types Packs/Day [...] 09/18/2025 8:00 AM EST Office Visit [facility] ADULT DENTAL [address] [place] [address] Nathaniel Peter DDS [address] [place] [address] 10/15/2025 9:15 AM EST Office Visit [facility] MEDICINE [address] [place] [phone] Name, MD Vern [address] [place] [address] 11/05/2025 8:00 AM EDT Office Visit [facility] ADULT DENTAL [address] [place] [address] Kay Martinez [address] [place] [address] documented as of this encounter Visit Diagnoses Diagnosis Onychomycosis Dermatophytosis of nail documented in this encounter Care Teams Butt Maker Relationship Specialty Start Date End Date Radha, MD Vern [address] [place] [address] PCP - General Internal Medicine 05/09/24 documented as of this encounter
--- OUTSIDE RECORDS SUMMARY | 2025-08-07 08:49 | XMS_ITS | Encounter Summary ---
Author Organization [email or web address] Address [address] [facility] 7 [place] [address] Care Team Providers Care Finance Consultant Name Role Phone Name, Vern YUAN Primary Care Provider [phone] Reason for Visit * Reason Comments Med Refill Encounter Details Date Type Department Care Team ([facility] st Contact Info) Description 10/29/2024 Refill [facility] MEDICINE [address] [place] [address] France Dunlap MD [address] [place] [address] Recurrent furunculosis Social History Tobacco Use Types [...] Description 09/18/2025 8:00 AM EST Office Visit [facility] ADULT DENTAL [address] [place] [address] Nathaniel Peter DDS [address] [place] [address] 10/15/2025 9:15 AM EST Office Visit [facility] MEDICINE [address] [place] [address] Name, MD Vern [address] [place] [address] 11/05/2025 8:00 AM EDT Office Visit [facility] ADULT DENTAL [address] [place] [address] Kay Martinez [address] [place] [address] documented as of this encounter Visit Diagnoses Diagnosis Recurrent furunculosis documented in this encounter Care Teams Finance Consultant Relationship Specialty Start Date End Date Name, MD Vern [address] [place] [address] PCP - General Internal Medicine 05/09/24 documented as of this encounter
--- OUTSIDE RECORDS SUMMARY | 2025-08-07 08:49 | XMS_ITS | Clinical Summary ---
Author Organization [employer] Address [address] [place] [address] 7 [place] [address] Care Team Providers Care Alumni Secretary Name Role Phone Name, Vern YUAN Primary Care Provider [phone] Allergies Active Allergy Reactions Criticality Noted Date Comments Codeine Nausea And Vomiting 07/25/2014 Shellfish Protein-Containing Drug Products 12/27/2016 Medications cetirizine (ZyrTEC) 10 MG tablet Take 1 tablet (10 mg) by mouth in the morning. Prn. 30 tablet 01/07/20 23 Active glucose blood test strip Freestyle Lite [...] mouth before breakfast. 30 tablet 11 5 9:00 AM EST 11/01/19 25 026 Active empagliflozin- metFORMIN (Synjardy) 12.5-500 MGIndications: Type 2 diabetes mellitus with hyperglycemia, without long-term current use of insulin (HCC) Take 1 tablet by mouth with breakfast and with evening meal. 60 tablet 11 5 9:00 AM EST 11/01/19 25 026 Active tretinoin (Retin-A) 0.025 [...] FOR DRY SKIN 385 g 1 5 9:00 AM EST 01/29/20 25 Active Diclofenac Sodium 1 % gel Apply 2 g topically if needed in the morning, at noon, in the evening, and at bedtime (pain). 150 g 3 5 9:00 AM EST 05/16/20 25 Active fluticasone (Flonase) 50 MCG/ACT nasal spray INSTILL 1 SPRAY IN EACH NOSTRIL ONCE DAILY 16 g 2 5 9:00 AM EST 06/10/20 25 Active ibuprofen 600 MG tablet TAKE 1 TABLET BY MOUTH EVERY 6 HOURS NEEDED FOR MILD PAIN 40 tablet 1 07/29/20 25 Active acetaminophen (Tylenol 8 Hour) 650 MG ER tablet TAKE 1 CAPSULE BY MOUTH EVERY 8 HOURS NEEDED FOR MILD PAIN DO NOT BREAK, CRUSH, DISSOLVE OR CHEW 40 tablet 1 07/31/20 25 Active doxycycline (Vibra-Tabs) 100 MG tabletIndicati ons:Hidradenit is Take 1 tablet (100 mg) by mouth 2 times daily for 21 days. Take with a full glass of water and do not lie down for at least 30 minutes after. 42 tablet 5 2:07 PM EST 08/02/20 25 026 Active Lancets Misc. kit 1 each Once daily. 50 kit 11 07/24/20 24 025 minocycline 100 MG capsuleIndicat ions:Folliculi tis TAKE 1 CAPSULE BY MOUTH TWICE DAILY 60 capsule 01/29/20 25 025 Discontinued acetaminophen (Tylenol 8 Hour) 650 MG ER tablet Take 1 tablet (650 mg) by mouth every 8 (eight) hours if needed for mild pain. Do not crush, chew, or split. 40 tablet 1 5 9:00 AM EST 05/16/20 25 025 Discontinued ibuprofen 600 MG tablet Take 1 tablet (600 mg) by mouth every 6 (six) hours if needed for mild pain. 40 tablet 1 5 9:00 AM EST 05/16/20 025 Discontinued Active Problems Problem Noted Date Diagnosed Date [...] any medications Rx Paxlovid x 5 days, Tyrone interactions module checked, no significant interactions found. [...] Encounters Date Type Department Care Team Description 08/02/2025 2:45 PM EST Office Visit [facility] [address] [place] [phone] Pop Hardwick MD Hidradenitis (Primary Dx) 08/02/2025 Travel 08/02/2025 Orders Only GENERIC EXTERNAL DATA DEPARTMENT Provider, Generic External Data 07/31/2025 Refill [facility] [address] [address] Brigitte Bettencourt DO 07/29/[address] [address] Vern Garcia MD telephone call 07/27/2025 Refill [facility] [address] [address] Brigitte Bettencourt DO 07/24/2025 8:00 AM EST Office Visit [facility] [address] [place] [phone] Nathaniel Peter DDS Dental root caries (Primary Dx) 06/20/[address] [address] Yoly Roberto, RN 06/14/[address] [address] Vern Garcia MD Medication Question 06/11/[address] [address] Sheila Tidwell, PharmD 06/08/2025 Refill [facility] [address] [address] Vern Garcia MD 05/16/2025 8:40 AM EDT Office Visit [facility] [address] [address] Brigitte Bettencourt DO Rib pain on left side (Primary Dx); Paronychia of left middle finger; Type 2 diabetes mellitus with hyperglycemia, without long-term current use of insulin ([facility]) 05/16/2025 Telephone [facility] [address] [address] Brigitte Bettencourt DO Results 05/16/2025 Travel 05/10/2025 Orders Only [facility] External Provider, [facility] from Last 3 Months Immunizations Immunization Administration [...] 17 08/02/2025 2:59 PM EST Oxygen Saturation 95% 05/16/2025 8:41 AM EDT Inhaled Oxygen Concentration - - Weight 79.8 kg (176 lb) 08/02/2025 2:59 PM EST Height 167.6 cm (5' 6 ) 01/11/2025 11:33 AM EDT Body Mass Index 28.41 01/11/2025 11:33 AM EDT Plan of Treatment Upcoming Encounters Date Type Department Care Team (Late st Contact Info) Description 09/18/2025 8:00 AM EST Office Visit [facility] [address] [place] [address] Nathaniel Peter DDS [address] [place] [address] 10/15/2025 9:15 AM EST Office Visit [facility] [address] [place] [phone] Name, MD Vern [address] [place] [address] 11/05/2025 8:00 AM EDT Office Visit [facility] [address] [place] [address] Kay Martinez [address] [place] [address] Health Maintenance Due Date Last Done Comments CT Colonography 1971 Colonoscopy 1971 Colorectal Cancer Screening 1971 FIT DNA/Cologuard 1971 FIT 1971 FOBT 1971 Sigmoidoscopy 1971 Disability Screening 1971 Eye Exam 1981 Hepatitis A Vaccines (1 of 2 - Risk 2-dose series) 1990 Pneumococcal Vaccine: 50+ Years (2 of 2 - PCV) 2017 2016 RSV Patients and Patients Aged 60 years or older (1 - Risk 50-74 years 1-dose series) 2021 Depression Screening 08/02/2024 08/02/2023, 08/02/20 SDOH Screening [...] exists Diabetes: Urine Protein Screening 11/02/2025 11/02/2024, 10/22/2020, 10/22/2020 Alcohol/Substance Use Screening 01/11/2026 01/11/2025 Tobacco Screening 07/24/2026 07/24/2025 Dental X-Ray: Full Mouth 10/31/2027 025, 05/29/2021, 04/13/2016 DTaP/Tdap/Td Vaccines (3 - Td or Tdap) 03/12/2035 03/12/2025, 09/03/2015 Hepatitis B Vaccines Completed 02/06/2018, 07/12/2017, 06/10/2017 [...] on patient's age to complete this topic Goals Goal Patient Goal Type Associated Problems Recent Progress Patient-Stated? Author Help patients manage their type 2 diabetes Care Plan Help patients manage their type 2 diabetes Yumiko Panchal Patient has chronic kidney disease Care Plan Patient has chronic kidney disease No Yumiko Bernardo Patient has chronic kidney disease Care Plan Patient has chronic kidney disease No Karyn Leung Patient has chronic kidney disease Care Plan Patient has chronic kidney disease No Pop Hardwick MD Procedures Procedure Name Priority Date/Time Associated Diagnosis Comments HEMATOXYLIN AND EOSIN STAIN Routine 08/02/2025 12:01 PM EST GLUCOSE, WHOLE BLOOD Routine 08/02/2025 10:35 AM EST NO CHARGE VISIT Routine 07/24/2025 8:00 AM EST XR RIBS 3 VIEWS LEFT W CHEST Routine 05/16/2025 9:47 AM EDT Rib pain on left side POCT GLYCATED HEMOGLOBIN, TOTAL Routine 05/16/2025 9:36 AM EDT Type 2 diabetes mellitus with hyperglycemia, without long-term current use of insulin ([facility]) POCT GLUCOSE Routine 05/16/2025 9:36 AM EDT Type 2 diabetes mellitus with hyperglycemia, without long-term current use of insulin (CMS/HCC) XR HAND 3+ VIEWS LEFT Routine 05/10/2025 8:46 AM EDT PROPHYLAXIS - ADULT Routine 05/02/2025 8 :00 [...] Recently Relevant to Health Maintenance Results * Hematoxylin and Eosin Stain (08/02/2025 12:01 PM EST) 08/02/2025 12:0 1 PM EST 08/02/2025 2:00 PM EST [facility] - 08/05/2025 4:00 PM EST ----- ------- Name: Mike Awan Age/Sex: 55/M : 1970 Unit#: [id number] Attend Dr: Kavin Lemus MD Re08/02/25 Status: [facility] Location: [facility] Disch: ----- ------- SPEC : [id number] RECD: 08/02/25-1399 STATUS: [facility] NUM: [id number] CAS: 08/02/25-12[address] [facility] [address]: Kavin Lemus MD ENTERED: 08/02/25-140 SP TYPE: Surgical OTHR DR: Vren Garcia MD ORDERED: HE Stain/3, Gross Micro [...] microscopic examination, 4 pieces in cassette A. ([facility]) IHC S/NG Disclaimer NOTE: Unless otherwise stated, all tissue is formalin-fixed and paraffin-embedded. Some or all of the immunohistochemical tests reported herein may have been developed and their performance characteristics determined by [facility]. They have not been cleared or approved by the U.S. Food and Drug Administration (FDA). However, the FDA has determined that such clearance or approval is not necessary. This laboratory is certified under the Clinical Laboratory Improvement Amendments of 1988 (CLIA) as qualified to perform high complexity clinical laboratory testing. Copies To: Kavin Lemus MD [facility] [address] [place] [address] [id number] CONTINUED ON NEXT PAGE ----- ------- Name: LvMike Age/Sex: 55/M : 1970 Unit#: [id number] Attend Dr: Kavin Lemus MD Re08/02/25 Status: [facility] Location: [facility] Disch: ----- ------- SPEC : [id number] RECD: 08/02/25-1399 STATUS: [facility] [place] NUM: [id number] CAS: 08/02/25-12[address] [facility] [address]: Kavin Lemus MD ENTERED: 08/02/25-1404 SP TYPE: Surgical OTHR DR: Vern Garcia MD ORDERED: ELVIRA Sow/3, Gross Micro L4 Copies To: (Continued) Vern Garcia MD [address] [address] ----- ------- Signed (signature on file) Pratibha Castañeda MD 08/05/25 1600 ----- ------- END OF REPORT us Generic External Data Provider LAB BLOOD ORDERAB LES Final Result Performing Organization Address [facility]/ZIP Co de Phone Number [facility] [address] [place] [phone] * (ABNORMAL) Glucose, Whole Blood (08/02/2025 10:35 AM EST) Glucose, Whole Blood 162(H) 60 - 115 mg/dL [facility] Comment:METER #: [id number] 08/02/2025 10:3 5 AM EST 08/02/2025 10:39 AM EST Generic External Data Provider LAB BLOOD ORDERAB LES Final Result Performing Organization Address [facility] Co de Phone Number [facility] [address] [place] [phone] * XR Ribs 3 Views Left w/ Chest (05/16/2025 9:47 AM EDT) Anatomical Region Laterality Modality Radiographic Lelo ging 05/16/2025 9:47 AM EDT Narrative 05/16/2025 9:55 AM EDT [facility] [address] [place] [address] XRay Report Signed Patient: Mike Awan MR#: [id number] : 1970 Acct:[id number] Age/Sex: 54 / M ADM Date: 05/16/25 Loc: [facility] Attending Dr: Brigitte Bettencourt DO Ordering Physician: Brigitte Bettencourt DO Date of Service: 05/16/25 Procedure(s): XR ribs LT min 3V w CXR1V Accession Number(s): [id number] cc: Brigitte Bettencourt DO Reason for Exam: [...] Galindo MD in OV> 05/16/25 0952 DD/ TD/TT: 05/16/25947 Grinding Machine Tender: Procedure Note Donotuseinterpreter, Image - 05/16/[address] [address] XRay Report Signed Patient: Mike Awan#: [id number] : 1970Acct:[id number] Age/Sex: 54 / MADM Date: 05/16/25 Loc: HO.HHCX Attending Dr: Brigitte Bettencourt DO Ordering Physician: Brigitte Bettencourt DO Date of Service: 05/16/25 Procedure(s): XR ribs LT min 3V w CXR1V Accession Number(s): [id number] cc: Brigitte Bettencourt DO Reason for Exam: [...] in OV> 05/16/2552 DD/ 6 TD/TT: 05/16/25947 Grinding Machine Tender: Brigitte Bettencourt DO IMG XR PROCEDURES Final [...] AM EDT Narrative 05/10/2025 9:03 AM EDT [facility] [address] [place] [address] XRay Report Signed Patient: Mike Awan MR#: [id number] : 1970 Acct:[id number] Age/Sex: 54 / M ADM Date: 05/10/25 Loc: HO.HOSX Attending Dr: Shabbir QUEEN Ordering Physician: Shabbir Domínguez Date of Service: 05/10/25 Procedure(s): XR hand LT min 3V Accession Number(s): [id number] cc: Shabbir Domínguez; France Dunlap MD Reason [...] 05/10/25 09 DD/ 0846 TD/TT: 05/10/25 0851 Grinding Machine Tender: Procedure Note Donotuseinterpreter, Image - 05/10/2025 [facility] [address] [place] [address] XRay Report Signed Patient: Mike AwanMR#: [id number] : 1970Acct:[id number] Age/Sex: 54 / MADM Date: 05/10/25 Loc: HO.HOSX Attending Dr: Shabbir QUEEN Ordering Physician: Shabbir Domínguez Date of Service: 05/10/25 Procedure(s): XR hand LT min 3V Accession Number(s): [id number] cc: Shabbir Domínguez; France Dunlap MD Reason [...] 05/10/25 0901 DD/ 0846 TD/TT: 05/10/25 0851 Grinding Machine Tender: us [facility] External Provider IMG XR PROCEDURES Edited Result - Final * Albumin, Random Urine W/Creatinine (11/02/2024 11:38 AM EDT) Creatinine, Urine 36.90 mg/dL [facility] Microalbumin Urine <5.0 mg/L [facility] Microalbum Creatinine Ratio Ur TNP <30 ug/mg cr [facility] Comment:Unable to calculate albumin/creatinine ratio due to lowmicroalbumin or creatinine result. Urine (Urine, Random) 11/02/2024 11:38 AM EDT 11/02/2024 1:32 PM EDT us Vern Garcia MD LAB URINE ORDERABLES Final Resul t Performing Organization Address [facility] Co de Phone Number [facility] [address] [place] [phone] * Hepatitis C Antibody with Reflex to HCV, RNA, Quantitative, Real-Time PCR (06/30/2024 9:49 AM EST) Hepatitis C Antibody Nonreactive Nonreactive [facility] Comment:Antibodies to HCV no t detected; does not exclude early acuteHCV infection. Blood Venous blood specimen / Unknown 06/30/2024 9:49 AM EST 06/30/2024 9:49 AM EST us Vern Garcia MD LAB BLOOD ORDERABLES Final Resul t Performing Organization Address [facility] Co de Phone Number [facility] [address] [place] [phone] * HIV-1/2 Antigen and Antibodies, Fourth Generation, with Reflexes (06/30/2024 9:49 AM EST) HIV AB/AG Nonreactive Nonreactive [facility] Comment:HIV-1 p24 Ag and/or HIV-1/HIV-2 Ab not detected.A test result that is nonreactive does not exclude thepossibility of exposure to or infection with HIV-1 and/orHIV-2. Nonreactive results in this assay for individualswith prior exposure to HIV-1 and/or HIV-2 may be due toantigen and antibody levels that are below the limit ofdetection of this assay.The [employer] HIV Ag/Ab Combo assay result andsupplemental assay results should be interpreted inconjunction with the patient's clinical presentation,history and other laboratory results. If the results areinconsistent with clinical evidence, additional testing issuggested to confirm the result. Blood Venous blood specimen / Unknown 06/30/2024 9:49 AM EST 06/30/2024 9:49 AM EST us Vern Garcia MD LAB BLOOD ORDERABLES Final Resul t Performing Organization Address [facility] de Phone Number [facility] [address] [place] [phone] * (ABNORMAL) Lipid Panel, Standard (06/30/2024 9:49 AM EST) Triglycerides 75 <150 mg/dL [facility] Comment:Desirable Triglyceri de: less than 150 mg/dLBorderline High Triglyceride 150-199 mg/dLHigh Triglyceride: 200-499 mg/dLVery High Triglyceride: greater than or equal to 5OO mg/dL Cholesterol 213(H) <200 mg/dL [facility] Comment:Desirable Cholestero l: less than 200 mg/dLBorderline High Cholesterol: 200-239 mg/dLHigh Cholesterol: greater than 239 mg/dL LDL Cholesterol Calculated 142(H) <100 mg/dL [facility] Comment:Desirable LDL: less than 100 mg/dLNear [...] ORDERABLES Final Resul t Performing Organization Address [facility] de Phone Number [facility] [address] [place] [phone] from Last 3 Months or Most Recently Relevant to Health Maintenance Additional Health Concerns Active Problems Noted Date Diagnosed Date Help patients manage their type 2 diabetes 07/24 Patient has chronic kidney disease 07/24/2025 Patient has chronic kidney disease 07/29/2025 Patient has chronic kidney disease 08/02/[address] [place] [phone] [facility] MEDICAID STAND ADULT Care Teams Alumni Secretary Relationship Specialty Start Date End Date Name, MD Vern [address] [place] [phone] PCP - General Internal Medicine 05/09/24
== END 2025-08-07 09:41 | disposition home or self-care (01) ==
LOC: HO.HOS 08:33
DX: S62.633B Displaced fracture of distal phalanx of left middle finger, initial encounter for open fracture (principal)
CPT/HCPCS: 99213

== ENCOUNTER 2025-08-07 08:32 | Outpatient (REF) | payer MEDICARE, MEDICAID, SELFPAY ==
--- NOTE | ~2025-08-07 | XR_ITS ---
EXAMINATION: XR HAND 3 OR MORE VIEWS LEFT HISTORY: M79.642 - Pain in left hand COMPARISON: Comparison is made with the prior examination dated 06/25/2025. FINDINGS: Three views of the left hand are submitted. Osseous mineralization is normal. Again seen is a fracture of the distal phalanx of the middle finger. The fracture line remains visible. The joint spaces are preserved. The soft tissues are unremarkable. XR/XR hand LT min 3V IMPRESSION: Fracture of the distal phalanx of the middle finger without change. Electronically signed by: Nir Driscoll MD 08/07/2025 09:03 AM KOBE
== END 2025-08-07 08:33 | disposition home or self-care (01) ==
LOC: HO.HOSX 08:32
DX: Z47.89 Encounter for other orthopedic aftercare (principal); S62.633D Displaced fracture of distal phalanx of left middle finger, subsequent encounter for fracture with routine healing; X58.XXXD Exposure to other specified factors, subsequent encounter
CPT/HCPCS: 73130

== ENCOUNTER → 2025-08-07 08:54 | Outpatient (BNV) | payer MEDICARE, MEDICAID, SELFPAY | PROVIDERS: Visit Provider Radiology Diagnostic Radiology | DX: S62.633G Displaced fracture of distal phalanx of left middle finger, subsequent encounter for fracture with delayed healing (principal) | CPT/HCPCS: 73130 ==